=== PATIENT | male | born 1945 | race African-American/Black ===

== ENCOUNTER 2016-07-02 16:52 | Inpatient (IN) | payer MEDICARE ==
[~2016-07-02] VITALS: Ht 177.8 cm; Wt 58.5 kg
[2016-07-02] MEDS ORDERED: FLEET ENEMA133 ML RECTAL (17:03)
[2016-07-02] MEDS ORDERED: BISACODYL5 MG RC (17:03)
[2016-07-02 18:00] VITALS: BP 107/78
[2016-07-02 18:31] LABS: MEAN CORPUSCULAR HEMOGLOBIN 33.3 PG (27.0-31.0); MEAN CORPUSCULAR HGB CONC 34.5 G/DL (32.0-36.0); MEAN CORPUSCULAR VOLUME 97 FL (80-99); PLATELET COUNT 300 K/UL (150-450); RED BLOOD COUNT 2.79 M/UL (4.70-6.10); RED CELL DISTRIBUTION WIDTH 12.6 % (11.6-14.8); WHITE BLOOD COUNT 10.9 K/UL (4.8-10.8)
[2016-07-02 18:34] LABS: NEUTROPHILS % (AUTO) 85.7 % (45.0-75.0)
[2016-07-02 18:35] LABS: BASOPHILS % (AUTO) 0.8 % (0.0-2.0); EOSINOPHILS % (AUTO) 0.1 % (0.0-3.0); LYMPHOCYTES % (AUTO) 5.6 % (20.0-45.0); MONOCYTES % (AUTO) 7.9 % (1.0-10.0)
[2016-07-02 18:59] LABS: ALBUMIN/GLOBULIN RATIO 0.4 (1.0-2.7); CALCIUM 10.9 mg/dL (8.6-10.2); CREATININE 1.6 mg/dL (0.7-1.2); GLOMERULAR FILTRATION RATE 52.4 mL/min (>60); POTASSIUM 4.9 mEQ/L (3.4-4.9); TOTAL PROTEIN 8.3 g/dL (6.6-8.7)
[2016-07-02 19:10] LABS: CKMB 18.8 ng/mL (< 6.7)
[2016-07-02] MEDS ORDERED: Azithromycin 500 MG in D5W 275 ML IVPB ONE (19:15)
[2016-07-02] MEDS ORDERED: Cefepime HCl 2 GM in D5W 110 ML IVPB ONE (19:15)
[2016-07-02] MEDS ORDERED: Acetaminophen 650 MG SUPP RECTAL PRN (19:15)
--- NOTE | 2016-07-02 19:15 | Emergency Room Report ---
History of Present Illness General Chief Complaint: Dyspnea/Respdistress Source: EMS Present Illness HPI 70YOM sent from SNF for "elevated BUN". Patient has ?brain injury s/p cardiac arrest per EMS report. No other info available. Patient is "comfort care only." Allergies: Coded Allergies: No Known Allergies (Unverified , 07/02/16) Patient History Past Medical History: old chart reviewed, unable to obtain Past Surgical History: unable to obtain Pertinent Family History: unable to obtain Nursing Documentation-[facility] Past Medical History: No History, Except For Hx Asthma: No - ANEMIA Hx COPD: No - CONTRACTURE Hx Diabetes: Yes Hx Dialysis: No - CKD Hx Neurological Problems: No - PRESSURE ULCER Hx Seizures: No - BPH Review of Systems All Other Systems: limited - aphasic Physical Exam Vital Signs Date Time Temp Pulse Resp B/P Pulse Ox O2 Delivery O2 Flow Rate FiO2 07/02/16 16:49 117 48 116/77 97 Non-Rebreather 10.0 07/02/16 18:00 100.5 Sp02 EP Interpretation: reviewed, abnormal General Appearance: normal inspection, well appearing, non-toxic, mild distress , cachetic, Chronically Ill Head: normocephalic, atraumatic Eyes: bilateral eye EOMI, bilateral eye PERRL ENT: normal ENT inspection, hearing grossly normal, normal voice Medical Decision Making Medicare Attestation I Linus Mcqueen MD hereby attest that the medical record entry for date of service, 02/17/16 accurately reflects signatures/notations that I made in my capacity as MD when I treated/diagnosed the above listed Medicare beneficiary. I attest that this information is true, accurate and complete to the best of my knowledge. I understand that any falsification, omission, or concealment of material fact may subject me to administrative, civil, or criminal liability. This patient warrants hospital admission for extreme of age and has a condition that cannot be treated as outpatient. Diagnostic Impression: Primary Impression: Acute renal failure Qualified Codes: N17.9 - Acute kidney failure, unspecified Additional Impressions: Rhabdomyolysis Qualified Codes: M62.82 - Rhabdomyolysis Elevated liver enzymes Fever Qualified Codes: R50.9 - Fever, unspecified Pneumonia Qualified Codes: J18.1 - Lobar pneumonia, unspecified organism ER Course 70YOM sent from SNF for elevated BUN. VS notable for tachycardia, fever I confirmed with PMD Dr Bonner that patient is comfort care only/DNR/DNI, but still wants workup Labs: Leuks 11k. SCOOTER. Elevated LFTs. Rhabdomyolysis CXR with possible left sided PNA Empiric Abx given Blood, Urine Cx pending Gentle hydration for rhabdo/SCOOTER given patient is DNR/DNI Dr Bonner requesting JEFF admission at 715pm EKG Diagnostic Results Rate: tachycardiac Rhythm: NSR ST Segments: no acute changes ASA given to the pt in ED: No Rhythm Strip Diag. Results EP Interpretation: yes Rate: 120 Rhythm: NSR, no PVC's, no ectopy Chest X-Ray Diagnostic Results EP Interpretation: Yes Findings: no consolidation, no effusion, no pneumothorax, other - left sided infiltrate Number of Views: 1 Last Vital Signs Date Time Temp Pulse Resp B/P Pulse Ox O2 Delivery O2 Flow Rate FiO2 07/02/16 18:00 100.5 117 40 107/78 96 Simple Mask 6.0 Status: improved Disposition: ADMITTED INPATIENT Condition: Serious Referrals: ESHA BONNER (PCP) LINUS MCQUEEN M.D. Jul 02, 2016 19:15
[2016-07-02 19:21] LABS: BILIRUBIN,DIRECT 1.6 mg/dL (0.1-0.3)
[2016-07-02] MEDS ORDERED: Cefepime 2gm ONE (19:27)
[2016-07-02 19:45] VITALS: BP 108/53
[2016-07-02 19:45] LABS: APPEARANCE,URINE VERY CLOUDY; KETONES,URINE NEGATIVE (NEGATIVE); LEUKOCYTE ESTERASE ,URINE 2+ (NEGATIVE); NITRITE,URINE NEGATIVE (NEGATIVE); PH,URINE 5 (4.5-8.0); PROTEIN,URINE 3+ (NEGATIVE); UROBILINOGEN,URINE 4 MG/DL (0.0-1.0)
[2016-07-02] MEDS ORDERED: Azithromycin Inj IV ONE (20:17)
[2016-07-02 20:22] LABS: RBC,URINE TNTC /HPF (0 - 0); WBC,URINE TNTC /HPF (0 - 0)
[2016-07-02 20:23] LABS: BACTERIA,URINE MODERATE /HPF; SQUAMOUS EPITHELIAL CELL,UR FEW /LPF (NONE/OCC)
[2016-07-02 20:24] LABS: ICTOTEST POSITIVE
[2016-07-02 20:46] VITALS: BP 112/81
[2016-07-03 00:35] VITALS: BP 114/60
[2016-07-03] MEDS: D5NS 1,000 ML IV SCH ×3 (01:12→21:18)
[2016-07-03 04:31] VITALS: BP 120/74
[2016-07-03] MEDS: Albuterol ud Inhalation HHN PRN (05:16)
[2016-07-03] MEDS ORDERED: Vancomycin 1gm inj IVPB ONE (05:56)
[2016-07-03 06:14] LABS: MEAN CORPUSCULAR HEMOGLOBIN 30.3 PG (27.0-31.0); MEAN CORPUSCULAR HGB CONC 31.8 G/DL (32.0-36.0); MEAN CORPUSCULAR VOLUME 95 FL (80-99); MEAN PLATELET VOLUME 7.8 FL (6.5-10.1); PLATELET COUNT 308 K/UL (150-450); RED BLOOD COUNT 2.47 M/UL (4.70-6.10); WHITE BLOOD COUNT 11.3 K/UL (4.8-10.8)
[2016-07-03] MEDS: Vancomycin 1gm/D5W 275ml IVPB SCH ×2 (06:14)
[2016-07-03 06:28] LABS: CALCIUM 9.6 mg/dL (8.6-10.2); CREATININE 1.7 mg/dL (0.7-1.2); GLOMERULAR FILTRATION RATE 48.8 mL/min (>60); POTASSIUM 4.1 mEQ/L (3.4-4.9)
[2016-07-03 07:27] LABS: ANISOCYTOSIS 1+; BAND NEUTROPHILS % (MANUAL) 1 % (0-8); BASOPHILS % (MANUAL) 0 % (0-2); EOSINOPHILS % (MANUAL) 0 % (0-3); HYPOCHROMASIA 3+; LYMPHOCYTES % (MANUAL) 10 % (20-45); NEUTROPHILS % (MANUAL) 86 % (45-75); PLATELET ESTIMATE ADEQUATE; PLATELET MORPHOLOGY NORMAL; TOTAL CELLS COUNTED 100
[2016-07-03 08:00] VITALS: BP 108/63
[2016-07-03 08:36] LABS: MEAN CORPUSCULAR HEMOGLOBIN 30.6 PG (27.0-31.0); MEAN CORPUSCULAR VOLUME 96 FL (80-99); PLATELET COUNT 299 K/UL (150-450); RED BLOOD COUNT 2.48 M/UL (4.70-6.10); RED CELL DISTRIBUTION WIDTH 12.9 % (11.6-14.8); WHITE BLOOD COUNT 10.9 K/UL (4.8-10.8)
[2016-07-03 08:50] LABS: ANISOCYTOSIS 1+; BAND NEUTROPHILS % (MANUAL) 1 % (0-8); BASOPHILS % (MANUAL) 0 % (0-2); EOSINOPHILS % (MANUAL) 0 % (0-3); HYPOCHROMASIA 3+; LYMPHOCYTES % (MANUAL) 7 % (20-45); NEUTROPHILS % (MANUAL) 85 % (45-75); PLATELET ESTIMATE ADEQUATE; PLATELET MORPHOLOGY NORMAL; SPHEROCYTES 1+; TOTAL CELLS COUNTED 100
[2016-07-03 09:15] LABS: TROPONIN I < 0.30 ng/mL (<=0.30)
[2016-07-03] MEDS: Heparin 5000 units/ml inj SUBQ SCH ×2 (09:42→21:27)
--- NOTE | 2016-07-03 10:09 | Diagnostic Imaging Report ---
Indication: Status post nasogastric tube placement Technique: Supine view of the abdomen Comparison: None Findings: Nasogastric tube tip projects at the level of the distal esophagus. Prominent gas-filled large and small bowel loops are seen in the left upper quadrant. Infiltrates are seen in the left lung base Impression: High position of nasogastric tube, nasogastric. This critical value was previously phoned to patient's nurse Other findings as noted
[2016-07-03] MEDS ORDERED: D5W 275ml ONE (10:27)
[2016-07-03] MEDS ORDERED: NS Irrig 1000ml ONE (10:27)
[2016-07-03] MEDS ORDERED: Sterile Water Irrig 1000ml IRRIG ONE (10:27)
[2016-07-03] MEDS ORDERED: NS 275ml ONE (10:27)
[2016-07-03] MEDS ORDERED: D5NS 1000ml IV ONE (10:27)
[2016-07-03] MEDS ORDERED: Tubing IV Secondary IV ONE (10:27)
--- NOTE | 2016-07-03 11:02 | Diagnostic Imaging Report ---
Indication: Status post nasogastric tube insertion. Shortness of Technique: One view of the chest Comparison: 07/02/2016 Findings: Interim placement of a nasogastric tube, tip which projects at the level of the distal esophagus. Interim development of consolidation of the left mid and lower lung. Right lung and pleural space remain clear. Right arm PICC remains. Lungs remain hyperinflated Impression: High position of nasogastric tube, the distal esophagus. Further advancement recommended. This was discussed by phone with patient's nurse at the time of interpretation There are development of infiltrates in the left mid and lower lung, consistent with pneumonia.
--- NOTE | 2016-07-03 11:02 | Diagnostic Imaging Report ---
Indication: Shortness of breath Technique: One view of the chest Comparison: none Findings: The patient is rotated to the left. Lungs are hyperinflated. Some atelectasis and possibly consolidation is seen in the retrocardiac region. Lungs and pleural spaces otherwise clear. Dated The heart is upper limits normal in size. Aorta is elongated and tortuous. Right arm PICC has its tip at the level of the upper superior vena cava. Impression: Retrocardiac atelectasis and possibly some consolidation. Correlate with clinical findings Hyperinflation, likely COPD PICC
[2016-07-03 12:00] VITALS: BP 107/61
[2016-07-03] MEDS ORDERED: Amiodarone 200mg tab NG SCH (12:00)
[2016-07-03 16:00] VITALS: BP 118/74
--- NOTE | 2016-07-03 16:38 | Diagnostic Imaging Report ---
Indication: Abnormal renal function test Technique: Grayscale and duplex images of the kidneys, retroperitoneum, and bladder were obtained. Comparison:None Findings: Right kidney measures 10.4 cm in length. Left kidney measures 10.4 cm in length. Both kidneys demonstrate increased echogenicity. A 4 mm calcification is seen in the right kidney. It is uncertain whether this is parenchymal or calyceal. No hydronephrosis. No focal abnormality. Normal inferior vena cava. Bladder is normal. Impression: Negative for hydronephrosis Mildly increased bilateral renal echogenicity, may indicate early medical renal disease Calcification in the left kidney, may reflect either parenchymal calcification or nonobstructive calyceal calculus.
--- NOTE | 2016-07-03 16:43 | Diagnostic Imaging Report ---
Indication: Post nasogastric tube repositioning Technique: One view of the upper abdomen Comparison: One hour earlier Findings: Interim advancement of previously demonstrated malposition nasogastric tube, tip now projecting at level gastric fundus, proximal port of that expected region of the gastric esophageal junction. Other findings are unchanged. Impression: Improved position of nasogastric tube
[2016-07-03] MEDS: Cefepime HCl 1 GM in D5W 55 ML IVPB SCH (18:15)
--- NOTE | 2016-07-03 18:28 | Consultation ---
DATE OF CONSULTATION: NEPHROLOGY CONSULTATION ATTENDING PHYSICIAN: Washington Bonner M.D. REASON FOR CONSULTATION: Elevated BUN and creatinine. HISTORY OF PRESENT ILLNESS: This is a 70-year-old male from [facility] [place] was transferred to the hospital due to elevated BUN and creatinine. The patient is a DNR which was verified with the patient for the family. The patient is unable to give any further history. As stated above, the patient was transferred to the hospital due to elevation of BUN and creatinine. PAST MEDICAL HISTORY: 1. Chronic obstructive pulmonary disease. 2. Anoxic encephalopathy. 3. Decubitus ulcer. 4. Benign prostatic hypertrophy 5. Type 2 diabetes mellitus. 6. History of cocaine abuse and alcohol abuse. 7. Metabolic acidosis. MEDICATIONS: TPN, Colace, senna, milk of magnesia, albuterol inhalation ALLERGIES: No known drug allergies. FAMILY HISTORY: Unable to obtain. SOCIAL HISTORY: Unable to obtain. REVIEW OF SYSTEMS: Unable to obtain. PHYSICAL EXAMINATION: GENERAL: This is an elderly cachectic male, who is in no acute distress. VITAL SIGNS: Blood pressure 108/63, pulse 160 with sinus tachycardia, temperature 97.3 axillary. HEENT: The head is normocephalic and atraumatic. Pupils are equal, round, and reactive to light and accommodation. NECK: Supple. Trachea midline. There was no lymphadenopathy or thyromegaly. LUNGS: Few bilateral rhonchi. CHEST: Has pigeon chest. CARDIAC: Tachycardia. S1 and S2. No rubs, murmurs, or gallops. ABDOMEN: Soft and nontender. Bowel sounds were active. EXTREMITIES: He has multiple contractures. No clubbing, cyanosis, or edema. NEUROLOGICAL: He is obtunded. There were no gross focal findings. LABORATORY AND ANCILLARY DATA: CBC on admission, his white count was 10,900, which is unchanged. Since admission hematocrit 26.9, today 23.7. Admission BUN 84, today 86. Creatinine 1.6, today 1.7. Urinalysis, 5 + occult blood, sediment shows 2+ leukocyte esterase, too numerous to count RBCs, too numerous to count white blood cells. Abdominal x-ray, high position of nasogastric tube. ASSESSMENT: 1. Prerenal azotemia. 2. Urosepsis. 3. Chronic obstructive pulmonary disease. 4. Anoxic encephalopathy. 5. Decubitus ulcer. 6. Benign prostatic hypertrophy 7. Type 2 diabetes mellitus. 8. History of cocaine abuse and alcohol abuse. 9. Metabolic acidosis. PLAN: 1. IV fluids rehydration. 2. IV antibiotics. 3. I will follow together with Dr. Bonner. Thank you, Dr. Bonner, for letting me to participate in the care of this patient. Campbell Plascencia M.D. DR: Chencho JOB#: [id number] CC:
--- NOTE | 2016-07-03 19:47 | History and Physical Report ---
DATE OF ADMISSION: 07/02/2016 REASON FOR ADMISSION: Acute renal failure and hypotension. HISTORY OF PRESENT ILLNESS: The patient is a 70-year-old male, sent in for correction, noted to have worsening BUN and creatinine. The patient has altered mental status. I discussed with his sister who did not want any aggressive measures but did want him to be further evaluated by EEG and did consent to a GT. The patient was therefore transferred due to worsening renal function, the patient with acute on chronic renal failure with concern for mild rhabdomyolysis, fever, and also noted to have pneumonia on x-ray. The patient unable to give much in the way of history. The patient had been residing at [facility] on TPN and currently do not want tube placement. The patient has multiple medical problems and multiple medical issues. PAST MEDICAL HISTORY: Notable for pressure ulcers, chronic kidney disease, contractures, anemia, altered mental status, chronic encephalopathy, benign prostatic hyperplasia. MEDICATIONS: Reviewed. ALLERGIES: Reviewed REVIEW OF SYSTEMS: Difficult to obtain. PHYSICAL EXAMINATION: GENERAL: The patient is an ill appearing male, overall chronically ill and thin. VITAL SIGNS: O2 saturation 98% on two liters, pulse 106, respiratory rate 22, temperature 97.3, blood pressure 108/63. HEENT: Fairly negative. Oropharynx is dry NECK: Supple. No adenopathy. LUNGS: With moderate breath sounds. Scattered rhonchi. CARDIAC: S1 and S2, tachycardiac without murmurs, rubs, or gallops. ABDOMEN: Soft, thin, nontender, and nondistended. EXTREMITIES: No cyanosis, clubbing, or edema. NEUROLOGIC: Grossly nonfocal, withdrawn and nonverbal. LABORATORY DATA: Lab data reviewed. White cell count 10.9, hemoglobin 10.6, hematocrit 33.7, platelets normal. all other lab data reviewed BUN and creatinine 86 and 1.7. Sodium 139, potassium 4.1, bicarbonate 18. Troponin is negative. Liver enzymes are all elevated. IMPRESSION: 1. Possible rhabdomyolysis. 2. Acute on chronic renal failure. 3. Failure to thrive. 4. Evidence of transaminitis possibly due to TPN use. 5. Altered mental status. 6. Chronic encephalopathy. 7. Chronic debility. 8. Evidence of pneumonia. RECOMMENDATIONS: 1. Antibiotics as prescribed. 2. NG tube placement and thereafter G-tube placement as per GI. 3. ID called. 4. Renal called. 5. Empiric antibiotics for correction-acquired infection. 6. Followup renal parameters and monitor clinically for further changes. 7. Nebulized therapy and close inpatient evaluation. 8. The patient is Do Not Resuscitate as per wishes of his sister and we will followup clinically and update her as to status and plan of care Washington Bonner M.D. DR: Mehran JOB#: [id number] CC: JOSE E
[2016-07-03 20:00] VITALS: BP 131/72
--- NOTE | 2016-07-03 20:51 | Wound Care Consultation ---
Wound Assessment Wound Assessment #1: Wound Present on Admission: Yes New Wound: No Status Change of Wound: No Wound Location Body Site: sacral Wound Type: pressure ulcer Garry Test: Does not Garry Pressure Ulcer Stage: IV/unstageable Wound Thickness: Full Thickness Wound Length: 6.5 Wound Width: 13.0 Wound Depth: utd Percent of Wound Bed Yellow/Wh: 100 Wound Drainage Description: Serosanguineous Wound Drainage Amount: Moderate Wound Drainage Odor: Mild Odor Tissue Surrounding Wound: Macerated Wound General Appearance: Draining, Necrotic Wound Assessment #2: Wound Number: #2 Wound Present on Admission: Yes New Wound: No Status Change of Wound: No Wound Location Body Site Modif: left Wound Location Body Site: ischial tuberosity Wound Type: pressure ulcer Garry Test: Does not Garry Pressure Ulcer Stage: IV/unstageable Wound Thickness: Full Thickness Wound Length: 5.0 Wound Width: 4.0 Wound Depth: utd Percent of Wound Laird/Red: 30 Percent of Wound Bed Yellow/Wh: 70 Wound Drainage Description: Serosanguineous Wound Drainage Amount: Moderate Wound Drainage Odor: Mild Odor Tissue Surrounding Wound: Macerated Wound General Appearance: Draining Wound Assessment #3: Wound Number: #3 Wound Present on Admission: Yes New Wound: No Status Change of Wound: No Wound Location Body Site Modif: left Wound Location Body Site: buttocks Wound Type: pressure ulcer Garry Test: Does not Garry Pressure Ulcer Stage: III Wound Thickness: Full Thickness Wound Length: 2.0 Wound Width: 2.5 Wound Depth: 0.3 Percent of Wound Laird/Red: 100 Wound Drainage Description: Serosanguineous Wound Drainage Amount: Moderate Wound Drainage Odor: None/Absent Tissue Surrounding Wound: Macerated Wound General Appearance: Reddened, Well Approximated, Draining Wound Assessment #4: Wound Number: #4 Wound Present on Admission: Yes New Wound: No Status Change of Wound: No Wound Location Body Site Modif: left Wound Location Body Site: elbow Wound Type: pressure ulcer Garry Test: Does not Garry Pressure Ulcer Stage: III Wound Thickness: Full Thickness Wound Length: 2.0 Wound Width: 2.5 Wound Depth: 0.3 Percent of Wound Laird/Red: 100 Wound Drainage Description: Serosanguineous Wound Drainage Amount: Scant Wound Drainage Odor: None/Absent Tissue Surrounding Wound: Erythemic Wound General Appearance: Reddened Wound Assessment #5: Wound Number: #5 Wound Present on Admission: Yes New Wound: No Status Change of Wound: No Wound Location Body Site Modif: left Wound Location Body Site: heel Wound Type: pressure ulcer Garry Test: Does not Garry Pressure Ulcer Stage: deep tissue injury Wound Thickness: Full Thickness Wound Length: 3.5 Wound Width: 4.0 Wound Depth: utd Percent of Wound Purple/Maroon: 100 Wound Drainage Amount: None Wound Drainage Odor: None/Absent Tissue Surrounding Wound: Intact Wound General Appearance: Asymptomatic Wound Assessment #6: Wound Number: #6 Wound Present on Admission: Yes New Wound: No Status Change of Wound: No Wound Location Body Site Modif: left Wound Location Body Site: ear Wound Type: pressure ulcer Garry Test: Does not Garry Pressure Ulcer Stage: IV/unstageable Wound Thickness: Full Thickness Wound Length: 1.0 Wound Width: 0.8 Wound Depth: utd Percent of Wound Black/Brown: 100 Wound Drainage Amount: None Wound Drainage Odor: None/Absent Tissue Surrounding Wound: Indurated Wound Assessment #7: Wound Number: #7 Wound Present on Admission: Yes New Wound: No Status Change of Wound: No Wound Location Body Site Modif: right Wound Location Body Site: ear Wound Type: pressure ulcer Garry Test: Does not Garry Pressure Ulcer Stage: IV/unstageable Wound Thickness: Full Thickness Wound Length: 2.0 Wound Width: 1.0 Wound Depth: utd Percent of Wound Black/Brown: 100 Wound Drainage Description: Serosanguineous Wound Drainage Amount: Scant Wound Drainage Odor: None/Absent Tissue Surrounding Wound: Macerated Wound General Appearance: Blackened, Draining Wound Comment #1 Sacral stage IV/unstageable pressure ulcer #2 Left ischial tuberosity stage IV/unstageable pressure ulcer #3 Left buttock stage III pressure ulcer #4 Left elbow stage III pressure ulcer #5 Left heel DTI pressure ulcer #6 Left ear stage IV/unstageable pressure ulcer #7 Right ear stage IV/unstageable pressure ulcer Recommendation -Sacral area and Left ischial tuberosity Cleanse with saline, pat dry, apply Therahoney gel to wound bed, apply 4x4 gauze cover with Bordered gauze daily and PRN soiled/dislodged -Left buttock,Left elbow, left ear and right ear Cleanse with saline, pat dry, apply Triad cream, cover with Bordered gauze daily and PRN soiled/dislodged -Left heel DTI Cleanse with saline, pat dry, apply skin Barrier film, cover with bordered gauze Q3 day and PRN soiled/dislodged -Turn and reposition -Keep clean and dry -Optimize nutrition -Low air loss mattress -Offload both heels -Heel protector on both heels -Assess and f/u accordingly for any changes YOKASTA BLAIR RN Jul 03, 2016 20:51
[2016-07-03] MEDS: Amiodarone 200mg tab NG SCH (21:18)
[2016-07-03] MEDS: Vitamin A&D Oint 2oz Tube TOPIC SCH (23:29)
[2016-07-04 00:51] VITALS: BP 117/73
[2016-07-04] MEDS: Vancomycin 1gm/D5W 275ml IVPB SCH ×2 (03:00)
[2016-07-04 04:00] VITALS: BP 121/73
[2016-07-04 05:39] LABS: MEAN CORPUSCULAR HEMOGLOBIN 31.1 PG (27.0-31.0); MEAN CORPUSCULAR VOLUME 94 FL (80-99); PLATELET COUNT 280 K/UL (150-450); RED BLOOD COUNT 2.97 M/UL (4.70-6.10); RED CELL DISTRIBUTION WIDTH 14.2 % (11.6-14.8); WHITE BLOOD COUNT 11.4 K/UL (4.8-10.8)
[2016-07-04 06:24] LABS: ANION GAP 18 (5-15); CALCIUM 9.5 mg/dL (8.6-10.2); CARBON DIOXIDE 17 mEQ/L (20-30); CHLORIDE 111 mEQ/L (98-107); CREATININE 1.4 mg/dL (0.7-1.2); GLOMERULAR FILTRATION RATE > 60 mL/min (>60); HEMOLYSIS 1; MAGNESIUM 2.3 mg/dL (1.7-2.5); POTASSIUM 3.4 mEQ/L (3.4-4.9); SODIUM 146 mEQ/L (135-145)
[2016-07-04] MEDS: D5NS 1,000 ML IV SCH (07:06)
[2016-07-04 08:00] VITALS: BP 130/70
--- NOTE | 2016-07-04 08:10 | Pulmonology Progress Note ---
Assessment/Plan Assessment/Plan IMPRESSION: 1. Possible rhabdomyolysis. 2. Acute on chronic renal failure. 3. Failure to thrive. 4. Evidence of transaminitis possibly due to TPN use. 5. Altered mental status. 6. Chronic encephalopathy. 7. Chronic debility. 8. Evidence of pneumonia. 9. aspiration 10. protein calorie malnutrition PLAN IV antibiotic IV hydration meds NGT GI ID DNI await family response aspiration precautions impression, plan, and exam edited and reviewed in detail care discussed with RN Subjective ROS Limited/Unobtainable: Yes Allergies: Coded Allergies: No Known Allergies (Unverified , 07/02/16) Subjective message left for sister no response yet previously agreed to GT and wanted EEG Objective Last 24 Hour Vital Signs Date Time Temp Pulse Resp B/P Pulse Ox O2 Delivery O2 Flow Rate FiO2 07/04/16 04:00 98.6 79 24 121/73 99 Nasal Cannula 3.0 07/04/16 03:51 81 07/04/16 00:51 98.1 88 28 117/73 99 Nasal Cannula 3.0 07/03/16 23:42 93 07/03/16 20:16 95 07/03/16 20:00 98.1 96 32 131/72 97 Nasal Cannula 3.0 07/03/16 19:00 Nasal Cannula 2.0 07/03/16 19:00 105 32 Nasal Cannula 2.0 07/03/16 19:00 98 Nasal Cannula 2.0 07/03/16 16:04 104 07/03/16 16:00 98.2 105 30 118/74 99 Nasal Cannula 6.0 07/03/16 12:00 98.1 107 26 107/61 95 Nasal Cannula 3.0 07/03/16 11:21 103 07/03/16 09:24 Simple Mask 6.0 07/03/16 08:21 105 Intake and Output 07/03/16 07/04/16 18:59 06:59 Intake Total 1495.000 ml 1617.416 ml Output Total 1000 ml 1000 ml Balance 495.000 ml 617.416 ml IV Total 995.000 ml 1567.416 ml Blood Product 500 ml Other 50 ml Output Urine Total 1000 ml 1000 ml Objective GENERAL: The patient is an ill appearing male, overall chronically ill and thin. HEENT: Fairly negative. Oropharynx is dry NECK: Supple. No adenopathy. LUNGS: With moderate breath sounds. some rhonchi. CARDIAC: S1 and S2, RRR without murmurs, rubs, or gallops. ABDOMEN: Soft, thin, nontender, and nondistended. EXTREMITIES: No cyanosis, clubbing, or edema. NEUROLOGIC: Grossly nonfocal, withdrawn and nonverbal. Microbiology Date/Time Source Procedure Growth Status 07/02/16 18:00 Blood Blood Culture - Preliminary NO GROWTH AFTER 24 HOURS Resulted 07/02/16 17:45 Blood Blood Culture - Preliminary NO GROWTH AFTER 24 HOURS Resulted 07/02/16 18:00 Urine,Clean Catch Urine Culture - Preliminary NO GROWTH Resulted 07/02/16 18:20 Rectum VRE Culture - Final NO VANCOMYCIN RESISTANT ENTEROCOCCUS ... Complete Laboratory Tests 07/03/16 08:10: White Blood Count 10.9H, Red Blood Count 2.48L, Hemoglobin 7.6L, Hematocrit 23.7L, Mean Corpuscular Volume 96, Mean Corpuscular Hemoglobin 30.6, Mean Corpuscular Hemoglobin Concent 32.0, Red Cell Distribution Width 12.9, Platelet Count 299, Mean Platelet Volume 8.0, Neutrophils (%) (Auto) , Lymphocytes (%) ( Auto) , Monocytes (%) (Auto) , Eosinophils (%) (Auto) , Basophils (%) (Auto) , Differential Total Cells Counted 100, Neutrophils % (Manual) 85H, Lymphocytes % (Manual) 7L, Monocytes % (Manual) 7, Eosinophils % (Manual) 0, Basophils % ( Manual) 0, Band Neutrophils 1, Platelet Estimate Adequate, Platelet Morphology Normal, Hypochromasia 3+, Anisocytosis 1+, Spherocytes 1+, Troponin I < 0.30 07/04/16 04:00: White Blood Count 11.4H, Red Blood Count 2.97L, Hemoglobin 9.2L, Hematocrit 28.0L, Mean Corpuscular Volume 94, Mean Corpuscular Hemoglobin 31.1H, Mean Corpuscular Hemoglobin Concent 33.0, Red Cell Distribution Width 14.2, Platelet Count 280, Mean Platelet Volume 8.0, Neutrophils (%) (Auto) , Lymphocytes (%) ( Auto) , Monocytes (%) (Auto) , Eosinophils (%) (Auto) , Basophils (%) (Auto) , Neutrophils % (Manual) [Pending], Lymphocytes % (Manual) [Pending], Platelet Estimate [Pending], Platelet Morphology [Pending], Sodium Level 146H, Potassium Level 3.4, Chloride Level 111H, Carbon Dioxide Level 17L, Anion Gap 18H, Blood Urea Nitrogen 72H, Creatinine 1.4H, Estimat Glomerular Filtration Rate > 60, Glucose Level 128H, Calcium Level 9.5, Magnesium Level 2.3 Current Medications Medications (Trade) Dose Ordered Sig/Alex Route PRN Reason Start Time Stop Time Status Last Admin Dose Admin Albuterol Sulfate (Proventil) 2.5 mg Q4H PRN HHN while awake 07/03/16 00:30 07/08/16 00:29 07/03/16 05:16 Amiodarone HCl (Cordarone) 200 mg EVERY 12 HOURS NG 07/03/16 21:00 08/02/16 20:59 07/03/16 21:18 Cefepime HCl/ Dextrose (Maxipime/D5W) 55 ml @ 110 mls/hr Q24H IVPB 07/03/16 18:00 07/10/16 17:59 07/03/16 18:15 Dextrose/Sodium Chloride 1,000 ml @ 100 mls/hr Q10H IV 07/03/16 02:00 08/02/16 01:59 07/04/16 07:06 Heparin Sodium (Porcine) (Heparin 5000 units/ml) 5,000 units EVERY 12 HOURS SUBQ 07/03/16 09:00 08/02/16 08:59 07/03/16 21:27 Morphine Sulfate (Morphine Sulfate) 2 mg Q3H PRN IVP PAIN 4-10 07/03/16 11:45 07/10/16 11:44 Vancomycin HCl 1 ea 1 ea DAILY PRN MISC Per rx protocol 07/03/16 01:30 08/02/16 01:29 Vancomycin HCl/ Dextrose (Vancomycin/D5W) 275 ml @ 183.708 mls/hr Q24H IVPB 07/03/16 03:00 07/08/16 02:59 07/04/16 03:00 Vitamin A/Vitamin D (A & D Oint) 1 applic EVERY 12 HOURS TOPIC 07/03/16 23:00 08/02/16 22:59 07/03/16 23:29 ESHA BEY Jul 04, 2016 08:10
[2016-07-04] MEDS: Amiodarone 200mg tab NG SCH ×2 (08:56→21:10)
[2016-07-04] MEDS: Heparin 5000 units/ml inj SUBQ SCH ×2 (08:59→21:11)
[2016-07-04] MEDS: Vitamin A&D Oint 2oz Tube TOPIC SCH ×2 (09:00→21:23)
--- NOTE | 2016-07-04 09:23 | Nephrology Progress Note ---
Assessment/Plan Plan 1. 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 Urosepsis. 4. Chronic obstructive pulmonary disease. 4. Anoxic encephalopathy. 5. Decubitus ulcer. 6. Benign prostatic hypertrophy 7. Type 2 diabetes mellitus. 8. History of cocaine abuse and alcohol abuse. 9. Metabolic acidosis plan change IVF to D51/2NS @75 cc/h monitor I/O, eelctrolytes continue Abx Subjective Subjective No acute event Objective Objective Last 24 Hour Vital Signs Date Time Temp Pulse Resp B/P Pulse Ox O2 Delivery O2 Flow Rate FiO2 07/04/16 08:37 99 Nasal Cannula 2.0 07/04/16 08:37 Nasal Cannula 2.0 07/04/16 08:36 81 24 Nasal Cannula 2.0 07/04/16 08:00 97.2 87 20 130/70 97 Nasal Cannula 2.0 07/04/16 04:00 98.6 79 24 121/73 99 Nasal Cannula 3.0 07/04/16 03:51 81 07/04/16 00:51 98.1 88 28 117/73 99 Nasal Cannula 3.0 07/03/16 23:42 93 07/03/16 20:16 95 07/03/16 20:00 98.1 96 32 131/72 97 Nasal Cannula 3.0 07/03/16 19:00 Nasal Cannula 2.0 07/03/16 19:00 105 32 Nasal Cannula 2.0 07/03/16 19:00 98 Nasal Cannula 2.0 07/03/16 16:04 104 07/03/16 16:00 98.2 105 30 118/74 99 Nasal Cannula 6.0 07/03/16 12:00 98.1 107 26 107/61 95 Nasal Cannula 3.0 07/03/16 11:21 103 07/03/16 09:24 Simple Mask 6.0 Intake and Output 07/03/16 07/04/16 18:59 06:59 Intake Total 1495.000 ml 1617.416 ml Output Total 1000 ml 1000 ml Balance 495.000 ml 617.416 ml IV Total 995.000 ml 1567.416 ml Blood Product 500 ml Other 50 ml Output Urine Total 1000 ml 1000 ml Laboratory Tests 07/04/16 04:00: White Blood Count 11.4H, Red Blood Count 2.97L, Hemoglobin 9.2L, Hematocrit 28.0L, Mean Corpuscular Volume 94, Mean Corpuscular Hemoglobin 31.1H, Mean Corpuscular Hemoglobin Concent 33.0, Red Cell Distribution Width 14.2, Platelet Count 280, Mean Platelet Volume 8.0, Neutrophils (%) (Auto) , Lymphocytes (%) ( Auto) , Monocytes (%) (Auto) , Eosinophils (%) (Auto) , Basophils (%) (Auto) , Neutrophils % (Manual) [Pending], Lymphocytes % (Manual) [Pending], Platelet Estimate [Pending], Platelet Morphology [Pending], Sodium Level 146H, Potassium Level 3.4, Chloride Level 111H, Carbon Dioxide Level 17L, Anion Gap 18H, Blood Urea Nitrogen 72H, Creatinine 1.4H, Estimat Glomerular Filtration Rate > 60, Glucose Level 128H, Calcium Level 9.5, Magnesium Level 2.3 Height (Feet): 5 Height (Inches): 10.00 Weight (Pounds): 150 Objective NAD bilat basilar crackles+ S1,S2,RRR, no M/R/G soft, non tender, BS+ no edema CALHOUN,LUCRETIA Jul 04, 2016 09:23
[2016-07-04 09:27] LABS: BAND NEUTROPHILS % (MANUAL) 0 % (0-8); BASOPHILS % (MANUAL) 0 % (0-2); EOSINOPHILS % (MANUAL) 0 % (0-3); LYMPHOCYTES % (MANUAL) 7 % (20-45); NEUTROPHILS % (MANUAL) 91 % (45-75); PLATELET ESTIMATE ADEQUATE; PLATELET MORPHOLOGY NORMAL; TOTAL CELLS COUNTED 100
[2016-07-04 09:28] LABS: HYPOCHROMASIA 1+
[2016-07-04] MEDS: D5 1/2NS 1,000 ML IV SCH ×2 (11:40→23:41)
[2016-07-04 12:01] VITALS: BP 124/78
[2016-07-04] MEDS: Albuterol ud Inhalation HHN PRN (14:30)
[2016-07-04 16:12] VITALS: BP 122/77
[2016-07-04] MEDS: Cefepime HCl 1 GM in D5W 55 ML IVPB SCH (17:20)
--- NOTE | 2016-07-04 19:52 | General Progress Note ---
Assessment/Plan Problem List: (1) Fever ICD Codes: R50.9 - Fever, unspecified SNOMED: 038263182 Qualifiers: Qualified Codes: R50.9 - Fever, unspecified (2) Acute renal failure ICD Codes: N17.9 - Acute kidney failure, unspecified SNOMED: 37636179 Qualifiers: Qualified Codes: N17.9 - Acute kidney failure, unspecified (3) Pneumonia ICD Codes: J18.9 - Pneumonia, unspecified organism SNOMED: 621931217, 444527014 Qualifiers: Qualified Codes: J18.1 - Lobar pneumonia, unspecified organism (4) Elevated liver enzymes ICD Codes: R74.8 - Abnormal levels of other serum enzymes SNOMED: 644409960, 143238894 (5) Rhabdomyolysis ICD Codes: M62.82 - Rhabdomyolysis SNOMED: 095708293 Qualifiers: Qualified Codes: M62.82 - Rhabdomyolysis Status: stable, unchanged Assessment/Plan ivf ngt feeds iv abx follow up cultures monitor labs skin care Subjective ROS Limited/Unobtainable: Yes Constitutional: Reports: weakness HEENT: Reports: no symptoms Cardiovascular: Reports: no symptoms Respiratory: Reports: shortness of breath Gastrointestinal/Abdominal: Reports: difficulty swallowing, poor appetite, poor fluid intake Genitourinary: Reports: no symptoms Neurologic/Psychiatric: Reports: pre-existing deficit Endocrine: Reports: no symptoms Hematologic/Lymphatic: Reports: anemia Allergies: Coded Allergies: No Known Allergies (Unverified , 07/02/16) All Systems: reviewed and negative except above Subjective events noted. chart review. tolerating ngt feeds. awake but does not answer questions or follow commands. Objective Last 24 Hour Vital Signs Date Time Temp Pulse Resp B/P Pulse Ox O2 Delivery O2 Flow Rate FiO2 07/04/16 16:12 98.9 100 19 122/77 99 Nasal Cannula 3.0 07/04/16 16:00 102 07/04/16 14:40 110 25 99 Nasal Cannula 3.0 32 07/04/16 14:30 100 25 98 Nasal Cannula 3.0 32 07/04/16 12:01 97.4 87 19 124/78 98 Nasal Cannula 2.0 07/04/16 12:00 83 07/04/16 08:37 99 Nasal Cannula 2.0 07/04/16 08:37 Nasal Cannula 2.0 07/04/16 08:36 81 24 Nasal Cannula 2.0 07/04/16 08:00 83 07/04/16 08:00 97.2 87 20 130/70 97 Nasal Cannula 2.0 07/04/16 04:00 98.6 79 24 121/73 99 Nasal Cannula 3.0 07/04/16 03:51 81 07/04/16 00:51 98.1 88 28 117/73 99 Nasal Cannula 3.0 07/03/16 23:42 93 07/03/16 20:16 95 07/03/16 20:00 98.1 96 32 131/72 97 Nasal Cannula 3.0 Intake and Output 07/03/16 07/04/16 19:00 07:00 Intake Total 1495.000 ml 1517.416 ml Output Total 1000 ml 1000 ml Balance 495.000 ml 517.416 ml IV Total 995.000 ml 1467.416 ml Blood Product 500 ml Other 50 ml Output Urine Total 1000 ml 1000 ml Laboratory Tests 07/04/16 04:00: White Blood Count 11.4H, Red Blood Count 2.97L, Hemoglobin 9.2L, Hematocrit 28.0L, Mean Corpuscular Volume 94, Mean Corpuscular Hemoglobin 31.1H, Mean Corpuscular Hemoglobin Concent 33.0, Red Cell Distribution Width 14.2, Platelet Count 280, Mean Platelet Volume 8.0, Neutrophils (%) (Auto) , Lymphocytes (%) ( Auto) , Monocytes (%) (Auto) , Eosinophils (%) (Auto) , Basophils (%) (Auto) , Differential Total Cells Counted 100, Neutrophils % (Manual) 91H, Lymphocytes % (Manual) 7L, Monocytes % (Manual) 2, Eosinophils % (Manual) 0, Basophils % ( Manual) 0, Band Neutrophils 0, Platelet Estimate Adequate, Platelet Morphology Normal, Hypochromasia 1+, Sodium Level 146H, Potassium Level 3.4, Chloride Level 111H, Carbon Dioxide Level 17L, Anion Gap 18H, Blood Urea Nitrogen 72H, Creatinine 1.4H, Estimat Glomerular Filtration Rate > 60, Glucose Level 128H, Calcium Level 9.5, Magnesium Level 2.3 Height (Feet): 5 Height (Inches): 10.00 Weight (Pounds): 150 General Appearance: WD/WN, confused, cachetic, thin Neck: supple Cardiovascular: normal rate, regular rhythm Respiratory/Chest: lungs clear, normal breath sounds Abdomen: normal bowel sounds, non tender, soft, no organomegaly, no mass Edema: no edema noted Arm (L), no edema noted Arm (R), no edema noted Leg (L), no edema noted Leg (R), no edema noted Pedal (L), no edema noted Pedal (R), no edema noted Generalized Neurologic: alert, aphasia FAWN PORTER Jul 04, 2016 19:52
[2016-07-04 20:00] VITALS: BP 117/81
--- NOTE | 2016-07-04 20:48 | Consultation ---
DATE OF CONSULTATION: 07/04/2016 CHIEF COMPLAINT: Anemia and dysphagia. HISTORY OF PRESENT ILLNESS: Most of history per chart. This is a 70-year-old patient, was brought to the emergency room at [facility] because of elevated BUN and creatinine. The patient apparently had a status post cardiac arrest per EMS and the patient was brought here. PAST MEDICAL HISTORY: 1. History of seizure disorder. 2. Dysphagia, currently on TPN prior to admission. 3. Chronic obstructive pulmonary disease/asthma. 4. Renal disease. 5. Diabetes. 6. Anemia. PAST SURGICAL HISTORY: Unknown. ALLERGIES: No known drug allergies. MEDICATIONS: Please see medication reconciliation list. REVIEW OF SYSTEMS: Unable to obtain. PHYSICAL EXAMINATION: VITAL SIGNS: Temperature 97.4, pulse 87, blood pressure 124/78, and pulse 87. HEENT: Normocephalic and atraumatic. Mild pale conjunctivae. NECK: Supple. No lymphadenopathy. CARDIOVASCULAR: Regular rate and rhythm. Plus S1 and S2. LUNGS: Decreased breath sounds bilaterally diffusely. ABDOMEN: Soft and nontender. No rebound. No guarding. No peritoneal sign. EXTREMITIES: No cyanosis, no clubbing, and no edema. NEUROLOGICAL: Unable to obtain. LABORATORY DATA: Sodium 146, potassium 3.4, BUN is 72, and creatinine is 1.4. Glucose is 128. Bilirubin is 2.4 and direct is 1.6. AST of 218, ALT of 219, and alkaline phosphatase of 361. ASSESSMENT AND PLAN: This is a 62-year-old male with dysphagia, anemia, renal insufficiency correction, diabetes, and abnormal liver function test. PLAN: The patient currently has an NG tube in place. We will start feeding through the NG tube. Repeat labs tomorrow, especially liver function test. Abdominal ultrasound for evaluation of positive abnormal liver function test. Anemia workup. Follow up with nephrology. The patient at one point might need . I want to thank Dr. Washington Bonner for this kind referral. Griffin Albert M.D. DR: HILLARY JOB#: [id number] CC: Washington Bonner M.D.; Fax#: [phone]
[2016-07-05 00:42] VITALS: BP 129/77
[2016-07-05] MEDS: Vancomycin 1gm/D5W 275ml IVPB SCH ×2 (03:07)
[2016-07-05 04:00] VITALS: BP 139/86
[2016-07-05 05:29] LABS: MEAN CORPUSCULAR HEMOGLOBIN 30.2 PG (27.0-31.0); MEAN CORPUSCULAR HGB CONC 31.8 G/DL (32.0-36.0); MEAN CORPUSCULAR VOLUME 95 FL (80-99); MEAN PLATELET VOLUME 8.4 FL (6.5-10.1); PLATELET COUNT 288 K/UL (150-450); RED BLOOD COUNT 3.13 M/UL (4.70-6.10); WHITE BLOOD COUNT 12.1 K/UL (4.8-10.8)
[2016-07-05 05:30] LABS: INR 1.2 (0.9-1.1)
[2016-07-05 05:43] LABS: ALANINE AMINOTRANSFERASE 195 U/L (3-41); ALBUMIN/GLOBULIN RATIO 0.4 (1.0-2.7); ANION GAP 16 (5-15); ASPARTATE AMINO TRANSFERASE 150 U/L (5-40); CALCIUM 9.6 mg/dL (8.6-10.2); CARBON DIOXIDE 19 mEQ/L (20-30); CHLORIDE 113 mEQ/L (98-107); CREATININE 1.4 mg/dL (0.7-1.2); GLOMERULAR FILTRATION RATE > 60 mL/min (>60); HEMOLYSIS 0; POTASSIUM 3.4 mEQ/L (3.4-4.9); SODIUM 148 mEQ/L (135-145); TOTAL PROTEIN 6.8 g/dL (6.6-8.7)
[2016-07-05 05:44] LABS: HEMOLYSIS 0; IRON 19 ug/dL (59-158); TOTAL IRON BINDING CAPACITY 116 ug/dL (250-400)
[2016-07-05 05:45] LABS: AMMONIA 17 umol/L (16-60)
[2016-07-05 07:59] VITALS: BP 125/80
--- NOTE | 2016-07-05 07:59 | Diagnostic Imaging Report ---
Indications: Nasogastric tube placement Technique: Portable supine AP abdomen at 1701 Findings: Comparison: 1043 Nasogastric tube remains in place within the proximal aspect of the stomach. Lower abdomen, pelvis excluded from image. Visualized bowel gas pattern remains unremarkable. Bilateral pulmonary interstitial infiltrates, left greater than right, unchanged. IMPRESSION: Nasogastric tube in stomach No other change from 6 hours prior
--- NOTE | 2016-07-05 08:28 | General Progress Note ---
Assessment/Plan Problem List: (1) Fever ICD Codes: R50.9 - Fever, unspecified SNOMED: 837804875 Qualifiers: Qualified Codes: R50.9 - Fever, unspecified (2) Acute renal failure ICD Codes: N17.9 - Acute kidney failure, unspecified SNOMED: 52556548 Qualifiers: Qualified Codes: N17.9 - Acute kidney failure, unspecified (3) Pneumonia ICD Codes: J18.9 - Pneumonia, unspecified organism SNOMED: 922651792, 365578639 Qualifiers: Qualified Codes: J18.1 - Lobar pneumonia, unspecified organism (4) Elevated liver enzymes ICD Codes: R74.8 - Abnormal levels of other serum enzymes SNOMED: 119509672, 828933137 (5) Rhabdomyolysis ICD Codes: M62.82 - Rhabdomyolysis SNOMED: 919678193 Qualifiers: Qualified Codes: M62.82 - Rhabdomyolysis Status: stable, progressing Assessment/Plan ivf ngt feeds iv abx follow up cultures monitor labs skin care Subjective ROS Limited/Unobtainable: Yes Constitutional: Reports: malaise, weakness HEENT: Reports: no symptoms Cardiovascular: Reports: no symptoms Respiratory: Reports: cough Gastrointestinal/Abdominal: Reports: difficulty swallowing Genitourinary: Reports: no symptoms Neurologic/Psychiatric: Reports: pre-existing deficit Endocrine: Reports: no symptoms Hematologic/Lymphatic: Reports: anemia Allergies: Coded Allergies: No Known Allergies (Unverified , 07/02/16) All Systems: reviewed and negative except above Subjective events noted. chart review. tolerating ngt feeds- currently on hold for abd niesha. awake but does not answer questions or follow commands. Objective Last 24 Hour Vital Signs Date Time Temp Pulse Resp B/P Pulse Ox O2 Delivery O2 Flow Rate FiO2 07/05/16 08:02 84 07/05/16 07:59 98.1 84 18 125/80 99 Nasal Cannula 3.0 07/05/16 04:00 98.2 83 24 139/86 100 Nasal Cannula 4.0 07/05/16 03:47 88 07/05/16 00:42 98.0 89 24 129/77 100 Nasal Cannula 3.0 07/04/16 23:46 91 07/04/16 20:20 103 22 Nasal Cannula 3.0 32 07/04/16 20:20 99 Nasal Cannula 3.0 32 07/04/16 20:20 Nasal Cannula 3.0 32 07/04/16 20:00 98.4 95 24 117/81 99 Nasal Cannula 3.0 07/04/16 20:00 90 07/04/16 16:12 98.9 100 19 122/77 99 Nasal Cannula 3.0 07/04/16 16:00 102 07/04/16 14:40 110 25 99 Nasal Cannula 3.0 32 07/04/16 14:30 100 25 98 Nasal Cannula 3.0 32 07/04/16 12:01 97.4 87 19 124/78 98 Nasal Cannula 2.0 07/04/16 12:00 83 07/04/16 08:37 99 Nasal Cannula 2.0 07/04/16 08:37 Nasal Cannula 2.0 07/04/16 08:36 81 24 Nasal Cannula 2.0 Intake and Output 07/04/16 07/05/16 19:00 07:00 Intake Total 1015 ml 1410 ml Output Total 1000 ml 1400 ml Balance 15 ml 10 ml Free Water 300 ml 100 ml IV Total 375 ml 1100 ml Tube Feeding 140 ml 180 ml Blood Product 200 ml Other 30 ml Output Urine Total 1000 ml 1400 ml Laboratory Tests 07/05/16 04:30: White Blood Count 12.1H, Red Blood Count 3.13L, Hemoglobin 9.4L, Hematocrit 29.7L, Mean Corpuscular Volume 95, Mean Corpuscular Hemoglobin 30.2, Mean Corpuscular Hemoglobin Concent 31.8L, Red Cell Distribution Width 14.0, Platelet Count 288, Mean Platelet Volume 8.4, Neutrophils (%) (Auto) , Lymphocytes (%) (Auto) , Monocytes (%) (Auto) , Eosinophils (%) (Auto) , Basophils (%) (Auto) , Neutrophils % (Manual) [Pending], Lymphocytes % (Manual) [Pending], Platelet Estimate [Pending], Platelet Morphology [Pending], Prothrombin Time 12.0H, Prothromb Time International Ratio 1.2H, Activated Partial Thromboplast Time 27, Sodium Level 148H, Potassium Level 3.4, Chloride Level 113H, Carbon Dioxide Level 19L, Anion Gap 16H, Blood Urea Nitrogen 56H, Creatinine 1.4H, Estimat Glomerular Filtration Rate > 60, Glucose Level 123H, Calcium Level 9.6, Iron Level 19L, Total Iron Binding Capacity 116L, Percent Iron Saturation 16, Unsaturated Iron Binding 97L, Total Bilirubin 0.8, Aspartate Amino Transf (AST/SGOT) 150H, Alanine Aminotransferase (ALT/SGPT) 195H , Alkaline Phosphatase 272H, Ammonia 17, Total Protein 6.8, Albumin 2.1L, Globulin 4.7, Albumin/Globulin Ratio 0.4L, Carcinoembryonic Antigen 4.9H, Vitamin B12 Level 1144H, Folate [Pending], Hepatitis A IgM Antibody [Pending], Hepatitis B Surface Antigen [Pending], Hepatitis B Core IgM Antibody [Pending], Hepatitis C Antibody [Pending] Height (Feet): 5 Height (Inches): 10.00 Weight (Pounds): 150 General Appearance: WD/WN, lethargic Neck: supple Cardiovascular: regular rhythm Respiratory/Chest: rhonchi - bilaterally Abdomen: normal bowel sounds, non tender, soft, no organomegaly Edema: no edema noted Arm (L), no edema noted Arm (R), no edema noted Leg (L), no edema noted Leg (R), no edema noted Pedal (L), no edema noted Pedal (R), no edema noted Generalized Neurologic: change control analyst II-XII grossly normal, alert FAWN PORTER Jul 05, 2016 08:28
[2016-07-05] MEDS: Vitamin A&D Oint 2oz Tube TOPIC SCH ×2 (09:00→21:10)
[2016-07-05] MEDS: Amiodarone 200mg tab NG SCH ×2 (09:30→21:09)
[2016-07-05] MEDS: Morphine Sulfate 2mg/ml Inj IVP PRN ×2 (09:30→17:00)
[2016-07-05] MEDS: D5W w/KCl 20mEq 1,000 ML IV SCH ×2 (09:30→19:04)
[2016-07-05] MEDS: Heparin 5000 units/ml inj SUBQ SCH ×2 (09:32→21:10)
[2016-07-05 09:40] LABS: BAND NEUTROPHILS % (MANUAL) 0 % (0-8); BASOPHILS % (MANUAL) 0 % (0-2); EOSINOPHILS % (MANUAL) 1 % (0-3); HYPOCHROMASIA 1+; LYMPHOCYTES % (MANUAL) 10 % (20-45); NEUTROPHILS % (MANUAL) 84 % (45-75); PLATELET ESTIMATE ADEQUATE; PLATELET MORPHOLOGY NORMAL; TOTAL CELLS COUNTED 100
--- NOTE | 2016-07-05 10:50 | General Progress Note ---
Assessment/Plan Problem List: (1) Dysphagia ICD Codes: R13.10 - Dysphagia, unspecified SNOMED: 39588940, 791552593 (2) Pneumonia ICD Codes: J18.9 - Pneumonia, unspecified organism SNOMED: 358217637, 061546585 Qualifiers: Qualified Codes: J18.1 - Lobar pneumonia, unspecified organism (3) Elevated liver enzymes ICD Codes: R74.8 - Abnormal levels of other serum enzymes SNOMED: 885161107, 873375147 (4) Rhabdomyolysis ICD Codes: M62.82 - Rhabdomyolysis SNOMED: 166653327 Qualifiers: Qualified Codes: M62.82 - Rhabdomyolysis Assessment/Plan ngtf fu abd us fu lfts PEG when stable Subjective ROS Limited/Unobtainable: No Allergies: Coded Allergies: No Known Allergies (Unverified , 07/02/16) Objective Last 24 Hour Vital Signs Date Time Temp Pulse Resp B/P Pulse Ox O2 Delivery O2 Flow Rate FiO2 07/05/16 08:02 84 07/05/16 07:59 98.1 84 18 125/80 99 Nasal Cannula 3.0 07/05/16 04:00 98.2 83 24 139/86 100 Nasal Cannula 4.0 07/05/16 03:47 88 07/05/16 00:42 98.0 89 24 129/77 100 Nasal Cannula 3.0 07/04/16 23:46 91 07/04/16 20:20 103 22 Nasal Cannula 3.0 32 07/04/16 20:20 99 Nasal Cannula 3.0 32 07/04/16 20:20 Nasal Cannula 3.0 32 07/04/16 20:00 98.4 95 24 117/81 99 Nasal Cannula 3.0 07/04/16 20:00 90 07/04/16 16:12 98.9 100 19 122/77 99 Nasal Cannula 3.0 07/04/16 16:00 102 07/04/16 14:40 110 25 99 Nasal Cannula 3.0 32 07/04/16 14:30 100 25 98 Nasal Cannula 3.0 32 07/04/16 12:01 97.4 87 19 124/78 98 Nasal Cannula 2.0 07/04/16 12:00 83 Intake and Output 07/04/16 07/05/16 19:00 07:00 Intake Total 1015 ml 1410 ml Output Total 1000 ml 1400 ml Balance 15 ml 10 ml Free Water 300 ml 100 ml IV Total 375 ml 1100 ml Tube Feeding 140 ml 180 ml Blood Product 200 ml Other 30 ml Output Urine Total 1000 ml 1400 ml Laboratory Tests 07/05/16 04:30: White Blood Count 12.1H, Red Blood Count 3.13L, Hemoglobin 9.4L, Hematocrit 29.7L, Mean Corpuscular Volume 95, Mean Corpuscular Hemoglobin 30.2, Mean Corpuscular Hemoglobin Concent 31.8L, Red Cell Distribution Width 14.0, Platelet Count 288, Mean Platelet Volume 8.4, Neutrophils (%) (Auto) , Lymphocytes (%) (Auto) , Monocytes (%) (Auto) , Eosinophils (%) (Auto) , Basophils (%) (Auto) , Differential Total Cells Counted 100, Neutrophils % ( Manual) 84H, Lymphocytes % (Manual) 10L, Monocytes % (Manual) 5, Eosinophils % ( Manual) 1, Basophils % (Manual) 0, Band Neutrophils 0, Platelet Estimate Adequate, Platelet Morphology Normal, Hypochromasia 1+, Prothrombin Time 12.0H, Prothromb Time International Ratio 1.2H, Activated Partial Thromboplast Time 27 , Sodium Level 148H, Potassium Level 3.4, Chloride Level 113H, Carbon Dioxide Level 19L, Anion Gap 16H, Blood Urea Nitrogen 56H, Creatinine 1.4H, Estimat Glomerular Filtration Rate > 60, Glucose Level 123H, Calcium Level 9.6, Iron Level 19L, Total Iron Binding Capacity 116L, Percent Iron Saturation 16, Unsaturated Iron Binding 97L, Total Bilirubin 0.8, Aspartate Amino Transf (AST/ SGOT) 150H, Alanine Aminotransferase (ALT/SGPT) 195H, Alkaline Phosphatase 272H , Ammonia 17, Total Protein 6.8, Albumin 2.1L, Globulin 4.7, Albumin/Globulin Ratio 0.4L, Carcinoembryonic Antigen 4.9H, Vitamin B12 Level 1144H, Folate [ Pending], Hepatitis A IgM Antibody [Pending], Hepatitis B Surface Antigen [ Pending], Hepatitis B Core IgM Antibody [Pending], Hepatitis C Antibody [Pending ] Height (Feet): 5 Height (Inches): 10.00 Weight (Pounds): 150 General Appearance: lethargic EENT: normal ENT inspection Neck: supple Cardiovascular: normal rate Respiratory/Chest: decreased breath sounds Abdomen: normal bowel sounds, non tender, soft Extremities: non-tender MINESH BILL Jul 05, 2016 10:50
[2016-07-05 12:06] VITALS: BP 131/85
--- NOTE | 2016-07-05 12:12 | Nephrology Progress Note ---
Assessment/Plan Plan 1. Hypernatremia 2.SCOOTER--stable kidney function 3. Urosepsis. 4. Rhabdomyolysis 5. Pneumonia 6. Chronic obstructive pulmonary disease. 7. Anoxic encephalopathy. 8. Decubitus ulcer. 9. Benign prostatic hypertrophy 10. Type 2 diabetes mellitus. 11.. History of cocaine abuse and alcohol abuse. 12. Metabolic acidosis 13. Anemia plan change IVF to D5+20meq Kcl monitor I/O, eelctrolytes continue Abx continue NG tube feeding lab AM Subjective Subjective No acute event Objective Objective Last 24 Hour Vital Signs Date Time Temp Pulse Resp B/P Pulse Ox O2 Delivery O2 Flow Rate FiO2 07/05/16 12:06 98.2 75 18 131/85 97 Nasal Cannula 2.0 07/05/16 12:05 85 07/05/16 08:02 84 07/05/16 07:59 98.1 84 18 125/80 99 Nasal Cannula 3.0 07/05/16 04:00 98.2 83 24 139/86 100 Nasal Cannula 4.0 07/05/16 03:47 88 07/05/16 00:42 98.0 89 24 129/77 100 Nasal Cannula 3.0 07/04/16 23:46 91 07/04/16 20:20 103 22 Nasal Cannula 3.0 32 07/04/16 20:20 99 Nasal Cannula 3.0 32 07/04/16 20:20 Nasal Cannula 3.0 32 07/04/16 20:00 98.4 95 24 117/81 99 Nasal Cannula 3.0 07/04/16 20:00 90 07/04/16 16:12 98.9 100 19 122/77 99 Nasal Cannula 3.0 07/04/16 16:00 102 07/04/16 14:40 110 25 99 Nasal Cannula 3.0 32 07/04/16 14:30 100 25 98 Nasal Cannula 3.0 32 Intake and Output 07/04/16 07/05/16 19:00 07:00 Intake Total 1015 ml 1410 ml Output Total 1000 ml 1400 ml Balance 15 ml 10 ml Free Water 300 ml 100 ml IV Total 375 ml 1100 ml Tube Feeding 140 ml 180 ml Blood Product 200 ml Other 30 ml Output Urine Total 1000 ml 1400 ml Laboratory Tests 07/05/16 04:30: White Blood Count 12.1H, Red Blood Count 3.13L, Hemoglobin 9.4L, Hematocrit 29.7L, Mean Corpuscular Volume 95, Mean Corpuscular Hemoglobin 30.2, Mean Corpuscular Hemoglobin Concent 31.8L, Red Cell Distribution Width 14.0, Platelet Count 288, Mean Platelet Volume 8.4, Neutrophils (%) (Auto) , Lymphocytes (%) (Auto) , Monocytes (%) (Auto) , Eosinophils (%) (Auto) , Basophils (%) (Auto) , Differential Total Cells Counted 100, Neutrophils % ( Manual) 84H, Lymphocytes % (Manual) 10L, Monocytes % (Manual) 5, Eosinophils % ( Manual) 1, Basophils % (Manual) 0, Band Neutrophils 0, Platelet Estimate Adequate, Platelet Morphology Normal, Hypochromasia 1+, Prothrombin Time 12.0H, Prothromb Time International Ratio 1.2H, Activated Partial Thromboplast Time 27 , Sodium Level 148H, Potassium Level 3.4, Chloride Level 113H, Carbon Dioxide Level 19L, Anion Gap 16H, Blood Urea Nitrogen 56H, Creatinine 1.4H, Estimat Glomerular Filtration Rate > 60, Glucose Level 123H, Calcium Level 9.6, Iron Level 19L, Total Iron Binding Capacity 116L, Percent Iron Saturation 16, Unsaturated Iron Binding 97L, Total Bilirubin 0.8, Aspartate Amino Transf (AST/ SGOT) 150H, Alanine Aminotransferase (ALT/SGPT) 195H, Alkaline Phosphatase 272H , Ammonia 17, Total Protein 6.8, Albumin 2.1L, Globulin 4.7, Albumin/Globulin Ratio 0.4L, Carcinoembryonic Antigen 4.9H, Vitamin B12 Level 1144H, Folate [ Pending], Hepatitis A IgM Antibody [Pending], Hepatitis B Surface Antigen [ Pending], Hepatitis B Core IgM Antibody [Pending], Hepatitis C Antibody [Pending ] Height (Feet): 5 Height (Inches): 10.00 Weight (Pounds): 150 Objective NAD bilat basilar crackles+ S1,S2,RRR, no M/R/G soft, non tender, BS+ no edema CALHOUN,LUCRETIA Jul 05, 2016 12:12
[2016-07-05] MEDS ORDERED: NS 275ml ONE ×2 (13:50→14:00)
[2016-07-05] MEDS ORDERED: D5NS 1000ml IV ONE (13:50)
[2016-07-05] MEDS ORDERED: Tubing IV Secondary IV ONE (13:50)
[2016-07-05] MEDS ORDERED: Tubing Blood Filter IV ONE (13:50)
[2016-07-05] MEDS ORDERED: D5 1/2NS 1000ml IV ONE (14:00)
[2016-07-05 16:00] VITALS: BP 131/88
[2016-07-05] MEDS: Cefepime HCl 1 GM in D5W 55 ML IVPB SCH (17:05)
[2016-07-05 20:29] VITALS: BP 108/73
--- NOTE | 2016-07-05 20:33 | Pulmonology Progress Note ---
Assessment/Plan Assessment/Plan IMPRESSION: 1. Possible rhabdomyolysis. 2. Acute on chronic renal failure. 3. Failure to thrive. 4. Evidence of transaminitis 5. Altered mental status. 6. Chronic encephalopathy. 7. Chronic debility. 8. Evidence of pneumonia.by cxr 9. aspiration 10. protein calorie malnutrition PLAN IV antibiotics and taper IV hydration and taper meds NGT GI ID follow up DNI await family response to consent for PEG aspiration precautions as is impression, plan, and exam edited and reviewed in detail care discussed with RN Subjective ROS Limited/Unobtainable: Yes Allergies: Coded Allergies: No Known Allergies (Unverified , 07/02/16) Subjective nontoxic somewhat improved Objective Last 24 Hour Vital Signs Date Time Temp Pulse Resp B/P Pulse Ox O2 Delivery O2 Flow Rate FiO2 07/05/16 20:29 97.8 85 19 108/73 100 Mechanical Ventilator 07/05/16 19:14 100 Nasal Cannula 3.0 32 07/05/16 19:14 Nasal Cannula 3.0 32 07/05/16 19:14 84 20 Nasal Cannula 3.0 32 07/05/16 16:00 97.8 98 18 131/88 97 Nasal Cannula 2.0 07/05/16 15:51 87 07/05/16 14:58 97 Nasal Cannula 2.0 32 07/05/16 14:58 Nasal Cannula 2.0 32 07/05/16 14:56 82 20 Nasal Cannula 3.0 32 07/05/16 12:06 98.2 75 18 131/85 97 Nasal Cannula 2.0 07/05/16 12:05 85 07/05/16 08:02 84 07/05/16 07:59 98.1 84 18 125/80 99 Nasal Cannula 3.0 07/05/16 04:00 98.2 83 24 139/86 100 Nasal Cannula 4.0 07/05/16 03:47 88 07/05/16 00:42 98.0 89 24 129/77 100 Nasal Cannula 3.0 07/04/16 23:46 91 Intake and Output 07/04/16 07/05/16 19:00 07:00 Intake Total 1015 ml 1440 ml Output Total 1000 ml 1400 ml Balance 15 ml 40 ml Free Water 300 ml 100 ml IV Total 375 ml 1100 ml Tube Feeding 140 ml 210 ml Blood Product 200 ml Other 30 ml Output Urine Total 1000 ml 1400 ml Objective GENERAL: The patient is an ill appearing male, overall chronically ill and thin. NAD HEENT: Fairly negative. Oropharynx is dry NECK: Supple. No adenopathy. LUNGS: With moderate breath sounds. reduced rhonchi. CARDIAC: S1 and S2, RRR without murmurs, rubs, or gallops. ABDOMEN: Soft, thin, nontender, and nondistended. feeding tube in place EXTREMITIES: No cyanosis, clubbing, or edema. NEUROLOGIC: Grossly nonfocal, withdrawn and nonverbal. Laboratory Tests 07/05/16 04:30: White Blood Count 12.1H, Red Blood Count 3.13L, Hemoglobin 9.4L, Hematocrit 29.7L, Mean Corpuscular Volume 95, Mean Corpuscular Hemoglobin 30.2, Mean Corpuscular Hemoglobin Concent 31.8L, Red Cell Distribution Width 14.0, Platelet Count 288, Mean Platelet Volume 8.4, Neutrophils (%) (Auto) , Lymphocytes (%) (Auto) , Monocytes (%) (Auto) , Eosinophils (%) (Auto) , Basophils (%) (Auto) , Differential Total Cells Counted 100, Neutrophils % ( Manual) 84H, Lymphocytes % (Manual) 10L, Monocytes % (Manual) 5, Eosinophils % ( Manual) 1, Basophils % (Manual) 0, Band Neutrophils 0, Platelet Estimate Adequate, Platelet Morphology Normal, Hypochromasia 1+, Prothrombin Time 12.0H, Prothromb Time International Ratio 1.2H, Activated Partial Thromboplast Time 27 , Sodium Level 148H, Potassium Level 3.4, Chloride Level 113H, Carbon Dioxide Level 19L, Anion Gap 16H, Blood Urea Nitrogen 56H, Creatinine 1.4H, Estimat Glomerular Filtration Rate > 60, Glucose Level 123H, Calcium Level 9.6, Iron Level 19L, Total Iron Binding Capacity 116L, Percent Iron Saturation 16, Unsaturated Iron Binding 97L, Ferritin 1627H, Total Bilirubin 0.8, Aspartate Amino Transf (AST/SGOT) 150H, Alanine Aminotransferase (ALT/SGPT) 195H, Alkaline Phosphatase 272H, Ammonia 17, Total Protein 6.8, Albumin 2.1L, Globulin 4.7, Albumin/Globulin Ratio 0.4L, Carcinoembryonic Antigen 4.9H, Vitamin B12 Level 1144H, Folate [Pending], Hepatitis A IgM Antibody [Pending], Hepatitis B Surface Antigen [Pending], Hepatitis B Core IgM Antibody [Pending], Hepatitis C Antibody [Pending] Current Medications Medications (Trade) Dose Ordered Sig/Alex Route PRN Reason Start Time Stop Time Status Last Admin Dose Admin Albuterol Sulfate (Proventil) 2.5 mg Q4H PRN HHN while awake 07/03/16 00:30 07/08/16 00:29 07/04/16 14:30 Amiodarone HCl (Cordarone) 200 mg EVERY 12 HOURS NG 07/03/16 21:00 08/02/16 20:59 07/05/16 09:30 Cefepime HCl/ Dextrose (Maxipime/D5W) 55 ml @ 110 mls/hr Q24H IVPB 07/03/16 18:00 07/10/16 17:59 07/05/16 17:05 Dextrose/ Electrolytes (D5W w/KCl 20mEq) 1,000 ml @ 100 mls/hr Q10H IV 07/05/16 09:00 08/04/16 08:59 07/05/16 19:04 Heparin Sodium (Porcine) (Heparin 5000 units/ml) 5,000 units EVERY 12 HOURS SUBQ 07/03/16 09:00 08/02/16 08:59 07/05/16 09:32 Morphine Sulfate (Morphine Sulfate) 2 mg Q3H PRN IVP PAIN 4-10 07/03/16 11:45 07/10/16 11:44 07/05/16 17:00 Vancomycin HCl 1 ea 1 ea DAILY PRN MISC Per rx protocol 07/03/16 01:30 08/02/16 01:29 Vancomycin HCl/ Dextrose (Vancomycin/D5W) 275 ml @ 183.708 mls/hr Q24H IVPB 07/03/16 03:00 07/08/16 02:59 07/05/16 03:07 Vitamin A/Vitamin D 1 applic 1 applic EVERY 12 HOURS TOPIC 07/03/16 23:00 08/02/16 22:59 07/05/16 09:00 ESHA BEY Jul 05, 2016 20:33
[2016-07-06] VITALS: BP 117/77
[2016-07-06 03:12] LABS: ALANINE AMINOTRANSFERASE 184 U/L (3-41); ALBUMIN/GLOBULIN RATIO 0.4 (1.0-2.7); ANION GAP 14 (5-15); ASPARTATE AMINO TRANSFERASE 122 U/L (5-40); CALCIUM 9.5 mg/dL (8.6-10.2); CARBON DIOXIDE 21 mEQ/L (20-30); CHLORIDE 105 mEQ/L (98-107); CREATININE 1.2 mg/dL (0.7-1.2); GLOMERULAR FILTRATION RATE > 60 mL/min (>60); HEMOLYSIS 0; POTASSIUM 3.9 mEQ/L (3.4-4.9); SODIUM 140 mEQ/L (135-145); TOTAL PROTEIN 6.5 g/dL (6.6-8.7)
[2016-07-06] MEDS ORDERED: Vancomycin 750mg Inj IVPB ONE (03:51)
[2016-07-06 04:00] VITALS: BP 120/70
[2016-07-06] MEDS ORDERED: Vancomycin 1gm/D5W 275ml IVPB SCH ×2 (04:00)
[2016-07-06] MEDS: Vancomycin 750mg/D5W 275ml IVPB SCH ×4 (04:01→15:39)
[2016-07-06] MEDS: D5W w/KCl 20mEq 1,000 ML IV SCH ×2 (04:01→15:34)
--- NOTE | 2016-07-06 07:47 | Pulmonology Progress Note ---
Assessment/Plan Assessment/Plan IMPRESSION: 1. Possible rhabdomyolysis. 2. Acute on chronic renal failure. 3. Failure to thrive. 4. Evidence of transaminitis possibly due to TPN use. 5. Altered mental status. 6. Chronic encephalopathy. 7. Chronic debility. 8. Evidence of pneumonia. 9. aspiration 10. protein calorie malnutrition PLAN IV antibiotics as per ID IV hydration- likely with chronic renal impairment meds NGT GI follow up for GT DNI await family response for plan aspiration precautions EEG when able impression, plan, and exam edited and reviewed in detail care discussed with RN Subjective ROS Limited/Unobtainable: Yes Allergies: Coded Allergies: No Known Allergies (Unverified , 07/02/16) Subjective no return call from sister previously agreed to GT and EEG Objective Last 24 Hour Vital Signs Date Time Temp Pulse Resp B/P Pulse Ox O2 Delivery O2 Flow Rate FiO2 07/06/16 04:00 98.2 89 21 120/70 99 07/06/16 04:00 81 07/06/16 00:00 98.1 90 20 117/77 100 07/06/16 00:00 86 07/05/16 20:29 97.8 85 19 108/73 100 Mechanical Ventilator 07/05/16 19:51 84 07/05/16 19:14 100 Nasal Cannula 3.0 32 07/05/16 19:14 Nasal Cannula 3.0 32 07/05/16 19:14 84 20 Nasal Cannula 3.0 32 07/05/16 16:00 97.8 98 18 131/88 97 Nasal Cannula 2.0 07/05/16 15:51 87 07/05/16 14:58 97 Nasal Cannula 2.0 32 07/05/16 14:58 Nasal Cannula 2.0 32 07/05/16 14:56 82 20 Nasal Cannula 3.0 32 07/05/16 12:06 98.2 75 18 131/85 97 Nasal Cannula 2.0 07/05/16 12:05 85 07/05/16 08:02 84 07/05/16 07:59 98.1 84 18 125/80 99 Nasal Cannula 3.0 Intake and Output 07/05/16 07/06/16 18:59 06:59 Intake Total 610 ml 1625 ml Output Total 1000 ml 2300 ml Balance -390 ml -675 ml Free Water 250 ml 100 ml IV Total 1375 ml Tube Feeding 360 ml 150 ml Output Urine Total 1000 ml 2300 ml # Voids 2 Objective GENERAL: The patient is an ill appearing male, overall chronically ill and thin. HEENT: Fairly negative. Oropharynx is dry NECK: Supple. No adenopathy. LUNGS: With moderate breath sounds. minimal rhonchi. CARDIAC: S1 and S2, RRR without murmurs, rubs, or gallops. ABDOMEN: Soft, thin, nontender, and nondistended. feeding tube in place EXTREMITIES: No cyanosis, clubbing, or edema. NEUROLOGIC: Grossly nonfocal, withdrawn and nonverbal. Laboratory Tests 07/06/16 02:30: Sodium Level 140, Potassium Level 3.9, Chloride Level 105, Carbon Dioxide Level 21, Anion Gap 14, Blood Urea Nitrogen 48H, Creatinine 1.2, Estimat Glomerular Filtration Rate > 60, Glucose Level 113H, Calcium Level 9.5, Total Bilirubin 0.7 , Aspartate Amino Transf (AST/SGOT) 122H, Alanine Aminotransferase (ALT/SGPT) 184H, Alkaline Phosphatase 240H, Total Protein 6.5L, Albumin 1.9L, Globulin 4.6 , Albumin/Globulin Ratio 0.4L, Vancomycin Level Trough 11.9 Current Medications Medications (Trade) Dose Ordered Sig/Alex Route PRN Reason Start Time Stop Time Status Last Admin Dose Admin Albuterol Sulfate (Proventil) 2.5 mg Q4H PRN HHN while awake 07/03/16 00:30 07/08/16 00:29 07/04/16 14:30 Amiodarone HCl (Cordarone) 200 mg EVERY 12 HOURS NG 07/03/16 21:00 08/02/16 20:59 07/05/16 21:09 Cefepime HCl/ Dextrose (Maxipime/D5W) 55 ml @ 110 mls/hr Q24H IVPB 07/03/16 18:00 07/10/16 17:59 07/05/16 17:05 Dextrose/ Electrolytes 1,000 ml @ 100 mls/hr Q10H IV 07/05/16 09:00 08/04/16 08:59 07/06/16 04:01 Heparin Sodium (Porcine) (Heparin 5000 units/ml) 5,000 units EVERY 12 HOURS SUBQ 07/03/16 09:00 08/02/16 08:59 07/05/16 21:10 Morphine Sulfate (Morphine Sulfate) 2 mg Q3H PRN IVP PAIN 4-10 07/03/16 11:45 07/10/16 11:44 07/05/16 17:00 Vancomycin HCl (Vanco rx to dose) 1 ea DAILY PRN MISC Per rx protocol 07/03/16 01:30 08/02/16 01:29 Vancomycin HCl/ Dextrose (Vancomycin/D5W) 275 ml @ 183.708 mls/hr Q12H IVPB 07/06/16 04:00 07/11/16 03:59 07/06/16 04:01 Vitamin A/Vitamin D 1 applic 1 applic EVERY 12 HOURS TOPIC 07/03/16 23:00 08/02/16 22:59 07/05/16 21:10 ESHA BEY Jul 06, 2016 07:47
[2016-07-06 08:00] VITALS: BP 118/77
[2016-07-06] MEDS: Amiodarone 200mg tab NG SCH ×2 (08:44→21:21)
[2016-07-06] MEDS: Heparin 5000 units/ml inj SUBQ SCH ×2 (08:45→21:22)
[2016-07-06] MEDS: Vitamin A&D Oint 2oz Tube TOPIC SCH ×2 (08:45→21:21)
--- NOTE | 2016-07-06 08:51 | General Progress Note ---
Assessment/Plan Problem List: (1) Fever ICD Codes: R50.9 - Fever, unspecified SNOMED: 018325557 Qualifiers: Qualified Codes: R50.9 - Fever, unspecified (2) Acute renal failure ICD Codes: N17.9 - Acute kidney failure, unspecified SNOMED: 80634815 Qualifiers: Qualified Codes: N17.9 - Acute kidney failure, unspecified (3) Pneumonia ICD Codes: J18.9 - Pneumonia, unspecified organism SNOMED: 929799697, 458372840 Qualifiers: Qualified Codes: J18.1 - Lobar pneumonia, unspecified organism (4) Elevated liver enzymes ICD Codes: R74.8 - Abnormal levels of other serum enzymes SNOMED: 391091124, 979528745 (5) Rhabdomyolysis ICD Codes: M62.82 - Rhabdomyolysis SNOMED: 743249030 Qualifiers: Qualified Codes: M62.82 - Rhabdomyolysis Status: stable, progressing Assessment/Plan ivf ngt feeds iv abx abd niesha- r/o stones eeg follow up cultures monitor labs skin care Subjective ROS Limited/Unobtainable: No Constitutional: Reports: malaise, weakness HEENT: Reports: no symptoms Cardiovascular: Reports: no symptoms Respiratory: Reports: cough, shortness of breath Gastrointestinal/Abdominal: Reports: no symptoms Genitourinary: Reports: no symptoms Neurologic/Psychiatric: Reports: pre-existing deficit Endocrine: Reports: no symptoms Hematologic/Lymphatic: Reports: anemia Allergies: Coded Allergies: No Known Allergies (Unverified , 07/02/16) All Systems: reviewed and negative except above Subjective events noted. chart review. tolerating ngt feeds. withdrawn and confused. Objective Last 24 Hour Vital Signs Date Time Temp Pulse Resp B/P Pulse Ox O2 Delivery O2 Flow Rate FiO2 07/06/16 08:09 78 07/06/16 07:59 Nasal Cannula 3.0 32 07/06/16 07:59 98 Nasal Cannula 3.0 32 07/06/16 07:58 88 20 Nasal Cannula 3.0 32 07/06/16 04:00 98.2 89 21 120/70 99 07/06/16 04:00 81 07/06/16 00:00 98.1 90 20 117/77 100 07/06/16 00:00 86 07/05/16 20:29 97.8 85 19 108/73 100 Mechanical Ventilator 07/05/16 19:51 84 07/05/16 19:14 100 Nasal Cannula 3.0 32 07/05/16 19:14 Nasal Cannula 3.0 32 07/05/16 19:14 84 20 Nasal Cannula 3.0 32 07/05/16 16:00 97.8 98 18 131/88 97 Nasal Cannula 2.0 07/05/16 15:51 87 07/05/16 14:58 97 Nasal Cannula 2.0 32 07/05/16 14:58 Nasal Cannula 2.0 32 07/05/16 14:56 82 20 Nasal Cannula 3.0 32 07/05/16 12:06 98.2 75 18 131/85 97 Nasal Cannula 2.0 07/05/16 12:05 85 Intake and Output 07/05/16 07/06/16 19:00 07:00 Intake Total 610 ml 1595 ml Output Total 1000 ml 2300 ml Balance -390 ml -705 ml Free Water 250 ml 100 ml IV Total 1375 ml Tube Feeding 360 ml 120 ml Output Urine Total 1000 ml 2300 ml # Voids 2 Laboratory Tests 07/06/16 02:30: Sodium Level 140, Potassium Level 3.9, Chloride Level 105, Carbon Dioxide Level 21, Anion Gap 14, Blood Urea Nitrogen 48H, Creatinine 1.2, Estimat Glomerular Filtration Rate > 60, Glucose Level 113H, Calcium Level 9.5, Total Bilirubin 0.7 , Aspartate Amino Transf (AST/SGOT) 122H, Alanine Aminotransferase (ALT/SGPT) 184H, Alkaline Phosphatase 240H, Total Protein 6.5L, Albumin 1.9L, Globulin 4.6 , Albumin/Globulin Ratio 0.4L, Vancomycin Level Trough 11.9 Height (Feet): 5 Height (Inches): 10.00 Weight (Pounds): 150 Objective General Appearance: WD/WN, lethargic Neck: supple Cardiovascular: regular rhythm Respiratory/Chest: rhonchi - bilaterally Abdomen: normal bowel sounds, non tender, soft, no organomegaly Edema: no edema noted Arm (L), no edema noted Arm (R), no edema noted Leg (L), no edema noted Leg (R), no edema noted Pedal (L), no edema noted Pedal (R), no edema noted 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
[2016-07-06] MEDS ORDERED: D5W 275ml ONE (09:55)
--- NOTE | 2016-07-06 11:12 | Diagnostic Imaging Report ---
Indication: SOB Technique: One view of the chest Comparison: 07/03/2016 Findings: Interim advancement of previously malpositioned nasogastric tube, tip now projecting at the level gastric body. There is improved but persistent consolidation at the left lung base and in the left perihilar region. Right lung, bilateral pleural spaces are clear. The heart size is upper limits normal. Aorta is tortuous. Right arm PICC remains Impression: Improved but persistent left mid and lower lung infiltrates, since 3 days earlier. Improved and now satisfactory position of nasogastric tube
[2016-07-06 12:00] VITALS: BP 118/77
[2016-07-06 16:00] VITALS: BP 110/74
--- NOTE | 2016-07-06 17:31 | Nephrology Progress Note ---
Assessment/Plan Plan SCOOTER improving. Subjective Subjective No new c/o Objective Objective Last 24 Hour Vital Signs Date Time Temp Pulse Resp B/P Pulse Ox O2 Delivery O2 Flow Rate FiO2 07/06/16 12:00 97.7 87 28 118/77 97 Nasal Cannula 3.0 07/06/16 12:00 75 07/06/16 08:09 78 07/06/16 08:00 98.1 83 24 118/77 97 Nasal Cannula 3.0 07/06/16 07:59 Nasal Cannula 3.0 32 07/06/16 07:59 98 Nasal Cannula 3.0 32 07/06/16 07:58 88 20 Nasal Cannula 3.0 32 07/06/16 04:00 98.2 89 21 120/70 99 07/06/16 04:00 81 07/06/16 00:00 98.1 90 20 117/77 100 07/06/16 00:00 86 07/05/16 20:29 97.8 85 19 108/73 100 Mechanical Ventilator 07/05/16 19:51 84 07/05/16 19:14 100 Nasal Cannula 3.0 32 07/05/16 19:14 Nasal Cannula 3.0 32 07/05/16 19:14 84 20 Nasal Cannula 3.0 32 Intake and Output 07/05/16 07/06/16 19:00 07:00 Intake Total 610 ml 1695 ml Output Total 1000 ml 2300 ml Balance -390 ml -605 ml Free Water 250 ml 100 ml IV Total 1475 ml Tube Feeding 360 ml 120 ml Output Urine Total 1000 ml 2300 ml # Voids 2 Laboratory Tests 07/06/16 02:30: Sodium Level 140, Potassium Level 3.9, Chloride Level 105, Carbon Dioxide Level 21, Anion Gap 14, Blood Urea Nitrogen 48H, Creatinine 1.2, Estimat Glomerular Filtration Rate > 60, Glucose Level 113H, Calcium Level 9.5, Total Bilirubin 0.7 , Aspartate Amino Transf (AST/SGOT) 122H, Alanine Aminotransferase (ALT/SGPT) 184H, Alkaline Phosphatase 240H, Total Protein 6.5L, Albumin 1.9L, Globulin 4.6 , Albumin/Globulin Ratio 0.4L, Vancomycin Level Trough 11.9 Height (Feet): 5 Height (Inches): 10.00 Weight (Pounds): 150 Objective Cv RR Lungs CTA Abd SNT. BS + E No CCE SHECHTER,PAGIEL Jul 06, 2016 17:31
[2016-07-06] MEDS: Cefepime HCl 1 GM in D5W 55 ML IVPB SCH (18:21)
[2016-07-06 21:18] VITALS: BP 112/71
--- NOTE | 2016-07-06 22:13 | General Progress Note ---
Assessment/Plan Assessment/Plan Assessment - malnutrition / NPO - NGT dependent - abnormal, but declining LFT - elevated CEA - UTI, PNA, Sepsis - resolving renal failure Recommendations - f/u ultrasound results - consider PEG - consider CT abd/pelvis - elevate HOB - Abx - Supportive care Subjective Allergies: Coded Allergies: No Known Allergies (Unverified , 07/02/16) Subjective arousable non interactive no family at bedside tolerating TF Objective Last 24 Hour Vital Signs Date Time Temp Pulse Resp B/P Pulse Ox O2 Delivery O2 Flow Rate FiO2 07/06/16 21:18 98.2 84 24 112/71 98 Nasal Cannula 3.0 07/06/16 20:00 87 07/06/16 19:30 Nasal Cannula 3.0 32 07/06/16 19:30 125 20 Nasal Cannula 3.0 32 07/06/16 19:30 98 Nasal Cannula 3.0 32 07/06/16 16:00 83 07/06/16 16:00 97.9 83 26 110/74 99 Nasal Cannula 3.0 07/06/16 12:00 97.7 87 28 118/77 97 Nasal Cannula 3.0 07/06/16 12:00 75 07/06/16 08:09 78 07/06/16 08:00 98.1 83 24 118/77 97 Nasal Cannula 3.0 07/06/16 07:59 Nasal Cannula 3.0 32 07/06/16 07:59 98 Nasal Cannula 3.0 32 07/06/16 07:58 88 20 Nasal Cannula 3.0 32 07/06/16 04:00 98.2 89 21 120/70 99 07/06/16 04:00 81 07/06/16 00:00 98.1 90 20 117/77 100 07/06/16 00:00 86 Intake and Output 07/05/16 07/06/16 19:00 07:00 Intake Total 610 ml 1695 ml Output Total 1000 ml 2300 ml Balance -390 ml -605 ml Free Water 250 ml 100 ml IV Total 1475 ml Tube Feeding 360 ml 120 ml Output Urine Total 1000 ml 2300 ml # Voids 2 Laboratory Tests 07/06/16 02:30: Sodium Level 140, Potassium Level 3.9, Chloride Level 105, Carbon Dioxide Level 21, Anion Gap 14, Blood Urea Nitrogen 48H, Creatinine 1.2, Estimat Glomerular Filtration Rate > 60, Glucose Level 113H, Calcium Level 9.5, Total Bilirubin 0.7 , Aspartate Amino Transf (AST/SGOT) 122H, Alanine Aminotransferase (ALT/SGPT) 184H, Alkaline Phosphatase 240H, Total Protein 6.5L, Albumin 1.9L, Globulin 4.6 , Albumin/Globulin Ratio 0.4L, Vancomycin Level Trough 11.9 Height (Feet): 5 Height (Inches): 10.00 Weight (Pounds): 150 Objective Debilitated AA man NCAT (+) NGT supple CTA RRR Soft NT ND no edema OBS CLIFTON SAMUEL Jul 06, 2016 22:13
[2016-07-07] VITALS: BP 136/88
[2016-07-07] MEDS: D5W w/KCl 20mEq 1,000 ML IV SCH ×3 (01:01→22:09)
[2016-07-07] MEDS: Vancomycin 750mg/D5W 275ml IVPB SCH ×4 (03:47→16:01)
[2016-07-07 04:00] VITALS: BP 113/73
[2016-07-07 08:00] VITALS: BP 120/87
[2016-07-07] MEDS: Docusate 100mg tablet ORAL SCH ×2 (08:33→18:16)
[2016-07-07] MEDS: Amiodarone 200mg tab NG SCH ×2 (08:33→22:08)
[2016-07-07] MEDS: Heparin 5000 units/ml inj SUBQ SCH ×2 (08:35→22:09)
[2016-07-07] MEDS: Vitamin A&D Oint 2oz Tube TOPIC SCH ×2 (08:36→22:10)
--- NOTE | 2016-07-07 08:36 | General Progress Note ---
Assessment/Plan Problem List: (1) Fever ICD Codes: R50.9 - Fever, unspecified SNOMED: 356221517 Qualifiers: Qualified Codes: R50.9 - Fever, unspecified (2) Acute renal failure ICD Codes: N17.9 - Acute kidney failure, unspecified SNOMED: 45985180 Qualifiers: Qualified Codes: N17.9 - Acute kidney failure, unspecified (3) Pneumonia ICD Codes: J18.9 - Pneumonia, unspecified organism SNOMED: 831445273, 660748012 Qualifiers: Qualified Codes: J18.1 - Lobar pneumonia, unspecified organism (4) Elevated liver enzymes ICD Codes: R74.8 - Abnormal levels of other serum enzymes SNOMED: 170130790, 746001591 (5) Rhabdomyolysis ICD Codes: M62.82 - Rhabdomyolysis SNOMED: 882164416 Qualifiers: Qualified Codes: M62.82 - Rhabdomyolysis Status: stable Assessment/Plan ivf ngt feeds iv abx abd niesha- r/o stones eeg follow up cultures monitor labs skin care possible gt Subjective Allergies: Coded Allergies: No Known Allergies (Unverified , 07/02/16) Subjective events noted. chart review. tolerating ngt feeds. currently on hold for abd niesha. withdrawn and confused. Objective Last 24 Hour Vital Signs Date Time Temp Pulse Resp B/P Pulse Ox O2 Delivery O2 Flow Rate FiO2 07/07/16 07:40 79 07/07/16 07:32 Nasal Cannula 3.0 32 07/07/16 07:31 98 Nasal Cannula 3.0 32 07/07/16 07:30 80 20 Nasal Cannula 3.0 32 07/07/16 04:00 98.2 77 22 113/73 98 Nasal Cannula 3.0 07/07/16 04:00 74 07/07/16 00:00 97.7 78 26 136/88 98 Nasal Cannula 3.0 07/07/16 00:00 88 07/06/16 21:18 98.2 84 24 112/71 98 Nasal Cannula 3.0 07/06/16 20:00 87 07/06/16 19:30 Nasal Cannula 3.0 32 07/06/16 19:30 125 20 Nasal Cannula 3.0 32 07/06/16 19:30 98 Nasal Cannula 3.0 32 07/06/16 16:00 83 07/06/16 16:00 97.9 83 26 110/74 99 Nasal Cannula 3.0 07/06/16 12:00 97.7 87 28 118/77 97 Nasal Cannula 3.0 07/06/16 12:00 75 Intake and Output 07/06/16 07/07/16 19:00 07:00 Intake Total 1545 ml 1645.000 ml Output Total 1000 ml 800 ml Balance 545 ml 845.000 ml Free Water 150 ml 50 ml IV Total 1155 ml 1475.000 ml Tube Feeding 240 ml 120 ml Output Urine Total 1000 ml 800 ml Height (Feet): 5 Height (Inches): 10.00 Weight (Pounds): 150 Objective General Appearance: WD/WN, lethargic Neck: supple Cardiovascular: regular rhythm Respiratory/Chest: rhonchi - bilaterally Abdomen: normal bowel sounds, non tender, soft, no organomegaly Edema: no edema noted Arm (L), no edema noted Arm (R), no edema noted Leg (L), no edema noted Leg (R), no edema noted Pedal (L), no edema noted Pedal (R), no edema noted 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
--- NOTE | 2016-07-07 08:39 | Pulmonology Progress Note ---
Assessment/Plan Assessment/Plan IMPRESSION: 1. Possible rhabdomyolysis. 2. Acute on chronic renal failure. 3. Failure to thrive. 4. Evidence of transaminitis 5. Altered mental status. 6. Chronic encephalopathy. 7. Chronic debility. 8. Evidence of pneumonia.by cxr 9. aspiration 10. protein calorie malnutrition PLAN IV antibiotics and taper IV hydration as needed meds NGT GI for GT ID follow up and recommendations DNI await family response to consent for PEG aspiration precautions as is dc to snf when stable impression, plan, and exam edited and reviewed in detail care discussed with RN Subjective ROS Limited/Unobtainable: Yes Allergies: Coded Allergies: No Known Allergies (Unverified , 07/02/16) Subjective nontoxic stabilizing needs GT Objective Last 24 Hour Vital Signs Date Time Temp Pulse Resp B/P Pulse Ox O2 Delivery O2 Flow Rate FiO2 07/07/16 07:40 79 07/07/16 07:32 Nasal Cannula 3.0 32 07/07/16 07:31 98 Nasal Cannula 3.0 32 07/07/16 07:30 80 20 Nasal Cannula 3.0 32 07/07/16 04:00 98.2 77 22 113/73 98 Nasal Cannula 3.0 07/07/16 04:00 74 07/07/16 00:00 97.7 78 26 136/88 98 Nasal Cannula 3.0 07/07/16 00:00 88 07/06/16 21:18 98.2 84 24 112/71 98 Nasal Cannula 3.0 07/06/16 20:00 87 07/06/16 19:30 Nasal Cannula 3.0 32 07/06/16 19:30 125 20 Nasal Cannula 3.0 32 07/06/16 19:30 98 Nasal Cannula 3.0 32 07/06/16 16:00 83 07/06/16 16:00 97.9 83 26 110/74 99 Nasal Cannula 3.0 07/06/16 12:00 97.7 87 28 118/77 97 Nasal Cannula 3.0 07/06/16 12:00 75 Intake and Output 07/06/16 07/07/16 19:00 07:00 Intake Total 1545 ml 1645.000 ml Output Total 1000 ml 800 ml Balance 545 ml 845.000 ml Free Water 150 ml 50 ml IV Total 1155 ml 1475.000 ml Tube Feeding 240 ml 120 ml Output Urine Total 1000 ml 800 ml Objective GENERAL: The patient is an ill appearing male, overall chronically ill and thin. NAD HEENT: Fairly negative. Oropharynx is moist NECK: Supple. No adenopathy. LUNGS: With moderate breath sounds. no wheeze or rhonchi. CARDIAC: S1 and S2, RRR without murmurs, rubs, or gallops. ABDOMEN: Soft, thin, nontender, and nondistended. feeding tube in place EXTREMITIES: No cyanosis, clubbing, or edema. NEUROLOGIC: Grossly nonfocal, withdrawn and nonverbal. Current Medications Medications (Trade) Dose Ordered Sig/Alex Route PRN Reason Start Time Stop Time Status Last Admin Dose Admin Albuterol Sulfate (Proventil) 2.5 mg Q4H PRN HHN while awake 07/03/16 00:30 07/08/16 00:29 07/04/16 14:30 Amiodarone HCl (Cordarone) 200 mg EVERY 12 HOURS NG 07/03/16 21:00 08/02/16 20:59 07/07/16 08:33 Cefepime HCl/ Dextrose (Maxipime/D5W) 55 ml @ 110 mls/hr Q24H IVPB 07/03/16 18:00 07/10/16 17:59 07/06/16 18:21 Dextrose/ Electrolytes 1,000 ml @ 100 mls/hr Q10H IV 07/05/16 09:00 08/04/16 08:59 07/07/16 01:01 Docusate Sodium (Colace) 100 mg BID ORAL 07/07/16 09:00 08/06/16 08:59 07/07/16 08:33 Heparin Sodium (Porcine) (Heparin 5000 units/ml) 5,000 units EVERY 12 HOURS SUBQ 07/03/16 09:00 08/02/16 08:59 07/07/16 08:35 Morphine Sulfate (Morphine Sulfate) 2 mg Q3H PRN IVP PAIN 4-10 07/03/16 11:45 07/10/16 11:44 07/05/16 17:00 Vancomycin HCl (Vanco rx to dose) 1 ea DAILY PRN MISC Per rx protocol 07/03/16 01:30 08/02/16 01:29 Vancomycin HCl/ Dextrose (Vancomycin/D5W) 275 ml @ 183.708 mls/hr Q12H IVPB 07/06/16 04:00 07/11/16 03:59 07/07/16 03:47 Vitamin A/Vitamin D 1 applic 1 applic EVERY 12 HOURS TOPIC 07/03/16 23:00 08/02/16 22:59 07/07/16 08:36 ESHA BEY Jul 07, 2016 08:39
[2016-07-07] MEDS ORDERED: NS 275ml ONE (10:38)
[2016-07-07] MEDS ORDERED: Tubing IV Secondary IV ONE (10:38)
[2016-07-07 12:00] VITALS: BP 111/79
[2016-07-07 16:00] VITALS: BP 121/78
--- NOTE | 2016-07-07 16:06 | Diagnostic Imaging Report ---
Indications: Abdominal pain, elevated hepatic and renal function tests Technique: Transabdominal real-time grayscale and duplex Doppler imaging of the upper abdomen and retroperitoneum was performed. Findings: Comparison: Renal ultrasound 07/03/16. Liver normal size and surface contour, parenchymal echogenicity. No focal lesions. Gallbladder contains multiple lobulated hypoechoic material, business intern containing one or more small echogenic, possibly shadowing foci. No mural thickening or adjacent fluid collections. Sonographic Madison sign negative.. Bile ducts normal caliber. Common bile duct 7 mm. Pancreas visualized portions unremarkable. Spleen unremarkable. Right kidney demonstrates diffusely increased parenchymal echogenicity. Previous echogenic shadowing focus not currently identified. Left kidney demonstrates diffusely increased parenchymal echogenicity. Abdominal aorta, intrahepatic portion of inferior vena cava patent, normal caliber. Duplex Doppler imaging demonstrates antegrade flow in splenic, portal, hepatic veins. No ascites. IMPRESSION: Gallbladder sludge with or without small stones. No evidence of acute cholecystitis. Sonographically unremarkable liver, bile ducts Bilateral echogenic kidneys compatible with medical renal disease, also previously demonstrated.
[2016-07-07] MEDS: Cefepime HCl 1 GM in D5W 55 ML IVPB SCH (18:13)
--- NOTE | 2016-07-07 19:20 | General Progress Note ---
Assessment/Plan Assessment/Plan Assessment - malnutrition / NPO - NGT dependent - abnormal, but declining LFT - elevated CEA - UTI, PNA, Sepsis - resolving renal failure Recommendations - decrease Amio given LFT changes (? d/c) - check viral serologies - PEG scheduled for am - CT abd/pelvis - elevate HOB - Abx - Supportive care Subjective Allergies: Coded Allergies: No Known Allergies (Unverified , 07/02/16) Subjective arousable non interactive discusssed with family re PEG scheduled for Th Objective Last 24 Hour Vital Signs Date Time Temp Pulse Resp B/P Pulse Ox O2 Delivery O2 Flow Rate FiO2 07/07/16 16:00 97.9 80 26 121/78 97 Nasal Cannula 3.0 07/07/16 15:50 77 07/07/16 12:00 97.9 80 26 111/79 100 Nasal Cannula 3.0 07/07/16 11:24 82 07/07/16 08:00 97.3 80 24 120/87 97 3.0 07/07/16 07:40 79 07/07/16 07:32 Nasal Cannula 3.0 32 07/07/16 07:31 98 Nasal Cannula 3.0 32 07/07/16 07:30 80 20 Nasal Cannula 3.0 32 07/07/16 04:00 98.2 77 22 113/73 98 Nasal Cannula 3.0 07/07/16 04:00 74 07/07/16 00:00 97.7 78 26 136/88 98 Nasal Cannula 3.0 07/07/16 00:00 88 07/06/16 21:18 98.2 84 24 112/71 98 Nasal Cannula 3.0 07/06/16 20:00 87 07/06/16 19:30 Nasal Cannula 3.0 32 07/06/16 19:30 125 20 Nasal Cannula 3.0 32 07/06/16 19:30 98 Nasal Cannula 3.0 32 Intake and Output 07/06/16 07/07/16 19:00 07:00 Intake Total 1545 ml 1645.000 ml Output Total 1000 ml 800 ml Balance 545 ml 845.000 ml Free Water 150 ml 50 ml IV Total 1155 ml 1475.000 ml Tube Feeding 240 ml 120 ml Output Urine Total 1000 ml 800 ml Height (Feet): 5 Height (Inches): 10.00 Weight (Pounds): 150 Objective Debilitated AA man NCAT (+) NGT supple CTA RRR Soft NT ND no edema OBS CLIFTON SAMUEL Jul 07, 2016 19:20
[2016-07-07 20:44] VITALS: BP 119/63
[2016-07-08 00:49] VITALS: BP 121/68
[2016-07-08] MEDS: Vancomycin 750mg/D5W 275ml IVPB SCH ×4 (03:42→18:27)
[2016-07-08 04:00] VITALS: BP 119/63
[2016-07-08 07:00] LABS: BASOPHILS % (AUTO) 0.7 % (0.0-2.0); EOSINOPHILS % (AUTO) 3.3 % (0.0-3.0); LYMPHOCYTES % (AUTO) 6.9 % (20.0-45.0); MEAN CORPUSCULAR HEMOGLOBIN 32.7 PG (27.0-31.0); MEAN CORPUSCULAR HGB CONC 35.2 G/DL (32.0-36.0); MEAN CORPUSCULAR VOLUME 93 FL (80-99); MEAN PLATELET VOLUME 8.5 FL (6.5-10.1); MONOCYTES % (AUTO) 5.1 % (1.0-10.0); PLATELET COUNT 206 K/UL (150-450); RED BLOOD COUNT 2.45 M/UL (4.70-6.10); RED CELL DISTRIBUTION WIDTH 13.2 % (11.6-14.8); WHITE BLOOD COUNT 8.1 K/UL (4.8-10.8)
[2016-07-08 07:14] LABS: ALANINE AMINOTRANSFERASE 129 U/L (3-41); ALBUMIN/GLOBULIN RATIO 0.3 (1.0-2.7); ANION GAP 16 (5-15); ASPARTATE AMINO TRANSFERASE 71 U/L (5-40); CALCIUM 8.9 mg/dL (8.6-10.2); CARBON DIOXIDE 21 mEQ/L (20-30); CHLORIDE 90 mEQ/L (98-107); CREATININE 1.1 mg/dL (0.7-1.2); GLOMERULAR FILTRATION RATE > 60 mL/min (>60); HEMOLYSIS 2; POTASSIUM 4.1 mEQ/L (3.4-4.9); SODIUM 127 mEQ/L (135-145); TOTAL PROTEIN 6.7 g/dL (6.6-8.7)
[2016-07-08] MEDS: D5W w/KCl 20mEq 1,000 ML IV SCH (07:24)
[2016-07-08 08:00] VITALS: BP 137/84
[2016-07-08] MEDS: Amiodarone 200mg tab NG SCH ×2 (08:21→21:30)
[2016-07-08] MEDS: Docusate 100mg tablet ORAL SCH ×2 (08:21→18:27)
[2016-07-08] MEDS: Heparin 5000 units/ml inj SUBQ SCH ×2 (08:21→21:00)
[2016-07-08] MEDS: Vitamin A&D Oint 2oz Tube TOPIC SCH ×2 (08:22→21:30)
[2016-07-08 10:29] LABS: INR 1.1 (0.9-1.1); PROTHROMBIN TIME 11.5 SEC (9.30-11.50)
--- NOTE | 2016-07-08 11:19 | Pulmonology Progress Note ---
Assessment/Plan Assessment/Plan IMPRESSION: 1. Possible rhabdomyolysis. 2. Acute on chronic renal failure. 3. Failure to thrive. 4. Evidence of transaminitis 5. Altered mental status. 6. Chronic encephalopathy. 7. Chronic debility. 8. Evidence of pneumonia.by cxr 9. aspiration 10. protein calorie malnutrition PLAN IV antibiotics and taper per ID IV hydration as needed; change to NS meds NGT GI for GT today ID follow up and recommendations DNI dc to snf in am if stable impression, plan, and exam edited and reviewed in detail care discussed with RN Subjective ROS Limited/Unobtainable: Yes Allergies: Coded Allergies: No Known Allergies (Unverified , 07/02/16) Subjective nontoxic stabilizing and liver enzymes better for GT Objective Last 24 Hour Vital Signs Date Time Temp Pulse Resp B/P Pulse Ox O2 Delivery O2 Flow Rate FiO2 07/08/16 08:00 86 07/08/16 08:00 97.0 88 21 137/84 99 Nasal Cannula 3.0 07/08/16 06:31 98 Nasal Cannula 3.0 32 07/08/16 06:31 84 18 Nasal Cannula 3.0 32 07/08/16 06:31 Nasal Cannula 3.0 32 07/08/16 04:00 80 07/08/16 04:00 98.2 88 24 119/63 98 Nasal Cannula 3.0 07/08/16 00:49 97.9 91 24 121/68 97 Nasal Cannula 3.0 07/07/16 23:02 81 07/07/16 20:44 98.2 88 24 119/63 98 Nasal Cannula 3.0 07/07/16 20:00 88 07/07/16 19:49 98 Nasal Cannula 3.0 32 07/07/16 19:49 Nasal Cannula 3.0 32 07/07/16 19:48 86 20 Nasal Cannula 3.0 32 07/07/16 16:00 97.9 80 26 121/78 97 Nasal Cannula 3.0 07/07/16 15:50 77 07/07/16 12:00 97.9 80 26 111/79 100 Nasal Cannula 3.0 07/07/16 11:24 82 Intake and Output 07/07/16 07/08/16 19:00 07:00 Intake Total 1253 ml 1255.000 ml Output Total 1600 ml Balance -347 ml 1255.000 ml Free Water 150 ml 100 ml IV Total 983 ml 975.000 ml Tube Feeding 120 ml 180 ml Output Urine Total 1600 ml Objective GENERAL: The patient is an ill appearing male, overall chronically ill and thin. NAD HEENT: Fairly negative. Oropharynx is moist NECK: Supple. No adenopathy. LUNGS: With moderate breath sounds. no wheeze or rhonchi. CARDIAC: S1 and S2, RRR without murmurs, rubs, or gallops. ABDOMEN: Soft, thin, nontender, and nondistended. feeding tube in place EXTREMITIES: No cyanosis, clubbing, or edema. NEUROLOGIC: Grossly nonfocal, withdrawn and nonverbal. reviewed and edited Laboratory Tests 07/08/16 06:20: White Blood Count 8.1, Red Blood Count 2.45L, Hemoglobin 8.0L, Hematocrit 22.7L , Mean Corpuscular Volume 93, Mean Corpuscular Hemoglobin 32.7H, Mean Corpuscular Hemoglobin Concent 35.2, Red Cell Distribution Width 13.2, Platelet Count 206, Mean Platelet Volume 8.5, Neutrophils (%) (Auto) 84.0H, Lymphocytes ( %) (Auto) 6.9L, Monocytes (%) (Auto) 5.1, Eosinophils (%) (Auto) 3.3H, Basophils (%) (Auto) 0.7, Sodium Level 127L, Potassium Level 4.1, Chloride Level 90L, Carbon Dioxide Level 21, Anion Gap 16H, Blood Urea Nitrogen 31H, Creatinine 1.1, Estimat Glomerular Filtration Rate > 60, Glucose Level 115H, Calcium Level 8.9, Total Bilirubin 0.6, Aspartate Amino Transf (AST/SGOT) 71H, Alanine Aminotransferase (ALT/SGPT) 129H, Alkaline Phosphatase 210H, Total Protein 6.7, Albumin 1.8L, Globulin 4.9, Albumin/Globulin Ratio 0.3L, Cytomegalovirus DNA Qual (PCR) [Pending], Herpes Simplex Virus I IgM Ab (IFA) [ Pending], Herpes Simplex Virus II IgM Ab (IFA [Pending], Monoscreen [Pending] 07/08/16 09:45: Prothrombin Time 11.5, Prothromb Time International Ratio 1.1, Activated Partial Thromboplast Time 23 Current Medications Medications (Trade) Dose Ordered Sig/Alex Route PRN Reason Start Time Stop Time Status Last Admin Dose Admin Amiodarone HCl 50 mg 50 mg EVERY 12 HOURS NG 07/08/16 09:00 08/07/16 08:59 Cefepime HCl/ Dextrose (Maxipime/D5W) 55 ml @ 110 mls/hr Q24H IVPB 07/03/16 18:00 07/10/16 17:59 07/07/16 18:13 Docusate Sodium (Colace) 100 mg BID ORAL 07/07/16 09:00 08/06/16 08:59 07/07/16 18:16 Heparin Sodium (Porcine) (Heparin 5000 units/ml) 5,000 units EVERY 12 HOURS SUBQ 07/03/16 09:00 08/02/16 08:59 07/07/16 22:09 Morphine Sulfate (Morphine Sulfate) 2 mg Q3H PRN IVP PAIN 4-10 07/03/16 11:45 07/10/16 11:44 07/05/16 17:00 Sodium Chloride (Sodium Chloride 1000ml bag) 1,000 ml @ 100 mls/hr Q10H IV 07/08/16 09:00 08/07/16 08:59 07/08/16 08:20 Vancomycin HCl (Vanco rx to dose) 1 ea DAILY PRN MISC Per rx protocol 07/03/16 01:30 08/02/16 01:29 Vancomycin HCl/ Dextrose (Vancomycin/D5W) 275 ml @ 183.708 mls/hr Q12H IVPB 07/06/16 04:00 07/11/16 03:59 07/08/16 03:42 Vitamin A/Vitamin D 1 applic 1 applic EVERY 12 HOURS TOPIC 07/03/16 23:00 08/02/16 22:59 07/08/16 08:22 ESHA BEY Jul 08, 2016 11:19
[2016-07-08 12:00] VITALS: BP 114/82
--- NOTE | 2016-07-08 13:42 | General Progress Note ---
Assessment/Plan Problem List: (1) Fever ICD Codes: R50.9 - Fever, unspecified SNOMED: 065666460 Qualifiers: Qualified Codes: R50.9 - Fever, unspecified (2) Acute renal failure ICD Codes: N17.9 - Acute kidney failure, unspecified SNOMED: 15386140 Qualifiers: Qualified Codes: N17.9 - Acute kidney failure, unspecified (3) Pneumonia ICD Codes: J18.9 - Pneumonia, unspecified organism SNOMED: 819964106, 374481191 Qualifiers: Qualified Codes: J18.1 - Lobar pneumonia, unspecified organism (4) Elevated liver enzymes ICD Codes: R74.8 - Abnormal levels of other serum enzymes SNOMED: 836845631, 035612697 (5) Rhabdomyolysis ICD Codes: M62.82 - Rhabdomyolysis SNOMED: 103792629 Qualifiers: Qualified Codes: M62.82 - Rhabdomyolysis Status: stable Assessment/Plan ivf ngt feeds gt today iv abx follow up cultures monitor labs skin care possible gt Subjective ROS Limited/Unobtainable: Yes Constitutional: Reports: malaise, weakness HEENT: Reports: no symptoms Cardiovascular: Reports: no symptoms Respiratory: Reports: cough, shortness of breath, sputum Gastrointestinal/Abdominal: Reports: difficulty swallowing Genitourinary: Reports: no symptoms Neurologic/Psychiatric: Reports: pre-existing deficit Endocrine: Reports: no symptoms Hematologic/Lymphatic: Reports: no symptoms Allergies: Coded Allergies: No Known Allergies (Unverified , 07/02/16) All Systems: reviewed and negative except above Subjective events noted. chart review. tolerating ngt feeds. abd niesha negative for cholecystitis Objective Last 24 Hour Vital Signs Date Time Temp Pulse Resp B/P Pulse Ox O2 Delivery O2 Flow Rate FiO2 07/08/16 12:00 100 07/08/16 12:00 97.8 90 20 114/82 99 Room Air 07/08/16 08:00 86 07/08/16 08:00 97.0 88 21 137/84 99 Nasal Cannula 3.0 07/08/16 06:31 98 Nasal Cannula 3.0 32 07/08/16 06:31 84 18 Nasal Cannula 3.0 32 07/08/16 06:31 Nasal Cannula 3.0 32 07/08/16 04:00 80 07/08/16 04:00 98.2 88 24 119/63 98 Nasal Cannula 3.0 07/08/16 00:49 97.9 91 24 121/68 97 Nasal Cannula 3.0 07/07/16 23:02 81 07/07/16 20:44 98.2 88 24 119/63 98 Nasal Cannula 3.0 07/07/16 20:00 88 07/07/16 19:49 98 Nasal Cannula 3.0 32 07/07/16 19:49 Nasal Cannula 3.0 32 07/07/16 19:48 86 20 Nasal Cannula 3.0 32 07/07/16 16:00 97.9 80 26 121/78 97 Nasal Cannula 3.0 07/07/16 15:50 77 Intake and Output 07/07/16 07/08/16 18:59 06:59 Intake Total 1323 ml 1285.000 ml Output Total 1600 ml Balance -277 ml 1285.000 ml Free Water 150 ml 100 ml IV Total 1083 ml 975.000 ml Tube Feeding 90 ml 210 ml Output Urine Total 1600 ml Laboratory Tests 07/08/16 06:20: White Blood Count 8.1, Red Blood Count 2.45L, Hemoglobin 8.0L, Hematocrit 22.7L , Mean Corpuscular Volume 93, Mean Corpuscular Hemoglobin 32.7H, Mean Corpuscular Hemoglobin Concent 35.2, Red Cell Distribution Width 13.2, Platelet Count 206, Mean Platelet Volume 8.5, Neutrophils (%) (Auto) 84.0H, Lymphocytes ( %) (Auto) 6.9L, Monocytes (%) (Auto) 5.1, Eosinophils (%) (Auto) 3.3H, Basophils (%) (Auto) 0.7, Sodium Level 127L, Potassium Level 4.1, Chloride Level 90L, Carbon Dioxide Level 21, Anion Gap 16H, Blood Urea Nitrogen 31H, Creatinine 1.1, Estimat Glomerular Filtration Rate > 60, Glucose Level 115H, Calcium Level 8.9, Total Bilirubin 0.6, Aspartate Amino Transf (AST/SGOT) 71H, Alanine Aminotransferase (ALT/SGPT) 129H, Alkaline Phosphatase 210H, Total Protein 6.7, Albumin 1.8L, Globulin 4.9, Albumin/Globulin Ratio 0.3L, Cytomegalovirus DNA Qual (PCR) [Pending], Herpes Simplex Virus I IgM Ab (IFA) [ Pending], Herpes Simplex Virus II IgM Ab (IFA [Pending], Monoscreen [Pending] 07/08/16 09:45: Prothrombin Time 11.5, Prothromb Time International Ratio 1.1, Activated Partial Thromboplast Time 23 Height (Feet): 5 Height (Inches): 10.00 Weight (Pounds): 150 Objective General Appearance: WD/WN, lethargic Neck: supple Cardiovascular: regular rhythm Respiratory/Chest: rhonchi - bilaterally Abdomen: normal bowel sounds, non tender, soft, no organomegaly Edema: no edema noted Arm (L), no edema noted Arm (R), no edema noted Leg (L), no edema noted Leg (R), no edema noted Pedal (L), no edema noted Pedal (R), no edema noted 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
--- NOTE | 2016-07-08 15:01 | Diagnostic Imaging Report ---
Clinical Indication: Abdominal pain. Acute on chronic renal failure, abnormal liver function tests Technique: Patient given enteric contrast IV administration nonionic contrast. Venous phase spiral acquisition obtained through the abdomen and pelvis. Multiplanar reconstructions were generated. Total dose length product 646 mGycm. CTDIvol(s) 12 mGy. Dose reduction achieved using automated exposure control Comparison: Reference made to abdomen ultrasound 07/07/2016 Findings: Inherent soft tissue contrast is limited by asthenic body habitus and generalized soft tissue edema. There is considerable dense consolidation in the left lower lobe. There is suggestion of some bronchiectasis, indicating there may be a chronic fibrotic component to this. Is also small left-sided pleural effusion. The right lung demonstrates hyperinflation as well as some posterior basilar scarring. The rectum is distended by stool. No evidence of diverticulosis or diverticulitis. The appendix is normal. Small bowel loops are nondilated and there is no small bowel wall thickening. Contrast is seen throughout the entirety of the small bowel and well into the colon. No free or loculated intraperitoneal air or fluid is evident. There is a nasogastric tube in place. The tip is at the level of the gastric fundus/body junction. The liver is unremarkable. The gallbladder demonstrates equivocal wall thickening. Sludge and possible stones described on recent ultrasound are not definitely evident. The liver, bile ducts are unremarkable. The pancreas is somewhat atrophic, otherwise unremarkable. The spleen, adrenals, kidneys are unremarkable. No pelvic mass or adenopathy. There is a Aranda catheter in good position in the bladder. The bladder is nonetheless distended despite this. As mentioned above, there is diffuse edema of the body wall and to lesser extent the abdominal fat. There is some asymmetry of the abdominal wall musculature, that on the left being asymmetrically hypertrophied relative to the right. Impression: Evidence of mild anasarca, with diffuse body wall edema and edema of the abdominal fat, as well as small left-sided pleural effusion Considerable dense consolidation involving much of the visualized left lower lobe. This may in part indicate chronic change, as there does appear to be a component of bronchiectasis, but associated acute component also likely. There is also a small left pleural effusion, as mentioned above Distended rectum, may indicate rectal fecal impaction Equivocal gallbladder wall thickening. This could be a manifestation of anasarca, but acute cholecystitis is not excludable. Consider nuclear medicine biliary scan for further evaluation if there is high clinical suspicion. Note that the sludge and stones described on recent ultrasound are not clearly evident on CT Aranda catheter. Persistent mild distention of the bladder despite this The CT scanner at [facility] is accredited by the [employer] and the scans are performed using protocols designed to limit radiation exposure to as low as reasonably achievable to attain images of sufficient resolution adequate for diagnostic evaluation.
[2016-07-08 16:00] VITALS: BP_SYST 123; BP_SYST 97; BP_DIAS 75; BP_DIAS 81
[2016-07-08] MEDS ORDERED: NS 275ml ONE ×2 (16:29→17:00)
[2016-07-08] MEDS ORDERED: Tubing Blood Filter IV ONE (17:00)
[2016-07-08] MEDS: Cefepime HCl 1 GM in D5W 55 ML IVPB SCH (18:27)
--- NOTE | 2016-07-08 18:58 | Electroencephalogram ---
DATE OF PROCEDURE: 07/03/2016 REQUESTING PHYSICIAN: Washington Bonner M.D. EEG was done using 18 electrodes placed scalp to scalp, scalp to ear montages according to 10/20 International System. The patient has a history of paroxysmal loss of consciousness and seizure disorder was suspected. During the recording, the patient described as being awake, but confused, and poorly cooperative. Throughout the recording, background consists of well regulated 5 to 6 hertz medium voltage theta activities occasionally accompanied by EMG artifacts. There was no significant asymmetry. No spike or wave activities noted. Photic stimulation results in a photic drive, which was symmetric. IMPRESSION: Abnormal EEG with presence of [id number] diffuse slowing. COMMENT: Above abnormality indicates the presence of encephalopathy of toxic metabolic or postictal. Absence of paroxysmal event does not rule out seizure disorder. Vince Hays M.D. DR: CYNTHIA JOB#: [id number] CC:
--- NOTE | 2016-07-08 19:21 | General Progress Note ---
Assessment/Plan Assessment/Plan Assessment - malnutrition / NPO - NGT dependent - abnormal, but declining LFT - elevated CEA - UTI, PNA, Sepsis - resolving renal failure Recommendations - decrease Amio given LFT changes (? d/c) - check viral serologies - PEG scheduled for am - elevate HOB - Abx - Supportive care Subjective Allergies: Coded Allergies: No Known Allergies (Unverified , 07/02/16) Subjective had CT todaay non interactive discusssed with family re PEG scheduled for am LFT lower Objective Last 24 Hour Vital Signs Date Time Temp Pulse Resp B/P Pulse Ox O2 Delivery O2 Flow Rate FiO2 07/08/16 19:12 91 18 Nasal Cannula 3.0 32 07/08/16 19:12 Nasal Cannula 3.0 32 07/08/16 19:12 100 Nasal Cannula 3.0 32 07/08/16 16:00 91 07/08/16 16:00 97.7 97 20 123/81 99 Nasal Cannula 3.0 07/08/16 12:00 100 07/08/16 12:00 97.8 90 20 114/82 99 Room Air 07/08/16 08:00 86 07/08/16 08:00 97.0 88 21 137/84 99 Nasal Cannula 3.0 07/08/16 06:31 98 Nasal Cannula 3.0 32 07/08/16 06:31 84 18 Nasal Cannula 3.0 32 07/08/16 06:31 Nasal Cannula 3.0 32 07/08/16 04:00 80 07/08/16 04:00 98.2 88 24 119/63 98 Nasal Cannula 3.0 07/08/16 00:49 97.9 91 24 121/68 97 Nasal Cannula 3.0 07/07/16 23:02 81 07/07/16 20:44 98.2 88 24 119/63 98 Nasal Cannula 3.0 07/07/16 20:00 88 07/07/16 19:49 98 Nasal Cannula 3.0 32 07/07/16 19:49 Nasal Cannula 3.0 32 07/07/16 19:48 86 20 Nasal Cannula 3.0 32 Intake and Output 07/07/16 07/08/16 19:00 07:00 Intake Total 1253 ml 1255.000 ml Output Total 1600 ml Balance -347 ml 1255.000 ml Free Water 150 ml 100 ml IV Total 983 ml 975.000 ml Tube Feeding 120 ml 180 ml Output Urine Total 1600 ml Laboratory Tests 07/08/16 06:20: White Blood Count 8.1, Red Blood Count 2.45L, Hemoglobin 8.0L, Hematocrit 22.7L , Mean Corpuscular Volume 93, Mean Corpuscular Hemoglobin 32.7H, Mean Corpuscular Hemoglobin Concent 35.2, Red Cell Distribution Width 13.2, Platelet Count 206, Mean Platelet Volume 8.5, Neutrophils (%) (Auto) 84.0H, Lymphocytes ( %) (Auto) 6.9L, Monocytes (%) (Auto) 5.1, Eosinophils (%) (Auto) 3.3H, Basophils (%) (Auto) 0.7, Sodium Level 127L, Potassium Level 4.1, Chloride Level 90L, Carbon Dioxide Level 21, Anion Gap 16H, Blood Urea Nitrogen 31H, Creatinine 1.1, Estimat Glomerular Filtration Rate > 60, Glucose Level 115H, Calcium Level 8.9, Total Bilirubin 0.6, Aspartate Amino Transf (AST/SGOT) 71H, Alanine Aminotransferase (ALT/SGPT) 129H, Alkaline Phosphatase 210H, Total Protein 6.7, Albumin 1.8L, Globulin 4.9, Albumin/Globulin Ratio 0.3L, Cytomegalovirus DNA Qual (PCR) [Pending], Herpes Simplex Virus I IgM Ab (IFA) [ Pending], Herpes Simplex Virus II IgM Ab (IFA [Pending], Monoscreen [Pending] 07/08/16 09:45: Prothrombin Time 11.5, Prothromb Time International Ratio 1.1, Activated Partial Thromboplast Time 23 Height (Feet): 5 Height (Inches): 10.00 Weight (Pounds): 150 Objective Debilitated AA man NCAT (+) NGT supple CTA RRR Soft NT ND no edema OBS CLIFTON SAMUEL Jul 08, 2016 19:21
[2016-07-08 20:00] VITALS: BP 127/78
[2016-07-09] VITALS (10 sets, daily range): BP systolic 120–153; BP diastolic 85–106
[2016-07-09] MEDS: Vancomycin 750mg/D5W 275ml IVPB SCH ×4 (03:08→16:55)
--- NOTE | 2016-07-09 03:38 | Progress Note ---
DATE: 07/08/2016 CARDIOLOGY PROGRESS NOTE: SUBJECTIVE: The patient continues to have elevated liver function tests. He remains on NG-tube feedings with consideration for PEG placement. OBJECTIVE: VITAL SIGNS: Blood pressure 123/81, pulse 97, respiratory rate 20, and the patient is afebrile. NECK: Supple. LUNGS: With coarse breath sounds. CARDIAC: Regular rhythm and rate. Normal S1, S2. No rub. ABDOMEN: Distended, ascitic, and there is dependent edema. LABORATORY DATA: CAT scan has reviewed. IMPRESSION: 1. Transaminitis. 2. Cardiac arrhythmias. 3. History of cardiac arrest. 4. Anasarca. 5. Left pleural effusion. 6. Possible fecal impaction. 7. Gallbladder thickening. PLAN: Decrease dose of amiodarone for note to 200 daily. Monitor renal parameters. Consider diuresis. We will check natriuretic peptide assay and echocardiogram. Natalio Wisdom M.D. DR: Balta JOB#: [id number] CC:
[2016-07-09 05:40] LABS: MEAN CORPUSCULAR HEMOGLOBIN 30.3 PG (27.0-31.0); MEAN CORPUSCULAR HGB CONC 32.7 G/DL (32.0-36.0); MEAN CORPUSCULAR VOLUME 93 FL (80-99); MEAN PLATELET VOLUME 8.3 FL (6.5-10.1); PLATELET COUNT 143 K/UL (150-450); RED BLOOD COUNT 4.21 M/UL (4.70-6.10); RED CELL DISTRIBUTION WIDTH 13.6 % (11.6-14.8); WHITE BLOOD COUNT 10.4 K/UL (4.8-10.8)
[2016-07-09 06:11] LABS: ALANINE AMINOTRANSFERASE 120 U/L (3-41); ALBUMIN/GLOBULIN RATIO 0.4 (1.0-2.7); ANION GAP 15 (5-15); ASPARTATE AMINO TRANSFERASE 74 U/L (5-40); CALCIUM 8.7 mg/dL (8.6-10.2); CARBON DIOXIDE 22 mEQ/L (20-30); CHLORIDE 94 mEQ/L (98-107); GLOMERULAR FILTRATION RATE > 60 mL/min (>60); HEMOLYSIS 2; POTASSIUM 3.7 mEQ/L (3.4-4.9); SODIUM 131 mEQ/L (135-145); TOTAL PROTEIN 6.8 g/dL (6.6-8.7)
[2016-07-09] MEDS: Docusate 100mg tablet ORAL SCH ×2 (09:00→18:12)
[2016-07-09] MEDS: Heparin 5000 units/ml inj SUBQ SCH ×2 (09:00→20:42)
[2016-07-09] MEDS: Amiodarone 200mg tab NG SCH (09:00)
[2016-07-09] MEDS: Vitamin A&D Oint 2oz Tube TOPIC SCH ×2 (09:01→20:43)
--- NOTE | 2016-07-09 09:01 | Pulmonology Progress Note ---
Assessment/Plan Assessment/Plan IMPRESSION: 1. Possible rhabdomyolysis. 2. Acute on chronic renal failure. 3. Failure to thrive. 4. Evidence of transaminitis 5. Altered mental status. 6. Chronic encephalopathy. 7. Chronic debility. 8. Evidence of pneumonia.by cxr 9. aspiration 10. protein calorie malnutrition PLAN IV antibioticsper ID IV hydration with NS meds NGT GI for GT today ID follow up and recommendations DNI dc to snf in am if stable once GT in follow up liver enzymes EEG ordered but not done; repeat order placed impression, plan, and exam edited and reviewed in detail care discussed with RN Subjective ROS Limited/Unobtainable: Yes Allergies: Coded Allergies: No Known Allergies (Unverified , 07/02/16) Subjective nontoxic stabilizing and liver enzymes better d/w GI d/w sister Objective Last 24 Hour Vital Signs Date Time Temp Pulse Resp B/P Pulse Ox O2 Delivery O2 Flow Rate FiO2 07/09/16 08:27 Nasal Cannula 4.0 32 07/09/16 08:27 100 Nasal Cannula 4.0 36 07/09/16 08:27 84 20 Nasal Cannula 4.0 36 07/09/16 08:00 97.7 98 17 141/92 97 Nasal Cannula 07/09/16 04:00 84 07/09/16 04:00 97.9 84 20 134/87 100 Nasal Cannula 4.0 07/09/16 00:00 97.9 83 24 127/88 92 Nasal Cannula 3.0 07/08/16 23:41 91 07/08/16 20:00 98.0 90 24 127/78 100 Nasal Cannula 2.0 07/08/16 19:27 92 07/08/16 19:12 91 18 Nasal Cannula 3.0 32 07/08/16 19:12 Nasal Cannula 3.0 32 07/08/16 19:12 100 Nasal Cannula 3.0 32 07/08/16 16:00 91 07/08/16 16:00 97.7 97 20 123/81 99 Nasal Cannula 3.0 07/08/16 12:00 100 07/08/16 12:00 97.8 90 20 114/82 99 Room Air Intake and Output 07/08/16 07/09/16 19:00 07:00 Intake Total 1225 ml 1770.000 ml Output Total 3000 ml Balance -1775 ml 1770.000 ml Free Water 100 ml IV Total 545 ml 1550.000 ml Tube Feeding 180 ml 120 ml Blood Product 500 ml Output Urine Total 3000 ml # Bowel Movements 1 1 Objective GENERAL: The patient is an ill appearing male, overall chronically ill and thin. NAD HEENT: Fairly negative. Oropharynx is moist NECK: Supple. No adenopathy. LUNGS: With moderate breath sounds. no wheeze or rhonchi. CARDIAC: S1 and S2, RRR without murmurs, rubs, or gallops. ABDOMEN: Soft, thin, nontender, and nondistended. feeding tube in place EXTREMITIES: No cyanosis, clubbing, or edema. NEUROLOGIC: Grossly nonfocal, withdrawn and nonverbal. reviewed and edited Laboratory Tests 07/08/16 09:45: Prothrombin Time 11.5, Prothromb Time International Ratio 1.1, Activated Partial Thromboplast Time 23 07/09/16 00:00: Stool Occult Blood [Pending] 07/09/16 04:00: White Blood Count 10.4, Red Blood Count 4.21L, Hemoglobin 12.7#L, Hematocrit 39.0#L, Mean Corpuscular Volume 93, Mean Corpuscular Hemoglobin 30.3, Mean Corpuscular Hemoglobin Concent 32.7, Red Cell Distribution Width 13.6, Platelet Count 143L, Mean Platelet Volume 8.3, Neutrophils (%) (Auto) , Lymphocytes (%) ( Auto) , Monocytes (%) (Auto) , Eosinophils (%) (Auto) , Basophils (%) (Auto) , Sodium Level 131L, Potassium Level 3.7, Chloride Level 94L, Carbon Dioxide Level 22, Anion Gap 15, Blood Urea Nitrogen 28H, Creatinine 1.0, Estimat Glomerular Filtration Rate > 60, Glucose Level 89, Calcium Level 8.7, Total Bilirubin 0.9, Aspartate Amino Transf (AST/SGOT) 74H, Alanine Aminotransferase ( ALT/SGPT) 120H, Alkaline Phosphatase 199H, Pro-B-Type Natriuretic Peptide 244H, Total Protein 6.8, Albumin 2.0L, Globulin 4.8, Albumin/Globulin Ratio 0.4L Current Medications Medications (Trade) Dose Ordered Sig/Alex Route PRN Reason Start Time Stop Time Status Last Admin Dose Admin Amiodarone HCl (Cordarone) 200 mg DAILY NG 07/09/16 09:00 08/08/16 08:59 Cefepime HCl/ Dextrose (Maxipime/D5W) 55 ml @ 110 mls/hr Q24H IVPB 07/03/16 18:00 07/10/16 17:59 07/08/16 18:27 Docusate Sodium 100 mg 100 mg BID ORAL 07/07/16 09:00 08/06/16 08:59 07/08/16 18:27 Heparin Sodium (Porcine) (Heparin 5000 units/ml) 5,000 units EVERY 12 HOURS SUBQ 07/03/16 09:00 08/02/16 08:59 07/07/16 22:09 Morphine Sulfate (Morphine Sulfate) 2 mg Q3H PRN IVP PAIN 4-10 07/03/16 11:45 07/10/16 11:44 07/05/16 17:00 Sodium Chloride (Sodium Chloride 1000ml bag) 1,000 ml @ 100 mls/hr Q10H IV 07/08/16 09:00 08/07/16 08:59 07/09/16 02:25 Vancomycin HCl (Vanco rx to dose) 1 ea DAILY PRN MISC Per rx protocol 07/03/16 01:30 08/02/16 01:29 Vancomycin HCl/ Dextrose (Vancomycin/D5W) 275 ml @ 183.708 mls/hr Q12H IVPB 07/06/16 04:00 07/11/16 03:59 07/09/16 03:08 Vitamin A/Vitamin D 1 applic 1 applic EVERY 12 HOURS TOPIC 07/03/16 23:00 08/02/16 22:59 07/08/16 21:30 ESHA BEY Jul 09, 2016 09:01
[2016-07-09] MEDS ORDERED: Lidocaine 1% MPF 10mg/ml 5ml ONE (11:15)
[2016-07-09] MEDS ORDERED: LR 1000ml ONE (11:15)
[2016-07-09] MEDS ORDERED: Propofol 10mg/ml 20ml IV ONE (11:15)
--- NOTE | 2016-07-09 11:26 | General Progress Note ---
Assessment/Plan Assessment/Plan Assessment - malnutrition / NPO - NGT dependent - abnormal, but declining LFT - US and CT negative - elevated CEA - UTI, PNA, Sepsis - resolving renal failure Recommendations - decreased Amio given LFT changes (? d/c) - check viral serologies - PEG scheduled for today - elevate HOB - Abx - Supportive care - follow LFT Subjective Allergies: Coded Allergies: No Known Allergies (Unverified , 07/02/16) Subjective CT scan without liver mass lesion or blanquita il seen in GI lab non verbal Objective Last 24 Hour Vital Signs Date Time Temp Pulse Resp B/P Pulse Ox O2 Delivery O2 Flow Rate FiO2 07/09/16 08:27 Nasal Cannula 4.0 32 07/09/16 08:27 100 Nasal Cannula 4.0 36 07/09/16 08:27 84 20 Nasal Cannula 4.0 36 07/09/16 08:00 97.7 98 17 141/92 97 Nasal Cannula 07/09/16 04:00 84 07/09/16 04:00 97.9 84 20 134/87 100 Nasal Cannula 4.0 07/09/16 00:00 97.9 83 24 127/88 92 Nasal Cannula 3.0 07/08/16 23:41 91 07/08/16 20:00 98.0 90 24 127/78 100 Nasal Cannula 2.0 07/08/16 19:27 92 07/08/16 19:12 91 18 Nasal Cannula 3.0 32 07/08/16 19:12 Nasal Cannula 3.0 32 07/08/16 19:12 100 Nasal Cannula 3.0 32 07/08/16 16:00 91 07/08/16 16:00 97.7 97 20 123/81 99 Nasal Cannula 3.0 07/08/16 12:00 100 07/08/16 12:00 97.8 90 20 114/82 99 Room Air Intake and Output 07/08/16 07/09/16 19:00 07:00 Intake Total 1225 ml 1870.000 ml Output Total 3000 ml Balance -1775 ml 1870.000 ml Free Water 100 ml IV Total 545 ml 1650.000 ml Tube Feeding 180 ml 120 ml Blood Product 500 ml Output Urine Total 3000 ml # Bowel Movements 1 1 Laboratory Tests 07/09/16 00:00: Stool Occult Blood [Pending] 07/09/16 04:00: White Blood Count 10.4, Red Blood Count 4.21L, Hemoglobin 12.7#L, Hematocrit 39.0#L, Mean Corpuscular Volume 93, Mean Corpuscular Hemoglobin 30.3, Mean Corpuscular Hemoglobin Concent 32.7, Red Cell Distribution Width 13.6, Platelet Count 143L, Mean Platelet Volume 8.3, Neutrophils (%) (Auto) , Lymphocytes (%) ( Auto) , Monocytes (%) (Auto) , Eosinophils (%) (Auto) , Basophils (%) (Auto) , Sodium Level 131L, Potassium Level 3.7, Chloride Level 94L, Carbon Dioxide Level 22, Anion Gap 15, Blood Urea Nitrogen 28H, Creatinine 1.0, Estimat Glomerular Filtration Rate > 60, Glucose Level 89, Calcium Level 8.7, Total Bilirubin 0.9, Aspartate Amino Transf (AST/SGOT) 74H, Alanine Aminotransferase ( ALT/SGPT) 120H, Alkaline Phosphatase 199H, Pro-B-Type Natriuretic Peptide 244H, Total Protein 6.8, Albumin 2.0L, Globulin 4.8, Albumin/Globulin Ratio 0.4L Height (Feet): 5 Height (Inches): 10.00 Weight (Pounds): 150 Objective Debilitated AA man NCAT (+) NGT supple CTA RRR Soft NT ND no edema OBS CLIFTON SAMUEL Jul 09, 2016 11:26
--- NOTE | 2016-07-09 11:27 | Pre-Procedure Note/Attestation ---
Pre-Procedure Note/Attestation Complete Prior to Procedure Planned Procedure: not applicable Procedure Narrative: PEG Indications for Procedure Pre-Operative Diagnosis: dysphagia Attestation I attest that I discussed the nature of the procedure; its benefits; risks and complications; and alternatives (and the risks and benefits of such alternatives ), prior to the procedure, with the patient (or the patient's legal correspondence representative). I attest that, if there was a reasonable possibility of needing a blood transfusion, the patient (or the patient's legal correspondence representative) was given the [facility] standardized written summary, pursuant to the [place] Blood Safety Act ([place] Health and Safety Code # 1645, as amended). I attest that I re-evaluated the patient just prior to the surgery and that there has been no change in the patient's H&P, except as documented below: CLIFTON SAMUEL Jul 09, 2016 11:27
[2016-07-09] MEDS ORDERED: NS 550ML IV ONE (11:28)
--- NOTE | 2016-07-09 11:53 | Endoscopy Procedure Note ---
Endoscopy Procedure Note Indication for Procedure: dysphagia Procedures Performed: PEG Operative Findings/Diagnosis: dysphagia Specimen: none Pt Tolerated Procedure Well: Yes Estimated Blood Loss: none Anesthesiologist: see report Anesthesia: MAC Medication Given: see anesthesia record Implant(s) used?: No 50 yrs or older w/o bx or poly: Not Applicable 10yrs. F/U not recommended: Not Applicable If not recommended, why?: CLIFTON SAMUEL Jul 09, 2016 11:53
--- NOTE | 2016-07-09 11:54 | Brief Operative Note ---
Immediate Post Operative Note Operative Note Chief Complaint: dysphagia Pre-op Diagnosis: dysphagia Procedure: PEG Post-op Diagnosis: PEG Surgeon: сергей Anesthesiologist: see report Anesthesia: moderate sedation Specimen: none Complications: none Condition: stable Estimated Blood Loss: none Drains: none Implant(s) used?: No CLIFTON SAMUEL Jul 09, 2016 11:54
--- NOTE | 2016-07-09 12:02 | Immediate Post-Op Evaluation ---
Immediate Post-Op Evalulation Immediate Post-Op Evalulation Procedure: EGD Peg placement Date of Evaluation: Jul 09, 2016 Time of Evaluation: 12:01 IV Fluids: 200 Blood Pressure Diastolic: 151 Pulse Rate: 100 Respiratory Rate: 14 O2 Sat by Pulse Oximetry: 100 Temperature (Fahrenheit): 97.6 Nausea: No Vomiting: No Complications none Patient Status: awake, no response, patent Hydration Status: adequate Drug: cefepime MAHOGANY LERMA CRNA Jul 09, 2016 12:01
--- NOTE | 2016-07-09 12:45 | 48 Hour Post Anesthesia Eval ---
Post Anesthesia Evaluation Procedure: EGD Peg placement Date of Evaluation: Jul 09, 2016 Time of Evaluation: 12:45 Blood Pressure Systolic: 135 0: 99 Pulse Rate: 75 O2 Sat by Pulse Oximetry: 99 Airway: patent Nausea: No Vomiting: No Hydration Status: adequate Mental Status/LOC: patient returned to baseline Post-Anesthesia Complications: none Follow-up care needed: N/A MAHOGANY LERMA CRNA Jul 09, 2016 12:45
--- NOTE | 2016-07-09 12:51 | Anethesia Preoperative Eval ---
Anesthesia Pre-op PMH/ROS General Date of Evaluation: Jul 09, 2016 Time of Evaluation: 12:48 Anesthesiologist: terrence ASA Score: ASA 3 Mallampati Score Class I : Soft palate, uvula, fauces, pillars visible Class II: Soft palate, uvula, fauces visible Class III: Soft palate, base of uvula visible Class IV: Only hard plate visible Mallampati Classification: Class III Surgeon: padmini Diagnosis: failure to thrive Surgical Procedure: peg Family History: no anesthesia problems Allergies: Coded Allergies: No Known Allergies (Unverified , 07/02/16) Medications: see eMAR Past Medical History Cardiovascular: Reports: HTN Pulmonary: Reports: other - pneumonia Gastrointestinal/Genitourinary: Reports: CRI Neurologic/Psychiatric: Reports: other - alterd mental status HEENT: Denies: MI'KMAQ (L), MI'KMAQ (R), cataract (L), cataract (R), glaucoma, other Hematology/Immune: Reports: anemia Musculoskeletal/Integumentary: Denies: DDD, DJD, OA, RA, edema, other PMH Narrative: 1. Possible rhabdomyolysis. 2. Acute on chronic renal failure. 3. Failure to thrive. 4. Evidence of transaminitis possibly due to TPN use. 5. Altered mental status. 6. Chronic encephalopathy. 7. Chronic debility. 8. Evidence of pneumonia. Anesthesia Pre-op Phys. Exam Physician Exam Last Vital Signs Date Time Temp Pulse Resp B/P Pulse Ox O2 Delivery O2 Flow Rate FiO2 07/09/16 12:23 98.6 96 14 135/99 96 Nasal Cannula 3.0 07/09/16 08:27 32 Constitutional: NAD Neurologic: other - altered mental statu Cardiovascular: RRR Respiratory: CTA Gastrointestinal: S/NT/ND Airway Exam Mallampati Classification 3 Mallampati Score: Class III MO: limited ROM: limited Teeth: missing Dentures: no lower, no upper Anesthesia Pre-op A/P Labs Hematology Test 07/09/16 04:00 White Blood Count 10.4 K/UL (4.8-10.8) Red Blood Count 4.21 M/UL (4.70-6.10) L Hemoglobin 12.7 G/DL (14.2-18.0) #L Hematocrit 39.0 % (42.0-52.0) #L Mean Corpuscular Volume 93 FL (80-99) Mean Corpuscular Hemoglobin 30.3 PG (27.0-31.0) Mean Corpuscular Hemoglobin Concent 32.7 G/DL (32.0-36.0) Red Cell Distribution Width 13.6 % (11.6-14.8) Platelet Count 143 K/UL (150-450) L Mean Platelet Volume 8.3 FL (6.5-10.1) Neutrophils (%) (Auto) % (45.0-75.0) Lymphocytes (%) (Auto) % (20.0-45.0) Monocytes (%) (Auto) % (1.0-10.0) Eosinophils (%) (Auto) % (0.0-3.0) Basophils (%) (Auto) % (0.0-2.0) Chemistry Test 07/09/16 04:00 Sodium Level 131 mEQ/L (135-145) L Potassium Level 3.7 mEQ/L (3.4-4.9) Chloride Level 94 mEQ/L (98-107) L Carbon Dioxide Level 22 mEQ/L (20-30) Anion Gap 15 (5-15) Blood Urea Nitrogen 28 mg/dL (7-23) H Creatinine 1.0 mg/dL (0.7-1.2) Estimat Glomerular Filtration Rate > 60 mL/min (>60) Glucose Level 89 mg/dL (74-106) Calcium Level 8.7 mg/dL (8.6-10.2) Total Bilirubin 0.9 mg/dL (0.0-1.2) Aspartate Amino Transf (AST/SGOT) 74 U/L (5-40) H Alanine Aminotransferase (ALT/SGPT) 120 U/L (3-41) H Alkaline Phosphatase 199 U/L (40-129) H Pro-B-Type Natriuretic Peptide 244 pg/mL (0-125) H Total Protein 6.8 g/dL (6.6-8.7) Albumin 2.0 g/dL (3.5-5.2) L Globulin 4.8 g/dL Albumin/Globulin Ratio 0.4 (1.0-2.7) L Studies Pre-op Studies: EKG - sr Risk Assessment & Plan Plan: mac Status Change Before Surgery: No Pre-Antibiotics Drug: vanc Given Within 1 Hr of Incision: Yes Time Given: 09:00 MAHOGANY LERMA CRNA Jul 09, 2016 12:51
[2016-07-09] MEDS ORDERED: Potassium Chloride 10 MEQ in D5 1/2NS 1,000 ML IV SCH (14:00)
[2016-07-09] MEDS ORDERED: NS 275ml ONE (14:19)
[2016-07-09 14:20] LABS: MONOTEST Negative (Negative)
--- NOTE | 2016-07-09 14:44 | General Progress Note ---
Assessment/Plan Problem List: (1) Fever ICD Codes: R50.9 - Fever, unspecified SNOMED: 860290316 Qualifiers: Qualified Codes: R50.9 - Fever, unspecified (2) Acute renal failure ICD Codes: N17.9 - Acute kidney failure, unspecified SNOMED: 38901289 Qualifiers: Qualified Codes: N17.9 - Acute kidney failure, unspecified (3) Pneumonia ICD Codes: J18.9 - Pneumonia, unspecified organism SNOMED: 372158263, 040268123 Qualifiers: Qualified Codes: J18.1 - Lobar pneumonia, unspecified organism (4) Elevated liver enzymes ICD Codes: R74.8 - Abnormal levels of other serum enzymes SNOMED: 252140316, 098635025 (5) Rhabdomyolysis ICD Codes: M62.82 - Rhabdomyolysis SNOMED: 471892902 Qualifiers: Qualified Codes: M62.82 - Rhabdomyolysis Status: stable, progressing Assessment/Plan ivf gt feeds when cleared by gi iv abx follow up cultures monitor labs skin care Subjective ROS Limited/Unobtainable: No Constitutional: Reports: malaise, weakness HEENT: Reports: no symptoms Cardiovascular: Reports: no symptoms Respiratory: Reports: no symptoms Gastrointestinal/Abdominal: Reports: difficulty swallowing, poor appetite Genitourinary: Reports: no symptoms Neurologic/Psychiatric: Reports: pre-existing deficit Endocrine: Reports: no symptoms Hematologic/Lymphatic: Reports: anemia Allergies: Coded Allergies: No Known Allergies (Unverified , 07/02/16) All Systems: reviewed and negative except above Subjective s/p uncomplicated gt. feeds not started yet. on resp rx. remains withdrawn, minimally verbal. Objective Last 24 Hour Vital Signs Date Time Temp Pulse Resp B/P Pulse Ox O2 Delivery O2 Flow Rate FiO2 07/09/16 12:45 75 99 07/09/16 12:23 98.6 96 14 135/99 96 Nasal Cannula 3.0 07/09/16 12:10 95 19 136/99 99 Simple Mask 6.0 07/09/16 12:05 94 15 138/98 100 Simple Mask 6.0 07/09/16 12:01 100 14 100 07/09/16 12:00 96 16 153/100 100 Simple Mask 6.0 07/09/16 11:50 97.6 93 14 151/106 99 Simple Mask 6.0 07/09/16 08:27 Nasal Cannula 4.0 32 07/09/16 08:27 100 Nasal Cannula 4.0 36 07/09/16 08:27 84 20 Nasal Cannula 4.0 36 07/09/16 08:00 97.7 98 17 141/92 97 Nasal Cannula 07/09/16 04:00 84 07/09/16 04:00 97.9 84 20 134/87 100 Nasal Cannula 4.0 07/09/16 00:00 97.9 83 24 127/88 92 Nasal Cannula 3.0 07/08/16 23:41 91 07/08/16 20:00 98.0 90 24 127/78 100 Nasal Cannula 2.0 07/08/16 19:27 92 07/08/16 19:12 91 18 Nasal Cannula 3.0 32 07/08/16 19:12 Nasal Cannula 3.0 32 07/08/16 19:12 100 Nasal Cannula 3.0 32 07/08/16 16:00 91 07/08/16 16:00 97.7 97 20 123/81 99 Nasal Cannula 3.0 Intake and Output 07/08/16 07/09/16 19:00 07:00 Intake Total 1225 ml 1870.000 ml Output Total 3000 ml Balance -1775 ml 1870.000 ml Free Water 100 ml IV Total 545 ml 1650.000 ml Tube Feeding 180 ml 120 ml Blood Product 500 ml Output Urine Total 3000 ml # Bowel Movements 1 1 Laboratory Tests 07/09/16 00:00: Stool Occult Blood Negative 07/09/16 04:00: White Blood Count 10.4, Red Blood Count 4.21L, Hemoglobin 12.7#L, Hematocrit 39.0#L, Mean Corpuscular Volume 93, Mean Corpuscular Hemoglobin 30.3, Mean Corpuscular Hemoglobin Concent 32.7, Red Cell Distribution Width 13.6, Platelet Count 143L, Mean Platelet Volume 8.3, Neutrophils (%) (Auto) , Lymphocytes (%) ( Auto) , Monocytes (%) (Auto) , Eosinophils (%) (Auto) , Basophils (%) (Auto) , Sodium Level 131L, Potassium Level 3.7, Chloride Level 94L, Carbon Dioxide Level 22, Anion Gap 15, Blood Urea Nitrogen 28H, Creatinine 1.0, Estimat Glomerular Filtration Rate > 60, Glucose Level 89, Calcium Level 8.7, Total Bilirubin 0.9, Aspartate Amino Transf (AST/SGOT) 74H, Alanine Aminotransferase ( ALT/SGPT) 120H, Alkaline Phosphatase 199H, Pro-B-Type Natriuretic Peptide 244H, Total Protein 6.8, Albumin 2.0L, Globulin 4.8, Albumin/Globulin Ratio 0.4L Height (Feet): 5 Height (Inches): 10.00 Weight (Pounds): 150 Objective General Appearance: WD/WN, lethargic Neck: supple Cardiovascular: regular rhythm Respiratory/Chest: rhonchi - bilaterally Abdomen: normal bowel sounds, non tender, soft, no organomegaly Edema: no edema noted Arm (L), no edema noted Arm (R), no edema noted Leg (L), no edema noted Leg (R), no edema noted Pedal (L), no edema noted Pedal (R), no edema noted Generalized 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
[2016-07-09] MEDS ORDERED: D5 1/2NS 1,000 ML IV SCH (16:30)
[2016-07-09] MEDS: Cefepime HCl 1 GM in D5W 55 ML IVPB SCH (18:12)
[2016-07-10] VITALS (7 sets, daily range): BP systolic 124–159; BP diastolic 61–99
--- NOTE | 2016-07-10 00:28 | Progress Note ---
DATE: 07/09/2016 CARDIOLOGY PROGRESS NOTE SUBJECTIVE: The patient is status post PEG today without complications. He remains on IV hydration and antimicrobials. Monitored rhythm sinus. PHYSICAL EXAMINATION: VITAL SIGNS: Blood pressure 141/92 to 127/88, heart rate 80s, respiratory 20, and afebrile. LUNGS: Moderate breath sounds. No wheezing. CARDIAC: Regular rhythm rate. Normal S1 and S2 with a fourth heart sound. ABDOMEN: Soft. G-tube intact. EXTREMITIES: No edema. LABORATORY DATA: White count 10. Hemoglobin 12.7. Sodium 131, potassium 3.7, bicarbonate 22, BUN 28, creatinine 1. Pro-natriuretic peptide 244. Albumin 2.0. IMPRESSION: 1. Status post percutaneous endoscopic gastrostomy. 2. Cerebrovascular disease with dementia. 3. Paroxysmal atrial fibrillation. 4. Acute on chronic renal failure. 5. Rhabdomyolysis, improved. 6. Transaminitis, improved. 7. Severe protein calorie malnutrition. 8. . 9. Dilutional hyponatremia. PLAN: 1. Maintenance dose amiodarone. 2. Feedings by G-tube. 3. Change to isotonic intravenous fluids. 4. Followup liver function studies. 5. Thyroid function as an outpatient. Keaton Maxwell JOB#: [id number] CC:
[2016-07-10] MEDS: Vancomycin 750mg/D5W 275ml IVPB SCH ×4 (04:00→16:54)
[2016-07-10] MEDS: Docusate 100mg tablet ORAL SCH ×2 (08:38→17:30)
[2016-07-10] MEDS: Amiodarone 200mg tab NG SCH (08:38)
[2016-07-10] MEDS: Vitamin A&D Oint 2oz Tube TOPIC SCH ×2 (08:40→21:00)
[2016-07-10] MEDS: Heparin 5000 units/ml inj SUBQ SCH ×2 (08:41→22:49)
--- NOTE | 2016-07-10 08:45 | General Progress Note ---
Assessment/Plan Problem List: (1) Fever ICD Codes: R50.9 - Fever, unspecified SNOMED: 301374119 Qualifiers: Qualified Codes: R50.9 - Fever, unspecified (2) Acute renal failure ICD Codes: N17.9 - Acute kidney failure, unspecified SNOMED: 91200968 Qualifiers: Qualified Codes: N17.9 - Acute kidney failure, unspecified (3) Pneumonia ICD Codes: J18.9 - Pneumonia, unspecified organism SNOMED: 569961421, 218605394 Qualifiers: Qualified Codes: J18.1 - Lobar pneumonia, unspecified organism (4) Elevated liver enzymes ICD Codes: R74.8 - Abnormal levels of other serum enzymes SNOMED: 398959983, 006314784 (5) Rhabdomyolysis ICD Codes: M62.82 - Rhabdomyolysis SNOMED: 809669017 Qualifiers: Qualified Codes: M62.82 - Rhabdomyolysis Status: stable Assessment/Plan ivf gt feeds when cleared by gi iv abx follow up cultures monitor labs resp care skin care Subjective ROS Limited/Unobtainable: Yes Constitutional: Reports: malaise, weakness HEENT: Reports: no symptoms Cardiovascular: Reports: no symptoms Respiratory: Reports: cough, shortness of breath, sputum Gastrointestinal/Abdominal: Reports: difficulty swallowing Genitourinary: Reports: no symptoms Neurologic/Psychiatric: Reports: pre-existing deficit Endocrine: Reports: no symptoms Hematologic/Lymphatic: Reports: anemia Allergies: Coded Allergies: No Known Allergies (Unverified , 07/02/16) Subjective s/p uncomplicated gt. feeds not started yet. on resp rx. remains withdrawn, minimally verbal. withdrawn. Objective Last 24 Hour Vital Signs Date Time Temp Pulse Resp B/P Pulse Ox O2 Delivery O2 Flow Rate FiO2 07/10/16 08:00 97.9 97 18 143/99 100 Nasal Cannula 07/10/16 04:00 96 07/10/16 04:00 97.7 61 16 159/61 94 Nasal Cannula 4.0 32 61 07/10/16 01:58 97.2 99 17 125/82 100 07/10/16 00:00 98 07/10/16 00:00 97.2 99 17 125/82 100 07/10/16 00:00 97.2 83 20 125/85 99 Nasal Cannula 4.0 32 100 07/09/16 20:47 98.1 95 20 120/85 99 07/09/16 20:24 100 Nasal Cannula 4.0 36 07/09/16 20:24 98 20 Nasal Cannula 4.0 36 07/09/16 20:24 Nasal Cannula 4.0 32 07/09/16 20:00 97 07/09/16 16:00 86 07/09/16 16:00 97.3 104 19 133/92 99 Nasal Cannula 5.0 07/09/16 12:45 75 99 07/09/16 12:23 98.6 96 14 135/99 96 Nasal Cannula 3.0 07/09/16 12:10 95 19 136/99 99 Simple Mask 6.0 07/09/16 12:05 94 15 138/98 100 Simple Mask 6.0 07/09/16 12:01 100 14 100 07/09/16 12:00 96 16 153/100 100 Simple Mask 6.0 07/09/16 12:00 84 07/09/16 11:50 97.6 93 14 151/106 99 Simple Mask 6.0 Intake and Output 07/09/16 07/10/16 19:00 07:00 Intake Total 300 ml 0 ml Output Total 2850 ml 1900 ml Balance -2550 ml -1900 ml Intake Oral 0 ml IV Total 300 ml Output Urine Total 2850 ml 1900 ml # Bowel Movements 1 Height (Feet): 5 Height (Inches): 10.00 Weight (Pounds): 150 Objective General Appearance: WD/WN, lethargic Neck: supple Cardiovascular: regular rhythm Respiratory/Chest: rhonchi - bilaterally Abdomen: normal bowel sounds, non tender, soft, no organomegaly Edema: no edema noted Arm (L), no edema noted Arm (R), no edema noted Leg (L), no edema noted Leg (R), no edema noted Pedal (L), no edema noted Pedal (R), no edema noted Generalized 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
--- NOTE | 2016-07-10 13:20 | Cardiology Report ---
APPROVED REPORT EKG Measurement Heart [id number] Normal sinus rhythm Inferior infarct, age undetermined Abnormal ECG
--- NOTE | 2016-07-10 16:36 | Cardiology Report ---
APPROVED REPORT EXAM: Two-dimensional and M-mode echocardiogram with Doppler and color Doppler. INDICATION Arrhythmia M-Mode DIMENSIONS IVSd0.8 (0.7-1.1cm)Left Atrium (MM)2.8 (1.6-4.0cm) LVDd4.7 (3.5-5.6cm)Aortic Root2.8 (2.0-3.7cm) PWd1.1 (0.7-1.1cm)Aortic Cusp Exc.2.4 (1.5-2.0cm) LVDs2.7 (2.5-4.0cm) PWs1.3 cm Technically difficult study due to poor acoustic windows. Study quality precludes accurate assessment of regional wall motion. Normal left ventricular chamber size, systolic function and wall motion to extent visualized. Left ventricular ejection fraction estimated to be 60 %. No evidence of ventricular hypertrophy. No evidence of pericardial fat or effusion. All other cardiac chamber sizes are within normal limits. Mild focal aortic valve sclerosis with adequate cusp excursion. Mildly thickened mitral valve leaflets with normal excursion. Mild mitral annulus and aortic root calcification. Pulmonic valve not well visualized. Normal tricuspid valve structure. IVC at normal size with physiologic collapse. A color flow and spectral Doppler study was performed and revealed: Mild to moderate aortic regurgitation. Trace mitral regurgitation. Mitral diastolic velocities suggest reduced left ventricular relaxation (Grade 1). Mild tricuspid regurgitation. Tricuspid systolic velocities suggests peak right ventricular systolic pressure of 42 mmHg, consistent with mild pulmonary hypertension. No pulmonic regurgitation present.
--- NOTE | 2016-07-10 17:36 | Pulmonology Progress Note ---
Assessment/Plan Assessment/Plan IMPRESSION: 1. Possible rhabdomyolysis. 2. Acute on chronic renal failure. 3. Failure to thrive. 4. Evidence of transaminitis 5. Altered mental status. 6. Chronic encephalopathy. 7. Chronic debility. 8. Evidence of pneumonia.by cxr 9. aspiration 10. protein calorie malnutrition PLAN IV antibiotics per ID dc IV hydration meds NGT feeds ID follow up and recommendations DNI dc to snf in am if stable and liver enzymes normal EEG noted impression, plan, and exam edited and reviewed in detail care discussed with RN Subjective ROS Limited/Unobtainable: Yes Allergies: Coded Allergies: No Known Allergies (Unverified , 07/02/16) Subjective underwent a gt EEG noted d/w sister Objective Last 24 Hour Vital Signs Date Time Temp Pulse Resp B/P Pulse Ox O2 Delivery O2 Flow Rate FiO2 07/10/16 16:03 100 07/10/16 16:00 98.1 105 19 139/84 97 Nasal Cannula 6.0 07/10/16 12:00 97.8 101 18 124/80 99 Nasal Cannula 07/10/16 11:54 95 07/10/16 08:00 91 07/10/16 08:00 97.9 97 18 143/99 100 Nasal Cannula 07/10/16 06:36 Nasal Cannula 4.0 07/10/16 06:36 100 Nasal Cannula 4.0 07/10/16 06:36 97 20 Nasal Cannula 4.0 07/10/16 04:00 96 07/10/16 04:00 97.7 61 16 159/61 94 Nasal Cannula 4.0 32 61 07/10/16 01:58 97.2 99 17 125/82 100 07/10/16 00:00 98 07/10/16 00:00 97.2 99 17 125/82 100 07/10/16 00:00 97.2 83 20 125/85 99 Nasal Cannula 4.0 32 100 07/09/16 20:47 98.1 95 20 120/85 99 07/09/16 20:24 100 Nasal Cannula 4.0 36 07/09/16 20:24 98 20 Nasal Cannula 4.0 36 07/09/16 20:24 Nasal Cannula 4.0 32 07/09/16 20:00 97 Intake and Output 07/09/16 07/10/16 19:00 07:00 Intake Total 300 ml 75 ml Output Total 2850 ml 1900 ml Balance -2550 ml -1825 ml Intake Oral 0 ml IV Total 300 ml 75 ml Output Urine Total 2850 ml 1900 ml # Bowel Movements 1 Objective GENERAL: The patient is an ill appearing male, overall chronically ill and thin. NAD HEENT: Fairly negative. Oropharynx is moist NECK: Supple. No adenopathy. LUNGS: With moderate breath sounds. no wheeze or rhonchi. CARDIAC: S1 and S2, RRR without murmurs, rubs, or gallops. ABDOMEN: Soft, thin, nontender, and nondistended. gastric feeding tube in place EXTREMITIES: No cyanosis, clubbing, or edema. NEUROLOGIC: Grossly nonfocal, withdrawn and nonverbal. reviewed and edited Current Medications Medications (Trade) Dose Ordered Sig/Aelx Route PRN Reason Start Time Stop Time Status Last Admin Dose Admin Amiodarone HCl 200 mg 200 mg DAILY NG 07/09/16 09:00 08/08/16 08:59 07/10/16 08:38 Cefepime HCl/ Dextrose (Maxipime/D5W) 55 ml @ 110 mls/hr Q24H IVPB 07/03/16 18:00 07/10/16 17:59 07/09/16 18:12 Docusate Sodium (Colace) 100 mg BID ORAL 07/07/16 09:00 08/06/16 08:59 07/10/16 17:30 Heparin Sodium (Porcine) (Heparin 5000 units/ml) 5,000 units EVERY 12 HOURS SUBQ 07/03/16 09:00 08/02/16 08:59 07/10/16 08:41 Sodium Chloride (Sodium Chloride 1000ml bag) 1,000 ml @ 75 mls/hr [id number] IV 07/09/16 23:30 08/08/16 23:29 07/10/16 12:51 Vancomycin HCl (Vanco rx to dose) 1 ea DAILY PRN MISC Per rx protocol 07/03/16 01:30 08/02/16 01:29 Vancomycin HCl/ Dextrose (Vancomycin/D5W) 275 ml @ 183.708 mls/hr Q12H IVPB 07/06/16 04:00 07/11/16 03:59 07/10/16 16:54 Vitamin A/Vitamin D 1 applic 1 applic EVERY 12 HOURS TOPIC 07/03/16 23:00 08/02/16 22:59 07/10/16 08:40 ESHA BEY Jul 10, 2016 17:36
--- NOTE | 2016-07-10 19:08 | Operative Note - Dictated ---
DATE OF OPERATION: 07/09/2016 PROCEDURE: Upper gastroendoscopy with gastrostomy tube placement. SURGEON: Hernan Camara M.D. ANESTHESIA: Please see the separate anesthesiologist notes for details. PRE-ENDOSCOPIC DIAGNOSIS: Dysphagia. POSTOPERATIVE DIAGNOSIS: Status post gastrostomy tube placement. PROCEDURE: The procedure, its risks, indications, alternatives, and possible complications were explained to the patient and family and informed consent was obtained. The patient was then sedated in the supine position. A diagnostic upper endoscope was introduced through the oropharynx and advanced to the duodenum. The location for placement of the gastrostomy tube was identified by palpation and transillumination techniques. The outside skin was sterilely prepared, anesthetized in size and a trocar needle was used to place the gastrostomy tube using the standard pull technique. The patient tolerated the procedure well and was left to recovery in good condition. COMPLICATIONS: None. RECOMMENDATIONS: 1. Observe overnight. 2. Begin tube feedings tomorrow. Hernan Camara M.D. DR: TELLO JOB#: [id number] CC:
--- NOTE | 2016-07-10 19:44 | General Progress Note ---
Assessment/Plan Assessment/Plan Assessment - malnutrition / NPO - NGT dependent - abnormal, but declining LFT - US and CT negative - elevated CEA - UTI, PNA, Sepsis - resolving renal failure Recommendations - check viral serologies - Begin TF - elevate HOB - Abx - Supportive care - follow LFT Subjective Allergies: Coded Allergies: No Known Allergies (Unverified , 07/02/16) Subjective POD # 1 after PEG awake Objective Last 24 Hour Vital Signs Date Time Temp Pulse Resp B/P Pulse Ox O2 Delivery O2 Flow Rate FiO2 07/10/16 19:21 Nasal Cannula 4.0 36 07/10/16 19:20 99 Nasal Cannula 4.0 36 07/10/16 19:19 90 20 Nasal Cannula 4.0 07/10/16 16:03 100 07/10/16 16:00 98.1 105 19 139/84 97 Nasal Cannula 6.0 07/10/16 12:00 97.8 101 18 124/80 99 Nasal Cannula 07/10/16 11:54 95 07/10/16 08:00 91 07/10/16 08:00 97.9 97 18 143/99 100 Nasal Cannula 07/10/16 06:36 Nasal Cannula 4.0 07/10/16 06:36 100 Nasal Cannula 4.0 07/10/16 06:36 97 20 Nasal Cannula 4.0 07/10/16 04:00 96 07/10/16 04:00 97.7 61 16 159/61 94 Nasal Cannula 4.0 32 61 07/10/16 01:58 97.2 99 17 125/82 100 07/10/16 00:00 98 07/10/16 00:00 97.2 99 17 125/82 100 07/10/16 00:00 97.2 83 20 125/85 99 Nasal Cannula 4.0 32 100 07/09/16 20:47 98.1 95 20 120/85 99 07/09/16 20:24 100 Nasal Cannula 4.0 36 07/09/16 20:24 98 20 Nasal Cannula 4.0 36 07/09/16 20:24 Nasal Cannula 4.0 32 07/09/16 20:00 97 Intake and Output 07/09/16 07/10/16 19:00 07:00 Intake Total 300 ml 75 ml Output Total 2850 ml 1900 ml Balance -2550 ml -1825 ml Intake Oral 0 ml IV Total 300 ml 75 ml Output Urine Total 2850 ml 1900 ml # Bowel Movements 1 Height (Feet): 5 Height (Inches): 10.00 Weight (Pounds): 129 Objective Debilitated AA man NCAT (+) NGT supple CTA RRR Soft NT ND (+) PEG no edema OBS CLIFTON SAMUEL Jul 10, 2016 19:44
--- NOTE | 2016-07-10 22:07 | Progress Note ---
DATE: 07/10/2016 CARDIOLOGY PROGRESS NOTE: SUBJECTIVE: G-tube was placed yesterday. Feedings have not yet been resumed. The patient remains with sinus rhythm. OBJECTIVE: VITAL SIGNS: Blood pressure 142/99, pulse 97, respirations 18, and blood pressure in general has been controlled in the range of 125 to 159 systolic. LUNGS: Bilateral breath sounds. Scattered rhonchi. HEART: Regular rhythm and rate. Normal S1, S2. ABDOMEN: Soft. G-tube intact. Trace edema. IMPRESSION: 1. Status post G-tube. 2. Cerebrovascular disease with dementia. 3. Paroxysmal atrial fibrillation. 4. Acute on chronic renal failure, recovering. 5. Rhabdomyolysis, resolving. 6. Transaminitis, slightly improved. 7. Severe protein-calorie malnutrition, to be corrected with G-tube nutrition. 8. Dilutional hyponatremia, now with adjusted IV fluids. PLAN: 1. Maintenance-dose amiodarone. 2. Follow up laboratory studies including liver function tests, TSH, antimicrobials, and respiratory hygiene. Natalio Wisdom M.D. DR: SNOW JOB#: [id number] CC:
[2016-07-10] MEDS ORDERED: NS 275ml ONE (22:32)
--- NOTE | 2016-07-10 23:35 | Wound Nurse Progress Note ---
Wound RN Progress Note Wound Consult #1 Sacral stage IV/unstageable pressure ulcer. Good progress noted. Wound bed 80 % yellow and 20% pink noted. no deterioration noted. #2 Left ischial tuberosity stage IV/unstageable pressure ulcer. Wound bed noted with light brown slough. #3 Left buttock stage III pressure ulcer. Good progress noted. #4 Left elbow stage III pressure ulcer. Resolving #5 Left heel DTI pressure ulcer. still intact. #6 Left ear stage IV/unstageable pressure ulcer. Same in size. No deterioration noted #7 Right ear stage IV/unstageable pressure ulcer. Same in size. No deterioration noted Reassessment done. Noted good progress. Will cont to monitor. YOKASTA BLAIR RN Jul 10, 2016 23:35
[2016-07-11] VITALS: BP 154/70
[2016-07-11 04:00] VITALS: BP 142/93
[2016-07-11 08:00] VITALS: BP 126/79
--- NOTE | 2016-07-11 08:10 | General Progress Note ---
Assessment/Plan Assessment/Plan Assessment - malnutrition / NPO - s/p PEG - abnormal, but declining LFT - US and CT negative - elevated CEA - UTI, PNA, Sepsis - resolving renal failure Recommendations - check viral serologies - continue TF - elevate HOB - Abx - Supportive care - follow LFT Subjective Allergies: Coded Allergies: No Known Allergies (Unverified , 07/02/16) Subjective POD # 2 after PEG awake some TF residuals per RN Objective Last 24 Hour Vital Signs Date Time Temp Pulse Resp B/P Pulse Ox O2 Delivery O2 Flow Rate FiO2 07/11/16 04:00 98.8 96 24 142/93 100 07/11/16 04:00 97 07/11/16 00:00 99 07/11/16 00:00 99.6 98 24 154/70 100 Nasal Cannula 4.0 36 61 07/10/16 20:00 97 07/10/16 20:00 98.0 98 24 141/77 100 Nasal Cannula 4.0 07/10/16 19:21 Nasal Cannula 4.0 36 07/10/16 19:20 99 Nasal Cannula 4.0 36 07/10/16 19:19 90 20 Nasal Cannula 4.0 07/10/16 16:03 100 07/10/16 16:00 98.1 105 19 139/84 97 Nasal Cannula 6.0 07/10/16 12:00 97.8 101 18 124/80 99 Nasal Cannula 07/10/16 11:54 95 Intake and Output 07/10/16 07/11/16 19:00 07:00 Intake Total 801.250 ml 300 ml Output Total 650 ml 900 ml Balance 151.250 ml -600 ml Free Water 250 ml IV Total 801.250 ml Tube Feeding 50 ml Output Urine Total 650 ml 900 ml Height (Feet): 5 Height (Inches): 10.00 Weight (Pounds): 129 Objective Debilitated AA man NCAT supple CTA RRR Soft NT ND (+) PEG no edema OBS CLIFTON SAMUEL Jul 11, 2016 08:10
--- NOTE | 2016-07-11 08:44 | General Progress Note ---
Assessment/Plan Problem List: (1) Fever ICD Codes: R50.9 - Fever, unspecified SNOMED: 065455076 Qualifiers: Qualified Codes: R50.9 - Fever, unspecified (2) Acute renal failure ICD Codes: N17.9 - Acute kidney failure, unspecified SNOMED: 09485189 Qualifiers: Qualified Codes: N17.9 - Acute kidney failure, unspecified (3) Pneumonia ICD Codes: J18.9 - Pneumonia, unspecified organism SNOMED: 601469664, 233585759 Qualifiers: Qualified Codes: J18.1 - Lobar pneumonia, unspecified organism (4) Elevated liver enzymes ICD Codes: R74.8 - Abnormal levels of other serum enzymes SNOMED: 113334759, 240619504 (5) Rhabdomyolysis ICD Codes: M62.82 - Rhabdomyolysis SNOMED: 063573083 Qualifiers: Qualified Codes: M62.82 - Rhabdomyolysis Assessment/Plan ivf gt feeds. monitor residuals iv abx follow up cultures monitor labs resp care skin care Subjective ROS Limited/Unobtainable: Yes Constitutional: Reports: malaise, weakness HEENT: Reports: no symptoms Cardiovascular: Reports: no symptoms Respiratory: Reports: shortness of breath, sputum Gastrointestinal/Abdominal: Reports: difficulty swallowing Genitourinary: Reports: no symptoms Neurologic/Psychiatric: Reports: pre-existing deficit Endocrine: Reports: no symptoms Hematologic/Lymphatic: Reports: no symptoms Allergies: Coded Allergies: No Known Allergies (Unverified , 07/02/16) All Systems: reviewed and negative except above Subjective s/p uncomplicated gt. high residuals last night.now back on TF. on resp rx. remains withdrawn, minimally verbal. withdrawn. Objective Last 24 Hour Vital Signs Date Time Temp Pulse Resp B/P Pulse Ox O2 Delivery O2 Flow Rate FiO2 07/11/16 07:57 99 Nasal Cannula 3.0 32 07/11/16 07:57 Nasal Cannula 3.0 32 07/11/16 07:57 96 20 Nasal Cannula 3.0 32 07/11/16 04:00 98.8 96 24 142/93 100 07/11/16 04:00 97 07/11/16 00:00 99 07/11/16 00:00 99.6 98 24 154/70 100 Nasal Cannula 4.0 36 61 07/10/16 20:00 97 07/10/16 20:00 98.0 98 24 141/77 100 Nasal Cannula 4.0 07/10/16 19:21 Nasal Cannula 4.0 36 07/10/16 19:20 99 Nasal Cannula 4.0 36 07/10/16 19:19 90 20 Nasal Cannula 4.0 07/10/16 16:03 100 07/10/16 16:00 98.1 105 19 139/84 97 Nasal Cannula 6.0 07/10/16 12:00 97.8 101 18 124/80 99 Nasal Cannula 07/10/16 11:54 95 Intake and Output 07/10/16 07/11/16 19:00 07:00 Intake Total 801.250 ml 300 ml Output Total 650 ml 900 ml Balance 151.250 ml -600 ml Free Water 250 ml IV Total 801.250 ml Tube Feeding 50 ml Output Urine Total 650 ml 900 ml Height (Feet): 5 Height (Inches): 10.00 Weight (Pounds): 129 Objective General Appearance: WD/WN, lethargic Neck: supple Cardiovascular: regular rhythm Respiratory/Chest: rhonchi - bilaterally Abdomen: normal bowel sounds, non tender, soft, no organomegaly Edema: no edema noted Arm (L), no edema noted Arm (R), no edema noted Leg (L), no edema noted Leg (R), no edema noted Pedal (L), no edema noted Pedal (R), no edema noted 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
[2016-07-11 09:25] LABS: MEAN CORPUSCULAR HGB CONC 32.3 G/DL (32.0-36.0); MEAN CORPUSCULAR VOLUME 93 FL (80-99); MEAN PLATELET VOLUME 7.2 FL (6.5-10.1); PLATELET COUNT 302 K/UL (150-450); RED BLOOD COUNT 4.21 M/UL (4.70-6.10); RED CELL DISTRIBUTION WIDTH 13.2 % (11.6-14.8); WHITE BLOOD COUNT 10.5 K/UL (4.8-10.8)
[2016-07-11] MEDS: Amiodarone 200mg tab NG SCH (09:28)
[2016-07-11] MEDS: Vitamin A&D Oint 2oz Tube TOPIC SCH ×2 (09:28→21:25)
[2016-07-11] MEDS: Docusate 100mg tablet ORAL SCH ×2 (09:28→17:36)
[2016-07-11 09:50] LABS: ALANINE AMINOTRANSFERASE 86 U/L (3-41); ALBUMIN/GLOBULIN RATIO 0.4 (1.0-2.7); ANION GAP 16 (5-15); ASPARTATE AMINO TRANSFERASE 60 U/L (5-40); CALCIUM 8.9 mg/dL (8.6-10.2); CARBON DIOXIDE 24 mEQ/L (20-30); CHLORIDE 97 mEQ/L (98-107); CREATININE 1.1 mg/dL (0.7-1.2); GLOMERULAR FILTRATION RATE > 60 mL/min (>60); HEMOLYSIS 2; POTASSIUM 3.5 mEQ/L (3.4-4.9); SODIUM 137 mEQ/L (135-145); TOTAL PROTEIN 6.9 g/dL (6.6-8.7)
[2016-07-11] MEDS: Heparin 5000 units/ml inj SUBQ SCH ×2 (09:53→21:26)
[2016-07-11 11:09] LABS: TOTAL CELLS COUNTED 100
[2016-07-11 11:10] LABS: BAND NEUTROPHILS % (MANUAL) 0 % (0-8); BASOPHILS % (MANUAL) 0 % (0-2); EOSINOPHILS % (MANUAL) 0 % (0-3); LYMPHOCYTES % (MANUAL) 6 % (20-45); NEUTROPHILS % (MANUAL) 90 % (45-75); PLATELET ESTIMATE ADEQUATE; PLATELET MORPHOLOGY NORMAL
[2016-07-11 12:00] VITALS: BP 131/89
[2016-07-11 16:00] VITALS: BP 117/78
--- NOTE | 2016-07-11 16:42 | Pulmonology Progress Note ---
Assessment/Plan Assessment/Plan IMPRESSION: 1. Possible rhabdomyolysis. 2. Acute on chronic renal failure. 3. Failure to thrive. 4. Evidence of transaminitis 5. Altered mental status. 6. Chronic encephalopathy. 7. Chronic debility. 8. Evidence of pneumonia.by cxr 9. aspiration 10. protein calorie malnutrition PLAN IV antibiotics per ID no acute change meds NGT feeds ID follow up discussed DNI dc to snf today impression, plan, and exam edited and reviewed in detail care discussed with RN Subjective ROS Limited/Unobtainable: Yes Allergies: Coded Allergies: No Known Allergies (Unverified , 07/02/16) Subjective stable at present no acute changes Objective Last 24 Hour Vital Signs Date Time Temp Pulse Resp B/P Pulse Ox O2 Delivery O2 Flow Rate FiO2 07/11/16 12:00 97.3 97 28 131/89 100 Nasal Cannula 3.0 07/11/16 11:55 98 07/11/16 08:00 97.5 96 24 126/79 97 Nasal Cannula 3.0 07/11/16 07:57 99 Nasal Cannula 3.0 32 07/11/16 07:57 Nasal Cannula 3.0 32 07/11/16 07:57 96 20 Nasal Cannula 3.0 32 07/11/16 07:54 93 07/11/16 04:00 98.8 96 24 142/93 100 07/11/16 04:00 97 07/11/16 00:00 99 07/11/16 00:00 99.6 98 24 154/70 100 Nasal Cannula 4.0 36 61 07/10/16 20:00 97 07/10/16 20:00 98.0 98 24 141/77 100 Nasal Cannula 4.0 07/10/16 19:21 Nasal Cannula 4.0 36 07/10/16 19:20 99 Nasal Cannula 4.0 36 07/10/16 19:19 90 20 Nasal Cannula 4.0 Intake and Output 07/10/16 07/11/16 19:00 07:00 Intake Total 801.250 ml 300 ml Output Total 650 ml 900 ml Balance 151.250 ml -600 ml Free Water 250 ml IV Total 801.250 ml Tube Feeding 50 ml Output Urine Total 650 ml 900 ml Objective GENERAL: The patient is an ill appearing male, overall chronically ill and thin. NAD HEENT: Fairly negative. Oropharynx is moist NECK: Supple. No adenopathy. LUNGS: With moderate breath sounds. no wheeze or rhonchi. CARDIAC: S1 and S2, RRR without murmurs, rubs, or gallops. ABDOMEN: Soft, thin, nontender, and nondistended. gastric feeding tube in place EXTREMITIES: No cyanosis, clubbing, or edema. NEUROLOGIC: Grossly nonfocal, withdrawn and nonverbal. reviewed and edited Laboratory Tests 07/11/16 08:20: White Blood Count 10.5, Red Blood Count 4.21L, Hemoglobin 12.7L, Hematocrit 39.1L, Mean Corpuscular Volume 93, Mean Corpuscular Hemoglobin 30.0, Mean Corpuscular Hemoglobin Concent 32.3, Red Cell Distribution Width 13.2, Platelet Count 302, Mean Platelet Volume 7.2, Neutrophils (%) (Auto) , Lymphocytes (%) ( Auto) , Monocytes (%) (Auto) , Eosinophils (%) (Auto) , Basophils (%) (Auto) , Differential Total Cells Counted 100, Neutrophils % (Manual) 90H, Lymphocytes % (Manual) 6L, Monocytes % (Manual) 4, Eosinophils % (Manual) 0, Basophils % ( Manual) 0, Band Neutrophils 0, Platelet Estimate Adequate, Platelet Morphology Normal, Red Blood Cell Morphology Normal, Sodium Level 137, Potassium Level 3.5 , Chloride Level 97L, Carbon Dioxide Level 24, Anion Gap 16H, Blood Urea Nitrogen 29H, Creatinine 1.1, Estimat Glomerular Filtration Rate > 60, Glucose Level 105, Calcium Level 8.9, Magnesium Level 1.7, Total Bilirubin 0.7, Aspartate Amino Transf (AST/SGOT) 60H, Alanine Aminotransferase (ALT/SGPT) 86H, Alkaline Phosphatase 197H, Total Protein 6.9, Albumin 2.1L, Globulin 4.8, Albumin/Globulin Ratio 0.4L, Thyroid Stimulating Hormone (TSH) 3.090 Current Medications Medications (Trade) Dose Ordered Sig/Alex Route PRN Reason Start Time Stop Time Status Last Admin Dose Admin Amiodarone HCl (Cordarone) 200 mg DAILY NG 07/09/16 09:00 08/08/16 08:59 07/11/16 09:28 Docusate Sodium (Colace) 100 mg BID ORAL 07/07/16 09:00 08/06/16 08:59 07/11/16 09:28 Heparin Sodium (Porcine) (Heparin 5000 units/ml) 5,000 units EVERY 12 HOURS SUBQ 07/03/16 09:00 08/02/16 08:59 07/11/16 09:53 Vancomycin HCl (Vanco rx to dose) 1 ea DAILY PRN MISC Per rx protocol 07/03/16 01:30 08/02/16 01:29 Vitamin A/Vitamin D (A & D Oint) 1 applic EVERY 12 HOURS TOPIC 07/03/16 23:00 08/02/16 22:59 07/11/16 09:28 ESHA BEY Jul 11, 2016 16:42
[2016-07-11 20:00] VITALS: BP 117/77
--- NOTE | 2016-07-11 21:57 | Electroencephalogram ---
ELECTROENCEPHALOGRAM REPORT REQUESTING PHYSICIAN: Washington Bonner M.D. DATE OF TRACIN07/10/2016 HISTORY: This EEG was performed on a 70-year-old gentleman with a history of a chronic encephalopathy associated with pneumonia and renal failure. The purpose of this EEG was to evaluate the patient for the degree and type of cerebral dysfunction. TECHNICAL NOTE: This EEG was performed on a [employer]. Digital Acquisition Unit with electrodes placed on the scalp according to the International 10-20 system. Xtdge-[id number]-svheh and rtiye-zg-whz montages were used. The EEG was technically satisfactory and was performed in the awake and drowsy states. OBSERVATIONS: In the best awake state, the background activity consisted of 6-7 Hz rhythmic theta activity. Drowsiness was characterized by slowing of the background in the 4-5 Hz theta range with intermixed delta frequencies. No definite focal abnormalities or epileptiform discharges were seen. IMPRESSION: This is an abnormal EEG characterized by slowing of the background in the 6-7 Hz theta range in the best awake state. COMMENT: This study is consistent with an encephalopathy of a aqrh-[id number]-wktejpam degree. Clinical Correlation is recommended. Xander Harris M.D., M.S.P.H. DR: Jacob JOB#: [id number] MTDD
[2016-07-11] MEDS ORDERED: Vancomycin 750mg/D5W 275ml IVPB SCH ×2 (23:00)
[2016-07-12] VITALS: BP 117/78
[2016-07-12 04:00] VITALS: BP 125/80
[2016-07-12 08:01] VITALS: BP 125/85
--- NOTE | 2016-07-12 08:25 | General Progress Note ---
Assessment/Plan Problem List: (1) Fever ICD Codes: R50.9 - Fever, unspecified SNOMED: 746872187 Qualifiers: Qualified Codes: R50.9 - Fever, unspecified (2) Acute renal failure ICD Codes: N17.9 - Acute kidney failure, unspecified SNOMED: 38372243 Qualifiers: Qualified Codes: N17.9 - Acute kidney failure, unspecified (3) Pneumonia ICD Codes: J18.9 - Pneumonia, unspecified organism SNOMED: 856909885, 143157667 Qualifiers: Qualified Codes: J18.1 - Lobar pneumonia, unspecified organism (4) Elevated liver enzymes ICD Codes: R74.8 - Abnormal levels of other serum enzymes SNOMED: 944522013, 897877750 (5) Rhabdomyolysis ICD Codes: M62.82 - Rhabdomyolysis SNOMED: 935365764 Qualifiers: Qualified Codes: M62.82 - Rhabdomyolysis Status: stable, progressing Assessment/Plan gt feeds. monitor residuals iv abx follow up cultures monitor labs resp care skin care Subjective ROS Limited/Unobtainable: No Constitutional: Reports: malaise, weakness HEENT: Reports: no symptoms Cardiovascular: Reports: no symptoms Respiratory: Reports: cough, shortness of breath, sputum Gastrointestinal/Abdominal: Reports: no symptoms Genitourinary: Reports: no symptoms Neurologic/Psychiatric: Reports: pre-existing deficit Endocrine: Reports: no symptoms Hematologic/Lymphatic: Reports: anemia Allergies: Coded Allergies: No Known Allergies (Unverified , 07/02/16) All Systems: reviewed and negative except above Subjective no events. tolerating feeds. on o2. withdrawn. confused. Objective Last 24 Hour Vital Signs Date Time Temp Pulse Resp B/P Pulse Ox O2 Delivery O2 Flow Rate FiO2 07/12/16 08:01 98.1 101 21 125/85 99 Room Air 07/12/16 04:00 97.9 95 20 125/80 97 Nasal Cannula 3.0 07/12/16 00:00 98.1 96 20 117/78 97 Nasal Cannula 2.0 07/11/16 20:00 89 07/11/16 20:00 98.2 97 20 117/77 100 Nasal Cannula 3.0 07/11/16 19:49 Nasal Cannula 3.0 32 07/11/16 19:48 95 20 Nasal Cannula 3.0 32 07/11/16 19:48 99 Nasal Cannula 3.0 32 07/11/16 16:00 97.5 94 26 117/78 100 Nasal Cannula 3.0 07/11/16 15:08 88 07/11/16 12:00 97.3 97 28 131/89 100 Nasal Cannula 3.0 07/11/16 11:55 98 Intake and Output 07/11/16 07/12/16 19:00 07:00 Intake Total 590 ml 560 ml Output Total 750 ml 725 ml Balance -160 ml -165 ml Free Water 100 ml Tube Feeding 470 ml 460 ml Other 120 ml Output Urine Total 750 ml 725 ml Height (Feet): 5 Height (Inches): 10.00 Weight (Pounds): 129 Objective General Appearance: WD/WN, lethargic Neck: supple Cardiovascular: regular rhythm Respiratory/Chest: rhonchi - bilaterally Abdomen: normal bowel sounds, non tender, soft, no organomegaly Edema: no edema noted Arm (L), no edema noted Arm (R), no edema noted Leg (L), no edema noted Leg (R), no edema noted Pedal (L), no edema noted Pedal (R), no edema noted 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
[2016-07-12] MEDS: Docusate 100mg tablet ORAL SCH ×2 (08:26→16:42)
[2016-07-12] MEDS ORDERED: Heparin 5000 units/ml inj SUBQ SCH (09:00)
[2016-07-12] MEDS ORDERED: Vitamin A&D Oint 2oz Tube TOPIC SCH (09:00)
[2016-07-12] MEDS ORDERED: Amiodarone 200mg tab NG SCH (09:00)
[2016-07-12] MEDS ORDERED: NS 275ml ONE (09:56)
[2016-07-12 11:52] VITALS: BP 127/84
--- NOTE | 2016-07-12 14:54 | General Progress Note ---
Assessment/Plan Assessment/Plan Assessment - malnutrition / NPO - s/p PEG - abnormal, but declining LFT - US and CT negative - elevated CEA - UTI, PNA, Sepsis - resolving renal failure Recommendations - check viral serologies - continue TF - elevate HOB - Abx - Supportive care - follow LFT Subjective Allergies: Coded Allergies: No Known Allergies (Unverified , 07/02/16) Subjective LFT slowly declining awake Objective Last 24 Hour Vital Signs Date Time Temp Pulse Resp B/P Pulse Ox O2 Delivery O2 Flow Rate FiO2 07/12/16 11:52 97.9 99 21 127/84 100 Room Air 07/12/16 08:01 98.1 101 21 125/85 99 Room Air 07/12/16 06:43 Nasal Cannula 3.0 07/12/16 06:43 99 Nasal Cannula 3.0 07/12/16 06:43 102 18 Nasal Cannula 3.0 07/12/16 04:00 97.9 95 20 125/80 97 Nasal Cannula 3.0 07/12/16 00:00 98.1 96 20 117/78 97 Nasal Cannula 2.0 07/11/16 20:00 89 07/11/16 20:00 98.2 97 20 117/77 100 Nasal Cannula 3.0 07/11/16 19:49 Nasal Cannula 3.0 32 07/11/16 19:48 95 20 Nasal Cannula 3.0 32 07/11/16 19:48 99 Nasal Cannula 3.0 32 07/11/16 16:00 97.5 94 26 117/78 100 Nasal Cannula 3.0 07/11/16 15:08 88 Intake and Output 07/11/16 07/12/16 19:00 07:00 Intake Total 590 ml 560 ml Output Total 750 ml 725 ml Balance -160 ml -165 ml Free Water 100 ml Tube Feeding 470 ml 460 ml Other 120 ml Output Urine Total 750 ml 725 ml Height (Feet): 5 Height (Inches): 10.00 Weight (Pounds): 129 Objective Debilitated AA man NCAT supple CTA RRR Soft NT ND (+) PEG no edema OBS CLIFTON SAMUEL Jul 12, 2016 14:54
[2016-07-12 16:12] VITALS: BP 136/93
[2016-07-12] MEDS ORDERED: AMIODARONE HCL100 MG ORAL (17:18)
[2016-07-12] MEDS ORDERED: DOCUSATE SODIU100 MG ORAL (17:19)
--- NOTE | 2016-07-12 18:10 | Pulmonology Progress Note ---
Assessment/Plan Assessment/Plan IMPRESSION: 1. Possible rhabdomyolysis. 2. Acute on chronic renal failure. 3. Failure to thrive. 4. Evidence of transaminitis 5. Altered mental status. 6. Chronic encephalopathy. 7. Chronic debility. 8. Evidence of pneumonia.by cxr 9. aspiration 10. protein calorie malnutrition PLAN IV antibiotics may dc no acute change meds feeds DNI dc to snf today d/w sister and update given impression, plan, and exam edited and reviewed in detail care discussed with RN Subjective ROS Limited/Unobtainable: Yes Allergies: Coded Allergies: No Known Allergies (Unverified , 07/02/16) Subjective stable at present no acute changes cleared for discharge Objective Last 24 Hour Vital Signs Date Time Temp Pulse Resp B/P Pulse Ox O2 Delivery O2 Flow Rate FiO2 07/12/16 16:12 97.8 110 21 136/93 96 Room Air 07/12/16 11:52 97.9 99 21 127/84 100 Room Air 07/12/16 08:01 98.1 101 21 125/85 99 Room Air 07/12/16 06:43 Nasal Cannula 3.0 07/12/16 06:43 99 Nasal Cannula 3.0 07/12/16 06:43 102 18 Nasal Cannula 3.0 07/12/16 04:00 97.9 95 20 125/80 97 Nasal Cannula 3.0 07/12/16 00:00 98.1 96 20 117/78 97 Nasal Cannula 2.0 07/11/16 20:00 89 07/11/16 20:00 98.2 97 20 117/77 100 Nasal Cannula 3.0 07/11/16 19:49 Nasal Cannula 3.0 32 07/11/16 19:48 95 20 Nasal Cannula 3.0 32 07/11/16 19:48 99 Nasal Cannula 3.0 32 Intake and Output 07/11/16 07/12/16 19:00 07:00 Intake Total 590 ml 560 ml Output Total 750 ml 725 ml Balance -160 ml -165 ml Free Water 100 ml Tube Feeding 470 ml 460 ml Other 120 ml Output Urine Total 750 ml 725 ml Objective GENERAL: The patient is an ill appearing male, overall chronically ill and thin. NAD HEENT: Fairly negative. Oropharynx is moist NECK: Supple. No adenopathy. LUNGS: With moderate breath sounds. no wheeze or rhonchi. CARDIAC: S1 and S2, RRR without murmurs, rubs, or gallops. ABDOMEN: Soft, thin, nontender, and nondistended. gastric feeding tube in place EXTREMITIES: No cyanosis, clubbing, or edema. NEUROLOGIC: Grossly nonfocal, withdrawn and nonverbal. reviewed and edited Current Medications Medications (Trade) Dose Ordered Sig/Alex Route PRN Reason Start Time Stop Time Status Last Admin Dose Admin Amiodarone HCl (Cordarone) 200 mg DAILY NG 07/12/16 09:00 08/11/16 08:59 07/12/16 08:26 Docusate Sodium (Colace) 100 mg BID ORAL 07/12/16 09:00 08/11/16 08:59 07/12/16 16:42 Heparin Sodium (Porcine) (Heparin 5000 units/ml) 5,000 units EVERY 12 HOURS SUBQ 07/12/16 09:00 08/11/16 08:59 07/12/16 08:31 Vancomycin HCl (Vanco rx to dose) 1 ea DAILY PRN MISC Per rx protocol 07/11/16 22:00 08/10/16 21:59 Vitamin A/Vitamin D (A & D Oint) 1 applic EVERY 12 HOURS TOPIC 07/12/16 09:00 08/11/16 08:59 07/12/16 08:32 ESHA BEY Jul 12, 2016 18:10
[2016-07-12 20:00] VITALS: BP 131/83
--- NOTE | 2016-07-13 06:08 | Progress Note ---
DATE: 07/12/2016 CARDIOLOGY PROGRESS NOTE SUBJECTIVE: The patient is tolerating feedings. He is on nasal oxygen. He remains confused and withdrawn. OBJECTIVE: VITAL SIGNS: Blood pressure 125/85, heart rate 101, respiratory rate 21 and afebrile. LUNGS: Bilateral breath sounds with no wheezing. CARDIAC: Regular rhythm and rate. Normal S1 and S2 with a fourth heart sound. ABDOMEN: Soft. EXTREMITIES: Trace edema. LABORATORY DATA: Magnesium yesterday was 1.7. Liver function tests continue to slowly improve. Albumin is 2.1. AST and ALT were 60/86 and alkaline phosphatase 197. IMPRESSION: 1. Paroxysmal atrial fibrillation. 2. Improving transaminitis. 3. Status post gastrostomy tube. 4. Mildly elevated carcinoembryonic antigen. No obvious malignancy documented. 5. Severe protein-calorie malnutrition. 6. Chronic diastolic congestive heart failure. 7. Secondary sinus tachycardia. PLAN: 1. Maintenance dose amiodarone. 2. Monitor volume status and adjust anti-failure therapy accordingly. 3. Protein supplement. 4. Continue antimicrobials per Infectious Disease systems security consultant. Natalio Wisdom M.D. DR: MAX JOB#: [id number] CC:
[2016-07-14 08:37] LABS: CMV DNA PCR QUAL BLOOD/CSF Positive (Negative)
--- NOTE | 2016-07-14 14:02 | Discharge Summary ---
Discharge Summary Hospital Course Date of Admission Jul 02, 2016 at 17:27 Date of Discharge Jul 12, 2016 at 20:30 Admitting Diagnosis abnormal lab HPI Ruben Dixon is a 70 year old male who was admitted on Jul 02, 2016 at 17: 27 for Abnormal Lab Hospital Course dc summary #[id number] Discharge Medications Continued Medications: Amiodarone Hcl (Amiodarone Hcl) 100 Mg Tablet 200 MG ORAL DAILY, TAB Docusate Sodium* (Docusate Sodium*) 100 Mg Capsule 100 MG ORAL TWICE A DAY, CAP Discontinued Medications: Bisacodyl* (Dulcolax*) 5 Mg Tablet.dr 10 MG RC DAILY PRN for Constipation, #10 TAB 0 Refills Na Phos,M-B/Na Phos,Di-Ba* (Fleet Enema*) 133 Ml Enema 133 ML RECTAL DAILY PRN for Constipation, ML 0 Refills Discharge Condition Upon Discharge: stable Discharge Disposition Patient was discharged to SNF/Subacute Facility(03) Discharge Diagnoses: Discharge Instructions Discharge Instructions Special Instructions I have been assigned to complete a D/C Summary on this account. I was not involved in the patient management Luz Maria Mark NP (Vanchtein) July 14, 2016 14:02
--- NOTE | 2016-07-15 04:58 | Discharge Summary 2 SIG ---
DATE OF ADMISSION: 07/02/2016 DATE OF DISCHARGE: 07/12/2016 REASON FOR ADMISSION: 70-year-old male who was sent from the [facility] facility for abnormal labs. The patient apparently had a history of brain injury, status post cardiac arrest with DNR/DNI status. However, family requested transfer to the hospital for further management. Workup in the emergency room revealed low-grade fever of 100.5. The patient was tachycardic with heart rate of 117, tachypneic with respiratory rate of 40. The patient was initially with shortness of breath , dyspnea and required placement of nonrebreathing mask. The patient exhibited evidence of acute renal failure with BUN of 84, creatinine- 1.6, and CK of 1580. Chest x-ray revealed possible left-sided pneumonia. Noted transaminitis. The patient was pancultured. Urinalysis showed moderate bacteria, negative for nitrite and positive for pyuria. The patient was pancultured, started on empiric antibiotics, and admitted to hospital for further management. ADMITTING DIAGNOSES: 1. Acute renal failure/acute kidney injury. 2. Rhabdomyolysis. 3. Acute hypoxemic respiratory failure ( requiring nonrebreathing mask) 4. Lobar pneumonia/healthcare associated pneumonia. 5. Elevated LFT. 6. Possible urinary tract infection. 7. Chronic obstructive pulmonary disease. HOSPITAL COURSE: The patient was admitted, supplemental oxygen and pulmonary toilet provided as needed. Patient was initially on nonrebreathing mask. Pulmonary toilet provided. Supplemental oxygen was titrated to keep oxygen saturation above 92%. The patient was able to be weaned to oxygen via nasal cannula and then to the room air . Pulse oximetry was stable on room air. The patient started on IV fluids. Renal parameters and electrolytes were closely monitored. Box Covering Machine Operator followed. Acute renal failure, likely secondary to dehydration. Prior to discharge, BUN - 29 and creatinine -1.1. Renal ultrasound revealed no evidence of hydronephrosis, mild bilateral echogenicity consistent with early medical renal disease, recommended to avoid nephrotoxic. Neurology seen and evaluated the patient. EEG revealed toxic metabolic encephalopathy. Ammonia level was stable, 17. GI followed the patient for dysphagia. Initially NG tube inserted . . The patient status post PEG placement on 07/09/2016, started on tube feeding, tolerated well. The patient noted to be anemic. The patient required blood transfusion. Hemoglobin was stable prior to discharge, hemoglobin -12.7 and hematocrit - 39.1. Anemia workup revealed low iron, but high ferritin. Stool OB was negative. CEA revealed mild elevation - 4.9. Colonoscopy was deferred by GI at this time. LFTs were trending down. Hepatitis panel was negative. Abdominal ultrasound revealed gallbladder sludge. No evidence of acute cholecystitis. Subsequently, CT of the abdomen was done which revealed anasarca, left pleural effusion/consolidation acute versus chronic changes, some bronchiectasis noted. LFT were trending down. No leukocytosis. A low suspicion for acute cholecystitis. The patient was on empiric antibiotics. Blood culture negative. Urine culture negative. Monospot was negative. HCV was negative. Cytomegalovirus was positive by DNA polyphasic PCR. Blood sugar was managed with sliding scale of insulin. Initially with metabolic acidosis, inspector handbag frames placed the patient on IV fluids with bicarbonate, later intravenous fluids were changed, after metabolic acidosis resolved. The patient had evidence of severe protein-calorie malnutrition, started on tube feedings, protein supplements provided. Empiric antibiotics initially provided, status post treatment for pneumonia. Antibiotic discontinued prior to discharge. Leukocytosis resolved. Safety Inspector followed. According to sports leadership instructor, the patient has paroxysmal atrial fibrillation. No anticoagulation, but continue maintenance dose of amiodarone. Echocardiogram revealed preserved ejection fraction of 60%, right ventricular systolic pressure of 42 consistent with mild pulmonary hypertension. The patient also had evidence of chronic diastolic dysfunction. Per sports leadership instructor, monitor volume status and adjust anti-failure therapy accordingly. The patient with multiple decubitus ulcer present on admission. Wound care nurse seen and evaluated the patient. Wound care provided as per wound nurse recommendations. Supplemental oxygen and pulmonary toilet provided as needed. Status post treatment for pneumonia. Strict aspiration precautions maintained. Last chest x-ray revealed improved but persistent left middle lower lung infiltrate, likely chronic changes. The patient was stable for transfer back to [facility] facility. DISCHARGE DIAGNOSES: 1. Acute renal failure, (likely secondary to dehydration)- resolved, on chronic renal insufficiency. 2. Rhabdomyolysis, resolved. 3. Transaminitis, improving. 4. Healthcare-associated pneumonia, status post treatment. 5. Chronic obstructive pulmonary disease. 6. Acute hypoxemic respiratory failure requiring nonrebreathing mask, resolved. 7. Toxic metabolic encephalopathy/chronic encephalopathy. 8. Dysphagia, status post PEG placement 9. Anemia of chronic disease, status post blood transfusion. 11. Paroxysmal atrial fibrillation. 12. Diabetes mellitus x2. 13. Chronic diastolic congestive heart failure. 14. Mild pulmonary hypertension. 15. Metabolic acidosis. 16. Severe protein-calorie malnutrition. 17. History of cocaine and alcohol abuse. 18. Anemia, status post blood transfusion. 19. Multiple decubitus present on admission: sacral decubitus stage IV, left ischial tuberosity stage IV, left buttock stage III, left elbow stage III, left ear stage IV, right ear stage IV. 20. Benign prostatic hypertrophy. DISCHARGE MEDICATIONS: See medication reconciliation list. DISCHARGE INSTRUCTIONS: The patient was discharged to [facility] facility. The patient DNR/DNI status. Follow up with medical doctor at the facility n. Washington Bonner M.D. I have been assigned to dictate discharge summary on this account and I was not involved in the patient's management. Luz Maria QuiñonezWhite Plains HospitalSera N.PLizzie DR: LUIZA JOB#: [id number] CC: JOSE E
--- NOTE | 2016-07-15 23:39 | Progress Note ---
DATE: 07/05/2016 CARDIOLOGY PROGRESS NOTE Late entry for 07/05/2016. SUBJECTIVE: The patient remains on antibiotics and G-tube feedings. Alert, but non-communicative. Monitor sinus and sinus tachycardia. OBJECTIVE: VITAL SIGNS: Blood pressure 125/80, pulse 84, and respirations 18. LUNGS: Few rhonchi. HEART: Regular rhythm and rate. Normal S1 and S2. ABDOMEN: Soft. No focal tenderness. EXTREMITIES: Trace edema. IMPRESSION: 1. Healthcare-acquired pneumonia. 2. Transaminitis. 3. Paroxysmal atrial fibrillation. 4. Hypertensive cardiomyopathy. 5. Metabolic acidosis. 6. Hypernatremia and dehydration, improved. 7. Rhabdomyolysis, resolving. PLAN: 1. Off TPN. 2. Nutrition by NG tube. 3. Hypotonic intravenous fluids. 4. Antibiotics. 5. Respiratory hygiene. 6. We will consider to taper his antiarrhythmic re-dosed. Natalio Wisdom M.D. DR: KAYLEIGH JOB#: [id number] CC:
--- NOTE | 2016-07-15 23:49 | Consultation ---
DATE OF CONSULTATION: CARDIOLOGY CONSULTATION CONSULTING PHYSICIAN: Natalio Wisdom M.D. REQUESTING PHYSICIAN: Washington Bonner M.D. REASON FOR CONSULTATION: Hypertension. HISTORY OF PRESENT ILLNESS: This is a 70-year-old male, who resides at a senior care facility. He has been noted to have worsening renal parameters and altered mentation. He has been on TPN due to dysphasia. PAST MEDICAL HISTORY: Includes paroxysmal atrial fibrillation, hypertensive heart disease, chronic kidney disease, cerebrovascular disease with dementia, and prostatic hypertrophy. MEDICATIONS: Reviewed and reconciled. ALLERGIES: None known. SOCIAL HISTORY: No record of smoking or alcohol use. REVIEW OF SYSTEMS: Not obtainable. PHYSICAL EXAMINATION: VITAL SIGNS: Blood pressure 131/72, heart rate 96, respiratory rate 32, and afebrile. HEENT: Conjunctivae are pink. Sclerae anicteric. Oropharynx clear. NECK: Supple. LUNGS: With bilateral rhonchi. CARDIAC: Regular rhythm. Rapid rate. Normal S1, S2. ABDOMEN: Soft and nontender. EXTREMITIES: With trace edema. LABORATORY DATA: White count 10.9 and hemoglobin 10.6. BUN 86 and creatinine 1.7. Liver function tests are all elevated. Troponin negative. IMPRESSION: 1. Transaminitis. 2. Acute on chronic renal failure. 3. Rhabdomyolysis. 4. Dysphagia with chronic total parenteral nutrition use. 5. Paroxysmal atrial fibrillation. 6. Hypertensive cardiomyopathy. PLAN: 1. Hydration. 2. Monitor liver function. 3. Reassess antiarrhythmic regimen. 4. Obtain old records. 5. Respiratory hygiene. 6. Reassess for feeding tube versus continue TPN. Natalio Wisdom M.D. DR: KAYLEIGH JOB#: [id number] CC:
--- NOTE | 2016-07-16 00:08 | Progress Note ---
DATE: 07/06/2016 SUBJECTIVE: No new fevers. Remains alert, but minimally interactive. On NG-tube feedings. Monitored rhythm sinus and sinus tachycardia. OBJECTIVE: VITAL SIGNS: Blood pressure 120/70, pulse 89, respirations 21, and afebrile. LUNGS: Bilateral breath sounds. Few rhonchi. HEART: Regular rhythm and rate. Normal S1 and S2. ABDOMEN: Soft. No focal tenderness. No edema. LABORATORY DATA: Sodium 140, potassium 3.9, bicarbonate 21, BUN 48, and creatinine 1.2. Albumin 1.9. IMPRESSION: 1. Transaminitis, likely GGTP. 2. Severe protein-calorie malnutrition. 3. Acute on chronic renal failure, improving. 4. Dehydration and hypernatremia, resolved. 5. Paroxysmal atrial fibrillation. 6. Hypertensive cardiomyopathy. PLAN: 1. Decrease amiodarone dosing. 2. Check thyroid panel. 3. NG-tube feeds, antibiotics. 4. Respiratory hygiene. 5. Maintain adequate hydration. 6. Continue to monitor laboratory parameters and adjust therapy accordingly. Natalio Wisdom M.D. DR: EDER JOB#: [id number] CC:
--- NOTE | 2016-07-16 00:18 | Progress Note ---
DATE: 07/07/2016 CARDIOLOGY PROGRESS NOTE SUBJECTIVE: The patient is withdrawn and confused. He continues to have elevated liver function studies. Abdominal ultrasound is pending. OBJECTIVE: VITAL SIGNS: Blood pressure 113/73, pulse 77, respirations 22, and afebrile. LUNGS: Bilateral breath sounds. HEART: Regular rhythm and rate. Normal S1 and S2. ABDOMEN: Soft. EXTREMITIES: No edema. LABORATORY DATA: No new laboratories today. IMPRESSION: 1. Transaminitis. 2. Paroxysmal atrial fibrillation. 3. Severe protein-calorie malnutrition. 4. Prerenal azotemia. 5. Acute on chronic renal failure. 6. Chronic diastolic congestive heart failure. PLAN: 1. Reassess amiodarone dosing. 2. Obtain old records. 3. Follow up liver function studies. 4. Await abdominal ultrasound. Natalio Wisdom M.D. DR: MAX JOB#: [id number] CC:
--- NOTE | 2016-07-16 00:28 | Progress Note ---
DATE: 07/04/2016 CARDIOLOGY PROGRESS NOTE: Late entry 07/04/2016 SUBJECTIVE: The patient without any distress. He is alert, but nonverbal . OBJECTIVE: VITAL SIGNS: Blood pressure 172/77, heart rate 100, respiratory rate 19, afebrile, and monitored rhythm sinus tachycardia. NECK: Supple. LUNGS: Few rhonchi . CARDIAC: Regular rhythm and rate. Normal S1, S2. ABDOMEN: Soft. EXTREMITIES: Trace edema. LABORATORY STUDIES: White count 11.4 and hemoglobin 9.2. Sodium 146, potassium 3.4, bicarbonate 17, BUN 72, and creatinine 1.4. IMPRESSION: 1. Dehydration. 2. Hypernatremia. 3. Prerenal azotemia. 4. Metabolic acidosis. 5. Anemia. 6. Transaminitis. 7. Paroxysmal atrial fibrillation. 8. Secondary sinus tachycardia. 9. Rhabdomyolysis. PLAN: Continued hydration. Reassess amiodarone. Antimicrobials. Free water replacement. Nutritional support by NG tube. Natalio Wisdom M.D. DR: Balta JOB#: [id number] CC:
== END 2016-07-12 20:30 | DRG 682 ==
LOC: EDBD 16:52 → EMR 17:22 → EDBEDREQ 17:25 → 4W 17:27 → EDBEDREQ 17:31 → EDBEDREQSVC 19:39 → EDBEDREQ 19:40 → 2W 20:12 → 4W 07-11 22:32
PROC: 30233N1 Transfusion of Nonautologous Red Blood Cells into Peripheral Vein, Percutaneous Approach (ICD-10-PCS; principal; 2016-07-03)
PROC: 0DH63UZ Insertion of Feeding Device into Stomach, Percutaneous Approach (ICD-10-PCS; 2016-07-09 11:39)
DX: N17.9 Acute kidney failure, unspecified (principal); J18.9 Pneumonia, unspecified organism; J96.01 Acute respiratory failure with hypoxia; E43 Unspecified severe protein-calorie malnutrition; G92 Toxic encephalopathy; L89.154 Pressure ulcer of sacral region, stage 4; G93.1 Anoxic brain damage, not elsewhere classified; L89.324 Pressure ulcer of left buttock, stage 4; L89.894 Pressure ulcer of other site, stage 4; L89.814 Pressure ulcer of head, stage 4; L89.023 Pressure ulcer of left elbow, stage 3; E46 Unspecified protein-calorie malnutrition; M62.82 Rhabdomyolysis; Z68.1 Body mass index [BMI] 19.9 or less, adult; E87.2 Acidosis; E87.1 Hypo-osmolality and hyponatremia; I13.0 Hypertensive heart and chronic kidney disease with heart failure and stage 1 through stage 4 chronic kidney disease, or unspecified chronic kidney disease; I50.32 Chronic diastolic (congestive) heart failure; I95.9 Hypotension, unspecified; R13.10 Dysphagia, unspecified; J44.9 Chronic obstructive pulmonary disease, unspecified; R62.7 Adult failure to thrive; N18.9 Chronic kidney disease, unspecified; R74.0 Nonspecific elevation of levels of transaminase and lactic acid dehydrogenase [LDH]; E86.0 Dehydration; Z66 Do not resuscitate; N40.0 Benign prostatic hyperplasia without lower urinary tract symptoms; Z86.74 Personal history of sudden cardiac arrest; F10.21 Alcohol dependence, in remission; F14.21 Cocaine dependence, in remission; D64.9 Anemia, unspecified; I48.0 Paroxysmal atrial fibrillation; I69.319 Unspecified symptoms and signs involving cognitive functions following cerebral infarction; F01.50 Vascular dementia, unspecified severity, without behavioral disturbance, psychotic disturbance, mood disturbance, and anxiety
CPT/HCPCS: 36415; 71010; 74000; 74177; 76700; 76775; 80048; 80053; 80202; 81003; 82140; 82248; 82270; 82378; 82550; 82553; 82607; 82728; 82746; 82962; 83540; 83550; 83605; 83735; 83880; 84443; 84484; 85007; 85025; 85610; 85730; 86308; 86695; 86705; 86709; 86803; 86850; 86900; 86901; 86920; 87040; 87081; 87086; 87340; 87496; 93005; 93306; 94003; 94150; 94640; 94664; 94760; 95819

== ENCOUNTER 2016-07-20 06:35 | Inpatient (IN) | payer MEDICARE ==
[2016-07-20] VITALS (7 sets, daily range): BP systolic 98–118; BP diastolic 64–77
[~2016-07-20] VITALS: Ht 177.8 cm; Wt 67.6 kg
--- NOTE | 2016-07-20 06:33 | Emergency Room Report ---
History of Present Illness General Chief Complaint: Dyspnea/Respdistress Source: EMS Present Illness HPI The patient presents from [facility] by EMS. He has respiratory distress for several hours. Paramedics state he feels hot. The patient has some anoxic brain damage. He has a POLST that states DO NOT RESUSCITATE and DO NOT INTUBATE. Is not signed by MD. The patient is unable to give us any history. Oxygen saturation was 80% in the field. No treatment (other than O2) was instituted. He was discharged 07/12 with these diagnoses: 1. Acute renal failure, (likely secondary to dehydration)- resolved, on chronic renal insufficiency. 2. Rhabdomyolysis, resolved. 3. Transaminitis, improving. 4. Healthcare-associated pneumonia, status post treatment. 5. Chronic obstructive pulmonary disease. 6. Acute hypoxemic respiratory failure requiring nonrebreathing mask, resolved. 7. Toxic metabolic encephalopathy/chronic encephalopathy. 8. Dysphagia, status post PEG placement 9. Anemia of chronic disease, status post blood transfusion. 11. Paroxysmal atrial fibrillation. 12. Diabetes mellitus x2. 13. Chronic diastolic congestive heart failure. 14. Mild pulmonary hypertension. 15. Metabolic acidosis. 16. Severe protein-calorie malnutrition. 17. History of cocaine and alcohol abuse. 18. Anemia, status post blood transfusion. 19. Multiple decubitus present on admission: sacral decubitus stage IV, left ischial tuberosity stage IV, left buttock stage III, left elbow stage III, left ear stage IV, right ear stage IV. 20. Benign prostatic hypertrophy. Allergies: Coded Allergies: No Known Allergies (Unverified , 07/02/16) Patient History Past Medical History: see triage record Social History: Reports: alcohol use, drug use Social History Narrative [facility] Reviewed Nursing Documentation: PMH: Agreed, PSxH: Agreed Nursing Documentation-PM Past Medical History: No History, Except For Hx Diabetes: Yes History Of Psychiatric Problem: Yes - epilepsy Review of Systems All Other Systems: limited Physical Exam Vital Signs Date Time Temp Pulse Resp B/P Pulse Ox O2 Delivery O2 Flow Rate FiO2 07/20/16 06:23 99.5 116 30 122/84 100 Non-Rebreather Sp02 EP Interpretation: reviewed, abnormal - low as interpreted by me General Appearance: alert, mild distress, thin, Chronically Ill Head: normocephalic Eyes: bilateral eye PERRL, bilateral eye normal inspection ENT: dry mucus membranes Neck: supple Respiratory: respiratory distress, decreased breath sounds, crackles Cardiovascular #1: regular rate, rhythm Cardiovascular #2: 2+ radial (R) Gastrointestinal: normal inspection, normal bowel sounds, non tender, no mass, non-distended Musculoskeletal: back normal, no calf tenderness Neurologic: responsive, other - ebulic and not moving extremities Psychiatric: anxious Skin: normal inspection, warm/dry Procedures Critical Care Time Critical Care Time Total Critical Care Time: 30 min bedside evaluation and treatment excludes procedures (EKG). Reason for critical care: Possible complications: hypotension, hypertension, RI, shock, arrhythmias, metabolic acidosis, end organ damage, respiratory failure. Interventions: Course: Consultations: nursing staff, EMS, PMD, RT Performed by: Dr. Mccoy Tolerated well condition = critical Medical Decision Making Diagnostic Impression: Primary Impression: Respiratory failure Qualified Codes: J96.01 - Acute respiratory failure with hypoxia; J96.02 - Acute respiratory failure with hypercapnia Additional Impression: Bilateral pneumonia Qualified Codes: J18.9 - Pneumonia, unspecified organism ER Course Patient presents with hypoxia and respiratory distress. Immediately begun on BIPAP. Ddx: pneumonia, CHF, ARF, AMI, pneumothorax, COPD amongst others. POLST was confirmed last admission - DNR/DNI. Evaluation with sepsis w/u and treatment. NS bolus and antibiotics begun (triple). Sats improved on O2. Improved resp rate. CXR with dense infiltrates bilaterally. Labs with normal WBC, renal insufficiency, min elevated BNP. As clinically improving, no ABG ordered. Prognosis = poor. Admitted JEFF, Dr. Bonner. Laboratory Tests Test 07/20/16 06:30 07/20/16 06:56 White Blood Count 7.0 K/UL (4.8-10.8) Red Blood Count 3.11 M/UL (4.70-6.10) L Hemoglobin 9.3 G/DL (14.2-18.0) L Hematocrit 28.5 % (42.0-52.0) L Mean Corpuscular Volume 92 FL (80-99) Mean Corpuscular Hemoglobin 30.0 PG (27.0-31.0) Mean Corpuscular Hemoglobin Concent 32.7 G/DL (32.0-36.0) Red Cell Distribution Width 13.1 % (11.6-14.8) Platelet Count 289 K/UL (150-450) Mean Platelet Volume 6.6 FL (6.5-10.1) Neutrophils (%) (Auto) % (45.0-75.0) Lymphocytes (%) (Auto) % (20.0-45.0) Monocytes (%) (Auto) % (1.0-10.0) Eosinophils (%) (Auto) % (0.0-3.0) Basophils (%) (Auto) % (0.0-2.0) Differential Total Cells Counted 100 Neutrophils % (Manual) 82 % (45-75) H Lymphocytes % (Manual) 12 % (20-45) L Monocytes % (Manual) 2 % (1-10) Eosinophils % (Manual) 0 % (0-3) Basophils % (Manual) 0 % (0-2) Band Neutrophils 4 % (0-8) Platelet Estimate Adequate Platelet Morphology Normal Hypochromasia 1+ Prothrombin Time 11.5 SEC (9.30-11.50) Prothrombin Time INR 1.1 (0.9-1.1) PTT 28 SEC (23-33) Sodium Level 136 mEQ/L (135-145) Potassium Level 4.3 mEQ/L (3.4-4.9) Chloride Level 92 mEQ/L (98-107) L Carbon Dioxide Level 30 mEQ/L (20-30) Anion Gap 14 (5-15) Blood Urea Nitrogen 55 mg/dL (7-23) H Creatinine 1.5 mg/dL (0.7-1.2) H Estimate Glomerular Filtration Rate 56.4 mL/min (>60) Glucose Level 120 mg/dL (74-106) H Lactic Acid Level 1.10 mmol/L (0.66-2.22) Calcium Level 8.8 mg/dL (8.6-10.2) Total Bilirubin 0.6 mg/dL (0.0-1.2) Aspartate Amino Transferase (AST) 45 U/L (5-40) H Alanine Aminotransferase (ALT) 46 U/L (3-41) H Alkaline Phosphatase 166 U/L (40-129) H Total Creatine Kinase 224 U/L (38-174) H Troponin I < 0.30 ng/mL (<=0.30) Pro-B-Type Natriuretic Peptide 676 pg/mL (0-125) H Total Protein 7.0 g/dL (6.6-8.7) Albumin 1.8 g/dL (3.5-5.2) L Globulin 5.2 g/dL Albumin/Globulin Ratio 0.3 (1.0-2.7) L Urine Color Yellow Urine Appearance Slightly cloudy Urine pH 5 (4.5-8.0) Urine Specific [place] 1.010 (1.005-1.035) Urine Protein 3+ (NEGATIVE) H Urine Glucose (UA) Negative (NEGATIVE) Urine Ketones Negative (NEGATIVE) Urine Occult Blood 2+ (NEGATIVE) H Urine Nitrite Negative (NEGATIVE) Urine Bilirubin Negative (NEGATIVE) Urine Ictotest Negative Urine Urobilinogen 1 MG/DL (0.0-1.0) H Urine Leukocyte Esterase 1+ (NEGATIVE) H Urine RBC 2-4 /HPF (0 - 0) H Urine WBC 2-4 /HPF (0 - 0) Urine Squamous Epithelial Cells Occasional /LPF Urine Amorphous Sediment Moderate /LPF (NONE) H Urine Bacteria Few /HPF (NONE) EKG Diagnostic Results Rate: tachycardiac ST Segments: no acute changes Rhythm Strip Diag. Results EP Interpretation: yes Rhythm: no PVC's, no ectopy, other - ST Chest X-Ray Diagnostic Results EP Interpretation: Yes Findings: no effusion, other - bilateral infiltrates with PICC (assymmetric, consider pneumonia) Number of Views: 1 Last Vital Signs Date Time Temp Pulse Resp B/P Pulse Ox O2 Delivery O2 Flow Rate FiO2 07/20/16 09:00 100 37 100 Facial 50 07/20/16 08:39 99.4 113/73 15.0 Status: improved Disposition: ADMITTED INPATIENT Condition: Critical Natalio Mccoy M.D. July 20, 2016 06:33
[~2016-07-20 06:35] MED LIST: AMIODARONE HCL100 MG ORAL; Albuterol ud Inhalation HHN ONE; Azithromycin 500 MG in NS 275 ML IV ONE; BISACODYL5 MG RC; DOCUSATE SODIU100 MG ORAL; FLEET ENEMA133 ML RECTAL; Ipratropium 0.02% Inh Soln 2.5ml UD HHN ONE; Piperacillin/Tazobactam 4.5 GM in NS 110 ML IV ONE; Vancomycin 1 GM in NS 275 ML IV ONE
[2016-07-20] MEDS ORDERED: Zosyn 4.5gm inj ONE (06:41)
[2016-07-20] MEDS ORDERED: ZINC SULFATE220 M1 ORAL (06:53)
[2016-07-20] MEDS ORDERED: VITAMIN C500 M1 GT (06:53)
[2016-07-20] MEDS ORDERED: MULTIVITAMINS1 EAC8 ORAL (06:53)
[2016-07-20 06:58] LABS: MEAN CORPUSCULAR HGB CONC 32.7 G/DL (32.0-36.0); MEAN CORPUSCULAR VOLUME 92 FL (80-99); MEAN PLATELET VOLUME 6.6 FL (6.5-10.1); PLATELET COUNT 289 K/UL (150-450); RED BLOOD COUNT 3.11 M/UL (4.70-6.10); RED CELL DISTRIBUTION WIDTH 13.1 % (11.6-14.8)
[2016-07-20 07:03] LABS: INR 1.1 (0.9-1.1); PROTHROMBIN TIME 11.5 SEC (9.30-11.50)
[2016-07-20 07:09] LABS: APPEARANCE,URINE SLIGHTLY CLOUDY; KETONES,URINE NEGATIVE (NEGATIVE); LEUKOCYTE ESTERASE ,URINE 1+ (NEGATIVE); NITRITE,URINE NEGATIVE (NEGATIVE); PH,URINE 5 (4.5-8.0); PROTEIN,URINE 3+ (NEGATIVE); UROBILINOGEN,URINE 1 MG/DL (0.0-1.0)
[2016-07-20 07:14] LABS: TROPONIN I < 0.30 ng/mL (<=0.30)
[2016-07-20 07:16] LABS: ALANINE AMINOTRANSFERASE 46 U/L (3-41); ALBUMIN/GLOBULIN RATIO 0.3 (1.0-2.7); ANION GAP 14 (5-15); ASPARTATE AMINO TRANSFERASE 45 U/L (5-40); CALCIUM 8.8 mg/dL (8.6-10.2); CARBON DIOXIDE 30 mEQ/L (20-30); CHLORIDE 92 mEQ/L (98-107); CREATININE 1.5 mg/dL (0.7-1.2); GLOMERULAR FILTRATION RATE 56.4 mL/min (>60); HEMOLYSIS 2; POTASSIUM 4.3 mEQ/L (3.4-4.9); SODIUM 136 mEQ/L (135-145)
[2016-07-20] MEDS ORDERED: ACETAMINOPHEN325 M1 GT (07:17)
[2016-07-20] MEDS ORDERED: TRAMADOL HCL50 MG GT (07:17)
[2016-07-20] MEDS ORDERED: HEPARIN SO5000 UNIT2 SUBQ (07:17)
[2016-07-20 07:20] LABS: AMORPHOUS SEDIMENT,UR MODERATE /LPF; BACTERIA,URINE FEW /HPF; SQUAMOUS EPITHELIAL CELL,UR OCCASIONAL /LPF (NONE/OCC)
[2016-07-20 07:21] LABS: ICTOTEST NEGATIVE
[2016-07-20] MEDS ORDERED: Azithromycin Inj IV ONE (07:29)
[2016-07-20] MEDS ORDERED: Vancomycin 1gm inj IVPB ONE (07:29)
[2016-07-20 08:37] LABS: BAND NEUTROPHILS % (MANUAL) 4 % (0-8); BASOPHILS % (MANUAL) 0 % (0-2); EOSINOPHILS % (MANUAL) 0 % (0-3); HYPOCHROMASIA 1+; LYMPHOCYTES % (MANUAL) 12 % (20-45); NEUTROPHILS % (MANUAL) 82 % (45-75); PLATELET ESTIMATE ADEQUATE; PLATELET MORPHOLOGY NORMAL; TOTAL CELLS COUNTED 100
[2016-07-20] MEDS ORDERED: Docusate 100mg cap ORAL SCH (09:00)
[2016-07-20] MEDS: DuoNeb 0.5-3(2.5)mg/3ml neb HHN SCH ×4 (10:33→23:22)
--- NOTE | 2016-07-20 11:20 | Diagnostic Imaging Report ---
Indications: Chest pain and dyspnea Technique: AP chest Findings: Comparison: 07/06/16 Nasogastric tube has been removed. PICC remains in place. The case gastrostomy tube now in place. Next interstitial and alveolar opacities are now noted scattered throughout both lungs, left greater than right, new or increased from previous exam. Indistinctness of the left costophrenic angle persists; right remain sharp. Cardiac silhouette remains upper limits of normal in size. Central pulmonary vascular prominence unchanged. Peripheral pulmonary vasculature obscured. Mild calcification and elongation of thoracic aorta, thoracic vertebral osteophytes unchanged. IMPRESSION: Development of/increase in bilateral pulmonary mixed interstitial and alveolar opacities--pulmonary edema and/or pneumonia Persistent suggestion of small left pleural effusion versus thickening Replacement of nasogastric tube with percutaneous gastrostomy tube No other change
[2016-07-20] MEDS: Amiodarone 200mg tab ORAL SCH (11:44)
[2016-07-20] MEDS: Heparin 5000 units/ml inj SUBQ SCH ×2 (11:44→20:38)
[2016-07-20] MEDS: Ascorbic Acid 500mg tab GT SCH (11:45)
[2016-07-20] MEDS: Zinc Sulfate 220mg cap ORAL SCH (11:45)
[2016-07-20] MEDS: Multivitamin w/Minerals tab ORAL SCH (11:47)
[2016-07-20 12:08] LABS: ABG PCO2 38.1 mmHg (35.0-45.0)
[2016-07-20 12:09] LABS: ABG ALLEN TEST POSITIVE; ABG BASE EXCESS 1.8
--- NOTE | 2016-07-20 13:19 | History and Physical Report ---
DATE OF ADMISSION: 07/20/2016 CHIEF COMPLAINT: Sepsis and respiratory failure. HISTORY OF PRESENT ILLNESS: The patient is an unfortunate 70-year-old male. He has a history of encephalopathy, paroxysmal AFib, hypertension, and chronic kidney disease. He was recently admitted with failure to thrive. He was unable to tolerate NPOs. He eventually underwent placement of the G-tube. He was treated for pneumonia and sepsis and was [facility]. He developed acute respiratory distress. He was transferred to the emergency room. On evaluation there, the patient has hypoxia requiring placement on BiPAP. He had x-ray evidence of recurrence of a recurrent pneumonia. He has been started on IV antibiotic therapy. He is now admitted for further evaluation and care. He is confused and poorly responsive at baseline, unable provide any history. PAST MEDICAL HISTORY: As above. He has a history of BPH and failure to thrive. PAST SURGICAL HISTORY: He has history of G-tube. MEDICATIONS: Current medications are reconciled and reviewed. ALLERGIES: None. SOCIAL HISTORY: There is no known history of tobacco, ethanol, or drugs. FAMILY HISTORY: Unknown. REVIEW OF SYSTEMS: Review of systems from the patient is unobtainable. PHYSICAL EXAMINATION: VITAL SIGNS: Temperature 99.4 degrees, respirations 30, blood pressure 115/72, and pulse 98. GENERAL: The patient is chronically ill-appearing, thin male in no apparent distress. HEART: Regular rate and rhythm. LUNGS: With scattered rhonchi and rales. ABDOMEN: Soft, nontender and nondistended. EXTREMITIES: Without clubbing, cyanosis, or edema. LABORATORY AND DIAGNOSTIC DATA: X-ray showed evidence of bilateral infiltrates. White count was 17, hemoglobin 9, and hematocrit 28. Sodium 136, BUN 55, and creatinine 1.5. AST 45, ALT 46, CK of 224. Coags normal. Urine was clear. ASSESSMENT: This is an unfortunate male who complaints of respiratory failure and pneumonia: 1. Respiratory failure. 2. Pneumonia. 3. Hospital-acquired health care associated pneumonia. 4. History of dysphagia, status post gastrostomy tube. 5. History of atrial fibrillation. 6. Encephalopathy. PLAN: Continue BiPAP, broad-spectrum IV antibiotics, monitor chest x-ray, follow up cultures, continue G-tube feeds and follow pending cultures. The patient is DNR. Jair Keaton Carlson DR: Fredis JOB#: [id number] CC:
--- NOTE | 2016-07-20 14:05 | Wound Care Consultation ---
Wound Assessment Wound Assessment #1: Wound Number: #1 Wound Present on Admission: Yes New Wound: No Status Change of Wound: No Wound Location Body Site Modif: left Wound Location Body Site: trochanter Wound Type: pressure ulcer Garry Test: Does not Garry Pressure Ulcer Stage: IV/unstageable Wound Thickness: Full Thickness Wound Length: 10.0 Wound Width: 9.0 Wound Depth: utd Percent of Wound Neligh/Red: 20 Percent of Wound Bed Yellow/Wh: 20 Percent of Wound Purple/Maroon: 60 Wound Drainage Description: Serosanguineous Wound Drainage Amount: Scant Wound Drainage Odor: None/Absent Tissue Surrounding Wound: Erythemic Wound General Appearance: Reddened - maroon, Necrotic Wound Assessment #2: Wound Number: #2 Wound Present on Admission: Yes New Wound: No Status Change of Wound: No Wound Location Body Site Modif: left Wound Location Body Site: ear Wound Type: pressure ulcer Garry Test: Does not Garry Pressure Ulcer Stage: IV/unstageable Wound Thickness: Full Thickness Wound Length: 2.5 Wound Width: 2.5 Wound Depth: utd Percent of Wound Neligh/Red: 60 Percent of Wound Bed Yellow/Wh: 40 Wound Drainage Description: Serosanguineous Wound Drainage Amount: Moderate Wound Drainage Odor: None/Absent Tissue Surrounding Wound: Macerated Wound General Appearance: Reddened, Necrotic Wound Assessment #3: Wound Number: #3 Wound Present on Admission: Yes New Wound: No Status Change of Wound: No Wound Location Body Site Modif: right Wound Location Body Site: ear Wound Type: pressure ulcer Garry Test: Does not Garry Pressure Ulcer Stage: IV/unstageable Wound Thickness: Full Thickness Wound Length: 2.0 Wound Width: 3.0 Wound Depth: utd Percent of Wound Neligh/Red: 50 Percent of Wound Bed Yellow/Wh: 30 Percent of Wound Purple/Maroon: 20 Wound Drainage Description: Serosanguineous Wound Drainage Amount: Moderate Wound Drainage Odor: None/Absent Tissue Surrounding Wound: Macerated Wound General Appearance: Reddened, Necrotic Wound Assessment #4: Wound Number: #4 Wound Present on Admission: Yes New Wound: No Status Change of Wound: No Wound Location Body Site Modif: left Wound Location Body Site: ischial tuberosity Wound Type: pressure ulcer Garry Test: Does not Garry Pressure Ulcer Stage: IV/unstageable Wound Thickness: Full Thickness Wound Length: 4.5 Wound Width: 6.5 Wound Depth: utd Percent of Wound Neligh/Red: 30 Percent of Wound Bed Yellow/Wh: 70 Wound Drainage Description: Serosanguineous Wound Drainage Amount: Moderate Wound Drainage Odor: None/Absent Tissue Surrounding Wound: Macerated Wound General Appearance: Reddened, Necrotic Wound Assessment #5: Wound Number: #5 Wound Present on Admission: Yes New Wound: No Status Change of Wound: No Wound Location Body Site Modif: left, lateral Wound Location Body Site: malleolus/ankle Wound Type: pressure ulcer Garry Test: Does not Garry Pressure Ulcer Stage: deep tissue injury Wound Thickness: Full Thickness Wound Length: 4.0 Wound Width: 4.0 Wound Depth: utd Wound Drainage Amount: None Wound Drainage Odor: None/Absent Tissue Surrounding Wound: Erythemic Wound General Appearance: Reddened Wound Assessment #6: Wound Number: #6 Wound Present on Admission: Yes New Wound: No Status Change of Wound: No Wound Location Body Site Modif: left, mid, lateral Wound Location Body Site: foot Wound Type: pressure ulcer Garry Test: Does not Garry Pressure Ulcer Stage: deep tissue injury Wound Thickness: Full Thickness Wound Length: 3.0 Wound Width: 3.0 Wound Depth: utd Percent of Wound Purple/Maroon: 100 Wound Drainage Amount: None Wound Drainage Odor: None/Absent Tissue Surrounding Wound: Erythemic Wound General Appearance: Reddened Wound Assessment #7: Wound Number: #7 Wound Present on Admission: Yes New Wound: No Status Change of Wound: No Wound Location Body Site Modif: left Wound Location Body Site: metatarsal head - 5th Wound Type: pressure ulcer Garry Test: Does not Garry Pressure Ulcer Stage: deep tissue injury Wound Thickness: Full Thickness Wound Length: 2.0 Wound Width: 2.0 Wound Depth: utd Percent of Wound Purple/Maroon: 100 Wound Drainage Amount: None Wound Drainage Odor: None/Absent Tissue Surrounding Wound: Erythemic Wound General Appearance: Reddened Wound Assessment #8: Wound Number: #8 Wound Present on Admission: Yes New Wound: No Status Change of Wound: No Wound Location Body Site Modif: left Wound Location Body Site: metatarsal head - 1st Wound Type: pressure ulcer Garry Test: Does not Garry Pressure Ulcer Stage: deep tissue injury Wound Thickness: Full Thickness Wound Length: 3.0 Wound Width: 3.0 Wound Depth: utd Percent of Wound Purple/Maroon: 100 Wound Drainage Amount: None Wound Drainage Odor: None/Absent Tissue Surrounding Wound: Erythemic Wound General Appearance: Reddened Wound Assessment #9: Wound Number: #9 Wound Present on Admission: Yes New Wound: No Wound Location Body Site Modif: right, medial Wound Location Body Site: knee Wound Type: scar Garry Test: Does not Garry Wound Thickness: Full Thickness Wound Length: 2.0 Wound Width: 1.0 Percent of Wound Neligh/Red: 100 Wound Drainage Amount: None Wound Drainage Odor: None/Absent Tissue Surrounding Wound: Intact Wound General Appearance: Open to air, Clean/Dry Wound Assessment #10: Wound Number: #10 Wound Present on Admission: Yes New Wound: No Status Change of Wound: No Wound Location Body Site Modif: left Wound Location Body Site: elbow Wound Type: pressure ulcer Garry Test: Does not Garry Pressure Ulcer Stage: IV/unstageable - scattered full thickness scar tissue to surrouding tissue. Wound Thickness: Full Thickness Percent of Wound Neligh/Red: 20 Percent of Wound Bed Yellow/Wh: 80 Wound Drainage Description: Serosanguineous Wound Drainage Amount: Moderate Wound Drainage Odor: None/Absent Tissue Surrounding Wound: Erythemic Wound General Appearance: Reddened Wound Assessment #11: Wound Number: #11 Wound Present on Admission: Yes New Wound: No Status Change of Wound: No Wound Location Body Site Modif: mid Wound Location Body Site: sacral Wound Type: pressure ulcer Garry Test: Does not Garry Pressure Ulcer Stage: IV/unstageable Wound Thickness: Full Thickness Wound Length: 7.0 Wound Width: 10.0 Wound Depth: utd Percent of Wound Neligh/Red: 15 Percent of Wound Bed Yellow/Wh: 35 Percent of Wound Purple/Maroon: 50 Wound Drainage Description: Serosanguineous Wound Drainage Amount: Copious Wound Drainage Odor: None/Absent Tissue Surrounding Wound: Macerated Wound Undermining at 12:00: 1.0 Wound Undermining at 3:00: 1.5 Wound Undermining at 6:00: 1.5 Undermining Location: 12-6 Wound General Appearance: Reddened, Draining, Necrotic Wound Assessment #12: Wound Number: #12 Wound Present on Admission: Yes New Wound: No Status Change of Wound: No Wound Location Body Site Modif: right Wound Location Body Site: trochanter Wound Type: pressure ulcer Garry Test: Does not Garry Pressure Ulcer Stage: deep tissue injury Wound Thickness: Full Thickness Wound Length: 9.0 Wound Width: 9.0 Wound Depth: utd Percent of Wound Purple/Maroon: 100 Wound Drainage Amount: None Wound Drainage Odor: None/Absent Tissue Surrounding Wound: Erythemic Wound General Appearance: Reddened Wound Assessment #13: Wound Number: #13 Wound Present on Admission: Yes New Wound: No Status Change of Wound: No Wound Location Body Site Modif: right Wound Type: pressure ulcer Garry Test: Does not Garry Pressure Ulcer Stage: IV/unstageable - scattered noted full thicknesss scar tissue present to surrounding skin. Wound Thickness: Full Thickness Wound Length: 2.0 Wound Width: 2.0 Wound Depth: utd Percent of Wound Neligh/Red: 50 Percent of Wound Purple/Maroon: 50 Wound Drainage Description: Serosanguineous Wound Drainage Amount: Moderate Wound Drainage Odor: None/Absent Tissue Surrounding Wound: Erythemic Wound General Appearance: Reddened Wound Assessment #14: Wound Number: #14 Status Change of Wound: No Wound Location Body Site Modif: right Wound Location Body Site: heel Wound Type: pressure ulcer Garry Test: Does not Garry Pressure Ulcer Stage: deep tissue injury Wound Thickness: Full Thickness Wound Length: 6.0 Wound Width: 6.0 Wound Depth: utd Percent of Wound Purple/Maroon: 100 Wound Drainage Amount: None Wound Drainage Odor: None/Absent Tissue Surrounding Wound: Erythemic Wound General Appearance: Reddened Wound Assessment #15: Wound Number: #15 Wound Present on Admission: Yes New Wound: No Status Change of Wound: No Wound Location Body Site Modif: right, mid, lateral Wound Location Body Site: foot Wound Type: pressure ulcer Garry Test: Does not Garry Pressure Ulcer Stage: deep tissue injury Wound Thickness: Full Thickness Wound Length: 3.0 Wound Width: 3.0 Wound Depth: utd Percent of Wound Purple/Maroon: 100 Wound Drainage Amount: None Wound Drainage Odor: None/Absent Tissue Surrounding Wound: Erythemic Wound General Appearance: Reddened Wound Assessment #16: Wound Number: #16 Wound Present on Admission: Yes New Wound: No Status Change of Wound: No Wound Location Body Site Modif: right, mid Wound Location Body Site: foot Wound Type: pressure ulcer Garry Test: Does not Garry Pressure Ulcer Stage: deep tissue injury Wound Thickness: Full Thickness Wound Length: 2.0 Wound Width: 2.0 Wound Depth: utd Percent of Wound Purple/Maroon: 100 Wound Drainage Amount: None Wound Drainage Odor: None/Absent Tissue Surrounding Wound: Erythemic Wound General Appearance: Reddened Wound Assessment #17: Wound Number: #17 Wound Present on Admission: Yes New Wound: No Status Change of Wound: No Wound Location Body Site Modif: right Wound Location Body Site: metatarsal head - 1st Wound Type: pressure ulcer Garry Test: Does not Garry Pressure Ulcer Stage: deep tissue injury Wound Thickness: Full Thickness Wound Length: 3.0 Wound Width: 3.0 Wound Depth: utd Percent of Wound Purple/Maroon: 100 Wound Drainage Amount: None Wound Drainage Odor: None/Absent Tissue Surrounding Wound: Erythemic Wound General Appearance: Reddened Wound Assessment #18: Wound Number: #18 Wound Present on Admission: Yes New Wound: No Status Change of Wound: No Wound Location Body Site Modif: right Wound Location Body Site: malleolus/ankle Wound Type: pressure ulcer Garry Test: Does not Garry Pressure Ulcer Stage: deep tissue injury Wound Thickness: Full Thickness Wound Length: 3.0 Wound Width: 2.0 Wound Depth: utd Percent of Wound Purple/Maroon: 100 Wound Drainage Amount: None Wound Drainage Odor: None/Absent Tissue Surrounding Wound: Erythemic Wound General Appearance: Reddened Wound Assessment #19: Wound Number: #19 Wound Present on Admission: Yes New Wound: No Status Change of Wound: No Wound Location Body Site Modif: right, medial Wound Location Body Site: malleolus/ankle Wound Type: pressure ulcer Garry Test: Does not Garry Pressure Ulcer Stage: deep tissue injury Wound Thickness: Full Thickness Wound Length: 3.0 Wound Width: 2.0 Percent of Wound Purple/Maroon: 100 Wound Drainage Amount: None Wound Drainage Odor: None/Absent Tissue Surrounding Wound: Erythemic Wound General Appearance: Reddened Wound Assessment #20: Wound Number: #20 Wound Present on Admission: Yes New Wound: No Status Change of Wound: No Wound Location Body Site Modif: left, right, upper, lower Wound Location Body Site: back - along scapula and spine Wound Type: pressure ulcer Garry Test: Does not Garry Pressure Ulcer Stage: deep tissue injury - scattered deep tissie injuries Wound Thickness: Full Thickness Percent of Wound Purple/Maroon: 100 - scattered Wound Drainage Amount: None Wound Drainage Odor: None/Absent Tissue Surrounding Wound: Erythemic Wound General Appearance: Reddened Wound Comment #1 Left trochanter pressure ulcer stage IV/Unstageable. #2 Left ear pressure ulcer stage IV/Unstageable. #3 Right ear pressure ulcer stage IV/Unstageable. #4 Left ischial tuberosity pressure ulcer stage IV/Unstageable. #5 Left lateral malleolus deep tissue injury. #6 Left lateral mid foot deep tissue injury. #7 Left 5th metatarsal head deep tissue injury. #8 Left 1st metatarsal head deep tissue injury. #9 Right medial knee full thickness scar tissue. #10 Left elbow scattered pressure ulcer stage IV/Unstageable with scattered full thickness scar tissue to surrounding site. #11 Mid sacral pressure ulcer stage IV/Unstageable. #12 Right trochanter deep tissue injury. #13 Right elbow pressure ulcer stage IV/Unstageable with full thickness scar tissue to surrounding site. #14 Right heel deep tissue injury. #15 Right mid lateral foot deep tissue injury. #16 Right mid medial foot deep tissue injury. #17 Right 1st metatarsal head deep tissue injury. #18 Right lateral malleolus deep tissue injury. #19 Right medial malleolus deep tissue injury. #20 Posterior left and right upper and lower back scattered deep tissue injury extending to scapulas and mid spine. Recommendation. -Apply low air loss overlay mattress with AP .P200 -Local wound care as ordered. -Turn and reposition. -Keep clean and dry. -Optimize nutrition. -Heel protectors. -Offload affected wound sites, back heels and feet. -Avoid sheer and friction. -Assess and follow up with MD if further changes of condition to skin is noted. ERIC DAMON July 20, 2016 14:05
[2016-07-20] MEDS: Piperacillin/Tazobactam 3.375 GM in D5W 110 ML IVPB SCH ×2 (15:11→22:05)
[2016-07-20] MEDS: Docusate 100mg/10ml Liq NG SCH (19:03)
--- NOTE | 2016-07-20 19:29 | Consultation ---
DATE OF CONSULTATION: 07/20/2016 REFERRING PHYSICIAN: Dr. Washington Bonner. REASON FOR CONSULTATION: Pneumonia. HISTORY OF PRESENT ILLNESS: This is a 70-year-old gentleman with a history of anoxic brain injury, respiratory failure, and status post G-tube placement, who comes in with respiratory distress from [facility]. He was found to have a pneumonia and an infectious disease consultation has been obtained for antibiotics. PAST MEDICAL HISTORY: 1. History of anoxic brain injury. 2. History of status post AV replacement. 3. History of diabetes. 4. History of epilepsy. SOCIAL HISTORY: Unknown. FAMILY HISTORY: Unknown. REVIEW OF SYSTEMS: Unable to obtain currently. MEDICATIONS: As an inpatient, the patient is on: 1. IV vancomycin. 2. Docusate. 3. Zosyn. 4. Albuterol. 5. Amiodarone. 6. Ascorbic acid. 7. Subcutaneous heparin. 8. Multivitamin. 9. Zinc sulfate. 10. Protonix. 11. Tylenol. ALLERGIES: No known drug allergies. PHYSICAL EXAMINATION: VITAL SIGNS: Temperature 99.4, T-max 99.5, pulse 98, respiratory rate 28, blood pressure 98/65, and O2 saturation 100%. HEENT: Pupils are equal and reactive to light and accommodation. The patient is on a facemask. NECK: Supple. No adenopathy. No JVD. CARDIOVASCULAR: Regular rate and rhythm. No murmurs. LUNGS: Clear to auscultation bilaterally. No crackles. No wheezes. ABDOMEN: Soft and nontender. G-tube site appears clean. EXTREMITIES: No cyanosis. No clubbing. No edema. Right arm PICC line noted. LABORATORY DATA: White count 7, hemoglobin 9.3, hematocrit 28.5, MCV 92, platelet count 289,000, and neutrophils 82%. Sodium 136, potassium 4.3, chloride 92, bicarbonate 30, BUN 55, creatinine 1.5, glucose 120, and calcium 8.8. Total bilirubin 0.6, AST 45, ALT 46, and alkaline phosphatase 166. CK 224. Troponin less than 0.3. Beta-natriuretic peptide 676. Total protein 7 and albumin 1.8. UA showing 2-4 white cells. Chest x-ray showing bilateral pulmonary mixed interstitial and alveolar opacities, suggestive of pneumonia and small left-sided pleural effusion noted. ASSESSMENT: 1. This is a 70-year-old gentleman with a history of epilepsy, diabetes, and anoxic brain injury, who comes in and is found to have possible aspiration pneumonia. 2. Epilepsy. 3. Diabetes. 4. Anoxic brain injury. PLAN: 1. Continue vancomycin and Zosyn. 2. We will order sputum for Gram stain and culture. 3. We will follow up cultures and adjust antibiotics accordingly. I would like to thank Dr. Bonner for this consultation. Jhon Coelho M.D. DR: GUERRERO JOB#: [id number] CC: Washington Bonner M.D.; Fax#: [phone]
[2016-07-20] MEDS: D5NS 1,000 ML IV SCH (20:37)
--- NOTE | 2016-07-20 22:19 | Consultation ---
DATE OF CONSULTATION: 07/20/2016 NOTE: "POOR AUDIO QUALITY" PULMONARY CONSULTATION REASON FOR CONSULTATION: Respiratory insufficiency and pneumonia. HISTORY OF PRESENT ILLNESS: This is a 70-year-old male, who is having increasing respiratory distress for several hours. The patient appeared to be acutely not doing well and was transferred by paramedics over to the emergency room. The patient was a Do Not Resuscitate as per discussion with the sister. The patient is now seen and evaluated in the emergency room and being admitted again for pneumonia with bilateral infiltrates. The patient is unable to give much of a history. The patient was placed on a nonrebreather oxygen, which is much worse than the baseline. The patient at present is placed on BiPAP and due to again worsening overall distress. The patient is noted to be tachypneic and tachycardic. Further history is difficult to obtain. The patient had a recent admission for G-tube placement and was treated and [facility] the [facility]. PAST MEDICAL HISTORY: Notable for chronic encephalopathy, recent tracheostomy, aspiration, respiratory insufficiency, possible underlying COPD, prior history of bilateral pneumonia, history of acute renal failure, history of rhabdomyolysis, history of elevated liver enzymes, history of COPD, history of prior pressure ulcers MEDICATIONS: Reviewed. ALLERGIES: Reviewed. SOCIAL HISTORY: The patient resides in [facility] facility and is a Do Not Resuscitate. REVIEW OF SYSTEMS: Difficult to obtain. PHYSICAL EXAMINATION: GENERAL: The patient is a well-developed male, appears to be chronically ill overall. VITAL SIGNS: The patient's most current vital signs are notable for blood pressure of 115/77, saturation 100% on BiPAP, heart rate 93, and temperature 99.4. HEENT: Pupils are sluggishly reactive. NECK: Supple. LUNGS: Coarse breath sounds. Rhonchi bilaterally. CARDIAC: S1 and S2. Tachycardic without murmurs, rubs, or gallops. ABDOMEN: Soft and nontender, G-tube in place. EXTREMITIES: No cyanosis or clubbing. No significant edema. NEUROLOGIC: Poorly responsive. Reduced mental status. Appears to be tachypneic and in mild distress. LABORATORY DATA: White count 7, hemoglobin 9.3, hematocrit 28.5, and platelets 289,000. Chemistry, sodium 136, BUN 55, and creatinine 1.5. Liver enzymes are elevated. Blood sugar is 120. Albumin is 1.8. IMPRESSION: 1. Evidence of pneumonia. 2. Evidence of acute on chronic renal failure . 3. Evidence of transaminitis. 4. Evidence of severe protein-calorie malnutrition. 5. Anemia. 6. Chronic encephalopathy. RECOMMENDATIONS: Aggressive IV antibiotics with Zosyn and vancomycin. ID evaluation. Follow hemoglobin and hematocrit. Continue medication and antibiotic therapy. Oxygen therapy and BiPAP therapy. Follow the patient's blood gases routinely and further intervention. Confirm Do Not Resuscitate. Review care and changes. Nutritional support through tube feeds. Aspiration precautions and DVT prophylaxis. Monitor renal function. Hydrate as needed. reassess for ongoing recommendations. Washington Bonner M.D. DR: ITZ JOB#: [id number] CC: JOSE E
[2016-07-20] MEDS: NovoLOG Insulin Flexpen SUBQ SCH (23:55)
[2016-07-21] MEDS: DuoNeb 0.5-3(2.5)mg/3ml neb HHN SCH ×6 (03:31→23:25)
[2016-07-21] MEDS ORDERED: Vancomycin 1250mg/D5W 275ml IVPB SCH ×2 (04:30)
[2016-07-21] MEDS: Piperacillin/Tazobactam 3.375 GM in D5W 110 ML IVPB SCH ×3 (05:10→21:20)
[2016-07-21] MEDS: NovoLOG Insulin Flexpen SUBQ SCH ×4 (05:14→23:55)
[2016-07-21 06:06] LABS: BASOPHILS % (AUTO) 1.2 % (0.0-2.0); EOSINOPHILS % (AUTO) 1.5 % (0.0-3.0); LYMPHOCYTES % (AUTO) 8.8 % (20.0-45.0); MEAN CORPUSCULAR HGB CONC 31.6 G/DL (32.0-36.0); MEAN CORPUSCULAR VOLUME 95 FL (80-99); MONOCYTES % (AUTO) 7.2 % (1.0-10.0); NEUTROPHILS % (AUTO) 81.4 % (45.0-75.0); PLATELET COUNT 262 K/UL (150-450); RED BLOOD COUNT 2.71 M/UL (4.70-6.10); RED CELL DISTRIBUTION WIDTH 13.5 % (11.6-14.8); WHITE BLOOD COUNT 5.9 K/UL (4.8-10.8)
[2016-07-21 06:29] LABS: ALANINE AMINOTRANSFERASE 37 U/L (3-41); ALBUMIN/GLOBULIN RATIO 0.3 (1.0-2.7); ANION GAP 14 (5-15); ASPARTATE AMINO TRANSFERASE 41 U/L (5-40); CALCIUM 8.7 mg/dL (8.6-10.2); CARBON DIOXIDE 28 mEQ/L (20-30); CHLORIDE 97 mEQ/L (98-107); CREATININE 1.2 mg/dL (0.7-1.2); GLOMERULAR FILTRATION RATE > 60 mL/min (>60); HEMOLYSIS 5; POTASSIUM 3.5 mEQ/L (3.4-4.9); SODIUM 139 mEQ/L (135-145); TOTAL PROTEIN 6.2 g/dL (6.6-8.7)
--- NOTE | 2016-07-21 06:49 | Consultation ---
DATE OF CONSULTATION: 07/20/2016 CARDIOLOGY CONSULTATION CONSULTING PHYSICIAN: Natalio Wisdom M.D. REQUESTING PHYSICIAN: Jair Carlson M.D. REASON FOR CONSULTATION: Respiratory distress in the setting of elevated natriuretic peptide assay. HISTORY OF PRESENT ILLNESS: This is a 70-year-old male, who resides in a [facility] facility. He recently underwent placement of gastrostomy tube for dysphagia and malnutrition. He has a known history of hypertensive heart disease with diastolic dysfunction. He developed worsening shortness of breath and congestion and he was transported to the emergency room for further assessment by paramedics. In the emergency room, the patient's diagnostic workup included a chest radiograph revealing bilateral infiltrates versus edema. He was hypoxic and placed on a non-rebreather mask and elevated natriuretic peptide assay of over 600 was noted as well. The patient's EKG reveals sinus tachycardia with nonspecific ST changes. The patient was pancultured. He was started on broad-spectrum antibiotics and placed on BiPAP support. Advanced directives were reaffirmed for DNR. PAST MEDICAL HISTORY: Cerebrovascular disease, chronic encephalopathy, tracheostomy, dysphagia, chronic obstructive pulmonary disease, chronic kidney disease, history of rhabdomyolysis, hypertensive heart disease, diastolic dysfunction, atherosclerotic cardiovascular disease, and benign prostatic hypertrophy. CURRENT MEDICATIONS: Reviewed and reconciled. ALLERGIES: None. SOCIAL HISTORY: No record of smoking, alcohol, or substance abuse. FAMILY HISTORY: Not remarkable. REVIEW OF SYSTEMS: Not obtainable from patient. Review of prior hospitalization and records performed and pertinent data as outlined above. An echocardiogram performed on 07/10/2016 revealed normal ejection fraction, diastolic dysfunction, [id number] aortic regurgitation, mild tricuspid regurgitation, and PA systolic pressure of 42 consistent with mild pulmonary hypertension. PHYSICAL EXAMINATION: GENERAL: An ill-appearing patient. VITAL SIGNS: Blood pressure 115/77, pulse 93, respirations 18, and temperature 99.4 degrees. He is on BiPAP support. HEENT: Pupils are reactive. NECK: Supple. Accessory muscle use is noted. LUNGS: With coarse breath sounds and rhonchi. HEART: Regular rhythm. Rapid rate. Normal S1 and S2 with a fourth heart sound. ABDOMEN: Soft. G-tube intact. EXTREMITIES: Decreased capillary refill. No edema. NEUROLOGIC: Poorly responsive. LABORATORY DATA: White count 7 and hemoglobin 9.3. Sodium 136, BUN 55, and creatinine 1.5. Albumin 1.8. IMPRESSION: 1. Healthcare-acquired pneumonia. 2. Acute on chronic diastolic congestive heart failure. 3. Acute on chronic renal failure with prerenal azotemia due to acute tubular necrosis. 4. Severe protein-calorie malnutrition. 5. Cerebrovascular disease with chronic encephalopathy. 6. Mild pulmonary hypertension. 7. Degenerative valve disease. 8. Anemia of chronic kidney disease. 9. History of respiratory failure. PLAN: 1. Antimicrobials. 2. Bronchodilators and respiratory hygiene. 3. BiPAP support as needed. 4. DNR/DNI. 5. Hold diuresis. 6. Monitor cardiorenal parameters. 7. Trend natriuretic peptide assay. 8. Increase protein intake through feeding tube. 9. DVT prophylaxis. Natalio Wisdom M.D. DR: KAYLEIGH JOB#: [id number] CC:
[2016-07-21 08:06] VITALS: BP 119/88
--- NOTE | 2016-07-21 09:19 | Pulmonology Progress Note ---
Assessment/Plan Assessment/Plan IMPRESSION: 1. Evidence of pneumonia. 2. Evidence of acute on chronic renal failure . 3. Evidence of transaminitis. 4. Evidence of severe protein-calorie malnutrition. 5. Anemia. 6. Chronic encephalopathy. 7. aspiration 8. hypoxemia PLAN antibiotics respiratory care off BIPAP as able oxygen therapy snf meds DNR continue to support ID noted cards noted impression, plan, and exam edited and reviewed in detail care discussed with RN Subjective ROS Limited/Unobtainable: Yes Allergies: Coded Allergies: No Known Allergies (Unverified , 07/02/16) Subjective sister updated care reviewed Objective Last 24 Hour Vital Signs Date Time Temp Pulse Resp B/P Pulse Ox O2 Delivery O2 Flow Rate FiO2 07/21/16 09:15 75 25 100 Facial 35 07/21/16 08:06 97.8 84 32 119/88 100 Bi-pap 35 07/21/16 08:00 35 07/21/16 07:26 75 26 100 Bi-pap 07/21/16 07:16 72 26 100 Bi-pap 35 07/21/16 07:16 35 07/21/16 07:12 72 26 100 Facial 35 07/21/16 05:26 92 33 100 Facial 35 07/21/16 04:00 77 07/21/16 04:00 35 07/21/16 03:37 89 32 100 Bi-pap 07/21/16 03:33 97.6 07/21/16 03:33 97.6 07/21/16 03:32 35 07/21/16 03:31 95 27 100 Facial 35 07/21/16 03:31 97 27 100 Bi-pap 35 07/21/16 02:30 99.5 07/21/16 01:27 101 31 100 Facial 35 07/21/16 00:00 91 07/21/16 00:00 35 07/20/16 23:29 81 34 100 Bi-pap 07/20/16 23:23 35 07/20/16 23:22 85 49 100 Bi-pap 35 07/20/16 23:19 85 35 100 Facial 35 07/20/16 23:05 97.8 07/20/16 21:58 99.2 07/20/16 21:07 91 32 100 Facial 35 07/20/16 20:00 35 07/20/16 20:00 99.0 100 27 118/77 98 Bi-pap 35 07/20/16 20:00 98 07/20/16 19:38 89 29 100 Bi-pap 07/20/16 19:20 94 35 100 Bi-pap 35 07/20/16 19:20 35 07/20/16 19:19 94 35 100 Facial 35 07/20/16 17:30 95 30 100 Facial 35 07/20/16 16:00 97.5 93 34 116/71 99 35 07/20/16 16:00 95 07/20/16 14:58 35 07/20/16 14:46 94 30 100 Bi-pap 07/20/16 14:46 99 07/20/16 14:46 93 30 100 Facial 35 07/20/16 14:40 35 07/20/16 14:40 93 30 100 Bi-pap 35 07/20/16 13:08 89 30 100 Facial 40 07/20/16 12:00 98.1 94 30 111/64 100 40 07/20/16 12:00 50 07/20/16 10:34 91 32 100 Facial 50 07/20/16 10:34 91 30 100 Bi-pap 07/20/16 10:25 50 07/20/16 10:25 100 31 100 Bi-pap 50 Intake and Output 07/20/16 07/21/16 19:00 07:00 Intake Total 192.5 ml 550.0 ml Output Total 550 ml 200 ml Balance -357.5 ml 350.0 ml Intake IV Total 192.5 ml 550.0 ml Output Urine Total 550 ml 200 ml # Bowel Movements 3 3 Objective GENERAL: The patient is a well-developed male, appears to be in no distress HEENT: Pupils are sluggishly reactive. NECK: Supple. LUNGS: Coarse breath sounds. Rhonchi bilaterally. slightly improved CARDIAC: S1 and S2. RRR without murmurs, rubs, or gallops. ABDOMEN: Soft and nontender, G-tube in place. no HSM EXTREMITIES: No cyanosis or clubbing. No significant edema. NEUROLOGIC: Poorly responsive. Reduced mental status. nonfocal Laboratory Tests 07/20/16 12:00: Arterial Blood pH 7.440, Arterial Blood Partial Pressure CO2 38.1, Arterial Blood Partial Pressure O2 170.2H, Arterial Blood HCO3 25.8, Arterial Blood Oxygen Saturation 98.7H, Arterial Blood Base Excess 1.8, Vinny Test Positive 07/21/16 04:40: White Blood Count 5.9, Red Blood Count 2.71L, Hemoglobin 8.1L, Hematocrit 25.8L , Mean Corpuscular Volume 95, Mean Corpuscular Hemoglobin 30.0, Mean Corpuscular Hemoglobin Concent 31.6L, Red Cell Distribution Width 13.5, Platelet Count 262, Mean Platelet Volume 7.0, Neutrophils (%) (Auto) 81.4H, Lymphocytes (%) (Auto) 8.8L, Monocytes (%) (Auto) 7.2, Eosinophils (%) (Auto) 1.5, Basophils (%) (Auto) 1.2, Sodium Level 139, Potassium Level 3.5, Chloride Level 97L, Carbon Dioxide Level 28, Anion Gap 14, Blood Urea Nitrogen 43H, Creatinine 1.2, Estimat Glomerular Filtration Rate > 60, Glucose Level 135H, Calcium Level 8.7, Total Bilirubin 0.5, Aspartate Amino Transf (AST/SGOT) 41H, Alanine Aminotransferase (ALT/SGPT) 37, Alkaline Phosphatase 159H, Total Protein 6.2L, Albumin 1.6L, Globulin 4.6, Albumin/Globulin Ratio 0.3L Current Medications Medications (Trade) Dose Ordered Sig/Alex Route PRN Reason Start Time Stop Time Status Last Admin Dose Admin Acetaminophen (Tylenol) 650 mg Q4H PRN ORAL T>100.5 / Mild pain 07/20/16 08:30 08/19/16 08:29 07/21/16 02:34 Albuterol/ Ipratropium 3 ml 3 ml Q4HRT HHN 07/20/16 11:00 07/25/16 10:59 07/21/16 07:15 Amiodarone HCl (Cordarone) 200 mg DAILY ORAL 07/20/16 09:00 08/19/16 08:59 07/20/16 11:44 Ascorbic Acid (Vitamin C) 500 mg DAILY GT 07/20/16 09:00 08/19/16 08:59 07/20/16 11:45 Dextrose (Dextrose 50%) STAT PRN IV Hypoglycemia 07/20/16 19:30 08/19/16 19:29 Dextrose/Sodium Chloride (D5ns) 1,000 ml @ 50 mls/hr Q20H IV 07/20/16 20:30 08/19/16 20:29 07/20/16 20:37 Docusate Sodium (Colace) 100 mg TWICE A DAY NG 07/20/16 18:00 08/19/16 17:59 07/20/16 19:03 Heparin Sodium (Porcine) (Heparin 5000 units/ml) 5,000 units EVERY 12 HOURS SUBQ 07/20/16 09:00 08/19/16 08:59 07/20/16 20:38 Insulin Aspart (NovoLOG) EVERY 6 HOURS SUBQ 07/21/16 00:00 08/20/16 00:00 07/21/16 05:14 Lansoprazole 30 mg 30 mg DAILY NG 07/21/16 09:00 08/20/16 08:59 Multivitamins Therapeutic (Therapeutic Multivitamin) 1 ea DAILY ORAL 07/20/16 09:00 08/19/16 08:59 07/20/16 11:47 Piperacillin Sod/ Tazobactam Sod/ Dextrose (Zosyn/D5W) 110 ml @ 27.5 mls/hr EVERY 8 HOURS IVPB 07/20/16 14:00 07/27/16 13:59 07/21/16 05:10 Vancomycin HCl 1 ea 1 ea DAILY PRN MISC Per rx protocol 07/20/16 08:30 08/19/16 08:29 Vancomycin HCl/ Dextrose (Vancomycin/D5W) 275 ml @ 183.333 mls/hr Q24H IVPB 07/21/16 04:30 07/26/16 04:29 07/21/16 03:47 Zinc Sulfate (Zinc Sulfate) 220 mg DAILY ORAL 07/20/16 09:00 08/19/16 08:59 07/20/16 11:45 ESHA BEY July 21, 2016 09:19
[2016-07-21] MEDS: Docusate 100mg/10ml Liq NG SCH ×2 (09:28→17:49)
[2016-07-21] MEDS: Amiodarone 200mg tab ORAL SCH (09:29)
[2016-07-21] MEDS: Multivitamin w/Minerals tab ORAL SCH (09:29)
[2016-07-21] MEDS: Ascorbic Acid 500mg tab GT SCH (09:29)
[2016-07-21] MEDS: Zinc Sulfate 220mg cap ORAL SCH (09:29)
[2016-07-21] MEDS: Heparin 5000 units/ml inj SUBQ SCH ×2 (09:30→21:18)
[2016-07-21] MEDS ORDERED: NS 275ml ONE (10:22)
[2016-07-21] MEDS ORDERED: D5NS 1000ml IV ONE (10:22)
[2016-07-21] MEDS ORDERED: Tubing IV Secondary IV ONE (10:22)
--- NOTE | 2016-07-21 11:45 | Infectious Diseases Prog Note ---
Assessment/Plan Assessment/Plan antibiotics : vancomycin iv, zosyn A 1. aspiration pneumonia 2. anoxic encephalopathy 3. seizures 4. DM P 1. continue vancomycin iv, zosyn 2. will follow up cultures Subjective ROS Limited/Unobtainable: Yes Allergies: Coded Allergies: No Known Allergies (Unverified , 07/02/16) Objective Vital Signs Last 24 Hour Vital Signs Date Time Temp Pulse Resp B/P Pulse Ox O2 Delivery O2 Flow Rate FiO2 07/21/16 10:53 79 33 100 Bi-pap 07/21/16 10:46 78 27 100 Bi-pap 35 07/21/16 10:46 35 07/21/16 10:45 78 27 100 Facial 35 07/21/16 09:15 75 25 100 Facial 35 07/21/16 08:15 75 07/21/16 08:06 97.8 84 32 119/88 100 Bi-pap 35 07/21/16 08:00 35 07/21/16 07:26 75 26 100 Bi-pap 07/21/16 07:16 72 26 100 Bi-pap 35 07/21/16 07:16 35 07/21/16 07:12 72 26 100 Facial 35 07/21/16 05:26 92 33 100 Facial 35 07/21/16 04:00 77 07/21/16 04:00 35 07/21/16 03:37 89 32 100 Bi-pap 07/21/16 03:33 97.6 07/21/16 03:33 97.6 07/21/16 03:32 35 07/21/16 03:31 95 27 100 Facial 35 07/21/16 03:31 97 27 100 Bi-pap 35 07/21/16 02:30 99.5 07/21/16 01:27 101 31 100 Facial 35 07/21/16 00:00 91 07/21/16 00:00 35 07/20/16 23:29 81 34 100 Bi-pap 07/20/16 23:23 35 07/20/16 23:22 85 49 100 Bi-pap 35 07/20/16 23:19 85 35 100 Facial 35 07/20/16 23:05 97.8 07/20/16 21:58 99.2 07/20/16 21:07 91 32 100 Facial 35 07/20/16 20:00 35 07/20/16 20:00 99.0 100 27 118/77 98 Bi-pap 35 07/20/16 20:00 98 07/20/16 19:38 89 29 100 Bi-pap 07/20/16 19:20 94 35 100 Bi-pap 35 07/20/16 19:20 35 07/20/16 19:19 94 35 100 Facial 35 07/20/16 17:30 95 30 100 Facial 35 07/20/16 16:00 97.5 93 34 116/71 99 35 07/20/16 16:00 95 07/20/16 14:58 35 07/20/16 14:46 94 30 100 Bi-pap 07/20/16 14:46 99 07/20/16 14:46 93 30 100 Facial 35 07/20/16 14:40 35 07/20/16 14:40 93 30 100 Bi-pap 35 07/20/16 13:08 89 30 100 Facial 40 07/20/16 12:00 98.1 94 30 111/64 100 40 07/20/16 12:00 50 Height (Feet): 5 Height (Inches): 10.00 Weight (Pounds): 150 Respiratory/Chest: lungs clear Cardiovascular: normal rate, regular rhythm, no gallop/murmur Abdomen: soft, non tender, other - GT Extremities: no edema, other - right arm PICC Laboratory Tests Test 07/20/16 12:00 07/21/16 04:40 Arterial Blood pH 7.440 (7.350-7.450) Arterial Blood Partial Pressure CO2 38.1 mmHg (35.0-45.0) Arterial Blood Partial Pressure O2 170.2 mmHg (75.0-100.0) H Arterial Blood HCO3 25.8 mmol/L (22.0-26.0) Arterial Blood Oxygen Saturation 98.7 % (92.0-98.0) H Arterial Blood Base Excess 1.8 Vinny Test Positive White Blood Count 5.9 K/UL (4.8-10.8) Red Blood Count 2.71 M/UL (4.70-6.10) L Hemoglobin 8.1 G/DL (14.2-18.0) L Hematocrit 25.8 % (42.0-52.0) L Mean Corpuscular Volume 95 FL (80-99) Mean Corpuscular Hemoglobin 30.0 PG (27.0-31.0) Mean Corpuscular Hemoglobin Concent 31.6 G/DL (32.0-36.0) L Red Cell Distribution Width 13.5 % (11.6-14.8) Platelet Count 262 K/UL (150-450) Mean Platelet Volume 7.0 FL (6.5-10.1) Neutrophils (%) (Auto) 81.4 % (45.0-75.0) H Lymphocytes (%) (Auto) 8.8 % (20.0-45.0) L Monocytes (%) (Auto) 7.2 % (1.0-10.0) Eosinophils (%) (Auto) 1.5 % (0.0-3.0) Basophils (%) (Auto) 1.2 % (0.0-2.0) Sodium Level 139 mEQ/L (135-145) Potassium Level 3.5 mEQ/L (3.4-4.9) Chloride Level 97 mEQ/L (98-107) L Carbon Dioxide Level 28 mEQ/L (20-30) Anion Gap 14 (5-15) Blood Urea Nitrogen 43 mg/dL (7-23) H Creatinine 1.2 mg/dL (0.7-1.2) Estimat Glomerular Filtration Rate > 60 mL/min (>60) Glucose Level 135 mg/dL (74-106) H Calcium Level 8.7 mg/dL (8.6-10.2) Total Bilirubin 0.5 mg/dL (0.0-1.2) Aspartate Amino Transf (AST/SGOT) 41 U/L (5-40) H Alanine Aminotransferase (ALT/SGPT) 37 U/L (3-41) Alkaline Phosphatase 159 U/L (40-129) H Total Protein 6.2 g/dL (6.6-8.7) L Albumin 1.6 g/dL (3.5-5.2) L Globulin 4.6 g/dL Albumin/Globulin Ratio 0.3 (1.0-2.7) L YEVGENIY GARCIA July 21, 2016 11:45
[2016-07-21 12:00] VITALS: BP 131/78
[2016-07-21 16:00] VITALS: BP 126/71
[2016-07-21] MEDS: D5NS 1,000 ML IV SCH (16:00)
--- NOTE | 2016-07-21 16:15 | General Progress Note ---
Assessment/Plan Problem List: (1) Dysphagia ICD Codes: R13.10 - Dysphagia, unspecified SNOMED: 72493882, 205253548 (2) Respiratory failure ICD Codes: J96.90 - Respiratory failure, unspecified, unspecified whether with hypoxia or hypercapnia SNOMED: 918018244 (3) Bilateral pneumonia ICD Codes: J18.9 - Pneumonia, unspecified organism SNOMED: 032399881 Status: stable, progressing Assessment/Plan bipap resp rx iv abx follow cultures feeds monitor residuals poor prognosis guarded Subjective ROS Limited/Unobtainable: Yes Constitutional: Reports: malaise, weakness HEENT: Reports: no symptoms Cardiovascular: Reports: no symptoms Respiratory: Reports: cough, shortness of breath, sputum Gastrointestinal/Abdominal: Reports: difficulty swallowing Genitourinary: Reports: no symptoms Neurologic/Psychiatric: Reports: pre-existing deficit Endocrine: Reports: no symptoms Hematologic/Lymphatic: Reports: anemia Allergies: Coded Allergies: No Known Allergies (Unverified , 07/02/16) All Systems: reviewed and negative except above Subjective weak. remains on bipap. +sob. +blood cultures noted. on iv abx and resp rx. Objective Last 24 Hour Vital Signs Date Time Temp Pulse Resp B/P Pulse Ox O2 Delivery O2 Flow Rate FiO2 07/21/16 15:30 99 Venturi Mask 40 07/21/16 13:30 86 22 100 Facial 35 07/21/16 12:00 98.1 84 46 131/78 100 Bi-pap 35 07/21/16 12:00 35 07/21/16 11:49 79 07/21/16 10:53 79 33 100 Bi-pap 07/21/16 10:46 78 27 100 Bi-pap 35 07/21/16 10:46 35 07/21/16 10:45 78 27 100 Facial 35 07/21/16 09:15 75 25 100 Facial 35 07/21/16 08:15 75 07/21/16 08:06 97.8 84 32 119/88 100 Bi-pap 35 07/21/16 08:00 35 07/21/16 07:26 75 26 100 Bi-pap 07/21/16 07:16 72 26 100 Bi-pap 35 07/21/16 07:16 35 07/21/16 07:12 72 26 100 Facial 35 07/21/16 05:26 92 33 100 Facial 35 07/21/16 04:00 77 07/21/16 04:00 35 07/21/16 03:37 89 32 100 Bi-pap 07/21/16 03:33 97.6 07/21/16 03:33 97.6 07/21/16 03:32 35 07/21/16 03:31 95 27 100 Facial 35 07/21/16 03:31 97 27 100 Bi-pap 35 07/21/16 02:30 99.5 07/21/16 01:27 101 31 100 Facial 35 07/21/16 00:00 91 07/21/16 00:00 35 07/20/16 23:29 81 34 100 Bi-pap 07/20/16 23:23 35 07/20/16 23:22 85 49 100 Bi-pap 35 07/20/16 23:19 85 35 100 Facial 35 07/20/16 23:05 97.8 07/20/16 21:58 99.2 07/20/16 21:07 91 32 100 Facial 35 07/20/16 20:00 35 07/20/16 20:00 99.0 100 27 118/77 98 Bi-pap 35 07/20/16 20:00 98 07/20/16 19:38 89 29 100 Bi-pap 07/20/16 19:20 94 35 100 Bi-pap 35 07/20/16 19:20 35 07/20/16 19:19 94 35 100 Facial 35 07/20/16 17:30 95 30 100 Facial 35 Intake and Output 07/20/16 07/21/16 19:00 07:00 Intake Total 192.5 ml 550.0 ml Output Total 550 ml 200 ml Balance -357.5 ml 350.0 ml Intake IV Total 192.5 ml 550.0 ml Output Urine Total 550 ml 200 ml # Bowel Movements 3 3 Laboratory Tests 07/21/16 04:40: White Blood Count 5.9, Red Blood Count 2.71L, Hemoglobin 8.1L, Hematocrit 25.8L , Mean Corpuscular Volume 95, Mean Corpuscular Hemoglobin 30.0, Mean Corpuscular Hemoglobin Concent 31.6L, Red Cell Distribution Width 13.5, Platelet Count 262, Mean Platelet Volume 7.0, Neutrophils (%) (Auto) 81.4H, Lymphocytes (%) (Auto) 8.8L, Monocytes (%) (Auto) 7.2, Eosinophils (%) (Auto) 1.5, Basophils (%) (Auto) 1.2, Sodium Level 139, Potassium Level 3.5, Chloride Level 97L, Carbon Dioxide Level 28, Anion Gap 14, Blood Urea Nitrogen 43H, Creatinine 1.2, Estimat Glomerular Filtration Rate > 60, Glucose Level 135H, Calcium Level 8.7, Total Bilirubin 0.5, Aspartate Amino Transf (AST/SGOT) 41H, Alanine Aminotransferase (ALT/SGPT) 37, Alkaline Phosphatase 159H, Total Protein 6.2L, Albumin 1.6L, Globulin 4.6, Albumin/Globulin Ratio 0.3L Height (Feet): 5 Height (Inches): 10.00 Weight (Pounds): 150 General Appearance: WD/WN, lethargic, confused, cachetic, thin Neck: supple Cardiovascular: regular rhythm Respiratory/Chest: rhonchi - bilaterally Abdomen: normal bowel sounds, non tender, soft, no organomegaly Neurologic: disoriented, aphasia FAWN PORTER July 21, 2016 16:15
[2016-07-21] MEDS: Vancomycin 750 MG in D5W 275 ML IVPB SCH (17:49)
[2016-07-21 20:00] VITALS: BP 122/81
[2016-07-22] VITALS: BP 146/76
[2016-07-22] MEDS: DuoNeb 0.5-3(2.5)mg/3ml neb HHN SCH ×6 (03:45→23:16)
[2016-07-22 04:00] VITALS: BP 129/76
[2016-07-22] MEDS: Vancomycin 750 MG in D5W 275 ML IVPB SCH (05:11)
[2016-07-22] MEDS: NovoLOG Insulin Flexpen SUBQ SCH ×4 (05:41→23:58)
[2016-07-22] MEDS: Piperacillin/Tazobactam 3.375 GM in D5W 110 ML IVPB SCH ×3 (05:54→21:31)
--- NOTE | 2016-07-22 06:16 | Pulmonology Progress Note ---
Assessment/Plan Assessment/Plan IMPRESSION: 1. Evidence of pneumonia. 2. Evidence of acute on chronic renal failure . 3. Evidence of transaminitis. 4. Evidence of severe protein-calorie malnutrition. 5. Anemia. 6. Chronic encephalopathy. 7. aspiration 8. hypoxemia PLAN antibiotics noted ID reviewed respiratory care off BIPAP as able and taper oxygen snf meds DNR continue to support ID noted cards noted impression, plan, and exam edited and reviewed in detail care discussed with RN Subjective ROS Limited/Unobtainable: Yes Allergies: Coded Allergies: No Known Allergies (Unverified , 07/02/16) Subjective sister updated as to status care reviewed Objective Last 24 Hour Vital Signs Date Time Temp Pulse Resp B/P Pulse Ox O2 Delivery O2 Flow Rate FiO2 07/22/16 05:30 69 39 100 Facial 35 07/22/16 04:00 98.1 76 29 129/76 99 Bi-pap 35 07/22/16 04:00 35 07/22/16 03:54 87 07/22/16 03:48 84 38 100 Bi-pap 07/22/16 03:30 81 36 99 Bi-pap 35 07/22/16 03:30 78 36 100 Facial 35 07/22/16 01:30 84 31 100 Facial 35 07/22/16 00:00 35 07/22/16 00:00 98.8 95 24 146/76 99 Bi-pap 35 07/21/16 23:57 86 07/21/16 23:28 88 39 100 Bi-pap 07/21/16 23:27 85 39 99 Bi-pap 35 07/21/16 23:25 86 38 100 Facial 35 07/21/16 21:00 35 07/21/16 20:46 98 40 99 Facial 35 07/21/16 20:00 98.9 92 26 122/81 99 Bi-pap 35 07/21/16 20:00 89 07/21/16 19:45 98 36 100 Bi-pap 40 07/21/16 19:40 35 07/21/16 19:30 95 36 99 Facial 35 07/21/16 19:30 95 36 99 Bi-pap 35 07/21/16 17:03 97 20 98 8.0 40 07/21/16 16:00 97.8 88 24 126/71 100 Venturi Mask 40 07/21/16 15:39 103 07/21/16 15:34 97 20 100 Venturi Mask 8.0 40 07/21/16 15:30 99 Venturi Mask 40 07/21/16 15:25 40 07/21/16 15:25 90 20 100 8.0 40 07/21/16 15:25 90 20 100 Venturi Mask 8.0 40 07/21/16 13:30 86 22 100 Facial 35 07/21/16 12:00 98.1 84 46 131/78 100 Bi-pap 35 07/21/16 12:00 35 07/21/16 11:49 79 07/21/16 10:53 79 33 100 Bi-pap 35 07/21/16 10:46 78 27 100 Bi-pap 35 07/21/16 10:46 35 07/21/16 10:45 78 27 100 Facial 35 07/21/16 09:15 75 25 100 Facial 35 07/21/16 08:15 75 07/21/16 08:06 97.8 84 32 119/88 100 Bi-pap 35 07/21/16 08:00 35 07/21/16 07:26 75 26 100 Bi-pap 35 07/21/16 07:16 72 26 100 Bi-pap 35 07/21/16 07:16 35 07/21/16 07:12 72 26 100 Facial 35 Intake and Output 07/21/16 07/22/16 19:00 07:00 Intake Total 898.333 ml 871.667 ml Output Total 750 ml 370 ml Balance 148.333 ml 501.667 ml Intake Free Water 50 ml IV Total 898.333 ml 701.667 ml Tube Feeding 120 ml Output Urine Total 750 ml 370 ml # Bowel Movements 1 Objective GENERAL: The patient is a well-developed male, appears to be in no distress HEENT: Pupils are sluggishly reactive. NECK: Supple. LUNGS: Coarse breath sounds. persistent rhonchi bilaterally. CARDIAC: S1 and S2. RRR without murmurs, rubs, or gallops. ABDOMEN: Soft and nontender, G-tube in place. no HSM EXTREMITIES: No cyanosis or clubbing. No significant edema. NEUROLOGIC: Poorly responsive. Reduced mental status. nonfocal Microbiology Date/Time Source Procedure Growth Status 07/20/16 06:30 Blood Blood Culture - Preliminary Resulted Current Medications Medications (Trade) Dose Ordered Sig/Alex Route PRN Reason Start Time Stop Time Status Last Admin Dose Admin Acetaminophen (Tylenol) 650 mg Q4H PRN ORAL T>100.5 / Mild pain 07/20/16 08:30 08/19/16 08:29 07/21/16 16:01 Albuterol/ Ipratropium (DuoNeb 0.5-3(2.5)mg/3ml) 3 ml Q4HRT HHN 07/20/16 11:00 07/25/16 10:59 07/22/16 03:45 Amiodarone HCl (Cordarone) 200 mg DAILY ORAL 07/20/16 09:00 08/19/16 08:59 07/21/16 09:29 Ascorbic Acid (Vitamin C) 500 mg DAILY GT 07/20/16 09:00 08/19/16 08:59 07/21/16 09:29 Dextrose STAT PRN IV Hypoglycemia 07/20/16 19:30 08/19/16 19:29 Dextrose/Sodium Chloride (D5ns) 1,000 ml @ 50 mls/hr Q20H IV 07/20/16 20:30 08/19/16 20:29 07/21/16 16:00 Docusate Sodium (Colace) 100 mg TWICE A DAY NG 07/20/16 18:00 08/19/16 17:59 07/21/16 17:49 Heparin Sodium (Porcine) (Heparin 5000 units/ml) 5,000 units EVERY 12 HOURS SUBQ 07/20/16 09:00 08/19/16 08:59 07/21/16 21:18 Insulin Aspart (NovoLOG) EVERY 6 HOURS SUBQ 07/21/16 00:00 08/20/16 00:00 07/22/16 05:41 Lansoprazole 30 mg 30 mg DAILY NG 07/21/16 09:00 08/20/16 08:59 07/21/16 09:28 Multivitamins Therapeutic (Therapeutic Multivitamin) 1 ea DAILY ORAL 07/20/16 09:00 08/19/16 08:59 07/21/16 09:29 Piperacillin Sod/ Tazobactam Sod/ Dextrose (Zosyn/D5W) 110 ml @ 27.5 mls/hr EVERY 8 HOURS IVPB 07/20/16 14:00 07/27/16 13:59 07/22/16 05:54 Vancomycin HCl 1 ea 1 ea DAILY PRN MISC Per rx protocol 07/20/16 08:30 08/19/16 08:29 Vancomycin HCl/ Dextrose (Vancomycin/D5W) 275 ml @ 183.333 mls/hr Q12HR@0600,1800 IVPB 07/21/16 18:00 07/26/16 17:59 07/22/16 05:11 Zinc Sulfate (Zinc Sulfate) 220 mg DAILY ORAL 07/20/16 09:00 08/19/16 08:59 07/21/16 09:29 ESHA BEY July 22, 2016 06:16
[2016-07-22 07:57] VITALS: BP 139/73
[2016-07-22] MEDS: Ascorbic Acid 500mg tab GT SCH (08:32)
[2016-07-22] MEDS: Docusate 100mg/10ml Liq NG SCH ×2 (08:33→17:50)
[2016-07-22] MEDS: Multivitamin w/Minerals tab ORAL SCH (08:33)
[2016-07-22] MEDS: Amiodarone 200mg tab ORAL SCH (08:33)
[2016-07-22] MEDS: Zinc Sulfate 220mg cap ORAL SCH (08:33)
[2016-07-22] MEDS: Heparin 5000 units/ml inj SUBQ SCH ×2 (08:34→20:44)
--- NOTE | 2016-07-22 08:54 | General Progress Note ---
Assessment/Plan Problem List: (1) Dysphagia ICD Codes: R13.10 - Dysphagia, unspecified SNOMED: 20072167, 416462986 (2) Respiratory failure ICD Codes: J96.90 - Respiratory failure, unspecified, unspecified whether with hypoxia or hypercapnia SNOMED: 047090292 Qualifiers: Qualified Codes: J96.01 - Acute respiratory failure with hypoxia; J96.02 - Acute respiratory failure with hypercapnia (3) Bilateral pneumonia ICD Codes: J18.9 - Pneumonia, unspecified organism SNOMED: 976992826 Qualifiers: Qualified Codes: J18.9 - Pneumonia, unspecified organism Status: stable, not improved Assessment/Plan bipap resp rx iv abx follow cultures feeds monitor residuals eeg neuro consult poor prognosis guarded Subjective ROS Limited/Unobtainable: Yes Constitutional: Reports: malaise, weakness HEENT: Reports: no symptoms Cardiovascular: Reports: no symptoms Respiratory: Reports: cough, shortness of breath Gastrointestinal/Abdominal: Reports: difficulty swallowing Genitourinary: Reports: no symptoms Neurologic/Psychiatric: Reports: tremors Endocrine: Reports: no symptoms Hematologic/Lymphatic: Reports: no symptoms Allergies: Coded Allergies: No Known Allergies (Unverified , 07/02/16) All Systems: reviewed and negative except above Subjective weak. remains on bipap. +sob. +blood cultures noted. on iv abx and resp rx. family concerned that pt is having "seziures" Objective Last 24 Hour Vital Signs Date Time Temp Pulse Resp B/P Pulse Ox O2 Delivery O2 Flow Rate FiO2 07/22/16 07:57 97.7 73 30 139/73 100 Bi-pap 35 07/22/16 07:15 79 35 100 Bi-pap 35 07/22/16 07:05 70 28 100 Bi-pap 15.0 35 07/22/16 07:04 68 27 100 Facial 35 07/22/16 05:30 69 39 100 Facial 35 07/22/16 04:00 98.1 76 29 129/76 99 Bi-pap 35 07/22/16 04:00 35 07/22/16 03:54 87 07/22/16 03:48 84 38 100 Bi-pap 07/22/16 03:30 81 36 99 Bi-pap 35 07/22/16 03:30 78 36 100 Facial 35 07/22/16 01:30 84 31 100 Facial 35 07/22/16 00:00 35 07/22/16 00:00 98.8 95 24 146/76 99 Bi-pap 35 07/21/16 23:57 86 07/21/16 23:28 88 39 100 Bi-pap 07/21/16 23:27 85 39 99 Bi-pap 35 07/21/16 23:25 86 38 100 Facial 35 07/21/16 21:00 35 07/21/16 20:46 98 40 99 Facial 35 07/21/16 20:00 98.9 92 26 122/81 99 Bi-pap 35 07/21/16 20:00 89 07/21/16 19:45 98 36 100 Bi-pap 40 07/21/16 19:40 35 07/21/16 19:30 95 36 99 Facial 35 07/21/16 19:30 95 36 99 Bi-pap 35 07/21/16 17:03 97 20 98 8.0 40 07/21/16 16:00 97.8 88 24 126/71 100 Venturi Mask 40 07/21/16 15:39 103 07/21/16 15:34 97 20 100 Venturi Mask 8.0 40 07/21/16 15:30 99 Venturi Mask 40 07/21/16 15:25 40 07/21/16 15:25 90 20 100 8.0 40 07/21/16 15:25 90 20 100 Venturi Mask 8.0 40 07/21/16 13:30 86 22 100 Facial 35 07/21/16 12:00 98.1 84 46 131/78 100 Bi-pap 35 07/21/16 12:00 35 07/21/16 11:49 79 07/21/16 10:53 79 33 100 Bi-pap 35 07/21/16 10:46 78 27 100 Bi-pap 35 07/21/16 10:46 35 07/21/16 10:45 78 27 100 Facial 35 07/21/16 09:15 75 25 100 Facial 35 Intake and Output 07/21/16 07/22/16 19:00 07:00 Intake Total 898.333 ml 1224.167 ml Output Total 750 ml 370 ml Balance 148.333 ml 854.167 ml Intake Free Water 50 ml IV Total 898.333 ml 1054.167 ml Tube Feeding 120 ml Output Urine Total 750 ml 370 ml # Bowel Movements 1 Height (Feet): 5 Height (Inches): 10.00 Weight (Pounds): 150 General Appearance: WD/WN, lethargic, confused Neck: supple Cardiovascular: regular rhythm Respiratory/Chest: rhonchi - bilaterally Abdomen: normal bowel sounds, non tender, soft, no organomegaly Edema: no edema noted Arm (L), no edema noted Arm (R), no edema noted Leg (L), no edema noted Leg (R), no edema noted Pedal (L), no edema noted Pedal (R), no edema noted Generalized Neurologic: disoriented, aphasia FAWN PORTER July 22, 2016 08:54
[2016-07-22 12:00] VITALS: BP 125/69
[2016-07-22] MEDS: D5NS 1,000 ML IV SCH (12:01)
[2016-07-22] MEDS ORDERED: Acetaminophen 650mg/20.3ml GT PRN (14:00)
--- NOTE | 2016-07-22 14:05 | Infectious Diseases Prog Note ---
Assessment/Plan Assessment/Plan A: 1. aspiration pneumonia 2. anoxic encephalopathy 3. seizures 4. DM 5. Bacteremia, R/O line sepsis P 1. continue vancomycin iv & Zosyn 2. will f/u cultures Subjective ROS Limited/Unobtainable: Yes Allergies: Coded Allergies: No Known Allergies (Unverified , 07/02/16) Objective Vital Signs Last 24 Hour Vital Signs Date Time Temp Pulse Resp B/P Pulse Ox O2 Delivery O2 Flow Rate FiO2 07/22/16 12:00 97.3 80 29 125/69 100 Venturi Mask 07/22/16 11:36 73 07/22/16 11:25 82 35 100 Bi-pap 35 07/22/16 11:16 70 23 99 Bi-pap 15.0 35 07/22/16 11:15 70 28 99 Facial 35 07/22/16 08:51 72 30 100 Facial 35 07/22/16 07:57 97.7 73 30 139/73 100 Bi-pap 35 07/22/16 07:31 76 07/22/16 07:15 79 35 100 Bi-pap 35 07/22/16 07:05 70 28 100 Bi-pap 15.0 35 07/22/16 07:04 68 27 100 Facial 35 07/22/16 05:30 69 39 100 Facial 35 07/22/16 04:00 98.1 76 29 129/76 99 Bi-pap 35 07/22/16 04:00 35 07/22/16 03:54 87 07/22/16 03:48 84 38 100 Bi-pap 07/22/16 03:30 81 36 99 Bi-pap 35 07/22/16 03:30 78 36 100 Facial 35 07/22/16 01:30 84 31 100 Facial 35 07/22/16 00:00 35 07/22/16 00:00 98.8 95 24 146/76 99 Bi-pap 35 07/21/16 23:57 86 07/21/16 23:28 88 39 100 Bi-pap 07/21/16 23:27 85 39 99 Bi-pap 35 07/21/16 23:25 86 38 100 Facial 35 07/21/16 21:00 35 07/21/16 20:46 98 40 99 Facial 35 07/21/16 20:00 98.9 92 26 122/81 99 Bi-pap 35 07/21/16 20:00 89 07/21/16 19:45 98 36 100 Bi-pap 40 07/21/16 19:40 35 07/21/16 19:30 95 36 99 Facial 35 07/21/16 19:30 95 36 99 Bi-pap 35 07/21/16 17:03 97 20 98 8.0 40 07/21/16 16:00 97.8 88 24 126/71 100 Venturi Mask 40 07/21/16 15:39 103 07/21/16 15:34 97 20 100 Venturi Mask 8.0 40 07/21/16 15:30 99 Venturi Mask 40 07/21/16 15:25 40 07/21/16 15:25 90 20 100 8.0 40 07/21/16 15:25 90 20 100 Venturi Mask 8.0 40 Height (Feet): 5 Height (Inches): 10.00 Weight (Pounds): 150 General Appearance: cachetic HEENT: mucous membranes moist Respiratory/Chest: lungs clear, other - O2 by mask Cardiovascular: normal rate Abdomen: soft, non tender, other - GT feeding Extremities: no edema Skin: ulcers Neurologic/Psychiatric: unresponsiveness Microbiology Date/Time Source Procedure Growth Status 07/20/16 06:30 Blood Blood Culture - Preliminary Gram Positive Cocci Resulted 07/20/16 06:30 Blood Blood Culture - Preliminary NO GROWTH AFTER 48 HOURS Resulted 07/21/16 15:15 Sputum Gram Stain - Final Resulted 07/21/16 15:15 Sputum Sputum Culture Pending Resulted 07/20/16 08:10 Nasal Nares MRSA Culture - Final NO METHICILLIN RESISTANT STAPH AUREUS... Complete 07/20/16 08:10 Rectum VRE Culture - Final Enterococcus Faecalis - Vre Complete Current Medications Medications (Trade) Dose Ordered Sig/Alex Route PRN Reason Start Time Stop Time Status Last Admin Dose Admin Acetaminophen (Tylenol) 650 mg Q4H PRN GT T>100.5 / Mild pain 07/22/16 14:00 08/21/16 13:59 Albuterol/ Ipratropium (DuoNeb 0.5-3(2.5)mg/3ml) 3 ml Q4HRT HHN 07/20/16 11:00 07/25/16 10:59 07/22/16 11:15 Amiodarone HCl (Cordarone) 200 mg DAILY ORAL 07/20/16 09:00 6/7/17 08:59 07/22/16 08:33 Ascorbic Acid (Vitamin C) 500 mg DAILY GT 07/20/16 09:00 08/19/16 08:59 07/22/16 08:32 Dextrose STAT PRN IV Hypoglycemia 07/20/16 19:30 08/19/16 19:29 Dextrose/Sodium Chloride (D5ns) 1,000 ml @ 50 mls/hr Q20H IV 07/20/16 20:30 08/19/16 20:29 07/22/16 12:01 Docusate Sodium (Colace) 100 mg TWICE A DAY NG 07/20/16 18:00 08/19/16 17:59 07/22/16 08:33 Heparin Sodium (Porcine) (Heparin 5000 units/ml) 5,000 units EVERY 12 HOURS SUBQ 07/20/16 09:00 08/19/16 08:59 07/22/16 08:34 Insulin Aspart (NovoLOG) EVERY 6 HOURS SUBQ 07/21/16 00:00 08/20/16 00:00 07/22/16 11:58 Lansoprazole 30 mg 30 mg DAILY NG 07/21/16 09:00 08/20/16 08:59 07/22/16 08:33 Multivitamins Therapeutic (Therapeutic Multivitamin) 1 ea DAILY ORAL 07/20/16 09:00 08/19/16 08:59 07/22/16 08:33 Piperacillin Sod/ Tazobactam Sod/ Dextrose (Zosyn/D5W) 110 ml @ 27.5 mls/hr EVERY 8 HOURS IVPB 07/20/16 14:00 07/27/16 13:59 07/22/16 14:00 Vancomycin HCl 1 ea 1 ea DAILY PRN MISC Per rx protocol 07/20/16 08:30 08/19/16 08:29 Vancomycin HCl/ Dextrose (Vancomycin/D5W) 275 ml @ 183.333 mls/hr Q12HR@0600,1800 IVPB 07/21/16 18:00 07/26/16 17:59 07/22/16 05:11 Zinc Sulfate (Zinc Sulfate) 220 mg DAILY ORAL 07/20/16 09:00 08/19/16 08:59 07/22/16 08:33 TIESHA SERVIN July 22, 2016 14:05
[2016-07-22] MEDS ORDERED: D5NS 1000ml IV ONE (15:23)
[2016-07-22] MEDS ORDERED: NS 275ml ONE (15:23)
[2016-07-22 16:13] VITALS: BP 135/99
[2016-07-22 20:00] VITALS: BP 125/75
[2016-07-23] VITALS (7 sets, daily range): BP systolic 117–144; BP diastolic 72–86
--- NOTE | 2016-07-23 01:48 | Progress Note ---
DATE: 07/21/2016 CARDIOLOGY PROGRESS NOTE Late entry for 07/21/2016. SUBJECTIVE: The patient's condition remains tenuous. He remains intermittently on BiPAP support. He has moderate secretions. OBJECTIVE: VITAL SIGNS: Blood pressure 119/88, pulse 84, respirations 32, and afebrile. NECK: Thick trach secretions. LUNGS: Moderate rhonchi. HEART: Regular rhythm and rate. Normal S1 and S2. ABDOMEN: Soft with G-tube. EXTREMITIES: There is dependent edema noted. LABORATORY DATA: White count 5.9 and hemoglobin 8.1. Sodium 139, potassium 3.5, bicarbonate 28, BUN 43, and creatinine 1.2. Albumin 1.6. IMPRESSION: 1. Respiratory failure. 2. Healthcare-acquired pneumonia. 3. Acute on chronic diastolic congestive heart failure. 4. Acute on chronic renal failure, improved. 5. Severe protein-calorie malnutrition. 6. Cerebrovascular disease. 7. Chronic encephalopathy. 8. Anemia, multifactorial. 9. Pulmonary hypertension. PLAN: 1. Protein supplement. 2. Follow up laboratory studies. 3. May need transfusion. 4. Reassess for diuresis. 5. Prognosis remains poor. Natalio Wisdom M.D. DR: KAYLEIGH JOB#: [id number] CC:
[2016-07-23] MEDS: DuoNeb 0.5-3(2.5)mg/3ml neb HHN SCH ×6 (03:18→22:50)
--- NOTE | 2016-07-23 04:48 | Progress Note ---
DATE: 07/22/2016 CARDIOLOGY PROGRESS NOTE SUBJECTIVE: The patient remains on BiPAP support. OBJECTIVE: VITAL SIGNS: Afebrile. Blood pressure 139/73, pulse 73, and respirations 30. LUNGS: Coarse breath sounds. Moderate secretions. Scattered rhonchi. HEART: Regular rhythm and rate. Normal S1 and S2. ABDOMEN: Soft. G-tube intact. EXTREMITIES: A 1+ dependent edema. IMPRESSION: 1. Respiratory failure. 2. Cerebrovascular accident and chronic encephalopathy. 3. Prerenal azotemia, improving. 4. Severe protein-calorie malnutrition. 5. Anemia. 6. Acute on chronic diastolic congestive heart failure. PLAN: 1. Recheck laboratory studies. 2. Consider packed red blood cell transfusion with diuresis. 3. BiPAP support as needed. 4. Monitor volume status, cardiorenal parameters, and trend natriuretic peptide assay and diurese accordingly with furosemide. 5. Protein supplement by feeding tube. 6. DVT prophylaxis. 7. DNR. 8. No plans for ventilator support. Natalio Wisdom M.D. DR: KAYLEIGH JOB#: [id number] CC:
[2016-07-23 05:01] LABS: MEAN CORPUSCULAR HEMOGLOBIN 29.5 PG (27.0-31.0); MEAN CORPUSCULAR HGB CONC 30.9 G/DL (32.0-36.0); MEAN CORPUSCULAR VOLUME 95 FL (80-99); MEAN PLATELET VOLUME 6.4 FL (6.5-10.1); PLATELET COUNT 330 K/UL (150-450); RED BLOOD COUNT 3.12 M/UL (4.70-6.10); RED CELL DISTRIBUTION WIDTH 13.5 % (11.6-14.8); WHITE BLOOD COUNT 6.1 K/UL (4.8-10.8)
[2016-07-23 05:34] LABS: ALANINE AMINOTRANSFERASE 36 U/L (3-41); ALBUMIN/GLOBULIN RATIO 0.4 (1.0-2.7); ANION GAP 13 (5-15); ASPARTATE AMINO TRANSFERASE 34 U/L (5-40); CALCIUM 8.1 mg/dL (8.6-10.2); CARBON DIOXIDE 28 mEQ/L (20-30); CHLORIDE 101 mEQ/L (98-107); CREATININE 0.9 mg/dL (0.7-1.2); GLOMERULAR FILTRATION RATE > 60 mL/min (>60); HEMOLYSIS 2; MAGNESIUM 1.8 mg/dL (1.7-2.5); POTASSIUM 3.3 mEQ/L (3.4-4.9); SODIUM 142 mEQ/L (135-145); TOTAL PROTEIN 6.2 g/dL (6.6-8.7)
[2016-07-23] MEDS: Piperacillin/Tazobactam 3.375 GM in D5W 110 ML IVPB SCH (05:48)
[2016-07-23] MEDS: D5NS 1,000 ML IV SCH (05:49)
[2016-07-23] MEDS: NovoLOG Insulin Flexpen SUBQ SCH ×3 (05:51→17:28)
--- NOTE | 2016-07-23 08:02 | Pulmonology Progress Note ---
Assessment/Plan Assessment/Plan IMPRESSION: 1. Evidence of pneumonia. 2. Evidence of acute on chronic renal failure . 3. Evidence of transaminitis. 4. Evidence of severe protein-calorie malnutrition. 5. Anemia. 6. Chronic encephalopathy. 7. aspiration 8. hypoxemia 9. sepsis/bacteremia PLAN antibiotics noted ID reviewed respiratory care off BIPAP as able and taper oxygen snf meds DNR continue to support ID noted cards noted recheck cxr impression, plan, and exam edited and reviewed in detail care discussed with RN Subjective ROS Limited/Unobtainable: Yes Allergies: Coded Allergies: No Known Allergies (Unverified , 07/02/16) Subjective sister updated as to status care reviewed Objective Last 24 Hour Vital Signs Date Time Temp Pulse Resp B/P Pulse Ox O2 Delivery O2 Flow Rate FiO2 07/23/16 07:24 79 24 100 Venturi Mask 8.0 40 07/23/16 07:24 40 07/23/16 04:00 97.7 84 20 139/83 98 Venturi Mask 07/23/16 03:41 86 07/23/16 03:24 81 20 100 Venturi Mask 8.0 40 07/23/16 03:17 40 07/23/16 03:16 85 22 100 Venturi Mask 8.0 40 07/23/16 01:08 98.1 82 22 129/80 99 Venturi Mask 07/23/16 00:00 98.4 83 20 124/86 99 Venturi Mask 07/22/16 23:43 80 07/22/16 23:29 76 22 100 Venturi Mask 8.0 40 07/22/16 23:22 40 07/22/16 23:12 72 22 100 Venturi Mask 8.0 40 07/22/16 20:00 99.0 83 24 125/75 100 Venturi Mask 07/22/16 19:39 83 07/22/16 19:15 87 20 100 Venturi Mask 8.0 40 07/22/16 18:56 77 22 100 Venturi Mask 8.0 40 07/22/16 18:56 40 07/22/16 16:22 89 07/22/16 16:13 96.9 90 19 135/99 98 Venturi Mask 40 92 07/22/16 15:34 84 24 100 Venturi Mask 8.0 40 07/22/16 15:25 68 22 98 Venturi Mask 8.0 40 07/22/16 15:25 40 07/22/16 12:00 97.3 80 29 125/69 100 Venturi Mask 40 07/22/16 11:36 73 07/22/16 11:25 82 35 100 Bi-pap 35 07/22/16 11:16 70 23 99 Bi-pap 15.0 35 07/22/16 11:15 70 28 99 Facial 35 07/22/16 08:51 72 30 100 Facial 35 Intake and Output 07/22/16 07/23/16 19:00 07:00 Intake Total 852.5 ml 1107.5 ml Output Total 850 ml 500 ml Balance 2.5 ml 607.5 ml Intake Free Water 100 ml IV Total 492.5 ml 787.5 ml Tube Feeding 240 ml 220 ml Other 120 ml Output Urine Total 850 ml 500 ml # Bowel Movements 2 Objective GENERAL: The patient is a well-developed male, appears to be in no distress HEENT: Pupils are sluggishly reactive. NECK: Supple. LUNGS: Coarse breath sounds. reduced rhonchi bilaterally. no wheeze CARDIAC: S1 and S2. RRR without murmurs, rubs, or gallops. ABDOMEN: Soft and nontender, G-tube in place. no HSM EXTREMITIES: No cyanosis or clubbing. No significant edema. NEUROLOGIC: Poorly responsive. Reduced mental status. nonfocal reviewed and edited Microbiology Date/Time Source Procedure Growth Status 07/21/16 15:15 Sputum Gram Stain - Final Resulted 07/21/16 15:15 Sputum Sputum Culture Pending Resulted 07/20/16 08:10 Nasal Nares MRSA Culture - Final NO METHICILLIN RESISTANT STAPH AUREUS... Complete 07/20/16 08:10 Rectum VRE Culture - Final Enterococcus Faecalis - Vre Complete Laboratory Tests 07/22/16 17:15: Vancomycin Level Trough 26.4H 07/23/16 04:00: White Blood Count 6.1, Red Blood Count 3.12L, Hemoglobin 9.2L, Hematocrit 29.7L , Mean Corpuscular Volume 95, Mean Corpuscular Hemoglobin 29.5, Mean Corpuscular Hemoglobin Concent 30.9L, Red Cell Distribution Width 13.5, Platelet Count 330, Mean Platelet Volume 6.4L, Neutrophils (%) (Auto) , Lymphocytes (%) (Auto) , Monocytes (%) (Auto) , Eosinophils (%) (Auto) , Basophils (%) (Auto) , Sodium Level 142, Potassium Level 3.3L, Chloride Level 101, Carbon Dioxide Level 28, Anion Gap 13, Blood Urea Nitrogen 24H, Creatinine 0.9, Estimat Glomerular Filtration Rate > 60, Glucose Level 115H, Calcium Level 8.1L, Magnesium Level 1.8, Total Bilirubin 0.5, Aspartate Amino Transf (AST/SGOT ) 34, Alanine Aminotransferase (ALT/SGPT) 36, Alkaline Phosphatase 130H, Pro-B- Type Natriuretic Peptide 1328H, Total Protein 6.2L, Albumin 1.9L, Globulin 4.3, Albumin/Globulin Ratio 0.4L Current Medications Medications (Trade) Dose Ordered Sig/Alex Route PRN Reason Start Time Stop Time Status Last Admin Dose Admin Acetaminophen 650 mg 650 mg Q4H PRN GT T>100.5 / Mild pain 07/22/16 14:00 08/21/16 13:59 Albuterol/ Ipratropium (DuoNeb 0.5-3(2.5)mg/3ml) 3 ml Q4HRT HHN 07/20/16 11:00 07/25/16 10:59 07/23/16 07:23 Amiodarone HCl (Cordarone) 200 mg DAILY ORAL 07/20/16 09:00 08/19/16 08:59 07/22/16 08:33 Ascorbic Acid (Vitamin C) 500 mg DAILY GT 07/20/16 09:00 08/19/16 08:59 07/22/16 08:32 Dextrose (Dextrose 50%) STAT PRN IV Hypoglycemia 07/20/16 19:30 08/19/16 19:29 Dextrose/Sodium Chloride (D5ns) 1,000 ml @ 50 mls/hr Q20H IV 07/20/16 20:30 08/19/16 20:29 07/23/16 05:49 Docusate Sodium (Colace) 100 mg TWICE A DAY NG 07/20/16 18:00 08/19/16 17:59 07/22/16 17:50 Heparin Sodium (Porcine) (Heparin 5000 units/ml) 5,000 units EVERY 12 HOURS SUBQ 07/20/16 09:00 08/19/16 08:59 07/22/16 20:44 Insulin Aspart (NovoLOG) EVERY 6 HOURS SUBQ 07/21/16 00:00 08/20/16 00:00 07/23/16 05:51 Lansoprazole 30 mg 30 mg DAILY NG 07/21/16 09:00 08/20/16 08:59 07/22/16 08:33 Multivitamins Therapeutic (Therapeutic Multivitamin) 1 ea DAILY ORAL 07/20/16 09:00 08/19/16 08:59 07/22/16 08:33 Piperacillin Sod/ Tazobactam Sod/ Dextrose (Zosyn/D5W) 110 ml @ 27.5 mls/hr EVERY 8 HOURS IVPB 07/20/16 14:00 07/27/16 13:59 07/23/16 05:48 Vancomycin HCl 1 ea 1 ea DAILY PRN MISC Per rx protocol 07/20/16 08:30 08/19/16 08:29 Vancomycin HCl/ Dextrose (Vancomycin/D5W) 275 ml @ 183.333 mls/hr Q24H IVPB 07/23/16 18:00 07/28/16 17:59 Zinc Sulfate (Zinc Sulfate) 220 mg DAILY ORAL 07/20/16 09:00 08/19/16 08:59 07/22/16 08:33 ESHA BEY July 23, 2016 08:02
--- NOTE | 2016-07-23 08:33 | General Progress Note ---
Assessment/Plan Problem List: (1) Dysphagia ICD Codes: R13.10 - Dysphagia, unspecified SNOMED: 73519011, 549994961 (2) Respiratory failure ICD Codes: J96.90 - Respiratory failure, unspecified, unspecified whether with hypoxia or hypercapnia SNOMED: 607981573 Qualifiers: Qualified Codes: J96.01 - Acute respiratory failure with hypoxia; J96.02 - Acute respiratory failure with hypercapnia (3) Bilateral pneumonia ICD Codes: J18.9 - Pneumonia, unspecified organism SNOMED: 204219889 Qualifiers: Qualified Codes: J18.9 - Pneumonia, unspecified organism Status: stable, progressing Assessment/Plan bipap as needed resp rx iv abx follow cultures feeds adjusted. monitor residuals. eeg neuro consult pending poor prognosis guarded Subjective ROS Limited/Unobtainable: Yes Constitutional: Reports: malaise, weakness HEENT: Reports: no symptoms Cardiovascular: Reports: no symptoms Respiratory: Reports: SOB with excertion Gastrointestinal/Abdominal: Reports: no symptoms Genitourinary: Reports: no symptoms Neurologic/Psychiatric: Reports: pre-existing deficit Endocrine: Reports: no symptoms Hematologic/Lymphatic: Reports: anemia Allergies: Coded Allergies: No Known Allergies (Unverified , 07/02/16) All Systems: reviewed and negative except above Subjective weak. off bipap. +sob. +blood cultures noted- s.aureus. sputum with gnr. on iv abx and resp rx. family concerned that pt is having "seziures" Objective Last 24 Hour Vital Signs Date Time Temp Pulse Resp B/P Pulse Ox O2 Delivery O2 Flow Rate FiO2 07/23/16 07:36 82 19 100 Venturi Mask 8.0 40 07/23/16 07:24 79 24 100 Venturi Mask 8.0 40 07/23/16 07:24 40 07/23/16 04:00 97.7 84 20 139/83 98 Venturi Mask 07/23/16 03:41 86 07/23/16 03:24 81 20 100 Venturi Mask 8.0 40 07/23/16 03:17 40 07/23/16 03:16 85 22 100 Venturi Mask 8.0 40 07/23/16 01:08 98.1 82 22 129/80 99 Venturi Mask 07/23/16 00:00 98.4 83 20 124/86 99 Venturi Mask 07/22/16 23:43 80 07/22/16 23:29 76 22 100 Venturi Mask 8.0 40 07/22/16 23:22 40 07/22/16 23:12 72 22 100 Venturi Mask 8.0 40 07/22/16 20:00 99.0 83 24 125/75 100 Venturi Mask 07/22/16 19:39 83 07/22/16 19:15 87 20 100 Venturi Mask 8.0 40 07/22/16 18:56 77 22 100 Venturi Mask 8.0 40 07/22/16 18:56 40 07/22/16 16:22 89 07/22/16 16:13 96.9 90 19 135/99 98 Venturi Mask 40 92 07/22/16 15:34 84 24 100 Venturi Mask 8.0 40 07/22/16 15:25 68 22 98 Venturi Mask 8.0 40 07/22/16 15:25 40 07/22/16 12:00 97.3 80 29 125/69 100 Venturi Mask 40 07/22/16 11:36 73 07/22/16 11:25 82 35 100 Bi-pap 35 07/22/16 11:16 70 23 99 Bi-pap 15.0 35 07/22/16 11:15 70 28 99 Facial 35 07/22/16 08:51 72 30 100 Facial 35 Intake and Output 07/22/16 07/23/16 19:00 07:00 Intake Total 852.5 ml 1107.5 ml Output Total 850 ml 500 ml Balance 2.5 ml 607.5 ml Intake Free Water 100 ml IV Total 492.5 ml 787.5 ml Tube Feeding 240 ml 220 ml Other 120 ml Output Urine Total 850 ml 500 ml # Bowel Movements 2 Laboratory Tests 07/22/16 17:15: Vancomycin Level Trough 26.4H 07/23/16 04:00: White Blood Count 6.1, Red Blood Count 3.12L, Hemoglobin 9.2L, Hematocrit 29.7L , Mean Corpuscular Volume 95, Mean Corpuscular Hemoglobin 29.5, Mean Corpuscular Hemoglobin Concent 30.9L, Red Cell Distribution Width 13.5, Platelet Count 330, Mean Platelet Volume 6.4L, Neutrophils (%) (Auto) , Lymphocytes (%) (Auto) , Monocytes (%) (Auto) , Eosinophils (%) (Auto) , Basophils (%) (Auto) , Sodium Level 142, Potassium Level 3.3L, Chloride Level 101, Carbon Dioxide Level 28, Anion Gap 13, Blood Urea Nitrogen 24H, Creatinine 0.9, Estimat Glomerular Filtration Rate > 60, Glucose Level 115H, Calcium Level 8.1L, Magnesium Level 1.8, Total Bilirubin 0.5, Aspartate Amino Transf (AST/SGOT ) 34, Alanine Aminotransferase (ALT/SGPT) 36, Alkaline Phosphatase 130H, Pro-B- Type Natriuretic Peptide 1328H, Total Protein 6.2L, Albumin 1.9L, Globulin 4.3, Albumin/Globulin Ratio 0.4L Height (Feet): 5 Height (Inches): 10.00 Weight (Pounds): 150 General Appearance: WD/WN, alert Neck: supple Cardiovascular: regular rhythm Respiratory/Chest: rhonchi - bilaterally Abdomen: normal bowel sounds, non tender, soft, no organomegaly Edema: no edema noted Arm (L), no edema noted Arm (R), no edema noted Leg (L), no edema noted Leg (R), no edema noted Pedal (L), no edema noted Pedal (R), no edema noted Generalized Neurologic: aphasia Skin: normal pigmentation FAWN PORTER July 23, 2016 08:33
[2016-07-23] MEDS ORDERED: KCl 10% 40mEq/30ml liquid NG ONE (09:00)
[2016-07-23] MEDS: Heparin 5000 units/ml inj SUBQ SCH ×2 (09:01→20:38)
[2016-07-23] MEDS: Zinc Sulfate 220mg cap ORAL SCH (09:02)
[2016-07-23] MEDS: Multivitamin w/Minerals tab ORAL SCH (09:02)
[2016-07-23] MEDS: Ascorbic Acid 500mg tab GT SCH (09:02)
[2016-07-23] MEDS: Docusate 100mg/10ml Liq NG SCH ×2 (09:02→17:27)
[2016-07-23] MEDS: Amiodarone 200mg tab ORAL SCH (09:03)
[2016-07-23] MEDS ORDERED: Tubing IV Secondary IV ONE (09:29)
[2016-07-23] MEDS ORDERED: D5NS 1000ml IV ONE (09:29)
[2016-07-23] MEDS ORDERED: NS 275ml ONE (09:29)
[2016-07-23 11:32] LABS: ABG ALLEN TEST POSITIVE; ABG BASE EXCESS 6.5
--- NOTE | 2016-07-23 11:47 | Diagnostic Imaging Report ---
Indication: Dyspnea Comparison: 07/20/16 A single view chest radiograph was obtained. Findings: Patchy infiltrates are present bilaterally. The heart is enlarged and stable. PICC line has been removed since the last exam. Impression: Patchy infiltrates again noted
--- NOTE | 2016-07-23 11:49 | Infectious Diseases Prog Note ---
Assessment/Plan Assessment/Plan A: 1. aspiration pneumonia 2. anoxic encephalopathy 3. seizures 4. DM 5. MSSA sepsis likely line sepsis 6. VRE colonization P 1. discontinue vancomycin iv & Zosyn, start on Cefepime 2. repeat blood culture cultures Subjective ROS Limited/Unobtainable: Yes Allergies: Coded Allergies: No Known Allergies (Unverified , 07/02/16) Objective Vital Signs Last 24 Hour Vital Signs Date Time Temp Pulse Resp B/P Pulse Ox O2 Delivery O2 Flow Rate FiO2 07/23/16 11:43 97.4 84 20 117/72 100 Venturi Mask 07/23/16 08:00 98.0 90 20 140/84 100 Venturi Mask 07/23/16 07:47 86 07/23/16 07:36 82 19 100 Venturi Mask 8.0 40 07/23/16 07:24 79 24 100 Venturi Mask 8.0 40 07/23/16 07:24 40 07/23/16 04:00 97.7 84 20 139/83 98 Venturi Mask 07/23/16 03:41 86 07/23/16 03:24 81 20 100 Venturi Mask 8.0 40 07/23/16 03:17 40 07/23/16 03:16 85 22 100 Venturi Mask 8.0 40 07/23/16 01:08 98.1 82 22 129/80 99 Venturi Mask 07/23/16 00:00 98.4 83 20 124/86 99 Venturi Mask 07/22/16 23:43 80 07/22/16 23:29 76 22 100 Venturi Mask 8.0 40 07/22/16 23:22 40 07/22/16 23:12 72 22 100 Venturi Mask 8.0 40 07/22/16 20:00 99.0 83 24 125/75 100 Venturi Mask 07/22/16 19:39 83 07/22/16 19:15 87 20 100 Venturi Mask 8.0 40 07/22/16 18:56 77 22 100 Venturi Mask 8.0 40 07/22/16 18:56 40 07/22/16 16:22 89 07/22/16 16:13 96.9 90 19 135/99 98 Venturi Mask 40 92 07/22/16 15:34 84 24 100 Venturi Mask 8.0 40 07/22/16 15:25 68 22 98 Venturi Mask 8.0 40 07/22/16 15:25 40 07/22/16 12:00 97.3 80 29 125/69 100 Venturi Mask 40 Height (Feet): 5 Height (Inches): 10.00 Weight (Pounds): 150 General Appearance: cachetic HEENT: mucous membranes moist Respiratory/Chest: rhonchi - bilaterally, other - O2 by mask Cardiovascular: normal rate Abdomen: soft, non tender Extremities: no edema Neurologic/Psychiatric: unresponsiveness Microbiology Date/Time Source Procedure Growth Status 07/21/16 15:15 Sputum Gram Stain - Final Resulted 07/21/16 15:15 Sputum Culture - Preliminary Gram Negative Bacillus 1 Resulted Laboratory Tests Test 07/22/16 17:15 07/23/16 04:00 07/23/16 11:19 Vancomycin Level Trough 26.4 ug/mL (5.0-12.0) H White Blood Count 6.1 K/UL (4.8-10.8) Red Blood Count 3.12 M/UL (4.70-6.10) L Hemoglobin 9.2 G/DL (14.2-18.0) L Hematocrit 29.7 % (42.0-52.0) L Mean Corpuscular Volume 95 FL (80-99) Mean Corpuscular Hemoglobin 29.5 PG (27.0-31.0) Mean Corpuscular Hemoglobin Concent 30.9 G/DL (32.0-36.0) L Red Cell Distribution Width 13.5 % (11.6-14.8) Platelet Count 330 K/UL (150-450) Mean Platelet Volume 6.4 FL (6.5-10.1) L Neutrophils (%) (Auto) % (45.0-75.0) Lymphocytes (%) (Auto) % (20.0-45.0) Monocytes (%) (Auto) % (1.0-10.0) Eosinophils (%) (Auto) % (0.0-3.0) Basophils (%) (Auto) % (0.0-2.0) Sodium Level 142 mEQ/L (135-145) Potassium Level 3.3 mEQ/L (3.4-4.9) L Chloride Level 101 mEQ/L (98-107) Carbon Dioxide Level 28 mEQ/L (20-30) Anion Gap 13 (5-15) Blood Urea Nitrogen 24 mg/dL (7-23) H Creatinine 0.9 mg/dL (0.7-1.2) Estimat Glomerular Filtration Rate > 60 mL/min (>60) Glucose Level 115 mg/dL (74-106) H Calcium Level 8.1 mg/dL (8.6-10.2) L Magnesium Level 1.8 mg/dL (1.7-2.5) Total Bilirubin 0.5 mg/dL (0.0-1.2) Aspartate Amino Transf (AST/SGOT) 34 U/L (5-40) Alanine Aminotransferase (ALT/SGPT) 36 U/L (3-41) Alkaline Phosphatase 130 U/L (40-129) H Pro-B-Type Natriuretic Peptide 1328 pg/mL (0-125) H Total Protein 6.2 g/dL (6.6-8.7) L Albumin 1.9 g/dL (3.5-5.2) L Globulin 4.3 g/dL Albumin/Globulin Ratio 0.4 (1.0-2.7) L Arterial Blood pH 7.500 (7.350-7.450) Arterial Blood Partial Pressure CO2 40.0 mmHg (35.0-45.0) Arterial Blood Partial Pressure O2 104.0 mmHg (75.0-100.0) H Arterial Blood HCO3 30.3 mmol/L (22.0-26.0) H Arterial Blood Oxygen Saturation 97.3 % (92.0-98.0) Arterial Blood Base Excess 6.5 Vinny Test Positive Current Medications Medications (Trade) Dose Ordered Sig/Alex Route PRN Reason Start Time Stop Time Status Last Admin Dose Admin Acetaminophen 650 mg 650 mg Q4H PRN GT T>100.5 / Mild pain 07/22/16 14:00 08/21/16 13:59 Albuterol/ Ipratropium (DuoNeb 0.5-3(2.5)mg/3ml) 3 ml Q4HRT HHN 07/20/16 11:00 07/25/16 10:59 07/23/16 11:27 Amiodarone HCl (Cordarone) 200 mg DAILY ORAL 07/20/16 09:00 08/19/16 08:59 07/23/16 09:03 Ascorbic Acid (Vitamin C) 500 mg DAILY GT 07/20/16 09:00 08/19/16 08:59 07/23/16 09:02 Dextrose (Dextrose 50%) STAT PRN IV Hypoglycemia 07/20/16 19:30 08/19/16 19:29 Dextrose/Sodium Chloride (D5ns) 1,000 ml @ 50 mls/hr Q20H IV 07/20/16 20:30 08/19/16 20:29 07/23/16 05:49 Docusate Sodium (Colace) 100 mg TWICE A DAY NG 07/20/16 18:00 08/19/16 17:59 07/23/16 09:02 Heparin Sodium (Porcine) (Heparin 5000 units/ml) 5,000 units EVERY 12 HOURS SUBQ 07/20/16 09:00 08/19/16 08:59 07/23/16 09:01 Insulin Aspart (NovoLOG) EVERY 6 HOURS SUBQ 07/21/16 00:00 08/20/16 00:00 07/23/16 05:51 Lansoprazole 30 mg 30 mg DAILY NG 07/21/16 09:00 08/20/16 08:59 07/23/16 09:02 Multivitamins Therapeutic (Therapeutic Multivitamin) 1 ea DAILY ORAL 07/20/16 09:00 08/19/16 08:59 07/23/16 09:02 Piperacillin Sod/ Tazobactam Sod/ Dextrose (Zosyn/D5W) 110 ml @ 27.5 mls/hr EVERY 8 HOURS IVPB 07/20/16 14:00 07/27/16 13:59 07/23/16 05:48 Vancomycin HCl 1 ea 1 ea DAILY PRN MISC Per rx protocol 07/20/16 08:30 08/19/16 08:29 Vancomycin HCl/ Dextrose (Vancomycin/D5W) 275 ml @ 183.333 mls/hr Q24H IVPB 07/23/16 18:00 07/28/16 17:59 Zinc Sulfate (Zinc Sulfate) 220 mg DAILY ORAL 07/20/16 09:00 08/19/16 08:59 07/23/16 09:02 TIESHA SERIVN July 23, 2016 11:48
--- NOTE | 2016-07-23 12:21 | Neurology Progress Note ---
Interim History Interim History ROS Limited/Unobtainable: Yes Objective Physical Exam Last Vital Signs Date Time Temp Pulse Resp B/P Pulse Ox O2 Delivery O2 Flow Rate FiO2 07/23/16 11:51 85 21 100 Venturi Mask 8.0 40 07/23/16 11:43 97.4 117/72 Laboratory Tests Test 07/22/16 17:15 07/23/16 04:00 07/23/16 11:19 Vancomycin Level Trough 26.4 ug/mL (5.0-12.0) H White Blood Count 6.1 K/UL (4.8-10.8) Red Blood Count 3.12 M/UL (4.70-6.10) L Hemoglobin 9.2 G/DL (14.2-18.0) L Hematocrit 29.7 % (42.0-52.0) L Mean Corpuscular Volume 95 FL (80-99) Mean Corpuscular Hemoglobin 29.5 PG (27.0-31.0) Mean Corpuscular Hemoglobin Concent 30.9 G/DL (32.0-36.0) L Red Cell Distribution Width 13.5 % (11.6-14.8) Platelet Count 330 K/UL (150-450) Mean Platelet Volume 6.4 FL (6.5-10.1) L Neutrophils (%) (Auto) % (45.0-75.0) Lymphocytes (%) (Auto) % (20.0-45.0) Monocytes (%) (Auto) % (1.0-10.0) Eosinophils (%) (Auto) % (0.0-3.0) Basophils (%) (Auto) % (0.0-2.0) Sodium Level 142 mEQ/L (135-145) Potassium Level 3.3 mEQ/L (3.4-4.9) L Chloride Level 101 mEQ/L (98-107) Carbon Dioxide Level 28 mEQ/L (20-30) Anion Gap 13 (5-15) Blood Urea Nitrogen 24 mg/dL (7-23) H Creatinine 0.9 mg/dL (0.7-1.2) Estimat Glomerular Filtration Rate > 60 mL/min (>60) Glucose Level 115 mg/dL (74-106) H Calcium Level 8.1 mg/dL (8.6-10.2) L Magnesium Level 1.8 mg/dL (1.7-2.5) Total Bilirubin 0.5 mg/dL (0.0-1.2) Aspartate Amino Transf (AST/SGOT) 34 U/L (5-40) Alanine Aminotransferase (ALT/SGPT) 36 U/L (3-41) Alkaline Phosphatase 130 U/L (40-129) H Pro-B-Type Natriuretic Peptide 1328 pg/mL (0-125) H Total Protein 6.2 g/dL (6.6-8.7) L Albumin 1.9 g/dL (3.5-5.2) L Globulin 4.3 g/dL Albumin/Globulin Ratio 0.4 (1.0-2.7) L Arterial Blood pH 7.500 (7.350-7.450) Arterial Blood Partial Pressure CO2 40.0 mmHg (35.0-45.0) Arterial Blood Partial Pressure O2 104.0 mmHg (75.0-100.0) H Arterial Blood HCO3 30.3 mmol/L (22.0-26.0) H Arterial Blood Oxygen Saturation 97.3 % (92.0-98.0) Arterial Blood Base Excess 6.5 Vinny Test Positive Impression/Recommendations Problems: (1) intermittent postural hand tremors, doubt seizure event (2) severe post anoxic encephalopathy (3) Respiratory failure (4) Bilateral pneumonia Status: stable, progressing Recommendations #[id number] OLGA HERNANDEZ July 23, 2016 12:21
[2016-07-23] MEDS ORDERED: Vancomycin 1250mg/D5W 275ml IVPB SCH ×2 (18:00)
[2016-07-23] MEDS: Cefepime HCl 1 GM in D5W 55 ML IVPB SCH (20:36)
--- NOTE | 2016-07-23 21:29 | Electroencephalogram ---
DATE OF PROCEDURE: 07/23/2016 ELECTROENCEPHALOGRAPHY REPORT REQUESTING PHYSICIAN: Washington Bonner M.D. HISTORY: This is a 70-year-old man with a chronic respiratory failure, dysphagia, aphasia, pneumonia and chronic renal insufficiency, and G-tube, now maintained on antibiotics including vancomycin. No sedation was given prior to the study. The patient described as being poorly cooperative and aphasic. TECHNIQUE: EEG was done using 18 electrodes placed scalp to scalp, scalp to ear montages according to 10/20 International System. Throughout the recording, the background activity consisted of a low voltage 5-15 millivolts irregular slow-wave activities ranging 4-6 hertz having mixed with a fast or low voltage beta activities bilaterally, significant amount of EMG artifacts noted as he was blanching his teeth. There is no amplitude asymmetry noted. No spike or wave activities noted. No paroxysmal event noted. IMPRESSION: Abnormal electroencephalogram in presence of moderate to severe generalized slowing generalized slowing, low amplitudes. COMMENT: The above abnormality consistent with significant level of encephalopathy, this may relate to toxic metabolic hypoxic lesions. The patient has disappeared absence of epileptiform discharges on a single recording and does not rule out seizure disorder. Current test was compared with the previous EEG, which was obtained on 07/10/2016, there was no substantial differences and no seizure activities on previous study as well. . Vince Hays M.D. DR: INDY JOB#: [id number] CC:
[2016-07-24] VITALS: BP 127/78
[2016-07-24] MEDS: NovoLOG Insulin Flexpen SUBQ SCH ×4 (01:21→18:00)
[2016-07-24] MEDS: D5NS 1,000 ML IV SCH ×2 (02:47→17:01)
[2016-07-24] MEDS: DuoNeb 0.5-3(2.5)mg/3ml neb HHN SCH ×6 (03:06→22:45)
[2016-07-24 04:00] VITALS: BP 107/66
[2016-07-24 08:00] VITALS: BP 134/87
--- NOTE | 2016-07-24 08:38 | General Progress Note ---
Assessment/Plan Problem List: (1) Dysphagia ICD Codes: R13.10 - Dysphagia, unspecified SNOMED: 51773803, 644142469 (2) Respiratory failure ICD Codes: J96.90 - Respiratory failure, unspecified, unspecified whether with hypoxia or hypercapnia SNOMED: 403899989 Qualifiers: Qualified Codes: J96.01 - Acute respiratory failure with hypoxia; J96.02 - Acute respiratory failure with hypercapnia (3) Bilateral pneumonia ICD Codes: J18.9 - Pneumonia, unspecified organism SNOMED: 272627511 Qualifiers: Qualified Codes: J18.9 - Pneumonia, unspecified organism Status: stable, progressing Assessment/Plan bipap as needed. wean fio2 resp rx iv abx follow cultures feeds adjusted. monitor residuals. eeg neuro consult appreciated poor prognosis guarded Subjective ROS Limited/Unobtainable: No Constitutional: Reports: malaise, weakness HEENT: Reports: no symptoms Cardiovascular: Reports: no symptoms Gastrointestinal/Abdominal: Reports: difficulty swallowing Genitourinary: Reports: no symptoms Neurologic/Psychiatric: Reports: pre-existing deficit Endocrine: Reports: no symptoms Hematologic/Lymphatic: Reports: anemia Allergies: Coded Allergies: No Known Allergies (Unverified , 07/02/16) All Systems: reviewed and negative except above Subjective on face mask at 35%. poorly responsive at baseline. on iv abx. cxr yesterday still with patchy infiltrates. Objective Last 24 Hour Vital Signs Date Time Temp Pulse Resp B/P Pulse Ox O2 Delivery O2 Flow Rate FiO2 07/24/16 07:51 96 22 100 Venturi Mask 6.0 35 07/24/16 07:38 90 22 100 Venturi Mask 6.0 35 07/24/16 07:36 35 07/24/16 07:34 Venturi Mask 6.0 35 07/24/16 07:33 100 Venturi Mask 6.0 35 07/24/16 04:00 98.6 91 20 107/66 100 Venturi Mask 35 07/24/16 04:00 89 07/24/16 03:14 87 20 100 Venturi Mask 6.0 35 07/24/16 03:05 84 20 100 Venturi Mask 6.0 35 07/24/16 03:05 35 07/24/16 00:00 98.3 89 22 127/78 98 Venturi Mask 35 07/24/16 00:00 85 07/24/16 00:00 35 07/23/16 22:58 84 20 100 Venturi Mask 6.0 35 07/23/16 22:50 40 07/23/16 22:50 79 20 100 Venturi Mask 8.0 40 07/23/16 20:00 81 07/23/16 20:00 97.5 88 20 139/80 100 Venturi Mask 40 07/23/16 20:00 40 07/23/16 19:22 86 20 100 Venturi Mask 8.0 40 07/23/16 19:15 Venturi Mask 8.0 40 07/23/16 19:15 100 Venturi Mask 8.0 40 07/23/16 19:14 83 20 100 Venturi Mask 8.0 40 07/23/16 19:14 40 07/23/16 16:41 98.0 89 20 144/80 99 Venturi Mask 40 07/23/16 15:29 40 07/23/16 15:28 89 24 100 Venturi Mask 8.0 40 07/23/16 15:19 40 07/23/16 15:19 84 24 100 Venturi Mask 8.0 40 07/23/16 15:19 83 07/23/16 11:52 78 07/23/16 11:51 85 21 100 Venturi Mask 8.0 40 07/23/16 11:43 97.4 84 20 117/72 100 Venturi Mask 07/23/16 11:27 40 07/23/16 11:27 81 21 99 Venturi Mask 8.0 40 Intake and Output 07/23/16 07/24/16 19:00 07:00 Intake Total 1397.5 ml 1560.833 ml Output Total 550 ml 650 ml Balance 847.5 ml 910.833 ml Intake Free Water 450 ml 450 ml IV Total 627.5 ml 565.833 ml Tube Feeding 320 ml 545 ml Output Urine Total 550 ml 650 ml Laboratory Tests 07/23/16 11:19: Arterial Blood pH 7.500H, Arterial Blood Partial Pressure CO2 40.0, Arterial Blood Partial Pressure O2 104.0H, Arterial Blood HCO3 30.3H, Arterial Blood Oxygen Saturation 97.3, Arterial Blood Base Excess 6.5, Vinny Test Positive Height (Feet): 5 Height (Inches): 10.00 Weight (Pounds): 149 Objective General Appearance: WD/WN, alert Neck: supple Cardiovascular: regular rhythm Respiratory/Chest: rhonchi - bilaterally Abdomen: normal bowel sounds, non tender, soft, no organomegaly Edema: no edema noted Arm (L), no edema noted Arm (R), no edema noted Leg (L), no edema noted Leg (R), no edema noted Pedal (L), no edema noted Pedal (R), no edema noted Generalized Neurologic: aphasia Skin: normal pigmentation FAWN PORTER July 24, 2016 08:38
[2016-07-24] MEDS ORDERED: Multivitamins W/Minerals 15 ML UDC ORAL SCH (09:00)
[2016-07-24] MEDS: Ascorbic Acid 500mg tab GT SCH (09:11)
[2016-07-24] MEDS: Amiodarone 200mg tab GT SCH (09:12)
[2016-07-24] MEDS: Zinc Sulfate 220mg cap ORAL SCH (09:12)
[2016-07-24] MEDS: Docusate 100mg/10ml Liq NG SCH ×2 (09:12→17:01)
[2016-07-24] MEDS: Heparin 5000 units/ml inj SUBQ SCH ×2 (09:18→20:32)
[2016-07-24] MEDS: Cefepime HCl 1 GM in D5W 55 ML IVPB SCH ×2 (11:04→20:30)
[2016-07-24 11:41] VITALS: BP 132/90
--- NOTE | 2016-07-24 11:52 | Infectious Diseases Prog Note ---
Assessment/Plan Assessment/Plan antibiotics : cefepime A 1. gram negative pneumonia 2. anoxic encephalopathy 3. seizures 4. DM 5. staph aureus sepsis P 1. continue cefepime 2. will follow up cultures Subjective ROS Limited/Unobtainable: Yes Allergies: Coded Allergies: No Known Allergies (Unverified , 07/02/16) Objective Vital Signs Last 24 Hour Vital Signs Date Time Temp Pulse Resp B/P Pulse Ox O2 Delivery O2 Flow Rate FiO2 07/24/16 11:41 98.3 93 24 132/90 92 Venturi Mask 35 07/24/16 11:30 92 22 100 Venturi Mask 6.0 35 07/24/16 11:20 90 22 100 Venturi Mask 6.0 35 07/24/16 11:20 35 07/24/16 08:00 94 07/24/16 08:00 97.6 91 20 134/87 100 Venturi Mask 35 07/24/16 07:51 96 22 100 Venturi Mask 6.0 35 07/24/16 07:38 90 22 100 Venturi Mask 6.0 35 07/24/16 07:36 35 07/24/16 07:34 Venturi Mask 6.0 35 07/24/16 07:33 100 Venturi Mask 6.0 35 07/24/16 04:00 98.6 91 20 107/66 100 Venturi Mask 35 07/24/16 04:00 89 07/24/16 03:14 87 20 100 Venturi Mask 6.0 35 07/24/16 03:05 84 20 100 Venturi Mask 6.0 35 07/24/16 03:05 35 07/24/16 00:00 98.3 89 22 127/78 98 Venturi Mask 35 07/24/16 00:00 85 07/24/16 00:00 35 07/23/16 22:58 84 20 100 Venturi Mask 6.0 35 07/23/16 22:50 40 07/23/16 22:50 79 20 100 Venturi Mask 8.0 40 07/23/16 20:00 81 07/23/16 20:00 97.5 88 20 139/80 100 Venturi Mask 40 07/23/16 20:00 40 07/23/16 19:22 86 20 100 Venturi Mask 8.0 40 07/23/16 19:15 Venturi Mask 8.0 40 07/23/16 19:15 100 Venturi Mask 8.0 40 07/23/16 19:14 83 20 100 Venturi Mask 8.0 40 07/23/16 19:14 40 07/23/16 16:41 98.0 89 20 144/80 99 Venturi Mask 40 07/23/16 15:29 40 07/23/16 15:28 89 24 100 Venturi Mask 8.0 40 07/23/16 15:19 40 07/23/16 15:19 84 24 100 Venturi Mask 8.0 40 07/23/16 15:19 83 07/23/16 11:52 78 07/23/16 11:51 85 21 100 Venturi Mask 8.0 40 Height (Feet): 5 Height (Inches): 10.00 Weight (Pounds): 149 Respiratory/Chest: lungs clear Cardiovascular: normal rate, regular rhythm, no gallop/murmur Abdomen: soft, non tender, other - GT Extremities: no edema Microbiology Date/Time Source Procedure Growth Status 07/21/16 15:15 Sputum Gram Stain - Final Resulted 07/21/16 15:15 Sputum Culture - Preliminary Gram Negative Bacillus 1 Gram Negative Bacillus 2 Resulted 07/21/16 21:00 Arm Right Catheter Tip Culture - Preliminary NO GROWTH AFTER 48 HOURS Resulted YEVGENIY GARCIA July 24, 2016 11:52
--- NOTE | 2016-07-24 12:20 | Pulmonology Progress Note ---
Assessment/Plan Assessment/Plan IMPRESSION: 1. Evidence of pneumonia. 2. Evidence of acute on chronic renal failure . 3. Evidence of transaminitis. 4. Evidence of severe protein-calorie malnutrition. 5. Anemia. 6. Chronic encephalopathy. 7. aspiration 8. hypoxemia 9. sepsis/bacteremia PLAN antibiotics noted ID reviewed still with evidence of pneumonia abg improved respiratory care off BIPAP and monitor snf meds DNR continue to support ID noted cards noted hope to dc soon impression, plan, and exam edited and reviewed in detail care discussed with RN Subjective ROS Limited/Unobtainable: Yes Allergies: Coded Allergies: No Known Allergies (Unverified , 07/02/16) Subjective medication noted d/w snf care reviewed Objective Last 24 Hour Vital Signs Date Time Temp Pulse Resp B/P Pulse Ox O2 Delivery O2 Flow Rate FiO2 07/24/16 11:41 98.3 93 24 132/90 92 Venturi Mask 35 07/24/16 11:30 92 22 100 Venturi Mask 6.0 35 07/24/16 11:20 90 22 100 Venturi Mask 6.0 35 07/24/16 11:20 35 07/24/16 08:00 94 07/24/16 08:00 97.6 91 20 134/87 100 Venturi Mask 35 07/24/16 07:51 96 22 100 Venturi Mask 6.0 35 07/24/16 07:38 90 22 100 Venturi Mask 6.0 35 07/24/16 07:36 35 07/24/16 07:34 Venturi Mask 6.0 35 07/24/16 07:33 100 Venturi Mask 6.0 35 07/24/16 04:00 98.6 91 20 107/66 100 Venturi Mask 35 07/24/16 04:00 89 07/24/16 03:14 87 20 100 Venturi Mask 6.0 35 07/24/16 03:05 84 20 100 Venturi Mask 6.0 35 07/24/16 03:05 35 07/24/16 00:00 98.3 89 22 127/78 98 Venturi Mask 35 07/24/16 00:00 85 07/24/16 00:00 35 07/23/16 22:58 84 20 100 Venturi Mask 6.0 35 07/23/16 22:50 40 07/23/16 22:50 79 20 100 Venturi Mask 8.0 40 07/23/16 20:00 81 07/23/16 20:00 97.5 88 20 139/80 100 Venturi Mask 40 07/23/16 20:00 40 07/23/16 19:22 86 20 100 Venturi Mask 8.0 40 07/23/16 19:15 Venturi Mask 8.0 40 07/23/16 19:15 100 Venturi Mask 8.0 40 07/23/16 19:14 83 20 100 Venturi Mask 8.0 40 07/23/16 19:14 40 07/23/16 16:41 98.0 89 20 144/80 99 Venturi Mask 40 07/23/16 15:29 40 07/23/16 15:28 89 24 100 Venturi Mask 8.0 40 07/23/16 15:19 40 07/23/16 15:19 84 24 100 Venturi Mask 8.0 40 07/23/16 15:19 83 Intake and Output 07/23/16 07/24/16 19:00 07:00 Intake Total 1397.5 ml 1560.833 ml Output Total 550 ml 650 ml Balance 847.5 ml 910.833 ml Intake Free Water 450 ml 450 ml IV Total 627.5 ml 565.833 ml Tube Feeding 320 ml 545 ml Output Urine Total 550 ml 650 ml Objective GENERAL: The patient is a well-developed male, appears to be in no distress HEENT: Pupils are sluggishly reactive. NECK: Supple. LUNGS: Coarse breath sounds. improvement in rhonchi bilaterally. no wheeze CARDIAC: S1 and S2. RRR without murmurs, rubs, or gallops. ABDOMEN: Soft and nontender, G-tube in place. no HSM EXTREMITIES: No cyanosis or clubbing. No significant edema. NEUROLOGIC: Poorly responsive. Reduced mental status. nonfocal reviewed and edited Microbiology Date/Time Source Procedure Growth Status 07/21/16 15:15 Sputum Gram Stain - Final Resulted 07/21/16 15:15 Sputum Culture - Preliminary Gram Negative Bacillus 1 Gram Negative Bacillus 2 Resulted 07/21/16 21:00 Arm Right Catheter Tip Culture - Preliminary NO GROWTH AFTER 48 HOURS Resulted Current Medications Medications (Trade) Dose Ordered Sig/Alex Route PRN Reason Start Time Stop Time Status Last Admin Dose Admin Acetaminophen 650 mg 650 mg Q4H PRN GT T>100.5 / Mild pain 07/22/16 14:00 08/21/16 13:59 Albuterol/ Ipratropium (DuoNeb 0.5-3(2.5)mg/3ml) 3 ml Q4HRT HHN 07/20/16 11:00 07/25/16 10:59 07/24/16 11:26 Amiodarone HCl (Cordarone) 200 mg DAILY GT 07/23/16 15:23 08/19/16 08:59 07/24/16 09:12 Ascorbic Acid (Vitamin C) 500 mg DAILY GT 07/20/16 09:00 08/19/16 08:59 07/24/16 09:11 Cefepime HCl/ Dextrose (Maxipime/D5W) 55 ml @ 110 mls/hr EVERY 12 HOURS IVPB 07/23/16 21:00 07/30/16 20:59 07/24/16 11:04 Dextrose (Dextrose 50%) STAT PRN IV Hypoglycemia 07/20/16 19:30 08/19/16 19:29 Dextrose/Sodium Chloride (D5ns) 1,000 ml @ 50 mls/hr Q20H IV 07/20/16 20:30 08/19/16 20:29 07/24/16 02:47 Docusate Sodium (Colace) 100 mg TWICE A DAY NG 07/20/16 18:00 08/19/16 17:59 07/24/16 09:12 Heparin Sodium (Porcine) (Heparin 5000 units/ml) 5,000 units EVERY 12 HOURS SUBQ 07/20/16 09:00 08/19/16 08:59 07/24/16 09:18 Insulin Aspart (NovoLOG) EVERY 6 HOURS SUBQ 07/21/16 00:00 08/20/16 00:00 07/24/16 01:21 Lansoprazole 30 mg 30 mg DAILY NG 07/21/16 09:00 08/20/16 08:59 07/24/16 09:12 Multivitamins (Multivitamins W/ Minerals 15ml Liquid) 15 ml DAILY ORAL 07/24/16 09:00 08/23/16 08:59 07/24/16 09:12 Zinc Sulfate (Zinc Sulfate) 220 mg DAILY ORAL 07/20/16 09:00 08/19/16 08:59 5/12/17 09:12 ESHA BEY July 24, 2016 12:20
[2016-07-24 16:23] VITALS: BP 136/82
[2016-07-24] MEDS ORDERED: D5NS 1000ml IV ONE (17:28)
[2016-07-24 20:08] VITALS: BP 119/65
[2016-07-25] VITALS: BP 120/74
[2016-07-25] MEDS: NovoLOG Insulin Flexpen SUBQ SCH ×5 (00:13→23:14)
[2016-07-25] MEDS: DuoNeb 0.5-3(2.5)mg/3ml neb HHN SCH ×2 (02:56→07:47)
--- NOTE | 2016-07-25 03:19 | Progress Note ---
DATE: 07/23/2016 CARDIOLOGY PROGRESS NOTE SUBJECTIVE: The patient is off BiPAP. He has congestion, shortness of breath and positive blood cultures. Monitored rhythm sinus with frequent atrial ectopic. OBJECTIVE: VITAL SIGNS: Blood pressure 139/83, pulse 84, and respirations 20. LUNGS: Bilateral breath sounds with rhonchi. HEART: Regular rhythm and rate. Normal S1 and S2. ABDOMEN: Soft. EXTREMITIES: Trace edema. LABORATORY DATA: White count 6 and hemoglobin 9.2. ABG 7.50, 40 and 104. Sodium 142, potassium 3.3, bicarbonate 28, BUN 24 and creatinine 0.9. Pro-natriuretic peptide has increased to 1328 and albumin is 1.9. IMPRESSION: 1. Acute and chronic renal failure with prerenal azotemia resolved following hydration. 2. Hypokalemia. 3. Acute and chronic diastolic congestive heart failure. 4. Severe protein-calorie malnutrition. 5. Cerebrovascular disease with dementia. 6. Paroxysmal atrial fibrillation. PLAN: 1. Taper off IV fluids. 2. Continue amiodarone for arrhythmia suppression. 3. Nutritional support by feeding tube. 4. Prognosis is poor. Natalio Wisdom M.D. DR: MAX JOB#: [id number] CC:
[2016-07-25 04:00] VITALS: BP 116/88
--- NOTE | 2016-07-25 05:49 | Progress Note ---
DATE: 07/24/2016 CARDIOLOGY PROGRESS NOTE SUBJECTIVE: Condition remains tenuous. The patient remains on antibiotics and respiratory treatment for acute pneumonia. Neurologic evaluation appreciated. The patient felt to have postural hand tremors and postanoxic encephalopathy. OBJECTIVE: VITAL SIGNS: Blood pressure 119/65, pulse 87, and respirations 20. LUNGS: Bilateral breath sounds. Bilateral rhonchi. HEART: Regular rhythm and rate. Normal S1, S2 with a fourth heart sound. ABDOMEN: Soft. EXTREMITIES: Trace edema. LABORATORY DATA: Labs pending. IMPRESSION: 1. Paroxysmal atrial fibrillation. 2. Hypokalemia. 3. Nosocomial pneumonia. 4. Postanoxic encephalopathy. 5. Tremors may be due to amiodarone neurotoxicity. PLAN: 1. Recheck labs. 2. Continue antibiotics. 3. Maintenance dose amiodarone. 4. If tremors persist, we will need to consider discontinuing amiodarone. Natalio Wisdom M.D. DR: JA JOB#: [id number] CC:
[2016-07-25 08:34] VITALS: BP 141/84
[2016-07-25] MEDS: Zinc Sulfate 220mg cap GT SCH (08:35)
[2016-07-25] MEDS: Amiodarone 200mg tab GT SCH (08:35)
[2016-07-25] MEDS: Docusate 100mg/10ml Liq NG SCH ×2 (08:35→17:24)
[2016-07-25] MEDS: Ascorbic Acid 500mg tab GT SCH (08:35)
[2016-07-25] MEDS: Multivitamins W/Minerals 15 ML UDC GT SCH (08:36)
[2016-07-25] MEDS: Cefepime HCl 1 GM in D5W 55 ML IVPB SCH ×2 (08:37→20:42)
[2016-07-25] MEDS: Heparin 5000 units/ml inj SUBQ SCH ×2 (08:38→20:43)
[2016-07-25 10:23] LABS: BASOPHILS % (AUTO) 0.2 % (0.0-2.0); EOSINOPHILS % (AUTO) 1.6 % (0.0-3.0); LYMPHOCYTES % (AUTO) 10.6 % (20.0-45.0); MEAN CORPUSCULAR HEMOGLOBIN 29.9 PG (27.0-31.0); MEAN CORPUSCULAR HGB CONC 31.8 G/DL (32.0-36.0); MEAN CORPUSCULAR VOLUME 94 FL (80-99); MEAN PLATELET VOLUME 6.1 FL (6.5-10.1); MONOCYTES % (AUTO) 3.9 % (1.0-10.0); NEUTROPHILS % (AUTO) 83.7 % (45.0-75.0); PLATELET COUNT 353 K/UL (150-450); RED BLOOD COUNT 2.74 M/UL (4.70-6.10); RED CELL DISTRIBUTION WIDTH 13.4 % (11.6-14.8); WHITE BLOOD COUNT 7.1 K/UL (4.8-10.8)
--- NOTE | 2016-07-25 10:49 | General Progress Note ---
Assessment/Plan Problem List: (1) Dysphagia ICD Codes: R13.10 - Dysphagia, unspecified SNOMED: 01924450, 813700806 (2) Respiratory failure ICD Codes: J96.90 - Respiratory failure, unspecified, unspecified whether with hypoxia or hypercapnia SNOMED: 188614614 Qualifiers: Qualified Codes: J96.01 - Acute respiratory failure with hypoxia; J96.02 - Acute respiratory failure with hypercapnia (3) Bilateral pneumonia ICD Codes: J18.9 - Pneumonia, unspecified organism SNOMED: 844357010 Qualifiers: Qualified Codes: J18.9 - Pneumonia, unspecified organism Status: stable, progressing Assessment/Plan bipap as needed. wean fio2 resp rx suctioning monitor for aspiration iv abx follow cultures feeds adjusted. monitor residuals. eeg poor prognosis guarded but improving slowly Subjective ROS Limited/Unobtainable: Yes Constitutional: Reports: malaise, weakness HEENT: Reports: no symptoms Cardiovascular: Reports: no symptoms Respiratory: Reports: cough, shortness of breath, sputum Gastrointestinal/Abdominal: Reports: difficulty swallowing Genitourinary: Reports: no symptoms Neurologic/Psychiatric: Reports: pre-existing deficit Endocrine: Reports: no symptoms Hematologic/Lymphatic: Reports: no symptoms Allergies: Coded Allergies: No Known Allergies (Unverified , 07/02/16) All Systems: reviewed and negative except above Subjective on face mask at 35%. poorly responsive at baseline. on iv abx. cxr still with infiltrates, seems less congested. suctioned pink frothy secretions every 3 hrs per RT Objective Last 24 Hour Vital Signs Date Time Temp Pulse Resp B/P Pulse Ox O2 Delivery O2 Flow Rate FiO2 07/25/16 08:34 97.9 88 30 141/84 100 Venturi Mask 07/25/16 07:56 85 07/25/16 07:50 77 20 100 Venturi Mask 6.0 35 07/25/16 07:40 86 20 100 Venturi Mask 6.0 35 07/25/16 07:37 99 Venturi Mask 6.0 35 07/25/16 07:36 Venturi Mask 6.0 35 07/25/16 07:11 35 07/25/16 04:00 97.5 83 18 116/88 100 Simple Mask 07/25/16 04:00 84 07/25/16 02:57 77 18 100 Venturi Mask 6.0 35 07/25/16 02:56 35 07/25/16 02:56 80 18 98 Venturi Mask 6.0 35 07/25/16 00:00 87 07/25/16 00:00 96.6 89 18 120/74 100 Venturi Mask 07/24/16 22:47 84 18 100 Venturi Mask 6.0 35 07/24/16 22:47 35 07/24/16 22:46 85 18 100 Venturi Mask 6.0 35 07/24/16 20:08 98.2 87 20 119/65 100 Simple Mask 07/24/16 20:00 86 07/24/16 18:59 90 20 100 Venturi Mask 6.0 35 07/24/16 18:59 94 18 100 Venturi Mask 6.0 35 07/24/16 18:59 35 07/24/16 18:58 Venturi Mask 6.0 35 07/24/16 18:58 99 Venturi Mask 6.0 35 07/24/16 16:23 98.2 96 23 136/82 100 Venturi Mask 35 07/24/16 16:00 93 07/24/16 15:59 88 22 100 Venturi Mask 6.0 35 07/24/16 15:51 35 07/24/16 15:49 92 22 100 Venturi Mask 6.0 35 07/24/16 12:00 94 07/24/16 11:41 98.3 93 24 132/90 92 Venturi Mask 35 07/24/16 11:30 92 22 100 Venturi Mask 6.0 35 07/24/16 11:20 90 22 100 Venturi Mask 6.0 35 07/24/16 11:20 35 Intake and Output 07/24/16 07/25/16 19:00 07:00 Intake Total 1795 ml 1480 ml Output Total 600 ml 900 ml Balance 1195 ml 580 ml Intake Oral 0 ml Free Water 180 ml 450 ml IV Total 685 ml 250 ml Tube Feeding 780 ml 780 ml Blood Product 150 ml Output Urine Total 600 ml 900 ml Laboratory Tests 07/25/16 09:40: White Blood Count 7.1, Red Blood Count 2.74L, Hemoglobin 8.2L, Hematocrit 25.8L , Mean Corpuscular Volume 94, Mean Corpuscular Hemoglobin 29.9, Mean Corpuscular Hemoglobin Concent 31.8L, Red Cell Distribution Width 13.4, Platelet Count 353, Mean Platelet Volume 6.1L, Neutrophils (%) (Auto) 83.7H, Lymphocytes (%) (Auto) 10.6L, Monocytes (%) (Auto) 3.9, Eosinophils (%) (Auto) 1.6, Basophils (%) (Auto) 0.2, Sodium Level [Pending], Potassium Level [Pending] , Chloride Level [Pending], Carbon Dioxide Level [Pending], Blood Urea Nitrogen [Pending], Creatinine [Pending], Estimat Glomerular Filtration Rate [Pending], Glucose Level [Pending], Calcium Level [Pending], Magnesium Level [Pending], Total Bilirubin [Pending], Aspartate Amino Transf (AST/SGOT) [Pending], Alanine Aminotransferase (ALT/SGPT) [Pending], Alkaline Phosphatase [Pending], Pro-B- Type Natriuretic Peptide [Pending], Total Protein [Pending], Albumin [Pending], Globulin [Pending] Height (Feet): 5 Height (Inches): 10.00 Weight (Pounds): 149 Objective General Appearance: WD/WN, alert Neck: supple Cardiovascular: regular rhythm Respiratory/Chest: rhonchi - bilaterally Abdomen: normal bowel sounds, non tender, soft, no organomegaly Edema: no edema noted Arm (L), no edema noted Arm (R), no edema noted Leg (L), no edema noted Leg (R), no edema noted Pedal (L), no edema noted Pedal (R), no edema noted Generalized Neurologic: aphasia Skin: normal pigmentation FAWN PORTER July 25, 2016 10:49
[2016-07-25 10:53] LABS: ALANINE AMINOTRANSFERASE 47 U/L (3-41); ALBUMIN/GLOBULIN RATIO 0.4 (1.0-2.7); ANION GAP 13 (5-15); ASPARTATE AMINO TRANSFERASE 44 U/L (5-40); CALCIUM 8.1 mg/dL (8.6-10.2); CARBON DIOXIDE 28 mEQ/L (20-30); CHLORIDE 103 mEQ/L (98-107); CREATININE 0.9 mg/dL (0.7-1.2); GLOMERULAR FILTRATION RATE > 60 mL/min (>60); HEMOLYSIS 1; MAGNESIUM 1.8 mg/dL (1.7-2.5); POTASSIUM 3.3 mEQ/L (3.4-4.9); SODIUM 144 mEQ/L (135-145); TOTAL PROTEIN 6.2 g/dL (6.6-8.7)
[2016-07-25] MEDS ORDERED: KCl 10% 40mEq/30ml liquid GT ONE (11:30)
--- NOTE | 2016-07-25 11:50 | Pulmonology Progress Note ---
Assessment/Plan Assessment/Plan IMPRESSION: 1. Evidence of pneumonia. 2. Evidence of acute on chronic renal failure . 3. Evidence of transaminitis. 4. Evidence of severe protein-calorie malnutrition. 5. Anemia. 6. Chronic encephalopathy. 7. aspiration 8. hypoxemia 9. sepsis/bacteremia PLAN antibiotics noted ID reviewed still with evidence of pneumonia; repeat xray respiratory care off BIPAP and monitor snf meds DNR continue to support suction and aspiration monitoring hope to dc soon impression, plan, and exam edited and reviewed in detail care discussed with RN Subjective ROS Limited/Unobtainable: Yes Allergies: Coded Allergies: No Known Allergies (Unverified , 07/02/16) Subjective medication noted care reviewed ID noted d/w all Objective Last 24 Hour Vital Signs Date Time Temp Pulse Resp B/P Pulse Ox O2 Delivery O2 Flow Rate FiO2 07/25/16 08:34 97.9 88 30 141/84 100 Venturi Mask 07/25/16 07:56 85 07/25/16 07:50 77 20 100 Venturi Mask 6.0 35 07/25/16 07:40 86 20 100 Venturi Mask 6.0 35 07/25/16 07:37 99 Venturi Mask 6.0 35 07/25/16 07:36 Venturi Mask 6.0 35 07/25/16 07:11 35 07/25/16 04:00 97.5 83 18 116/88 100 Simple Mask 07/25/16 04:00 84 07/25/16 02:57 77 18 100 Venturi Mask 6.0 35 07/25/16 02:56 35 07/25/16 02:56 80 18 98 Venturi Mask 6.0 35 07/25/16 00:00 87 07/25/16 00:00 96.6 89 18 120/74 100 Venturi Mask 07/24/16 22:47 84 18 100 Venturi Mask 6.0 35 07/24/16 22:47 35 07/24/16 22:46 85 18 100 Venturi Mask 6.0 35 07/24/16 20:08 98.2 87 20 119/65 100 Simple Mask 07/24/16 20:00 86 07/24/16 18:59 90 20 100 Venturi Mask 6.0 35 07/24/16 18:59 94 18 100 Venturi Mask 6.0 35 07/24/16 18:59 35 07/24/16 18:58 Venturi Mask 6.0 35 07/24/16 18:58 99 Venturi Mask 6.0 35 07/24/16 16:23 98.2 96 23 136/82 100 Venturi Mask 35 07/24/16 16:00 93 07/24/16 15:59 88 22 100 Venturi Mask 6.0 35 07/24/16 15:51 35 07/24/16 15:49 92 22 100 Venturi Mask 6.0 35 07/24/16 12:00 94 Intake and Output 07/24/16 07/25/16 19:00 07:00 Intake Total 1795 ml 1480 ml Output Total 600 ml 900 ml Balance 1195 ml 580 ml Intake Oral 0 ml Free Water 180 ml 450 ml IV Total 685 ml 250 ml Tube Feeding 780 ml 780 ml Blood Product 150 ml Output Urine Total 600 ml 900 ml Objective GENERAL: The patient is a well-developed male, appears to be in no distress HEENT: Pupils are sluggishly reactive. NECK: Supple. LUNGS: some reduced breath sounds with rhonchi bilaterally. no wheeze CARDIAC: S1 and S2. RRR without murmurs, rubs, or gallops. ABDOMEN: Soft and nontender, G-tube in place. no HSM EXTREMITIES: No cyanosis or clubbing. No significant edema. NEUROLOGIC: Poorly responsive. Reduced mental status. nonfocal reviewed and edited Microbiology Date/Time Source Procedure Growth Status 07/23/16 12:15 Blood Blood Culture - Preliminary NO GROWTH AFTER 24 HOURS Resulted Laboratory Tests 07/25/16 09:40: White Blood Count 7.1, Red Blood Count 2.74L, Hemoglobin 8.2L, Hematocrit 25.8L , Mean Corpuscular Volume 94, Mean Corpuscular Hemoglobin 29.9, Mean Corpuscular Hemoglobin Concent 31.8L, Red Cell Distribution Width 13.4, Platelet Count 353, Mean Platelet Volume 6.1L, Neutrophils (%) (Auto) 83.7H, Lymphocytes (%) (Auto) 10.6L, Monocytes (%) (Auto) 3.9, Eosinophils (%) (Auto) 1.6, Basophils (%) (Auto) 0.2, Sodium Level 144, Potassium Level 3.3L, Chloride Level 103, Carbon Dioxide Level 28, Anion Gap 13, Blood Urea Nitrogen 23, Creatinine 0.9, Estimat Glomerular Filtration Rate > 60, Glucose Level 131H, Calcium Level 8.1L, Magnesium Level 1.8, Total Bilirubin 0.3, Aspartate Amino Transf (AST/SGOT) 44H, Alanine Aminotransferase (ALT/SGPT) 47H, Alkaline Phosphatase 119, Pro-B-Type Natriuretic Peptide 1928H, Total Protein 6.2L, Albumin 1.8L, Globulin 4.4, Albumin/Globulin Ratio 0.4L Current Medications Medications (Trade) Dose Ordered Sig/Alex Route PRN Reason Start Time Stop Time Status Last Admin Dose Admin Acetaminophen 650 mg 650 mg Q4H PRN GT T>100.5 / Mild pain 07/22/16 14:00 08/21/16 13:59 07/24/16 17:01 Amiodarone HCl (Cordarone) 200 mg DAILY GT 07/23/16 15:23 08/19/16 08:59 07/25/16 08:35 Ascorbic Acid (Vitamin C) 500 mg DAILY GT 07/20/16 09:00 08/19/16 08:59 07/25/16 08:35 Cefepime HCl/ Dextrose (Maxipime/D5W) 55 ml @ 110 mls/hr EVERY 12 HOURS IVPB 07/23/16 21:00 07/30/16 20:59 07/25/16 08:37 Dextrose (Dextrose 50%) STAT PRN IV Hypoglycemia 07/20/16 19:30 08/19/16 19:29 Docusate Sodium (Colace) 100 mg TWICE A DAY NG 07/20/16 18:00 08/19/16 17:59 07/25/16 08:35 Heparin Sodium (Porcine) (Heparin 5000 units/ml) 5,000 units EVERY 12 HOURS SUBQ 07/20/16 09:00 08/19/16 08:59 07/25/16 08:38 Insulin Aspart (NovoLOG) EVERY 6 HOURS SUBQ 07/21/16 00:00 08/20/16 00:00 07/25/16 00:13 Lansoprazole (Prevacid) 30 mg DAILY NG 07/21/16 09:00 08/20/16 08:59 07/25/16 08:35 Multivitamins (Multivitamins W/ Minerals 15ml Liquid) 15 ml DAILY GT 07/24/16 13:06 08/23/16 08:59 07/25/16 08:36 Zinc Sulfate (Zinc Sulfate) 220 mg DAILY GT 07/24/16 13:06 08/19/16 08:59 07/25/16 08:35 ESHA BEY July 25, 2016 11:50
[2016-07-25 12:45] VITALS: BP 141/94
[2016-07-25] MEDS ORDERED: NS 275ml ONE (16:00)
[2016-07-25] MEDS ORDERED: D5NS 1000ml IV ONE (16:00)
[2016-07-25 16:14] VITALS: BP 140/88
[2016-07-25 20:00] VITALS: BP 140/95
[2016-07-26] VITALS: BP 136/78
[2016-07-26 04:00] VITALS: BP 135/83
--- NOTE | 2016-07-26 04:39 | Progress Note ---
DATE: 07/25/2016 CARDIOLOGY PROGRESS NOTE SUBJECTIVE: The patient is on 35% face mask. He is less congested, but continues to have significant secretions requiring suctioning around the clock. Monitored rhythm revealed sinus tachycardia and episodic atrial ectopics. OBJECTIVE: VITAL SIGNS: Blood pressure 141/84, pulse 80, and respirations 30. No fevers. LUNGS: Bilateral breath sounds. Scattered rhonchi and rales. HEART: Regular rhythm and rate. Normal S1 and S2 with a fourth heart sound. ABDOMEN: Soft. EXTREMITIES: There is dependent edema. LABORATORY DATA: White count 7.1 and hemoglobin 8.2. Sodium 144, potassium 3.3, bicarbonate 28, BUN 22 and creatinine 0.9. Magnesium is 1.8. Pro-natriuretic peptide is 1900. Albumin is 1.8. IMPRESSIONS: 1. Healthcare-acquired pneumonia respiratory failure. 2. Cerebrovascular disease with severe encephalopathy. 3. Bacteremia with risk for endocarditis. 4. Aspiration. 5. Hypoxia. 6. Severe protein-calorie malnutrition. 7. Hypokalemia. 8. Paroxysmal atrial ectopy. 9. Secondary sinus tachycardia. 10. Acute on chronic diastolic congestive heart failure. PLAN: 1. Antimicrobials. 2. Respiratory hygiene. 3. Protein supplement. 4. Consider packed red blood cell transfusion with concomitant diuresis. 5. Prognosis remains very poor. Natalio Wisdom M.D. DR: MAX JOB#: [id number] CC:
[2016-07-26] MEDS: NovoLOG Insulin Flexpen SUBQ SCH ×4 (05:34→23:33)
[2016-07-26 05:57] LABS: BASOPHILS % (AUTO) 0.4 % (0.0-2.0); EOSINOPHILS % (AUTO) 1.6 % (0.0-3.0); LYMPHOCYTES % (AUTO) 11.2 % (20.0-45.0); MEAN CORPUSCULAR HEMOGLOBIN 29.6 PG (27.0-31.0); MEAN CORPUSCULAR HGB CONC 31.6 G/DL (32.0-36.0); MEAN CORPUSCULAR VOLUME 94 FL (80-99); MEAN PLATELET VOLUME 6.6 FL (6.5-10.1); MONOCYTES % (AUTO) 4.9 % (1.0-10.0); NEUTROPHILS % (AUTO) 81.9 % (45.0-75.0); PLATELET COUNT 397 K/UL (150-450); RED BLOOD COUNT 2.73 M/UL (4.70-6.10); WHITE BLOOD COUNT 8.7 K/UL (4.8-10.8)
[2016-07-26 06:13] LABS: ALANINE AMINOTRANSFERASE 48 U/L (3-41); ALBUMIN/GLOBULIN RATIO 0.4 (1.0-2.7); ANION GAP 12 (5-15); ASPARTATE AMINO TRANSFERASE 43 U/L (5-40); CALCIUM 8.2 mg/dL (8.6-10.2); CARBON DIOXIDE 30 mEQ/L (20-30); CHLORIDE 102 mEQ/L (98-107); GLOMERULAR FILTRATION RATE > 60 mL/min (>60); HEMOLYSIS 4; SODIUM 144 mEQ/L (135-145); TOTAL PROTEIN 6.4 g/dL (6.6-8.7)
[2016-07-26 08:00] VITALS: BP 141/82
--- NOTE | 2016-07-26 08:38 | Pulmonology Progress Note ---
Assessment/Plan Assessment/Plan IMPRESSION: 1. Evidence of pneumonia. 2. Evidence of acute on chronic renal failure . 3. Evidence of transaminitis. 4. Evidence of severe protein-calorie malnutrition. 5. Anemia. 6. Chronic encephalopathy. 7. aspiration 8. hypoxemia 9. sepsis/bacteremia PLAN antibiotics noted ID reviewed still with evidence of pneumonia; await xray respiratory care off BIPAP and monitor snf meds DNR continue to support suction and aspiration monitoring hope to dc in am d/w ID as to length of antibiotics impression, plan, and exam edited and reviewed in detail care discussed with RN Subjective ROS Limited/Unobtainable: Yes Allergies: Coded Allergies: No Known Allergies (Unverified , 07/02/16) Subjective medication noted care reviewed ID noted d/w all Objective Last 24 Hour Vital Signs Date Time Temp Pulse Resp B/P Pulse Ox O2 Delivery O2 Flow Rate FiO2 07/26/16 08:00 84 07/26/16 04:00 35 07/26/16 04:00 97.9 90 20 135/83 100 Venturi Mask 07/26/16 04:00 93 07/26/16 00:00 91 07/26/16 00:00 98.2 82 22 136/78 100 Venturi Mask 07/26/16 00:00 35 07/25/16 20:00 98.3 91 22 140/95 100 Venturi Mask 07/25/16 20:00 91 07/25/16 20:00 98.3 91 22 140/95 100 Mechanical Ventilator 07/25/16 20:00 35 07/25/16 19:14 100 Venturi Mask 6.0 35 07/25/16 19:14 Venturi Mask 6.0 35 07/25/16 16:14 98.2 89 28 140/88 100 Venturi Mask 07/25/16 16:13 89 07/25/16 12:45 98.2 87 26 141/94 100 Venturi Mask 07/25/16 12:40 143 07/25/16 11:46 88 Intake and Output 07/25/16 07/26/16 19:00 07:00 Intake Total 1285 ml 1285 ml Output Total 850 ml 1100 ml Balance 435 ml 185 ml Free Water 450 ml 450 ml IV Total 55 ml 55 ml Tube Feeding 780 ml 780 ml Output Urine Total 850 ml 1100 ml Objective GENERAL: The patient is a well-developed male, appears to be in no distress HEENT: Pupils are sluggishly reactive. NECK: Supple. LUNGS: some reduced breath sounds with minimal rhonchi bilaterally. no wheeze CARDIAC: S1 and S2. RRR without murmurs, rubs, or gallops. ABDOMEN: Soft and nontender, G-tube in place. no HSM EXTREMITIES: No cyanosis or clubbing. No significant edema. NEUROLOGIC: Poorly responsive. Reduced mental status. nonfocal reviewed and edited Microbiology Date/Time Source Procedure Growth Status 07/23/16 12:15 Blood Blood Culture - Preliminary NO GROWTH AFTER 48 HOURS Resulted Laboratory Tests 07/25/16 09:40: White Blood Count 7.1, Red Blood Count 2.74L, Hemoglobin 8.2L, Hematocrit 25.8L , Mean Corpuscular Volume 94, Mean Corpuscular Hemoglobin 29.9, Mean Corpuscular Hemoglobin Concent 31.8L, Red Cell Distribution Width 13.4, Platelet Count 353, Mean Platelet Volume 6.1L, Neutrophils (%) (Auto) 83.7H, Lymphocytes (%) (Auto) 10.6L, Monocytes (%) (Auto) 3.9, Eosinophils (%) (Auto) 1.6, Basophils (%) (Auto) 0.2, Sodium Level 144, Potassium Level 3.3L, Chloride Level 103, Carbon Dioxide Level 28, Anion Gap 13, Blood Urea Nitrogen 23, Creatinine 0.9, Estimat Glomerular Filtration Rate > 60, Glucose Level 131H, Calcium Level 8.1L, Magnesium Level 1.8, Total Bilirubin 0.3, Aspartate Amino Transf (AST/SGOT) 44H, Alanine Aminotransferase (ALT/SGPT) 47H, Alkaline Phosphatase 119, Pro-B-Type Natriuretic Peptide 1928H, Total Protein 6.2L, Albumin 1.8L, Globulin 4.4, Albumin/Globulin Ratio 0.4L 07/26/16 04:42: White Blood Count 8.7, Red Blood Count 2.73L, Hemoglobin 8.1L, Hematocrit 25.7L , Mean Corpuscular Volume 94, Mean Corpuscular Hemoglobin 29.6, Mean Corpuscular Hemoglobin Concent 31.6L, Red Cell Distribution Width 13.0, Platelet Count 397, Mean Platelet Volume 6.6, Neutrophils (%) (Auto) 81.9H, Lymphocytes (%) (Auto) 11.2L, Monocytes (%) (Auto) 4.9, Eosinophils (%) (Auto) 1.6, Basophils (%) (Auto) 0.4, Sodium Level 144, Potassium Level 4.0, Chloride Level 102, Carbon Dioxide Level 30, Anion Gap 12, Blood Urea Nitrogen 27H, Creatinine 1.0, Estimat Glomerular Filtration Rate > 60, Glucose Level 97, Calcium Level 8.2L, Total Bilirubin 0.3, Aspartate Amino Transf (AST/SGOT) 43H, Alanine Aminotransferase (ALT/SGPT) 48H, Alkaline Phosphatase 122, Total Protein 6.4L, Albumin 1.9L, Globulin 4.5, Albumin/Globulin Ratio 0.4L Current Medications Medications (Trade) Dose Ordered Sig/Alex Route PRN Reason Start Time Stop Time Status Last Admin Dose Admin Acetaminophen 650 mg 650 mg Q4H PRN GT T>100.5 / Mild pain 07/22/16 14:00 08/21/16 13:59 07/24/16 17:01 Amiodarone HCl (Cordarone) 200 mg DAILY GT 07/23/16 15:23 08/19/16 08:59 07/25/16 08:35 Ascorbic Acid (Vitamin C) 500 mg DAILY GT 07/20/16 09:00 08/19/16 08:59 07/25/16 08:35 Cefepime HCl/ Dextrose (Maxipime/D5W) 55 ml @ 110 mls/hr EVERY 12 HOURS IVPB 07/23/16 21:00 07/30/16 20:59 07/25/16 20:42 Dextrose (Dextrose 50%) STAT PRN IV Hypoglycemia 07/20/16 19:30 08/19/16 19:29 Docusate Sodium (Colace) 100 mg TWICE A DAY NG 07/20/16 18:00 08/19/16 17:59 07/25/16 17:24 Heparin Sodium (Porcine) (Heparin 5000 units/ml) 5,000 units EVERY 12 HOURS SUBQ 07/20/16 09:00 08/19/16 08:59 07/25/16 20:43 Insulin Aspart (NovoLOG) EVERY 6 HOURS SUBQ 07/21/16 00:00 08/20/16 00:00 07/25/16 23:14 Lansoprazole (Prevacid) 30 mg DAILY NG 07/21/16 09:00 08/20/16 08:59 07/25/16 08:35 Multivitamins (Multivitamins W/ Minerals 15ml Liquid) 15 ml DAILY GT 07/24/16 13:06 08/23/16 08:59 07/25/16 08:36 Zinc Sulfate (Zinc Sulfate) 220 mg DAILY GT 07/24/16 13:06 08/19/16 08:59 07/25/16 08:35 ESHA BEY July 26, 2016 08:38
--- NOTE | 2016-07-26 08:57 | General Progress Note ---
Assessment/Plan Problem List: (1) Dysphagia ICD Codes: R13.10 - Dysphagia, unspecified SNOMED: 40641398, [id number] (2) Respiratory failure ICD Codes: J96.90 - Respiratory failure, unspecified, unspecified whether with hypoxia or hypercapnia SNOMED: 860252089 Qualifiers: Qualified Codes: J96.01 - Acute respiratory failure with hypoxia; J96.02 - Acute respiratory failure with hypercapnia (3) Bilateral pneumonia ICD Codes: J18.9 - Pneumonia, unspecified organism SNOMED: 855322200 Qualifiers: Qualified Codes: J18.9 - Pneumonia, unspecified organism Status: stable Assessment/Plan bipap as needed. wean fio2 resp rx suctioning as needed monitor for aspiration iv abx follow cultures feeds adjusted. monitor residuals. eeg monitor h/h trending down. may need to transfuse poor prognosis guarded but improving slowly Subjective ROS Limited/Unobtainable: Yes Constitutional: Reports: malaise, weakness HEENT: Reports: no symptoms Cardiovascular: Reports: no symptoms Respiratory: Reports: SOB at rest, cough, sputum, wheezing Gastrointestinal/Abdominal: Reports: difficulty swallowing Genitourinary: Reports: no symptoms Neurologic/Psychiatric: Reports: pre-existing deficit Endocrine: Reports: no symptoms Hematologic/Lymphatic: Reports: anemia Allergies: Coded Allergies: No Known Allergies (Unverified , 07/02/16) All Systems: reviewed and negative except above Subjective on face mask at 35%. poorly responsive at baseline. on iv abx. cxr still with infiltrates. requires frequent suctioning. tolerating feeds Objective Last 24 Hour Vital Signs Date Time Temp Pulse Resp B/P Pulse Ox O2 Delivery O2 Flow Rate FiO2 07/26/16 08:00 84 07/26/16 04:00 35 07/26/16 04:00 97.9 90 20 135/83 100 Venturi Mask 07/26/16 04:00 93 07/26/16 00:00 91 07/26/16 00:00 98.2 82 22 136/78 100 Venturi Mask 07/26/16 00:00 35 07/25/16 20:00 98.3 91 22 140/95 100 Venturi Mask 07/25/16 20:00 91 07/25/16 20:00 98.3 91 22 140/95 100 Mechanical Ventilator 07/25/16 20:00 35 07/25/16 19:14 100 Venturi Mask 6.0 35 07/25/16 19:14 Venturi Mask 6.0 35 07/25/16 16:14 98.2 89 28 140/88 100 Venturi Mask 07/25/16 16:13 89 07/25/16 12:45 98.2 87 26 141/94 100 Venturi Mask 07/25/16 12:40 143 07/25/16 11:46 88 Intake and Output 07/25/16 07/26/16 19:00 07:00 Intake Total 1285 ml 1285 ml Output Total 850 ml 1100 ml Balance 435 ml 185 ml Free Water 450 ml 450 ml IV Total 55 ml 55 ml Tube Feeding 780 ml 780 ml Output Urine Total 850 ml 1100 ml Laboratory Tests 07/25/16 09:40: White Blood Count 7.1, Red Blood Count 2.74L, Hemoglobin 8.2L, Hematocrit 25.8L , Mean Corpuscular Volume 94, Mean Corpuscular Hemoglobin 29.9, Mean Corpuscular Hemoglobin Concent 31.8L, Red Cell Distribution Width 13.4, Platelet Count 353, Mean Platelet Volume 6.1L, Neutrophils (%) (Auto) 83.7H, Lymphocytes (%) (Auto) 10.6L, Monocytes (%) (Auto) 3.9, Eosinophils (%) (Auto) 1.6, Basophils (%) (Auto) 0.2, Sodium Level 144, Potassium Level 3.3L, Chloride Level 103, Carbon Dioxide Level 28, Anion Gap 13, Blood Urea Nitrogen 23, Creatinine 0.9, Estimat Glomerular Filtration Rate > 60, Glucose Level 131H, Calcium Level 8.1L, Magnesium Level 1.8, Total Bilirubin 0.3, Aspartate Amino Transf (AST/SGOT) 44H, Alanine Aminotransferase (ALT/SGPT) 47H, Alkaline Phosphatase 119, Pro-B-Type Natriuretic Peptide 1928H, Total Protein 6.2L, Albumin 1.8L, Globulin 4.4, Albumin/Globulin Ratio 0.4L 07/26/16 04:42: White Blood Count 8.7, Red Blood Count 2.73L, Hemoglobin 8.1L, Hematocrit 25.7L , Mean Corpuscular Volume 94, Mean Corpuscular Hemoglobin 29.6, Mean Corpuscular Hemoglobin Concent 31.6L, Red Cell Distribution Width 13.0, Platelet Count 397, Mean Platelet Volume 6.6, Neutrophils (%) (Auto) 81.9H, Lymphocytes (%) (Auto) 11.2L, Monocytes (%) (Auto) 4.9, Eosinophils (%) (Auto) 1.6, Basophils (%) (Auto) 0.4, Sodium Level 144, Potassium Level 4.0, Chloride Level 102, Carbon Dioxide Level 30, Anion Gap 12, Blood Urea Nitrogen 27H, Creatinine 1.0, Estimat Glomerular Filtration Rate > 60, Glucose Level 97, Calcium Level 8.2L, Total Bilirubin 0.3, Aspartate Amino Transf (AST/SGOT) 43H, Alanine Aminotransferase (ALT/SGPT) 48H, Alkaline Phosphatase 122, Total Protein 6.4L, Albumin 1.9L, Globulin 4.5, Albumin/Globulin Ratio 0.4L Height (Feet): 5 Height (Inches): 10.00 Weight (Pounds): 149 Objective General Appearance: WD/WN, alert Neck: supple Cardiovascular: regular rhythm Respiratory/Chest: rhonchi - bilaterally Abdomen: normal bowel sounds, non tender, soft, no organomegaly Edema: no edema noted Arm (L), no edema noted Arm (R), no edema noted Leg (L), no edema noted Leg (R), no edema noted Pedal (L), no edema noted Pedal (R), no edema noted Generalized Neurologic: aphasia Skin: normal pigmentation FAWN PORTER July 26, 2016 08:57
[2016-07-26] MEDS: Amiodarone 200mg tab GT SCH (09:18)
[2016-07-26] MEDS: Zinc Sulfate 220mg cap GT SCH (09:18)
[2016-07-26] MEDS: Multivitamins W/Minerals 15 ML UDC GT SCH (09:18)
[2016-07-26] MEDS: Docusate 100mg/10ml Liq NG SCH ×2 (09:18→18:42)
[2016-07-26] MEDS: Ascorbic Acid 500mg tab GT SCH (09:18)
[2016-07-26] MEDS: Heparin 5000 units/ml inj SUBQ SCH ×2 (09:19→20:26)
[2016-07-26] MEDS: Cefepime HCl 1 GM in D5W 55 ML IVPB SCH ×2 (09:20→20:24)
[2016-07-26] MEDS ORDERED: NS 275ml ONE (09:27)
--- NOTE | 2016-07-26 09:35 | Infectious Diseases Prog Note ---
Assessment/Plan Assessment/Plan A: 1. aspiration pneumonia 2. anoxic encephalopathy 3. seizures 4. DM 5. MSSA sepsis likely line sepsis 6. VRE colonization P 1. continue Cefepime Subjective ROS Limited/Unobtainable: Yes Allergies: Coded Allergies: No Known Allergies (Unverified , 07/02/16) Objective Vital Signs Last 24 Hour Vital Signs Date Time Temp Pulse Resp B/P Pulse Ox O2 Delivery O2 Flow Rate FiO2 07/26/16 08:00 84 07/26/16 08:00 98.6 84 30 141/82 100 Venturi Mask 07/26/16 04:00 35 07/26/16 04:00 97.9 90 20 135/83 100 Venturi Mask 07/26/16 04:00 93 07/26/16 00:00 91 07/26/16 00:00 98.2 82 22 136/78 100 Venturi Mask 07/26/16 00:00 35 07/25/16 20:00 98.3 91 22 140/95 100 Venturi Mask 07/25/16 20:00 91 07/25/16 20:00 98.3 91 22 140/95 100 Mechanical Ventilator 07/25/16 20:00 35 07/25/16 19:14 100 Venturi Mask 6.0 35 07/25/16 19:14 Venturi Mask 6.0 35 07/25/16 16:14 98.2 89 28 140/88 100 Venturi Mask 07/25/16 16:13 89 07/25/16 12:45 98.2 87 26 141/94 100 Venturi Mask 07/25/16 12:40 143 07/25/16 11:46 88 Height (Feet): 5 Height (Inches): 10.00 Weight (Pounds): 149 General Appearance: no acute distress HEENT: other - O2 by mask Respiratory/Chest: lungs clear Cardiovascular: normal rate Abdomen: soft, non tender, other - GT feeding Neurologic/Psychiatric: unresponsiveness Microbiology Date/Time Source Procedure Growth Status 07/23/16 12:15 Blood Blood Culture - Preliminary NO GROWTH AFTER 48 HOURS Resulted Laboratory Tests Test 07/25/16 09:40 07/26/16 04:42 White Blood Count 7.1 K/UL (4.8-10.8) 8.7 K/UL (4.8-10.8) Red Blood Count 2.74 M/UL (4.70-6.10) L 2.73 M/UL (4.70-6.10) L Hemoglobin 8.2 G/DL (14.2-18.0) L 8.1 G/DL (14.2-18.0) L Hematocrit 25.8 % (42.0-52.0) L 25.7 % (42.0-52.0) L Mean Corpuscular Volume 94 FL (80-99) 94 FL (80-99) Mean Corpuscular Hemoglobin 29.9 PG (27.0-31.0) 29.6 PG (27.0-31.0) Mean Corpuscular Hemoglobin Concent 31.8 G/DL (32.0-36.0) L 31.6 G/DL (32.0-36.0) L Red Cell Distribution Width 13.4 % (11.6-14.8) 13.0 % (11.6-14.8) Platelet Count 353 K/UL (150-450) 397 K/UL (150-450) Mean Platelet Volume 6.1 FL (6.5-10.1) L 6.6 FL (6.5-10.1) Neutrophils (%) (Auto) 83.7 % (45.0-75.0) H 81.9 % (45.0-75.0) H Lymphocytes (%) (Auto) 10.6 % (20.0-45.0) L 11.2 % (20.0-45.0) L Monocytes (%) (Auto) 3.9 % (1.0-10.0) 4.9 % (1.0-10.0) Eosinophils (%) (Auto) 1.6 % (0.0-3.0) 1.6 % (0.0-3.0) Basophils (%) (Auto) 0.2 % (0.0-2.0) 0.4 % (0.0-2.0) Sodium Level 144 mEQ/L (135-145) 144 mEQ/L (135-145) Potassium Level 3.3 mEQ/L (3.4-4.9) L 4.0 mEQ/L (3.4-4.9) Chloride Level 103 mEQ/L (98-107) 102 mEQ/L (98-107) Carbon Dioxide Level 28 mEQ/L (20-30) 30 mEQ/L (20-30) Anion Gap 13 (5-15) 12 (5-15) Blood Urea Nitrogen 23 mg/dL (7-23) 27 mg/dL (7-23) H Creatinine 0.9 mg/dL (0.7-1.2) 1.0 mg/dL (0.7-1.2) Estimat Glomerular Filtration Rate > 60 mL/min (>60) > 60 mL/min (>60) Glucose Level 131 mg/dL (74-106) H 97 mg/dL (74-106) Calcium Level 8.1 mg/dL (8.6-10.2) L 8.2 mg/dL (8.6-10.2) L Magnesium Level 1.8 mg/dL (1.7-2.5) Total Bilirubin 0.3 mg/dL (0.0-1.2) 0.3 mg/dL (0.0-1.2) Aspartate Amino Transf (AST/SGOT) 44 U/L (5-40) H 43 U/L (5-40) H Alanine Aminotransferase (ALT/SGPT) 47 U/L (3-41) H 48 U/L (3-41) H Alkaline Phosphatase 119 U/L (40-129) 122 U/L (40-129) Pro-B-Type Natriuretic Peptide 1928 pg/mL (0-125) H Total Protein 6.2 g/dL (6.6-8.7) L 6.4 g/dL (6.6-8.7) L Albumin 1.8 g/dL (3.5-5.2) L 1.9 g/dL (3.5-5.2) L Globulin 4.4 g/dL 4.5 g/dL Albumin/Globulin Ratio 0.4 (1.0-2.7) L 0.4 (1.0-2.7) L Current Medications Medications (Trade) Dose Ordered Sig/Alex Route PRN Reason Start Time Stop Time Status Last Admin Dose Admin Acetaminophen 650 mg 650 mg Q4H PRN GT T>100.5 / Mild pain 07/22/16 14:00 08/21/16 13:59 07/24/16 17:01 Amiodarone HCl (Cordarone) 200 mg DAILY GT 07/23/16 15:23 08/19/16 08:59 07/26/16 09:18 Ascorbic Acid (Vitamin C) 500 mg DAILY GT 07/20/16 09:00 08/19/16 08:59 07/26/16 09:18 Cefepime HCl/ Dextrose (Maxipime/D5W) 55 ml @ 110 mls/hr EVERY 12 HOURS IVPB 07/23/16 21:00 07/30/16 20:59 07/26/16 09:20 Dextrose (Dextrose 50%) STAT PRN IV Hypoglycemia 07/20/16 19:30 08/19/16 19:29 Docusate Sodium (Colace) 100 mg TWICE A DAY NG 07/20/16 18:00 08/19/16 17:59 07/26/16 09:18 Heparin Sodium (Porcine) (Heparin 5000 units/ml) 5,000 units EVERY 12 HOURS SUBQ 07/20/16 09:00 08/19/16 08:59 07/26/16 09:19 Insulin Aspart (NovoLOG) EVERY 6 HOURS SUBQ 07/21/16 00:00 08/20/16 00:00 07/25/16 23:14 Lansoprazole (Prevacid) 30 mg DAILY NG 07/21/16 09:00 08/20/16 08:59 07/26/16 09:18 Multivitamins (Multivitamins W/ Minerals 15ml Liquid) 15 ml DAILY GT 07/24/16 13:06 08/23/16 08:59 07/26/16 09:18 Zinc Sulfate (Zinc Sulfate) 220 mg DAILY GT 07/24/16 13:06 08/19/16 08:59 07/26/16 09:18 TIESHA SERVIN July 26, 2016 09:35
--- NOTE | 2016-07-26 10:51 | Diagnostic Imaging Report ---
Indication: Shortness of breath Technique: XRAY CHEST 1 V Comparison: 07/23/16 Findings: Cardiomediastinal silhouette is stable. Patchy bilateral interstitial infiltrates are again noted. A small left pleural effusion is suggested. Osseous structures are stable. Impression: No significant change from 07/23/16.
[2016-07-26 12:00] VITALS: BP 138/79
[2016-07-26 16:54] VITALS: BP 138/81
[2016-07-26 20:00] VITALS: BP 149/96
[2016-07-27] VITALS: BP 145/91
--- NOTE | 2016-07-27 00:19 | Progress Note ---
DATE: 07/26/2016 CARDIOLOGY PROGRESS NOTE SUBJECTIVE: The patient is still with some respiratory congestion. Frequent suctioning is required for moderate secretions. OBJECTIVE: VITAL SIGNS: Blood pressure 135/83, pulse 90, and respirations 20. NECK: Supple. Thin oral secretions. LUNGS: Bilateral breath sounds with rhonchi. HEART: Regular rhythm and rate. Normal S1, S2. ABDOMEN: Soft. G-tube intact. EXTREMITIES: No edema. LABORATORY AND DIAGNOSTIC DATA: Labs notable for white count 8.7 and hemoglobin 8.1. Potassium 4, BUN 27, and creatinine 1. Albumin 1.9. Chest x-ray reveals patchy interstitial infiltrates with small left pleural effusion. IMPRESSION: 1. Healthcare-acquired pneumonia. 2. Respiratory failure. 3. Acute diastolic congestive heart failure. 4. Secondary sinus tachycardia. 5. Paroxysmal atrial fibrillation. 6. Intermittent tremors. 7. Severe protein-calorie malnutrition. PLAN: 1. Antibiotics. 2. Respiratory hygiene. 3. Continue maintenance dose amiodarone. 4. Assess for worsening tremors, which may be due to amiodarone neurotoxicity. 5. Nutritional support. Natalio Wisdom M.D. DR: KAYLEIGH JOB#: [id number] CC:
[2016-07-27 04:00] VITALS: BP 143/88
[2016-07-27] MEDS: NovoLOG Insulin Flexpen SUBQ SCH ×3 (05:32→18:40)
[2016-07-27 05:53] LABS: BASOPHILS % (AUTO) 0.3 % (0.0-2.0); EOSINOPHILS % (AUTO) 1.5 % (0.0-3.0); LYMPHOCYTES % (AUTO) 11.5 % (20.0-45.0); MEAN CORPUSCULAR HEMOGLOBIN 30.1 PG (27.0-31.0); MEAN CORPUSCULAR HGB CONC 32.1 G/DL (32.0-36.0); MEAN CORPUSCULAR VOLUME 94 FL (80-99); MONOCYTES % (AUTO) 4.2 % (1.0-10.0); NEUTROPHILS % (AUTO) 82.5 % (45.0-75.0); PLATELET COUNT 396 K/UL (150-450); RED BLOOD COUNT 2.87 M/UL (4.70-6.10); RED CELL DISTRIBUTION WIDTH 13.6 % (11.6-14.8); WHITE BLOOD COUNT 8.2 K/UL (4.8-10.8)
--- NOTE | 2016-07-27 07:50 | General Progress Note ---
Assessment/Plan Problem List: (1) Dysphagia ICD Codes: R13.10 - Dysphagia, unspecified SNOMED: 33367278, 550506182 (2) Respiratory failure ICD Codes: J96.90 - Respiratory failure, unspecified, unspecified whether with hypoxia or hypercapnia SNOMED: 892254004 Qualifiers: Qualified Codes: J96.01 - Acute respiratory failure with hypoxia; J96.02 - Acute respiratory failure with hypercapnia (3) Bilateral pneumonia ICD Codes: J18.9 - Pneumonia, unspecified organism SNOMED: 860414006 Qualifiers: Qualified Codes: J18.9 - Pneumonia, unspecified organism Status: stable, progressing Assessment/Plan bipap/venti mask as needed. wean fio2 resp rx suctioning as needed monitor for aspiration iv abx follow cultures feeds adjusted. monitor residuals. eeg with encephalopathy monitor h/h transfuse as needed poor prognosis guarded but improving slowly Subjective ROS Limited/Unobtainable: Yes Constitutional: Reports: malaise, weakness HEENT: Reports: no symptoms Cardiovascular: Reports: no symptoms Respiratory: Reports: cough, shortness of breath, sputum Gastrointestinal/Abdominal: Reports: difficulty swallowing Genitourinary: Reports: no symptoms Neurologic/Psychiatric: Reports: pre-existing deficit Endocrine: Reports: no symptoms Hematologic/Lymphatic: Reports: anemia Allergies: Coded Allergies: No Known Allergies (Unverified , 07/02/16) All Systems: reviewed and negative except above Subjective now on venti mask. poorly responsive at baseline. currently awake and tracks. on iv abx. cxr still with infiltrates. requires frequent suctioning. tolerating feeds. hg better today(still low) Objective Last 24 Hour Vital Signs Date Time Temp Pulse Resp B/P Pulse Ox O2 Delivery O2 Flow Rate FiO2 07/27/16 06:53 96 18 Venturi Mask 6.0 35 07/27/16 06:53 Venturi Mask 6.0 35 07/27/16 06:53 98 Venturi Mask 6.0 35 07/27/16 04:00 98.9 88 18 143/88 100 Nasal Cannula 2.0 07/27/16 04:00 35 07/27/16 04:00 96 07/27/16 00:00 97.7 91 18 145/91 98 Nasal Cannula 9.0 07/27/16 00:00 94 07/27/16 00:00 35 5/14/17 20:00 35 07/26/16 20:00 94 07/26/16 20:00 98.8 92 18 149/96 96 Nasal Cannula 9.0 07/26/16 19:09 95 24 Venturi Mask 6.0 35 07/26/16 19:08 99 Venturi Mask 6.0 35 07/26/16 19:08 Venturi Mask 6.0 35 07/26/16 16:54 98.1 86 30 138/81 100 Venturi Mask 07/26/16 15:56 81 07/26/16 12:00 97.9 88 28 138/79 100 Venturi Mask 9.0 07/26/16 12:00 88 07/26/16 08:00 84 07/26/16 08:00 98.6 84 30 141/82 100 Venturi Mask Intake and Output 07/26/16 07/27/16 19:00 07:00 Intake Total 1285 ml 1070 ml Output Total 950 ml Balance 335 ml 1070 ml Free Water 450 ml 300 ml IV Total 55 ml 55 ml Tube Feeding 780 ml 715 ml Output Urine Total 950 ml Laboratory Tests 07/27/16 04:35: White Blood Count 8.2, Red Blood Count 2.87L, Hemoglobin 8.6L, Hematocrit 26.9L , Mean Corpuscular Volume 94, Mean Corpuscular Hemoglobin 30.1, Mean Corpuscular Hemoglobin Concent 32.1, Red Cell Distribution Width 13.6, Platelet Count 396, Mean Platelet Volume 7.0, Neutrophils (%) (Auto) 82.5H, Lymphocytes ( %) (Auto) 11.5L, Monocytes (%) (Auto) 4.2, Eosinophils (%) (Auto) 1.5, Basophils (%) (Auto) 0.3 Height (Feet): 5 Height (Inches): 10.00 Weight (Pounds): 149 Objective General Appearance: WD/WN, alert but confused. on venti mask Neck: supple Cardiovascular: regular rhythm Respiratory/Chest: rhonchi - bilaterally Abdomen: normal bowel sounds, non tender, soft, no organomegaly Edema: no edema noted Arm (L), no edema noted Arm (R), no edema noted Leg (L), no edema noted Leg (R), no edema noted Pedal (L), no edema noted Pedal (R), no edema noted Generalized Neurologic: aphasia Skin: normal pigmentation UOMOTO,FAWN July 27, 2016 07:50
[2016-07-27 08:00] VITALS: BP 142/78
[2016-07-27] MEDS: Ascorbic Acid 500mg tab GT SCH (09:05)
[2016-07-27] MEDS: Zinc Sulfate 220mg cap GT SCH (09:05)
[2016-07-27] MEDS: Cefepime HCl 1 GM in D5W 55 ML IVPB SCH (09:05)
[2016-07-27] MEDS: Amiodarone 200mg tab GT SCH (09:05)
[2016-07-27] MEDS: Docusate 100mg/10ml Liq NG SCH ×2 (09:05→18:39)
[2016-07-27] MEDS: Multivitamins W/Minerals 15 ML UDC GT SCH (09:05)
[2016-07-27] MEDS: Heparin 5000 units/ml inj SUBQ SCH (09:06)
--- NOTE | 2016-07-27 09:08 | Pulmonology Progress Note ---
Assessment/Plan Assessment/Plan IMPRESSION: 1. Evidence of pneumonia. 2. Evidence of acute on chronic renal failure . 3. Evidence of transaminitis. 4. Evidence of severe protein-calorie malnutrition. 5. Anemia. 6. Chronic encephalopathy. 7. aspiration 8. hypoxemia 9. sepsis/bacteremia PLAN antibiotics noted ID reviewed still with evidence of pneumonia; chest xray today and after dc respiratory care off BIPAP and monitor snf meds DNR continue to support suction and aspiration monitoring will dc and complete antibiotics after dc d/w ID as to length of antibiotics impression, plan, and exam edited and reviewed in detail care discussed with RN Subjective ROS Limited/Unobtainable: Yes Allergies: Coded Allergies: No Known Allergies (Unverified , 07/02/16) Subjective medication noted care reviewed ID noted d/w all ready for discharge Objective Last 24 Hour Vital Signs Date Time Temp Pulse Resp B/P Pulse Ox O2 Delivery O2 Flow Rate FiO2 07/27/16 08:00 98.8 93 21 142/78 99 Venturi Mask 35 07/27/16 08:00 93 07/27/16 06:53 96 18 Venturi Mask 6.0 35 07/27/16 06:53 Venturi Mask 6.0 35 07/27/16 06:53 98 Venturi Mask 6.0 35 07/27/16 04:00 98.9 88 18 143/88 100 Nasal Cannula 2.0 07/27/16 04:00 35 07/27/16 04:00 96 07/27/16 00:00 97.7 91 18 145/91 98 Nasal Cannula 9.0 07/27/16 00:00 94 07/27/16 00:00 35 07/26/16 20:00 35 07/26/16 20:00 94 07/26/16 20:00 98.8 92 18 149/96 96 Nasal Cannula 9.0 07/26/16 19:09 95 24 Venturi Mask 6.0 35 07/26/16 19:08 99 Venturi Mask 6.0 35 07/26/16 19:08 Venturi Mask 6.0 35 07/26/16 16:54 98.1 86 30 138/81 100 Venturi Mask 07/26/16 15:56 81 07/26/16 12:00 97.9 88 28 138/79 100 Venturi Mask 9.0 07/26/16 12:00 88 Intake and Output 07/26/16 07/27/16 19:00 07:00 Intake Total 1285 ml 1070 ml Output Total 950 ml Balance 335 ml 1070 ml Free Water 450 ml 300 ml IV Total 55 ml 55 ml Tube Feeding 780 ml 715 ml Output Urine Total 950 ml Objective GENERAL: The patient is a well-developed male, appears to be in no distress HEENT: Pupils are sluggishly reactive. NECK: Supple. LUNGS: some reduced breath sounds with nearly resolved rhonchi bilaterally. no wheeze CARDIAC: S1 and S2. RRR without murmurs, rubs, or gallops. ABDOMEN: Soft and nontender, G-tube in place. no HSM EXTREMITIES: No cyanosis or clubbing. No significant edema. NEUROLOGIC: Poorly responsive. Reduced mental status. nonfocal reviewed and edited Laboratory Tests 07/27/16 04:35: White Blood Count 8.2, Red Blood Count 2.87L, Hemoglobin 8.6L, Hematocrit 26.9L , Mean Corpuscular Volume 94, Mean Corpuscular Hemoglobin 30.1, Mean Corpuscular Hemoglobin Concent 32.1, Red Cell Distribution Width 13.6, Platelet Count 396, Mean Platelet Volume 7.0, Neutrophils (%) (Auto) 82.5H, Lymphocytes ( %) (Auto) 11.5L, Monocytes (%) (Auto) 4.2, Eosinophils (%) (Auto) 1.5, Basophils (%) (Auto) 0.3 Current Medications Medications (Trade) Dose Ordered Sig/Alex Route PRN Reason Start Time Stop Time Status Last Admin Dose Admin Acetaminophen 650 mg 650 mg Q4H PRN GT T>100.5 / Mild pain 07/22/16 14:00 08/21/16 13:59 07/24/16 17:01 Amiodarone HCl (Cordarone) 200 mg DAILY GT 07/23/16 15:23 08/19/16 08:59 07/27/16 09:05 Ascorbic Acid (Vitamin C) 500 mg DAILY GT 07/20/16 09:00 08/19/16 08:59 07/27/16 09:05 Cefepime HCl/ Dextrose (Maxipime/D5W) 55 ml @ 110 mls/hr EVERY 12 HOURS IVPB 07/23/16 21:00 07/30/16 20:59 07/27/16 09:05 Dextrose (Dextrose 50%) STAT PRN IV Hypoglycemia 07/20/16 19:30 08/19/16 19:29 Docusate Sodium (Colace) 100 mg TWICE A DAY NG 07/20/16 18:00 08/19/16 17:59 07/27/16 09:05 Heparin Sodium (Porcine) (Heparin 5000 units/ml) 5,000 units EVERY 12 HOURS SUBQ 07/20/16 09:00 08/19/16 08:59 07/27/16 09:06 Insulin Aspart (NovoLOG) EVERY 6 HOURS SUBQ 07/21/16 00:00 08/20/16 00:00 07/27/16 05:32 Lansoprazole (Prevacid) 30 mg DAILY NG 07/21/16 09:00 08/20/16 08:59 07/27/16 09:05 Multivitamins (Multivitamins W/ Minerals 15ml Liquid) 15 ml DAILY GT 07/24/16 13:06 08/23/16 08:59 07/27/16 09:05 Zinc Sulfate (Zinc Sulfate) 220 mg DAILY GT 07/24/16 13:06 08/19/16 08:59 07/27/16 09:05 ESHA BEY July 27, 2016 09:08
--- NOTE | 2016-07-27 11:54 | Infectious Diseases Prog Note ---
"Assessment/Plan Assessment/Plan antibiotics : cefepime A 1. gram negative | proteus pneumonia 2. anoxic encephalopathy 3. seizures 4. DM 5. staph aureus sepsis P 1. continue cefepime 2. will follow up cultures Subjective ROS Limited/Unobtainable: Yes Allergies: Coded Allergies: No Known Allergies (Unverified , 07/02/16) Objective Vital Signs Last 24 Hour Vital Signs Date Time Temp Pulse Resp B/P Pulse Ox O2 Delivery O2 Flow Rate FiO2 07/27/16 11:32 101 07/27/16 08:00 98.8 93 21 142/78 99 Venturi Mask 35 07/27/16 08:00 93 07/27/16 06:53 96 18 Venturi Mask 6.0 35 07/27/16 06:53 Venturi Mask 6.0 35 07/27/16 06:53 98 Venturi Mask 6.0 35 07/27/16 04:00 98.9 88 18 143/88 100 Nasal Cannula 2.0 07/27/16 04:00 35 07/27/16 04:00 96 07/27/16 00:00 97.7 91 18 145/91 98 Nasal Cannula 9.0 07/27/16 00:00 94 07/27/16 00:00 35 07/26/16 20:00 35 07/26/16 20:00 94 07/26/16 20:00 98.8 92 18 149/96 96 Nasal Cannula 9.0 07/26/16 19:09 95 24 Venturi Mask 6.0 35 07/26/16 19:08 99 Venturi Mask 6.0 35 07/26/16 19:08 Venturi Mask 6.0 35 07/26/16 16:54 98.1 86 30 138/81 100 Venturi Mask 07/26/16 15:56 81 07/26/16 12:00 97.9 88 28 138/79 100 Venturi Mask 9.0 07/26/16 12:00 88 Height (Feet): 5 Height (Inches): 10.00 Weight (Pounds): 149 Respiratory/Chest: lungs clear Cardiovascular: normal rate, regular rhythm, no gallop/murmur Abdomen: soft, non tender, other - GT Extremities: no edema Laboratory Tests Test 07/27/16 04:35 White Blood Count 8.2 K/UL (4.8-10.8) Red Blood Count 2.87 M/UL (4.70-6.10) L Hemoglobin 8.6 G/DL (14.2-18.0) L Hematocrit 26.9 % (42.0-52.0) L Mean Corpuscular Volume 94 FL (80-99) Mean Corpuscular Hemoglobin 30.1 PG (27.0-31.0) Mean Corpuscular Hemoglobin Concent 32.1 G/DL (32.0-36.0) Red Cell Distribution Width 13.6 % (11.6-14.8) Platelet Count 396 K/UL (150-450) Mean Platelet Volume 7.0 FL (6.5-10.1) Neutrophils (%) (Auto) 82.5 % (45.0-75.0) H Lymphocytes (%) (Auto) 11.5 % (20.0-45.0) L Monocytes (%) (Auto) 4.2 % (1.0-10.0) Eosinophils (%) (Auto) 1.5 % (0.0-3.0) Basophils (%) (Auto) 0.3 % (0.0-2.0) YEVGENIY GARCIA July 27, 2016 11:54"
[2016-07-27 12:00] VITALS: BP 138/91
[2016-07-27 16:00] VITALS: BP 126/87
--- NOTE | 2016-07-27 16:10 | Wound Care Consultation ---
Wound Assessment Wound Assessment #1: Wound Number: #1 Wound Present on Admission: Yes New Wound: No Status Change of Wound: No Wound Location Body Site Modif: left Wound Location Body Site: trochanter Wound Type: pressure ulcer Garry Test: Does not Garry Pressure Ulcer Stage: IV/unstageable Wound Thickness: Full Thickness Wound Length: 10.0 Wound Width: 9.0 Wound Depth: UTD Percent of Wound [place]/Red: 20 Percent of Wound Bed Yellow/Wh: 20 Percent of Wound Black/Brown: 60 - previous maroon color noted brown in color.,dry Wound Drainage Description: Serosanguineous Wound Drainage Amount: Scant Wound Drainage Odor: None/Absent Tissue Surrounding Wound: Erythemic Wound General Appearance: Reddened, Draining, Necrotic Wound Assessment #2: Wound Number: #2 Wound Present on Admission: Yes New Wound: No Status Change of Wound: No Wound Location Body Site Modif: left Wound Location Body Site: ear Wound Type: pressure ulcer Garry Test: Does not Garry Pressure Ulcer Stage: IV/unstageable Wound Thickness: Full Thickness Wound Length: 2.5 Wound Width: 2.5 Wound Depth: 0.3 Percent of Wound [place]/Red: 100% Wound Drainage Description: Serosanguineous Wound Drainage Amount: Moderate Wound Drainage Odor: None/Absent Tissue Surrounding Wound: Macerated Wound General Appearance: Reddened Wound Assessment #3: Wound Number: #3 Wound Present on Admission: Yes New Wound: No Status Change of Wound: No Wound Location Body Site Modif: right Wound Location Body Site: ear Wound Type: pressure ulcer Garry Test: Does not Garry Pressure Ulcer Stage: IV/unstageable Wound Thickness: Full Thickness Wound Length: 2.0 Wound Width: 3.0 Wound Depth: 0.3 Percent of Wound [place]/Red: 100 Wound Drainage Description: Serosanguineous Wound Drainage Amount: Moderate Wound Drainage Odor: None/Absent Tissue Surrounding Wound: Macerated Wound General Appearance: Reddened Wound Assessment #4: Wound Number: #4 Wound Present on Admission: Yes New Wound: No Status Change of Wound: No Wound Location Body Site Modif: left Wound Location Body Site: ischial tuberosity Wound Type: pressure ulcer Garry Test: Does not Garry Pressure Ulcer Stage: IV/unstageable Wound Thickness: Full Thickness Wound Length: 4.5 Wound Width: 6.5 Wound Depth: 0.4 Percent of Wound [place]/Red: 90 Percent of Wound Bed Yellow/Wh: 10 Wound Drainage Description: Serosanguineous Wound Drainage Amount: Moderate Wound Drainage Odor: None/Absent Tissue Surrounding Wound: Macerated Wound General Appearance: Reddened, Necrotic Wound Assessment #5: Wound Number: #5 Wound Present on Admission: Yes New Wound: No Status Change of Wound: No Wound Location Body Site Modif: left, lateral Wound Location Body Site: malleolus/ankle Wound Type: pressure ulcer Garry Test: Does not Garry Pressure Ulcer Stage: deep tissue injury Wound Thickness: Full Thickness Wound Length: 4.0 Wound Width: 4.0 Wound Depth: UTD Percent of Wound Purple/Maroon: 100 Wound Drainage Amount: None Wound Drainage Odor: None/Absent Tissue Surrounding Wound: Intact Wound General Appearance: Reddened Wound Assessment #6: Wound Number: #6 Wound Present on Admission: Yes New Wound: No Status Change of Wound: No Wound Location Body Site Modif: left, mid, lateral Wound Location Body Site: foot Wound Type: pressure ulcer Garry Test: Does not Garry Pressure Ulcer Stage: deep tissue injury Wound Thickness: Full Thickness Wound Length: 3.0 Wound Width: 3.0 Wound Depth: UTD Percent of Wound Purple/Maroon: 100 Wound Drainage Amount: None Wound Drainage Odor: None/Absent Tissue Surrounding Wound: Intact Wound General Appearance: Reddened Wound Assessment #7: Wound Number: #7 Wound Present on Admission: Yes New Wound: No Status Change of Wound: No Wound Location Body Site Modif: left Wound Location Body Site: metatarsal head - 5TH Wound Type: pressure ulcer Garry Test: Does not Garry Pressure Ulcer Stage: deep tissue injury Wound Thickness: Full Thickness Wound Length: 1.8 Wound Width: 1.8 Wound Depth: UTD Percent of Wound Purple/Maroon: 100 Wound Drainage Amount: None Wound Drainage Odor: None/Absent Tissue Surrounding Wound: Intact Wound General Appearance: Reddened Wound Assessment #8: Wound Number: #8 Wound Present on Admission: Yes New Wound: No Status Change of Wound: No Wound Location Body Site Modif: left Wound Location Body Site: metatarsal head - 1ST Wound Type: pressure ulcer Garry Test: Does not Garry Pressure Ulcer Stage: deep tissue injury Wound Thickness: Full Thickness Wound Length: 3.0 Wound Width: 3.0 Wound Depth: UTD Percent of Wound Purple/Maroon: 100 Wound Drainage Amount: None Wound Drainage Odor: None/Absent Tissue Surrounding Wound: Intact Wound General Appearance: Reddened Wound Assessment #9: Wound Number: #9 Wound Present on Admission: Yes New Wound: No Status Change of Wound: No Wound Location Body Site Modif: right, medial Wound Location Body Site: knee Wound Type: scar Garry Test: Does not Garry Wound Thickness: Full Thickness Wound Length: 2.0 Wound Width: 1.0 Percent of Wound [place]/Red: 100 Wound Drainage Amount: None Wound Drainage Odor: None/Absent Tissue Surrounding Wound: Intact Wound General Appearance: Asymptomatic, Clean/Dry Wound Assessment #10: Wound Number: #10 Wound Present on Admission: Yes New Wound: No Status Change of Wound: No Wound Location Body Site Modif: left Wound Location Body Site: elbow Wound Type: pressure ulcer Garry Test: Does not Garry Pressure Ulcer Stage: IV/unstageable - with full scattered scar tissue to surroudning tissue. Wound Thickness: Full Thickness Percent of Wound [place]/Red: 100 Wound Drainage Description: Serosanguineous Wound Drainage Amount: Scant Wound Drainage Odor: None/Absent Tissue Surrounding Wound: Erythemic Wound General Appearance: Reddened Wound Assessment #11: Wound Number: #11 Wound Present on Admission: Yes New Wound: No Status Change of Wound: No Wound Location Body Site Modif: mid Wound Location Body Site: sacral Wound Type: pressure ulcer Garry Test: Does not Garry Pressure Ulcer Stage: IV/unstageable Wound Thickness: Full Thickness Wound Length: 7.0 Wound Width: 10.0 Wound Depth: utd Percent of Wound [place]/Red: 40 Percent of Wound Bed Yellow/Wh: 30 Percent of Wound Black/Brown: 30 Wound Drainage Description: Serosanguineous Wound Drainage Amount: Copious Wound Drainage Odor: None/Absent Tissue Surrounding Wound: Macerated Wound Undermining at 12:00: 1.0 Wound Undermining at 3:00: 1.5 Wound Undermining at 6:00: 1.5 Wound General Appearance: Reddened, Draining, Necrotic Wound Assessment #12: Wound Number: #12 Wound Present on Admission: Yes New Wound: No Status Change of Wound: No Wound Location Body Site Modif: right Wound Location Body Site: trochanter Wound Type: pressure ulcer Garry Test: Does not Garry Pressure Ulcer Stage: deep tissue injury Wound Thickness: Full Thickness Wound Length: 8.5 Wound Width: 8.5 Wound Depth: utd Percent of Wound Purple/Maroon: 100 - skin remains intact durable medical equipment technician in color. mcleod color appearing. Wound Drainage Amount: None Wound Drainage Odor: None/Absent Tissue Surrounding Wound: Intact Wound General Appearance: Reddened Wound Assessment #13: Wound Number: #13 Wound Present on Admission: Yes New Wound: No Status Change of Wound: No Wound Location Body Site Modif: right Wound Location Body Site: elbow Wound Type: pressure ulcer Garry Test: Does not Garry Pressure Ulcer Stage: IV/unstageable - noted surrounding tissue with full thickness scar tissue. Wound Thickness: Full Thickness Wound Length: 2.0 Wound Width: 2.0 Wound Depth: 0.3 Percent of Wound [place]/Red: 100 Wound Drainage Description: Serosanguineous Wound Drainage Amount: Moderate Wound Drainage Odor: None/Absent Tissue Surrounding Wound: Erythemic Wound General Appearance: Reddened Wound Assessment #14: Wound Number: #14 Wound Present on Admission: Yes New Wound: No Status Change of Wound: No Wound Location Body Site Modif: right Wound Location Body Site: heel Wound Type: pressure ulcer Garry Test: Does not Garry Pressure Ulcer Stage: deep tissue injury Wound Thickness: Full Thickness Wound Length: 6.0 Wound Width: 6.0 Wound Depth: utd Percent of Wound Purple/Maroon: 100 Wound Drainage Amount: None Wound Drainage Odor: None/Absent Tissue Surrounding Wound: Intact Wound General Appearance: Reddened Wound Assessment #15: Wound Number: #15 Wound Present on Admission: Yes New Wound: No Status Change of Wound: No Wound Location Body Site Modif: right, mid, lateral Wound Location Body Site: foot Wound Type: pressure ulcer Garry Test: Does not Garry Pressure Ulcer Stage: deep tissue injury Wound Thickness: Full Thickness Wound Length: 3.0 Wound Width: 3.0 Wound Depth: utd Percent of Wound Purple/Maroon: 100 Wound Drainage Amount: None Wound Drainage Odor: None/Absent Tissue Surrounding Wound: Erythemic Wound General Appearance: Reddened Wound Assessment #16: Wound Number: #16 Wound Present on Admission: Yes New Wound: No Status Change of Wound: No Wound Location Body Site Modif: right, mid Wound Location Body Site: foot Wound Type: pressure ulcer Garry Test: Does not Garry Pressure Ulcer Stage: deep tissue injury Wound Thickness: Full Thickness Wound Length: 2.0 Wound Width: 2.0 Wound Depth: utd Percent of Wound Purple/Maroon: 100 Wound Drainage Amount: None Wound Drainage Odor: None/Absent Tissue Surrounding Wound: Erythemic Wound General Appearance: Reddened Wound Assessment #17: Wound Number: #17 Wound Present on Admission: Yes New Wound: No Status Change of Wound: No Wound Location Body Site Modif: right Wound Location Body Site: metatarsal head - 1st Wound Type: pressure ulcer Garry Test: Does not Garry Pressure Ulcer Stage: deep tissue injury Wound Thickness: Full Thickness Wound Length: 3.0 Wound Width: 3.0 Wound Depth: utd Wound Drainage Amount: None Wound Drainage Odor: None/Absent Tissue Surrounding Wound: Erythemic Wound General Appearance: Reddened Wound Assessment #18: Wound Number: #18 Wound Present on Admission: Yes New Wound: No Status Change of Wound: No Wound Location Body Site Modif: right, lateral Wound Location Body Site: malleolus/ankle Wound Type: pressure ulcer Garry Test: Does not Garry Pressure Ulcer Stage: deep tissue injury Wound Thickness: Full Thickness Wound Length: 3.0 Wound Width: 2.0 Wound Depth: utd Percent of Wound Purple/Maroon: 100 Wound Drainage Amount: None Wound Drainage Odor: None/Absent Tissue Surrounding Wound: Erythemic Wound General Appearance: Reddened Wound Assessment #19: Wound Number: #19 Wound Present on Admission: Yes New Wound: No Status Change of Wound: No Wound Location Body Site Modif: right, medial Wound Location Body Site: malleolus/ankle Wound Type: pressure ulcer Garry Test: Does not Garry Pressure Ulcer Stage: deep tissue injury Wound Thickness: Full Thickness Wound Length: 3.0 Wound Width: 2.0 Wound Depth: utd Percent of Wound Purple/Maroon: 100 Wound Drainage Amount: None Wound Drainage Odor: None/Absent Tissue Surrounding Wound: Erythemic Wound General Appearance: Reddened Wound Assessment #20: Wound Number: #20 Wound Present on Admission: Yes New Wound: No Status Change of Wound: No Wound Location Body Site Modif: left, right, upper, lower Wound Location Body Site: back - scapula and spine. Wound Type: pressure ulcer Garry Test: Does not Garry Pressure Ulcer Stage: deep tissue injury - scattered deep tissue injuries Wound Thickness: Full Thickness Percent of Wound Purple/Maroon: 100 - durable medical equipment technician in color. skin remains intact. Wound Drainage Amount: None Wound Drainage Odor: None/Absent Tissue Surrounding Wound: Intact Wound General Appearance: Reddened Wound Comment #1 Left trochanter pressure ulcer stage IV/Unstageable.- noted admitted maroon site , now appearing dry and brown in color, no further deterioration present. #2 Left ear pressure ulcer stage IV/Unstageable.- noted good progress , no further deterioration. #3 Right ear pressure ulcer stage IV/Unstageable.-noted good progress , no further deterioration. #4 Left ischial tuberosity pressure ulcer stage IV/Unstageable.-noted good progress , no further deterioration. noted increase in pink tissue decrease in slough #5 Left lateral malleolus deep tissue injury.-noted good progress , no further deterioration. #6 Left lateral mid foot deep tissue injury.-noted good progress , no further deterioration. #7 Left 5th metatarsal head deep tissue injury.-noted good progress , no further deterioration. #8 Left 1st metatarsal head deep tissue injury.-noted good progress , no further deterioration. #9 Right medial knee full thickness scar tissue- remains intact #10 Left elbow scattered pressure ulcer stage IV/Unstageable with scattered full thickness scar tissue to surrounding site.-noted good progress , no further deterioration. #11 Mid sacral pressure ulcer stage IV/Unstageable.-noted good progress , no further deterioration, noted increase in pink tissue. #12 Right trochanter deep tissue injury.-noted good progress , no further deterioration. noted durable medical equipment technician in color #13 Right elbow pressure ulcer stage IV/Unstageable with full thickness scar tissue to surrounding site.-noted good progress , no further deterioration. noted increase in pink tissue. #14 Right heel deep tissue injury.-noted good progress , no further deterioration. #15 Right mid lateral foot deep tissue injury.-noted good progress , no further deterioration. #16 Right mid medial foot deep tissue injury.-noted good progress , no further deterioration. #17 Right 1st metatarsal head deep tissue injury.-noted good progress , no further deterioration. #18 Right lateral malleolus deep tissue injury.-noted good progress , no further deterioration. #19 Right medial malleolus deep tissue injury.-noted good progress , no further deterioration. #20 Posterior left and right upper and lower back scattered deep tissue injury extending to scapulas and mid spine.-noted good progress , no further deterioration. Recommendation. -Apply low air loss overlay mattress with AP .P200 -Local wound care as ordered. -Turn and reposition. -Keep clean and dry. -Optimize nutrition. -Heel protectors. -Offload affected wound sites, back heels and feet. -Avoid sheer and friction. -Assess and follow up with MD if further changes of condition to skin is noted. ERIC DAMON July 27, 2016 16:09
[2016-07-27 20:00] VITALS: BP 120/82
[2016-07-27] MEDS ORDERED: NS 275ml ONE (21:14)
[2016-07-27] MEDS ORDERED: Sterile Water Irrig 1000ml IRRIG ONE (21:14)
--- NOTE | 2016-07-28 09:27 | Discharge Summary ---
Discharge Summary Hospital Course Date of Admission July 20, 2016 at 06:59 Date of Discharge July 27, 2016 at 21:15 Admitting Diagnosis respiratory failure HPI Ruben Dixon is a 70 year old male who was admitted on July 20, 2016 at 06:59 for Respiratory Failure Hospital Course dc summary #[id number] Discharge Medications Continued Medications: Acetaminophen* (Acetaminophen 325MG Tablet*) 325 Mg Tablet 650 MG GT Q4H PRN for Pain Scale (3-5), TAB Amiodarone Hcl (Amiodarone Hcl) 100 Mg Tablet 200 MG ORAL DAILY, TAB Ascorbic Acid* (Vitamin C*) 500 Mg Tablet 500 MG GT DAILY, #30 TAB 0 Refills Docusate Sodium* (Docusate Sodium*) 100 Mg Capsule 100 MG ORAL TWICE A DAY, CAP Heparin Sod (Porcine) (Heparin Sodium*) 5 000/1 Ml Vial 5000 UNITS SUBQ EVERY 12 HOURS, VIAL Multivitamin With Minerals (Multivitamins With Minerals*) 1 Each Tablet 1 TAB ORAL DAILY, TAB Tramadol Hcl* (Ultram*) 50 Mg Tablet 50 MG GT BID PRN for For Pain, #30 TAB 0 Refills Zinc Sulfate (Zinc Sulfate*) 220 Mg Capsule 220 MG ORAL DAILY, CAP 0 Refills Discharge Condition Upon Discharge: stable Discharge Disposition Patient was discharged to SNF/Subacute Facility(03) Discharge Diagnoses: Discharge Instructions Discharge Instructions Special Instructions I have been assigned to complete a D/C Summary on this account. I was not involved in the patient management Luz Maria Mark NP (Vanchtein) July 28, 2016 09:27
--- NOTE | 2016-07-29 05:41 | Discharge Summary 2 SIG ---
DATE OF ADMISSION: 07/20/2016 DATE OF DISCHARGE: 07/27/2016 REASON FOR ADMISSION: 70-year-old male , resident of the senior care facility, was brought by paramedics due to the respiratory distress for few hours that he had at the senior care facility. The patient with a history of CVA and anoxic encephalopathy. The patient was DNR/ DNI status. The patient was unable to provide any history. Oxygen saturation was 80% in the field. Supplemental oxygen via nonrebreathing mask was provided by paramedics. Workup in the emergency room revealed no leukocytosis, anemia, hemoglobin -9.3, and hematocrit- 28.5. The patient had a low-grade fever of 99.5, tachycardic -116, tachypneic-30 . Chest x-ray revealed bilateral dense infiltrates. The patient was started on IV fluids. Septic workup was initiated. The patient was pancultured and started on antibiotics. Noted BUN - 55, creatinine - 1.5 and lactic acid within normal limits; mild elevation in LFT: AST - 45, ALT- 46, and albumin - 1.8. Urinalysis was negative for evidence of UTI. EKG revealed sinus tachycardia, but no acute changes. No PVC. No ectopy. Troponin was negative. ProBNP -676. The patient was admitted for further management. ADMITTING DIAGNOSES: 1. Sepsis. 2. Respiratory failure. 3. Bilateral pneumonia. 4. Anoxic encephalopathy. 5. [id number] renal failure. 6. Anemia. 7. Transaminitis. 8. Dysphagia, gastrostomy tube. 9. History of paroxysmal atrial fibrillation. HOSPITAL COURSE: The patient was admitted. The patient initially was on the BiPAP. Pulmonary toilet was provided. Fraction of inspired oxygen was titrated to keep oxygen saturation above 92%. The patient was subsequently downgraded to Venturi mask and then to oxygen via nasal cannula. No intubation due to the DNR/ DNI status. ID consult was requested along with the Neuro consult. The patient was initially on empiric antibiotics. Sputum culture revealed Proteus and Acinetobacter multidrug resistant. Blood culture initially Staph aureus. Catheter tip culture was negative. Repeated blood culture were negative. Antibiotic regimen was optimized based on culture and sensitivity as per ID specialist. Volume status and cardiorenal parameters were closely monitored. The patient was diuresed accordingly as needed. Division Director closely followed. Pro BNP was monitored. Amiodarone was continued at the maintenance dose. Patient was in sinus rhythm on telemetry. DVT prophylaxis was provided. Protein supplements were given via G-tube. Strict aspiration precautions were maintained. Tube feeding tolerance was monitored. Neurology consult was requested due to the encephalopathy and noted intermittent postural hand tremors. EEG subsequently was done, which was abnormal and consistent with significant level of encephalopathy, may relate to toxic metabolic hypoxic lesion. Neurologist however doubted seizure activity. Renal failure resolved. Last BUN -27 and creatinine- 1.0.renal failure likely was precipitated by sepsis. Liver function tests essentially the same, no changes. Hemoglobin and hematocrit were closely monitored. Goal was to transfuse if hemoglobin below 7. Hemoglobin remained at the baseline. Prior to discharge, hemoglobin -8.6 and hematocrit- 26.9. Evaluation by wound nurse was done initially on admission and then with reevaluation in one week. Wound care was provided for multiple decubiti present on admission as per the wound nurse recommendation. Continue wound care as recommended by wound care nurse at the senior [facility]. Overall condition was guarded, but the patient improved with the current treatment. The patient was stable for discharge back to [facility]. DNR/DNI status DISCHARGE DIAGNOSES: 1. Staphylococcus aureus sepsis. 2. Acute hypoxemic respiratory failure requiring BiPAP, resolved. 3. Proteus pneumonia, bilateral. 4. Healthcare-associated pneumonia. 5. Dysphagia, gastrostomy tube. 6. [id number] renal failure. 7. Transaminitis. 8. History of cerebrovascular accident. 9. Anemia. 10. Acute diastolic congestive heart failure. 11. Paroxysmal atrial fibrillation. 12. Severe protein-calorie malnutrition. 13. Diabetes mellitus. 14. Intermittent postural hand tremors. 15. Multiple decubitus ulcer, present on admission (left trochanter st. IV, Left ear st. IV, Right ear st. IV, Left ischial st. IV, Left elbow st. IV, Right elbow st. IV). 16. Severe anoxic encephalopathy. DISCHARGE MEDICATIONS: See medication reconciliation list. DISCHARGE INSTRUCTIONS: The patient is to follow up with primary doctor at the facility. Washington Ishaaya, M.D. I have been assigned to dictate discharge summary on this account and I was not involved in the patient's management. Luz Maria Mark (Vanchtein) NLizziePLizzie DR: TONE JOB#: [id number] CC: JOSE E
--- NOTE | 2016-07-29 06:41 | Progress Note ---
DATE: 07/27/2016 CARDIOLOGY PROGRESS NOTE Late entry for 07/27/2016. SUBJECTIVE: Secretion control has improved. The patient is off BiPAP, monitored rhythm sinus. He continues to require respiratory hygiene. OBJECTIVE: VITAL SIGNS: Blood pressure 142/78, pulse 93, respiratory rate 21, afebrile. LUNGS: Coarse breath sounds. Scattered rhonchi. HEART: Regular rhythm and rate. Normal S1, S2. ABDOMEN: Soft. No edema. LABORATORY STUDIES: White count 8.2, hemoglobin 8.6. Sodium 144. IMPRESSION AND PLAN: 1. Healthcare-acquired pneumonia, improved. 2. Acute on chronic renal failure, resolved. 3. Protein-calorie malnutrition severe and on feedings by gastrostomy tube. 4. Respiratory failure with prior need for BiPAP. 5. Diastolic dysfunction with compensated congestive heart failure. 6. Stable for subacute facility. 7. Medication regimen reviewed for discharge. Natalio Wisdom M.D. DR: RD/rebeca JOB#: [id number] CC:
== END 2016-07-27 21:15 | DRG 871 ==
LOC: EDBD 06:35 → EDBEDREQ 06:40 → EMR 06:55 → 2W 06:59 → EDBEDREQ 08:09 → 2W 09:10
PROC: 5A09457 Assistance with Respiratory Ventilation, 24-96 Consecutive Hours, Continuous Positive Airway Pressure (ICD-10-PCS; principal; 2016-07-20)
DX: A41.01 Sepsis due to Methicillin susceptible Staphylococcus aureus (principal); N17.0 Acute kidney failure with tubular necrosis; J96.01 Acute respiratory failure with hypoxia; E43 Unspecified severe protein-calorie malnutrition; J69.0 Pneumonitis due to inhalation of food and vomit; G93.1 Anoxic brain damage, not elsewhere classified; I50.33 Acute on chronic diastolic (congestive) heart failure; L89.014 Pressure ulcer of right elbow, stage 4; L89.894 Pressure ulcer of other site, stage 4; J15.6 Pneumonia due to other Gram-negative bacteria; L89.324 Pressure ulcer of left buttock, stage 4; L89.024 Pressure ulcer of left elbow, stage 4; I13.0 Hypertensive heart and chronic kidney disease with heart failure and stage 1 through stage 4 chronic kidney disease, or unspecified chronic kidney disease; Z43.1 Encounter for attention to gastrostomy; Z68.1 Body mass index [BMI] 19.9 or less, adult; I69.318 Other symptoms and signs involving cognitive functions following cerebral infarction; R13.10 Dysphagia, unspecified; N18.9 Chronic kidney disease, unspecified; I27.2 Other secondary pulmonary hypertension; I48.0 Paroxysmal atrial fibrillation; E11.9 Type 2 diabetes mellitus without complications; Z66 Do not resuscitate; R74.0 Nonspecific elevation of levels of transaminase and lactic acid dehydrogenase [LDH]; Z16.24 Resistance to multiple antibiotics; G40.909 Epilepsy, unspecified, not intractable, without status epilepticus; J44.9 Chronic obstructive pulmonary disease, unspecified; I25.10 Atherosclerotic heart disease of native coronary artery without angina pectoris; N40.0 Benign prostatic hyperplasia without lower urinary tract symptoms; I08.2 Rheumatic disorders of both aortic and tricuspid valves; Z95.2 Presence of prosthetic heart valve; G25.1 Drug-induced tremor; T46.2X5A Adverse effect of other antidysrhythmic drugs, initial encounter; D64.9 Anemia, unspecified
CPT/HCPCS: 29240; 36415; 36600; 71010; 80053; 80202; 81003; 82550; 82803; 82962; 83605; 83735; 83880; 84484; 85007; 85025; 85610; 85730; 86850; 86900; 86901; 87040; 87070; 87081; 87181; 87205; 93005; 94640; 94660; 94664; 94760; 95819; 99284; J7620

== ENCOUNTER 2016-08-04 19:48 | Inpatient (IN) | payer MEDICARE ==
[~2016-08-04] VITALS: Ht 172.7 cm; Wt 58.5 kg
[~2016-08-04 19:48] MED LIST changes: +ACETAMINOPHEN325 M1 GT; -Albuterol ud Inhalation HHN ONE; -Azithromycin 500 MG in NS 275 ML IV ONE; +HEPARIN SO5000 UNIT2 SUBQ; -Ipratropium 0.02% Inh Soln 2.5ml UD HHN ONE; +MULTIVITAMINS1 EAC8 ORAL; -Piperacillin/Tazobactam 4.5 GM in NS 110 ML IV ONE; +TRAMADOL HCL50 MG GT; +VITAMIN C500 M1 GT; -Vancomycin 1 GM in NS 275 ML IV ONE; +ZINC SULFATE220 M1 ORAL
[2016-08-04 19:50] VITALS: BP 101/76
[2016-08-04] MEDS ORDERED: Acetaminophen 650mg/20.3ml GT ONE (20:00)
[2016-08-04] MEDS ORDERED: Piperacillin/Tazobactam 3.375 GM in NS 110 ML IVPB ONE (20:00)
[2016-08-04] MEDS ORDERED: TRAMADOL HCL50 MG GT (20:23)
[2016-08-04] MEDS ORDERED: AMIODARONE HCL200 MG GT (20:24)
[2016-08-04] MEDS ORDERED: ZINC SULFATE220 M1 GT (20:26)
[2016-08-04] MEDS ORDERED: MULTIVITAMINS1 EAC8 GT (20:26)
[2016-08-04] MEDS ORDERED: LANSOPRAZOLE30 MG GT (20:27)
[2016-08-04] MEDS ORDERED: NOVOLOG100 UNIT/3 SUBQ (20:28)
[2016-08-04] MEDS ORDERED: HYDROGEL3000 GM (20:30)
[2016-08-04] MEDS ORDERED: VITAMIN A & D113 GM TP (20:32)
[2016-08-04] MEDS ORDERED: SANTYL30 GM TP (20:33)
[2016-08-04] MEDS ORDERED: DOCUSATE SODIU100 MG GT (20:34)
[2016-08-04] MEDS ORDERED: ALBUTEROL2.5 MG/3 M INH (20:35)
[2016-08-04] MEDS ORDERED: ATROVENT HFA12.9 GM IH (20:36)
[2016-08-04] MEDS ORDERED: Zosyn 3.375gm inj ONE (21:01)
[2016-08-04 21:16] LABS: EOSINOPHILS % (AUTO) 2.2 % (0.0-3.0); LYMPHOCYTES % (AUTO) 18.1 % (20.0-45.0); MEAN CORPUSCULAR HEMOGLOBIN 31.2 PG (27.0-31.0); MEAN CORPUSCULAR HGB CONC 32.3 G/DL (32.0-36.0); MEAN CORPUSCULAR VOLUME 97 FL (80-99); MEAN PLATELET VOLUME 7.2 FL (6.5-10.1); MONOCYTES % (AUTO) 7.6 % (1.0-10.0); NEUTROPHILS % (AUTO) 71.1 % (45.0-75.0); PLATELET COUNT 300 K/UL (150-450); RED BLOOD COUNT 2.67 M/UL (4.70-6.10); RED CELL DISTRIBUTION WIDTH 14.3 % (11.6-14.8); WHITE BLOOD COUNT 7.5 K/UL (4.8-10.8)
[2016-08-04 21:32] LABS: ALANINE AMINOTRANSFERASE 68 U/L (3-41); ALBUMIN/GLOBULIN RATIO 0.5 (1.0-2.7); ANION GAP 12 (5-15); ASPARTATE AMINO TRANSFERASE 69 U/L (5-40); CALCIUM 8.6 mg/dL (8.6-10.2); CARBON DIOXIDE 31 mEQ/L (20-30); CHLORIDE 110 mEQ/L (98-107); CREATININE 1.2 mg/dL (0.7-1.2); GLOMERULAR FILTRATION RATE > 60 mL/min (>60); HEMOLYSIS 73; LIPASE 44 U/L (< 60); POTASSIUM 5.3 mEQ/L (3.4-4.9); SODIUM 153 mEQ/L (135-145); TROPONIN I < 0.30 ng/mL (<=0.30)
[2016-08-04 21:40] VITALS: BP 103/73
[2016-08-04 21:41] LABS: APPEARANCE,URINE CLEAR; KETONES,URINE NEGATIVE (NEGATIVE); LEUKOCYTE ESTERASE ,URINE 1+ (NEGATIVE); NITRITE,URINE NEGATIVE (NEGATIVE); PH,URINE 7 (4.5-8.0); PROTEIN,URINE 3+ (NEGATIVE); UROBILINOGEN,URINE 1 MG/DL (0.0-1.0)
[2016-08-04 21:42] LABS: CKMB 4.7 ng/mL (< 6.7)
[2016-08-04 21:48] LABS: BACTERIA,URINE FEW /HPF
[2016-08-04 22:39] LABS: INR 1.2 (0.9-1.1); PROTHROMBIN TIME 11.8 SEC (9.30-11.50)
[2016-08-04 23:00] VITALS: BP 104/70
[2016-08-05] VITALS: BP 104/69
[2016-08-05 04:00] VITALS: BP 112/77
[2016-08-05] MEDS ORDERED: Zosyn 3.375gm inj ONE (04:13)
[2016-08-05] MEDS: Piperacillin/Tazobactam 3.375 GM in D5W 110 ML IVPB SCH ×3 (04:29→21:10)
[2016-08-05] MEDS: NovoLOG Insulin Flexpen SUBQ SCH ×4 (06:24→21:00)
[2016-08-05 08:25] VITALS: BP 114/79
--- NOTE | 2016-08-05 08:38 | Consultation ---
Consult Note Consult Note REASON FOR CONSULTATION: Respiratory failure and pneumonia. HISTORY OF PRESENT ILLNESS: 70-year-old male, who again was noted to have increasing respiratory distress and was transferred emergently. The patient appeared to have acutely deteriorated. The patient was a Do Not Resuscitate as per discussion with the sister recently. Patient again being admitted again for pneumonia and now with hypernatremia and dehydration. The patient was placed on oxygen, which is now worse than the baseline. The patient was noted to be somewhat tachypneic and tachycardic. The patient has had a recent admission for pneumonia and had stabilized. PAST MEDICAL HISTORY: Notable for chronic encephalopathy, recent tracheostomy, aspiration, respiratory insufficiency, possible underlying COPD, prior history of recurrent bilateral pneumonia, history of acute renal failure, history of rhabdomyolysis, history of elevated liver enzymes, history of COPD, history of prior pressure ulcers MEDICATIONS: Reviewed. ALLERGIES: Reviewed. SOCIAL HISTORY: The patient resides in [facility] facility and is a Do Not Resuscitate. currently fully dependent and bed bound REVIEW OF SYSTEMS: Difficult to obtain. PHYSICAL EXAMINATION: GENERAL: The patient is a well-developed male, appears to be chronically ill overall. VITAL SIGNS: The patient's most current vital signs are notable for blood pressure of 114/79, saturation 100% on oxygen, heart rate 88, and temperature 98.4. HEENT: Pupils are sluggishly reactive. oropharynx clear NECK: Supple. LUNGS: Coarse breath sounds. Rhonchi bilaterally. moderate air entry CARDIAC: S1 and S2. RRR without murmurs, rubs, or gallops. ABDOMEN: Soft and nontender, G-tube in place. no distention EXTREMITIES: No cyanosis or clubbing. No significant edema. NEUROLOGIC: Poorly responsive. Reduced mental status. nonfocal LABORATORY DATA: Laboratory Tests Test 08/04/16 20:30 08/04/16 21:34 08/04/16 22:00 White Blood Count 7.5 K/UL (4.8-10.8) Red Blood Count 2.67 M/UL (4.70-6.10) L Hemoglobin 8.3 G/DL (14.2-18.0) L Hematocrit 25.8 % (42.0-52.0) L Mean Corpuscular Volume 97 FL (80-99) Mean Corpuscular Hemoglobin 31.2 PG (27.0-31.0) H Mean Corpuscular Hemoglobin Concent 32.3 G/DL (32.0-36.0) Red Cell Distribution Width 14.3 % (11.6-14.8) Platelet Count 300 K/UL (150-450) Mean Platelet Volume 7.2 FL (6.5-10.1) Neutrophils (%) (Auto) 71.1 % (45.0-75.0) Lymphocytes (%) (Auto) 18.1 % (20.0-45.0) L Monocytes (%) (Auto) 7.6 % (1.0-10.0) Eosinophils (%) (Auto) 2.2 % (0.0-3.0) Basophils (%) (Auto) 1.0 % (0.0-2.0) Sodium Level 153 mEQ/L (135-145) H Potassium Level 5.3 mEQ/L (3.4-4.9) H Chloride Level 110 mEQ/L (98-107) H Carbon Dioxide Level 31 mEQ/L (20-30) H Anion Gap 12 (5-15) Blood Urea Nitrogen 64 mg/dL (7-23) H Creatinine 1.2 mg/dL (0.7-1.2) Estimat Glomerular Filtration Rate > 60 mL/min (>60) Glucose Level 120 mg/dL (74-106) H Lactic Acid Level 1.50 mmol/L (0.66-2.22) Calcium Level 8.6 mg/dL (8.6-10.2) Total Bilirubin 0.2 mg/dL (0.0-1.2) Aspartate Amino Transf (AST/SGOT) 69 U/L (5-40) H Alanine Aminotransferase (ALT/SGPT) 68 U/L (3-41) H Alkaline Phosphatase 114 U/L (40-129) Total Creatine Kinase 201 U/L (38-174) H Creatine Kinase MB 4.7 ng/mL (< 6.7) Creatine Kinase MB Relative Index 2.3 Troponin I < 0.30 ng/mL (<=0.30) Pro-B-Type Natriuretic Peptide 464 pg/mL (0-125) H Total Protein 7.0 g/dL (6.6-8.7) Albumin 2.4 g/dL (3.5-5.2) L Globulin 4.6 g/dL Albumin/Globulin Ratio 0.5 (1.0-2.7) L Lipase 44 U/L (< 60) Urine Color Yellow Urine Appearance Clear Urine pH 7 (4.5-8.0) Urine Specific [place] 1.005 (1.005-1.035) Urine Protein 3+ (NEGATIVE) H Urine Glucose (UA) Negative (NEGATIVE) Urine Ketones Negative (NEGATIVE) Urine Occult Blood 4+ (NEGATIVE) H Urine Nitrite Negative (NEGATIVE) Urine Bilirubin Negative (NEGATIVE) Urine Urobilinogen 1 MG/DL (0.0-1.0) H Urine Leukocyte Esterase 1+ (NEGATIVE) H Urine RBC 10-15 /HPF (0 - 0) H Urine WBC 10-15 /HPF (0 - 0) H Urine Squamous Epithelial Cells None /LPF (NONE/OCC) Urine Bacteria Few /HPF (NONE) Prothrombin Time 11.8 SEC (9.30-11.50) H Prothromb Time International Ratio 1.2 (0.9-1.1) H Activated Partial Thromboplast Time 26 SEC (23-33) IMPRESSION: 1. Evidence of pneumonia. 2. Evidence of acute on chronic renal failure . 3. Evidence of transaminitis. 4. Evidence of severe protein-calorie malnutrition. 5. Anemia. 6. Chronic encephalopathy 7. Hypernatremia 8. Azotemia. RECOMMENDATIONS: Aggressive IV antibiotics. ID evaluation. Follow labs and hydrate. Continue medication and antibiotic therapy. Oxygen therapy for now adequate. Follow the patient's blood gases routinely and further intervention. Confirm Do Not Resuscitate. Review care and changes. Nutritional support through tube feeds. Aspiration precautions and DVT prophylaxis. Monitor renal function. reassess for ongoing recommendations. Stabilize and dc back when improved. update family Esha Bonner M.D. DR: ITZ JOB#: [id number] CC: ESHA BONNER August 05, 2016 08:38
[2016-08-05] MEDS: Amiodarone 200mg tab ORAL SCH (09:00)
[2016-08-05] MEDS: Heparin 5000 units/ml inj SUBQ SCH ×2 (09:24→21:15)
--- NOTE | 2016-08-05 10:01 | History and Physical Report ---
DATE OF ADMISSION: 08/04/2016 CHIEF COMPLAINT: Sepsis and pneumonia. HISTORY OF PRESENT ILLNESS: The patient is a 70-year-old male, he has a history of encephalopathy, stroke, anemia, dysphagia, status post G-tube. He was transferred from a nursing home facility with complaints of dehydration and pneumonia. The patient is poorly responsive at baseline, he is unable provide any history. According to staff at the nursing, the patient has been increasingly congested and short of breath, more withdrawn and lethargic. There is no reports of any nausea or vomiting. No diarrhea. PAST MEDICAL HISTORY: As above. PAST SURGERY HISTORY: G-tube. MEDICATIONS: Current medications reconciled and reviewed. ALLERGIES: None. SOCIAL HISTORY: Negative for tobacco, ethanol, or drugs. The patient is DNR. FAMILY HISTORY: None. REVIEW OF SYSTEMS: Unobtainable as the patient is confused. PHYSICAL EXAMINATION: VITAL SIGNS: Temperature was 100.0 degrees, pulse 89, respirations 30, blood pressure 104/78, the patient saturating 100% on four liters nasal cannula. GENERAL: The patient is a chronic ill-appearing thin male in no apparent distress. He is awake, but does not follow commands, does not track. NECK: Supple. HEART: Regular rate and rhythm. LUNGS: Significant for bilateral rhonchi and rales. ABDOMEN: Soft, nontender, and nondistended. EXTREMITIES: Without clubbing or cyanosis. LABORATORY DATA: Sodium is 153, potassium 5.3, chloride 110, bicarbonate 31, BUN 64, and creatinine is 1.2. White count 7, hemoglobin 8.3, hematocrit 25.8, and platelet count 300,000. Urinalysis showed 10-15 WBCs. ASSESSMENT: This is a unfortunate elderly male with history of encephalopathy, pneumonia, stroke admitted with sepsis suspect secondary to recurrent pneumonia. Condition appears to have a urinary tract infection. He is hypernatremic and dehydrated with acute renal failure. PLAN: Aggressive fluid resuscitation. Broad-spectrum IV antibiotics. Respiratory treatments. Aggressive pulmonary toilet. Continue G-tube feedings. Water replacement. Continue wound care. The patient is DNR. Jair Carlson M.D. DR: Fredis JOB#: [id number] CC:
[2016-08-05] MEDS: DuoNeb 0.5-3(2.5)mg/3ml neb HHN SCH ×4 (10:22→23:27)
[2016-08-05] MEDS ORDERED: 1/2 NS 1000ml IV ONE (10:48)
[2016-08-05] MEDS ORDERED: NS 275ml ONE (10:48)
[2016-08-05] MEDS ORDERED: Tubing IV Secondary IV ONE (10:48)
--- NOTE | 2016-08-05 10:52 | Diagnostic Imaging Report ---
Indication: Chest Pain Comparison: 07/25/69 A single view chest radiograph was obtained. Findings: Interstitial appearing infiltrates are demonstrated within the lungs bilaterally. The left pleural effusion seen previously is less apparent and may have resolved or shifted into the posterior sulcus. Heart size is borderline and unchanged. Impression: Bilateral infiltrates. Diminished versus shifted left pleural effusion
[2016-08-05 11:50] VITALS: BP 123/79
[2016-08-05 16:04] VITALS: BP 122/78
[2016-08-05] MEDS: Ascorbic Acid 500mg tab GT SCH (18:27)
[2016-08-05] MEDS ORDERED: Pneumococcal Vaccine 25mcg/0.5ml IM ONE (19:30)
[2016-08-05 20:24] VITALS: BP 129/80
[2016-08-06] VITALS (7 sets, daily range): BP systolic 99–111; BP diastolic 63–74
--- NOTE | 2016-08-06 02:25 | Emergency Room Report ---
History of Present Illness General Chief Complaint: Fever Source: Medical Record, EMS Present Illness HPI Patient presents from nursing facility with complaints of general weakness Patient was found to be febrile here Was also reports of low blood pressure at the nursing facility Patient himself is nonverbal This does limit the history of present illness significantly No reports of vomiting or diarrhea patient has feeding tube in place Also multiple decubitus ulcers are present Allergies: Coded Allergies: No Known Allergies (Unverified , 07/02/16) Patient History Limited by: medical condition Past Medical History: see triage record Pertinent Family History: unable to obtain Reviewed Nursing Documentation: PMH: Agreed, PSxH: Agreed Nursing Documentation-PM Past Medical History: No History, Except For Hx Cardiac Problems: Yes Hx Asthma: No Hx COPD: Yes - CHRONIC RESPIRATORY FAILURE Hx Diabetes: Yes Hx Gastrointestinal Problems: Yes - G tube placement Hx Dialysis: No - CKD Hx Neurological Problems: Yes - Anoxic Brain injury Hx Epilepsy: Yes Hx Speech Problem: Yes - Aphasic Hx Dysphasia: Yes Hx Weakness: Yes Review of Systems All Other Systems: limited - Other than the ones mentioned in the history of present illness all others are reviewed however they do stay limited due to the patient's mental status Physical Exam Vital Signs Date Time Temp Pulse Resp B/P Pulse Ox O2 Delivery O2 Flow Rate FiO2 08/04/16 19:40 99.9 100 36 101/76 100 Nasal Cannula 5.0 08/05/16 10:23 28 Sp02 EP Interpretation: reviewed, normal General Appearance: mild distress - Patient appears tachypneic Head: normocephalic, atraumatic Eyes: bilateral eye EOMI, bilateral eye PERRL ENT: dry mucus membranes Neck: supple, thyroid normal Respiratory: crackles - diffusely in both lower lobes Cardiovascular #1: regular rate, rhythm, no edema Gastrointestinal: non tender, soft, no mass Musculoskeletal: other - Patient does not move extremities to command however does withdraw on the upper extremity from stimuli appears contracted and lower extremity, Neurologic: other - decrease GCS, appears chronically ill Skin: other - Multiple decubitus ulcers Lymphatic: no adenopathy Medical Decision Making Diagnostic Impression: Primary Impression: Fever Additional Impressions: Sepsis Pneumonia ER Course Patient is a fairly complex patient with multiple differential to consideration including but not limited to cardiac cardiopulmonary and vascular emergencies Patient blood work reveals a mild anemia X-rays concerning for infiltrates Patient is provided process or antibiotics and IV hydration Admitted for further inpatient care Labs Test 08/04/16 20:30 08/04/16 21:34 08/04/16 22:00 White Blood Count 7.5 K/UL (4.8-10.8) Red Blood Count 2.67 M/UL (4.70-6.10) Hemoglobin 8.3 G/DL (14.2-18.0) Hematocrit 25.8 % (42.0-52.0) Mean Corpuscular Volume 97 FL (80-99) Mean Corpuscular Hemoglobin 31.2 PG (27.0-31.0) Mean Corpuscular Hemoglobin Concent 32.3 G/DL (32.0-36.0) Red Cell Distribution Width 14.3 % (11.6-14.8) Platelet Count 300 K/UL (150-450) Mean Platelet Volume 7.2 FL (6.5-10.1) Neutrophils (%) (Auto) 71.1 % (45.0-75.0) Lymphocytes (%) (Auto) 18.1 % (20.0-45.0) Monocytes (%) (Auto) 7.6 % (1.0-10.0) Eosinophils (%) (Auto) 2.2 % (0.0-3.0) Basophils (%) (Auto) 1.0 % (0.0-2.0) Sodium Level 153 mEQ/L (135-145) Potassium Level 5.3 mEQ/L (3.4-4.9) Chloride Level 110 mEQ/L (98-107) Carbon Dioxide Level 31 mEQ/L (20-30) Anion Gap 12 (5-15) Blood Urea Nitrogen 64 mg/dL (7-23) Creatinine 1.2 mg/dL (0.7-1.2) Estimat Glomerular Filtration Rate > 60 mL/min (>60) Glucose Level 120 mg/dL (74-106) Lactic Acid Level 1.50 mmol/L (0.66-2.22) Calcium Level 8.6 mg/dL (8.6-10.2) Total Bilirubin 0.2 mg/dL (0.0-1.2) Aspartate Amino Transf (AST/SGOT) 69 U/L (5-40) Alanine Aminotransferase (ALT/SGPT) 68 U/L (3-41) Alkaline Phosphatase 114 U/L (40-129) Total Creatine Kinase 201 U/L (38-174) Creatine Kinase MB 4.7 ng/mL (< 6.7) Creatine Kinase MB Relative Index 2.3 Troponin I < 0.30 ng/mL (<=0.30) Pro-B-Type Natriuretic Peptide 464 pg/mL (0-125) Total Protein 7.0 g/dL (6.6-8.7) Albumin 2.4 g/dL (3.5-5.2) Globulin 4.6 g/dL Albumin/Globulin Ratio 0.5 (1.0-2.7) Lipase 44 U/L (< 60) Urine Color Yellow Urine Appearance Clear Urine pH 7 (4.5-8.0) Urine Specific [place] 1.005 (1.005-1.035) Urine Protein 3+ (NEGATIVE) Urine Glucose (UA) Negative (NEGATIVE) Urine Ketones Negative (NEGATIVE) Urine Occult Blood 4+ (NEGATIVE) Urine Nitrite Negative (NEGATIVE) Urine Bilirubin Negative (NEGATIVE) Urine Urobilinogen 1 MG/DL (0.0-1.0) Urine Leukocyte Esterase 1+ (NEGATIVE) Urine RBC 10-15 /HPF (0 - 0) Urine WBC 10-15 /HPF (0 - 0) Urine Squamous Epithelial Cells None /LPF (NONE/OCC) Urine Bacteria Few /HPF (NONE) Prothrombin Time 11.8 SEC (9.30-11.50) Prothromb Time International Ratio 1.2 (0.9-1.1) Activated Partial Thromboplast Time 26 SEC (23-33) Rhythm Strip Diag. Results EP Interpretation: yes Rate: 67 Rhythm: NSR, no PVC's, no ectopy Chest X-Ray Diagnostic Results EP Interpretation: Yes Findings: no effusion, no pneumothorax, other - Bilateral infiltrates, heart size normal Number of Views: 1 Last Vital Signs Date Time Temp Pulse Resp B/P Pulse Ox O2 Delivery O2 Flow Rate FiO2 08/06/16 00:09 97.4 99 21 102/67 100 Nasal Cannula 08/05/16 23:37 2.0 28 Status: improved Disposition: ADMITTED INPATIENT Condition: Serious Referrals: ESHA BEY (PCP) LIVIA ANDERSON D.O. August 06, 2016 02:25
[2016-08-06] MEDS: DuoNeb 0.5-3(2.5)mg/3ml neb HHN SCH ×6 (03:15→23:32)
[2016-08-06] MEDS: Piperacillin/Tazobactam 3.375 GM in D5W 110 ML IVPB SCH ×3 (05:40→20:41)
[2016-08-06] MEDS: NovoLOG Insulin Flexpen SUBQ SCH ×4 (05:47→20:49)
[2016-08-06 08:56] LABS: MEAN CORPUSCULAR HEMOGLOBIN 28.9 PG (27.0-31.0); MEAN CORPUSCULAR HGB CONC 30.8 G/DL (32.0-36.0); MEAN CORPUSCULAR VOLUME 94 FL (80-99); MEAN PLATELET VOLUME 6.9 FL (6.5-10.1); PLATELET COUNT 308 K/UL (150-450); RED BLOOD COUNT 2.57 M/UL (4.70-6.10); RED CELL DISTRIBUTION WIDTH 14.6 % (11.6-14.8); WHITE BLOOD COUNT 7.2 K/UL (4.8-10.8)
--- NOTE | 2016-08-06 08:56 | Pulmonology Progress Note ---
Assessment/Plan Assessment/Plan IMPRESSION: 1. Evidence of pneumonia. 2. Evidence of acute on chronic renal failure . 3. Evidence of transaminitis. 4. Evidence of severe protein-calorie malnutrition. 5. Anemia. 6. Chronic encephalopathy 7. Hypernatremia 8. Azotemia. PLAN respiratory care oxygen therapy IV antibiotics monitor cultures maintain meds nutrition GT feeds aspiration precautions impression, plan, and exam edited and reviewed in detail care discussed with RN Subjective ROS Limited/Unobtainable: Yes Allergies: Coded Allergies: No Known Allergies (Unverified , 07/02/16) Objective Last 24 Hour Vital Signs Date Time Temp Pulse Resp B/P Pulse Ox O2 Delivery O2 Flow Rate FiO2 08/06/16 08:00 98.1 97 20 99/69 100 Nasal Cannula 3.0 08/06/16 04:00 100 08/06/16 04:00 97.4 98 19 110/70 99 Room Air 08/06/16 03:11 104 18 99 Nasal Cannula 2.0 28 08/06/16 03:00 100 20 97 Nasal Cannula 2.0 08/06/16 00:09 97.4 99 21 102/67 100 Nasal Cannula 08/06/16 00:00 100 08/05/16 23:37 100 18 100 Nasal Cannula 2.0 08/05/16 23:28 99 20 98 Nasal Cannula 2.0 08/05/16 20:24 97.3 94 20 129/80 100 Nasal Cannula 08/05/16 20:00 103 08/05/16 19:55 104 18 99 Nasal Cannula 2.0 08/05/16 19:47 98 Nasal Cannula 2.0 08/05/16 19:47 102 20 98 Nasal Cannula 2.0 28 08/05/16 19:46 Nasal Cannula 2.0 28 08/05/16 16:04 97.3 103 20 122/78 100 Nasal Cannula 3.0 08/05/16 16:00 106 08/05/16 15:31 Nasal Cannula 2.0 28 08/05/16 14:40 102 20 99 Nasal Cannula 2.0 28 08/05/16 14:36 104 20 98 Nasal Cannula 2.0 28 08/05/16 12:00 99 08/05/16 11:50 97.3 99 20 123/79 99 Nasal Cannula 3.0 08/05/16 10:28 95 20 97 Nasal Cannula 2.0 28 08/05/16 10:25 94 20 Nasal Cannula 2.0 28 08/05/16 10:23 94 20 94 Nasal Cannula 2.0 28 Intake and Output 08/05/16 08/06/16 19:00 07:00 Intake Total 457.5 ml 1189.7 ml Output Total 500 ml 1000 ml Balance -42.5 ml 189.7 ml Intake Free Water 100 ml IV Total 457.5 ml 979.7 ml Tube Feeding 110 ml Output Urine Total 500 ml 1000 ml # Voids 2 # Bowel Movements 2 1 Objective WDWN NAD reduced breath sounds bilaterally with some rhonchi [id number] without MRG NABS nontender no HSM no CCE nonfocal poor LOC Microbiology Date/Time Source Procedure Growth Status 08/04/16 20:30 Blood Blood Culture - Preliminary NO GROWTH AFTER 24 HOURS Resulted 08/04/16 20:15 Blood Blood Culture - Preliminary NO GROWTH AFTER 24 HOURS Resulted Current Medications Medications (Trade) Dose Ordered Sig/Alex Route PRN Reason Start Time Stop Time Status Last Admin Dose Admin Acetaminophen (Tylenol) 650 mg Q4H PRN ORAL Mild Pain/Temp > 100.5 08/05/16 01:45 09/04/16 01:44 Albuterol/ Ipratropium (DuoNeb 0.5-3(2.5)mg/3ml) 3 ml Q4HRT HHN 08/05/16 11:00 08/10/16 10:59 08/06/16 07:41 Amiodarone HCl (Cordarone) 200 mg DAILY ORAL 08/05/16 09:00 09/04/16 08:59 Ascorbic Acid (Vitamin C) 500 mg TWICE A DAY GT 08/05/16 18:00 09/04/16 17:59 08/05/16 18:27 Dextrose STAT PRN IV Hypoglycemia 08/05/16 01:45 09/04/16 01:44 Heparin Sodium (Porcine) (Heparin 5000 units/ml) 5,000 units EVERY 12 HOURS SUBQ 08/05/16 09:00 09/04/16 08:59 08/05/16 21:15 Insulin Aspart (NovoLOG) BEFORE MEALS AND HS SUBQ 08/05/16 06:30 09/04/16 06:29 08/05/16 06:24 Piperacillin Sod/ Tazobactam Sod/ Dextrose (Zosyn/D5W) 110 ml @ 27.5 mls/hr Q8H IVPB 08/05/16 05:00 08/12/16 04:59 08/06/16 05:40 Sodium Chloride (0.45% NS 1000ml) 1,000 ml @ 75 mls/hr [id number] IV 08/05/16 11:00 09/04/16 10:59 08/05/16 23:54 ESHA BEY August 06, 2016 08:56
[2016-08-06 09:18] LABS: ANION GAP 12 (5-15); CALCIUM 8.4 mg/dL (8.6-10.2); CARBON DIOXIDE 27 mEQ/L (20-30); CHLORIDE 111 mEQ/L (98-107); CREATININE 1.1 mg/dL (0.7-1.2); GLOMERULAR FILTRATION RATE > 60 mL/min (>60); HEMOLYSIS 2; POTASSIUM 3.4 mEQ/L (3.4-4.9); SODIUM 150 mEQ/L (135-145)
[2016-08-06] MEDS: Ascorbic Acid 500mg tab GT SCH ×2 (10:26→18:28)
[2016-08-06] MEDS: Heparin 5000 units/ml inj SUBQ SCH ×2 (10:28→20:46)
[2016-08-06] MEDS: Amiodarone 200mg tab ORAL SCH (10:30)
[2016-08-06 11:10] LABS: ANISOCYTOSIS 1+; BAND NEUTROPHILS % (MANUAL) 0 % (0-8); BASOPHILS % (MANUAL) 0 % (0-2); EOSINOPHILS % (MANUAL) 2 % (0-3); HYPOCHROMASIA 1+; LYMPHOCYTES % (MANUAL) 15 % (20-45); NEUTROPHILS % (MANUAL) 76 % (45-75); PLATELET ESTIMATE ADEQUATE; PLATELET MORPHOLOGY NORMAL; TOTAL CELLS COUNTED 100
--- NOTE | 2016-08-06 14:20 | General Progress Note ---
Assessment/Plan Problem List: (1) Dysphagia ICD Codes: R13.10 - Dysphagia, unspecified SNOMED: 40063751, 011155849 (2) severe post anoxic encephalopathy (3) intermittent postural hand tremors, doubt seizure event (4) Sepsis ICD Codes: A41.9 - Sepsis, unspecified organism SNOMED: 31179470 (5) Pneumonia ICD Codes: J18.9 - Pneumonia, unspecified organism SNOMED: 781480091 (6) Fever ICD Codes: R50.9 - Fever, unspecified SNOMED: 366481691 Assessment/Plan iv abx resp rx gt feeds follow up cultures skin care Subjective ROS Limited/Unobtainable: Yes Constitutional: Reports: malaise, weakness HEENT: Reports: no symptoms Cardiovascular: Reports: no symptoms Respiratory: Reports: cough, sputum Gastrointestinal/Abdominal: Reports: difficulty swallowing Genitourinary: Reports: no symptoms Neurologic/Psychiatric: Reports: pre-existing deficit Endocrine: Reports: no symptoms Hematologic/Lymphatic: Reports: anemia Allergies: Coded Allergies: No Known Allergies (Unverified , 07/02/16) All Systems: reviewed and negative except above Subjective more alert and less congested. on iv abx. on resp rx. tolerating feeds Objective Last 24 Hour Vital Signs Date Time Temp Pulse Resp B/P Pulse Ox O2 Delivery O2 Flow Rate FiO2 08/06/16 12:00 95 18 100 Nasal Cannula 3.0 08/06/16 12:00 97.6 96 20 107/63 Nasal Cannula 3.0 08/06/16 12:00 93 08/06/16 11:48 28 08/06/16 11:48 96 20 100 Nasal Cannula 3.0 28 08/06/16 08:00 98.1 97 20 99/69 100 Nasal Cannula 3.0 08/06/16 08:00 96 08/06/16 07:56 100 20 99 Nasal Cannula 2.0 08/06/16 07:41 100 Nasal Cannula 2.0 28 08/06/16 07:41 96 18 100 Nasal Cannula 2.0 28 08/06/16 07:41 Nasal Cannula 2.0 28 08/06/16 07:41 28 08/06/16 04:00 100 08/06/16 04:00 97.4 98 19 110/70 99 Room Air 08/06/16 03:11 104 18 99 Nasal Cannula 2.0 28 08/06/16 03:00 100 20 97 Nasal Cannula 2.0 28 08/06/16 00:09 97.4 99 21 102/67 100 Nasal Cannula 08/06/16 00:00 100 08/05/16 23:37 100 18 100 Nasal Cannula 2.0 28 08/05/16 23:28 99 20 98 Nasal Cannula 2.0 28 08/05/16 20:24 97.3 94 20 129/80 100 Nasal Cannula 08/05/16 20:00 103 08/05/16 19:55 104 18 99 Nasal Cannula 2.0 28 08/05/16 19:47 98 Nasal Cannula 2.0 08/05/16 19:47 102 20 98 Nasal Cannula 2.0 08/05/16 19:46 Nasal Cannula 2.0 08/05/16 16:04 97.3 103 20 122/78 100 Nasal Cannula 3.0 08/05/16 16:00 106 08/05/16 15:31 Nasal Cannula 2.0 08/05/16 14:40 102 20 99 Nasal Cannula 2.0 08/05/16 14:36 104 20 98 Nasal Cannula 2.0 28 Intake and Output 08/05/16 08/06/16 19:00 07:00 Intake Total 457.5 ml 1189.7 ml Output Total 500 ml 1000 ml Balance -42.5 ml 189.7 ml Intake Free Water 100 ml IV Total 457.5 ml 979.7 ml Tube Feeding 110 ml Output Urine Total 500 ml 1000 ml # Voids 2 # Bowel Movements 2 1 Laboratory Tests 08/06/16 08:40: White Blood Count 7.2, Red Blood Count 2.57L, Hemoglobin 7.4L, Hematocrit 24.1L , Mean Corpuscular Volume 94, Mean Corpuscular Hemoglobin 28.9, Mean Corpuscular Hemoglobin Concent 30.8L, Red Cell Distribution Width 14.6, Platelet Count 308, Mean Platelet Volume 6.9, Neutrophils (%) (Auto) , Lymphocytes (%) (Auto) , Monocytes (%) (Auto) , Eosinophils (%) (Auto) , Basophils (%) (Auto) , Differential Total Cells Counted 100, Neutrophils % ( Manual) 76H, Lymphocytes % (Manual) 15L, Monocytes % (Manual) 7, Eosinophils % ( Manual) 2, Basophils % (Manual) 0, Band Neutrophils 0, Platelet Estimate Adequate, Platelet Morphology Normal, Hypochromasia 1+, Anisocytosis 1+, Sodium Level 150H, Potassium Level 3.4, Chloride Level 111H, Carbon Dioxide Level 27, Anion Gap 12, Blood Urea Nitrogen 42H, Creatinine 1.1, Estimat Glomerular Filtration Rate > 60, Glucose Level 130H, Calcium Level 8.4L Height (Feet): 5 Height (Inches): 8.00 Weight (Pounds): 180 General Appearance: WD/WN, confused Neck: supple Cardiovascular: normal rate Respiratory/Chest: no respiratory distress, no accessory muscle use, rhonchi - bilaterally Abdomen: normal bowel sounds, non tender, soft, no organomegaly Neurologic: disoriented Skin: normal pigmentation FAWN PORTER August 06, 2016 14:20
[2016-08-06] MEDS ORDERED: Vancomycin 1.5 GM in D5W 325 ML IVPB ONE (16:00)
--- NOTE | 2016-08-06 21:46 | Consultation ---
DATE OF CONSULTATION: 08/06/2016 INFECTIOUS DISEASE CONSULTATION This consult is for coverage of Dr. Coelho. PRIMARY ATTENDING PHYSICIAN: Jair Carlson M.D. REASON FOR CONSULTATION: Sepsis, pneumonia, and UTI. HISTORY OF PRESENT ILLNESS: This is a 70-year-old -[place] male, who is a long-term resident, admitted on 08/04/2016 because of weakness and low blood pressure. He had fever with a maximum temperature of 101.4 degrees in the hospital. He was found to have hypernatremia, hypokalemia, and acute renal failure. He has bilateral infiltrate in the chest x-ray. PAST MEDICAL HISTORY: Significant for anoxic encephalopathy, diabetes mellitus, COPD, anemia, multiple pressure ulcers, status post G-tube placement, and seizure disorder. MEDICATIONS: Vitamin C, sodium chloride, DuoNeb inhaler, amiodarone, insulin, Zosyn, and Tylenol. ALLERGIES: No known drug allergies. SOCIAL HISTORY: [facility] resident. No other history is obtainable. CODE STATUS: DNR. PHYSICAL EXAMINATION: VITAL SIGNS: Temperature 97.6 degrees, pulse 96, and blood pressure 107/63. GENERAL APPEARANCE: Seems to be thin and cachectic. HEAD AND NECK: Dry mouth. HEART: Regular. LUNGS: Still coughing. ABDOMEN: Soft. G-tube in place. EXTREMITIES: He has muscle atrophy in the lower extremities. No edema. LABORATORY DATA: Sodium 150, potassium 2.4, chloride 111, bicarbonate 27, BUN 32, and creatinine 1.1. Glucose is 130. WBC 7.2, hemoglobin 7.4, hematocrit 24.1, and platelets is 208,000. Chest x-ray shows bilateral infiltrate. Blood cultures x2 is growing gram-positive cocci in clusters. Urine culture also showed gram-positive cocci and gram-negative rods. IMPRESSION: Sepsis with bacteremia. The patient has fever and evidence of lung dysfunction. The patient has bilateral pneumonia. He has bacteriuria and urinary tract infection. He has multiple pressures ulcers, some of them are in the advanced stage. He has severe anemia, chronic obstructive pulmonary disease, diabetes mellitus, and epilepsy. RECOMMENDATIONS: We will continue with Zosyn. Add IV vancomycin. We will follow up the culture. At the end of my exam, I thank Dr. Carlson for involving me in the care of this patient. Wicho Pineda M.D. DR: MARTIN JOB#: [id number] CC:
[2016-08-07] MEDS: DuoNeb 0.5-3(2.5)mg/3ml neb HHN SCH ×6 (04:17→23:06)
[2016-08-07 04:18] VITALS: BP 124/71
[2016-08-07] MEDS: Piperacillin/Tazobactam 3.375 GM in D5W 110 ML IVPB SCH ×3 (04:26→20:51)
[2016-08-07] MEDS: NovoLOG Insulin Flexpen SUBQ SCH ×4 (06:40→21:00)
[2016-08-07 07:46] VITALS: BP 117/73
--- NOTE | 2016-08-07 08:11 | Pulmonology Progress Note ---
Assessment/Plan Assessment/Plan IMPRESSION: 1. Evidence of pneumonia. 2. Evidence of acute on chronic renal failure . 3. Evidence of transaminitis. 4. Evidence of severe protein-calorie malnutrition. 5. Anemia. 6. Chronic encephalopathy 7. Hypernatremia 8. Azotemia. PLAN respiratory care consider transfusion oxygen therapy IV antibiotics monitor cultures maintain meds nutrition as is GT feeds aspiration precautions follow up chest xr for clearing impression, plan, and exam edited and reviewed in detail care discussed with RN Subjective ROS Limited/Unobtainable: Yes Allergies: Coded Allergies: No Known Allergies (Unverified , 07/02/16) Subjective still with some congestion on oxygen Objective Last 24 Hour Vital Signs Date Time Temp Pulse Resp B/P Pulse Ox O2 Delivery O2 Flow Rate FiO2 08/07/16 07:46 96.2 94 20 117/73 96 Nasal Cannula 2.0 08/07/16 07:35 104 22 100 Nasal Cannula 2.0 28 08/07/16 07:30 Nasal Cannula 2.0 28 08/07/16 07:30 102 22 98 Nasal Cannula 2.0 28 08/07/16 07:30 98 Nasal Cannula 2.0 28 08/07/16 04:18 98.7 85 19 124/71 100 Nasal Cannula 2.0 08/07/16 04:00 84 08/07/16 03:59 90 20 99 Nasal Cannula 2.0 08/07/16 03:49 87 22 99 Nasal Cannula 2.0 28 08/07/16 03:49 28 08/07/16 00:00 88 08/06/16 23:52 98.1 96 18 111/68 97 Nasal Cannula 3.0 08/06/16 23:45 92 18 99 Nasal Cannula 2.0 28 08/06/16 23:33 88 20 99 Nasal Cannula 2.0 28 08/06/16 23:33 28 08/06/16 20:08 98.7 95 19 104/74 95 Nasal Cannula 3.0 08/06/16 20:00 94 08/06/16 19:54 98 20 99 Nasal Cannula 2.0 28 08/06/16 19:41 28 08/06/16 19:41 93 24 98 Nasal Cannula 2.0 28 08/06/16 19:40 98 Nasal Cannula 2.0 28 08/06/16 19:40 Nasal Cannula 2.0 28 08/06/16 16:00 98.1 90 20 104/64 100 Nasal Cannula 3.0 08/06/16 16:00 98 08/06/16 15:08 98 18 100 Nasal Cannula 3.0 28 08/06/16 14:54 95 18 100 Nasal Cannula 3.0 28 08/06/16 14:54 28 08/06/16 12:00 95 18 100 Nasal Cannula 3.0 28 08/06/16 12:00 97.6 96 20 107/63 Nasal Cannula 3.0 08/06/16 12:00 93 08/06/16 11:48 28 08/06/16 11:48 96 20 100 Nasal Cannula 3.0 28 Intake and Output 08/06/16 08/07/16 19:00 07:00 Intake Total 205 ml 1997.0 ml Output Total 1000 ml Balance 205 ml 997.0 ml Intake Free Water 100 ml IV Total 75 ml 927.0 ml Tube Feeding 130 ml 715 ml Blood Product 255 ml Output Urine Total 1000 ml Objective WDWN NAD reduced breath sounds bilaterally with some residual rhonchi [id number] without MRG NABS nontender no HSM no CCE nonfocal poor LOC skin noted Microbiology Date/Time Source Procedure Growth Status 08/04/16 20:30 Blood Blood Culture - Preliminary Resulted 08/04/16 20:15 Blood Blood Culture - Preliminary Resulted 08/04/16 21:34 Urine,Clean Catch Urine Culture - Final Enterococcus Faecalis - Vre Gram Negative Arnold Complete 08/04/16 22:50 Rectum VRE Culture - Final Enterococcus Faecalis - Vre Complete Laboratory Tests 08/06/16 08:40: White Blood Count 7.2, Red Blood Count 2.57L, Hemoglobin 7.4L, Hematocrit 24.1L , Mean Corpuscular Volume 94, Mean Corpuscular Hemoglobin 28.9, Mean Corpuscular Hemoglobin Concent 30.8L, Red Cell Distribution Width 14.6, Platelet Count 308, Mean Platelet Volume 6.9, Neutrophils (%) (Auto) , Lymphocytes (%) (Auto) , Monocytes (%) (Auto) , Eosinophils (%) (Auto) , Basophils (%) (Auto) , Differential Total Cells Counted 100, Neutrophils % ( Manual) 76H, Lymphocytes % (Manual) 15L, Monocytes % (Manual) 7, Eosinophils % ( Manual) 2, Basophils % (Manual) 0, Band Neutrophils 0, Platelet Estimate Adequate, Platelet Morphology Normal, Hypochromasia 1+, Anisocytosis 1+, Sodium Level 150H, Potassium Level 3.4, Chloride Level 111H, Carbon Dioxide Level 27, Anion Gap 12, Blood Urea Nitrogen 42H, Creatinine 1.1, Estimat Glomerular Filtration Rate > 60, Glucose Level 130H, Calcium Level 8.4L Current Medications Medications (Trade) Dose Ordered Sig/Alex Route PRN Reason Start Time Stop Time Status Last Admin Dose Admin Acetaminophen (Tylenol) 650 mg Q4H PRN ORAL Mild Pain/Temp > 100.5 08/05/16 01:45 09/04/16 01:44 Albuterol/ Ipratropium (DuoNeb 0.5-3(2.5)mg/3ml) 3 ml Q4HRT HHN 08/05/16 11:00 08/10/16 10:59 08/07/16 07:39 Amiodarone HCl (Cordarone) 200 mg DAILY ORAL 08/05/16 09:00 09/04/16 08:59 08/06/16 10:30 Ascorbic Acid (Vitamin C) 500 mg TWICE A DAY GT 08/05/16 18:00 09/04/16 17:59 08/06/16 18:28 Dextrose STAT PRN IV Hypoglycemia 08/05/16 01:45 09/04/16 01:44 Heparin Sodium (Porcine) (Heparin 5000 units/ml) 5,000 units EVERY 12 HOURS SUBQ 08/05/16 09:00 09/04/16 08:59 08/06/16 10:28 Insulin Aspart (NovoLOG) BEFORE MEALS AND HS SUBQ 08/05/16 06:30 09/04/16 06:29 08/07/16 06:40 Piperacillin Sod/ Tazobactam Sod/ Dextrose (Zosyn/D5W) 110 ml @ 27.5 mls/hr Q8H IVPB 08/05/16 05:00 08/12/16 04:59 08/07/16 04:26 Sodium Chloride (0.45% NS 1000ml) 1,000 ml @ 75 mls/hr [id number] IV 08/05/16 11:00 09/04/16 10:59 08/07/16 04:35 Vancomycin HCl 1 ea 1 ea DAILY PRN MISC Per rx protocol 08/06/16 14:15 09/05/16 14:14 Vancomycin HCl/ Dextrose (Vancomycin/D5W) 275 ml @ 183.333 mls/hr Q24H IVPB 08/07/16 16:00 08/12/16 15:59 ESHA BEY August 07, 2016 08:11
[2016-08-07 08:12] LABS: OTHERS PATHOLOGIST COMMENT
--- NOTE | 2016-08-07 08:45 | General Progress Note ---
Assessment/Plan Problem List: (1) Dysphagia ICD Codes: R13.10 - Dysphagia, unspecified SNOMED: 91492031, 349245623 (2) severe post anoxic encephalopathy (3) intermittent postural hand tremors, doubt seizure event (4) Sepsis ICD Codes: A41.9 - Sepsis, unspecified organism SNOMED: 59576501 (5) Pneumonia ICD Codes: J18.9 - Pneumonia, unspecified organism SNOMED: 842293975 (6) Fever ICD Codes: R50.9 - Fever, unspecified SNOMED: 995236890 Status: stable, progressing Assessment/Plan iv abx resp rx gt feeds follow up cultures follow up labs hypotonic fluids wound care/ skin care Subjective ROS Limited/Unobtainable: Yes Constitutional: Reports: malaise, weakness HEENT: Reports: no symptoms Cardiovascular: Reports: no symptoms Respiratory: Reports: cough, shortness of breath, sputum Gastrointestinal/Abdominal: Reports: difficulty swallowing Genitourinary: Reports: no symptoms Neurologic/Psychiatric: Reports: pre-existing deficit Endocrine: Reports: no symptoms Hematologic/Lymphatic: Reports: no symptoms Allergies: Coded Allergies: No Known Allergies (Unverified , 07/02/16) All Systems: reviewed and negative except above Subjective more alert and less congested. on iv abx. on resp rx. tolerating feeds . s/p 1 unit prbc. morning labs not back yet Objective Last 24 Hour Vital Signs Date Time Temp Pulse Resp B/P Pulse Ox O2 Delivery O2 Flow Rate FiO2 08/07/16 07:46 96.2 94 20 117/73 96 Nasal Cannula 2.0 08/07/16 07:35 104 22 100 Nasal Cannula 2.0 08/07/16 07:30 Nasal Cannula 2.0 08/07/16 07:30 102 22 98 Nasal Cannula 2.0 08/07/16 07:30 98 Nasal Cannula 2.0 08/07/16 04:18 98.7 85 19 124/71 100 Nasal Cannula 2.0 08/07/16 04:00 84 08/07/16 03:59 90 20 99 Nasal Cannula 2.0 08/07/16 03:49 87 22 99 Nasal Cannula 2.0 28 08/07/16 03:49 28 08/07/16 00:00 88 08/06/16 23:52 98.1 96 18 111/68 97 Nasal Cannula 3.0 08/06/16 23:45 92 18 99 Nasal Cannula 2.0 28 08/06/16 23:33 88 20 99 Nasal Cannula 2.0 28 08/06/16 23:33 28 08/06/16 20:08 98.7 95 19 104/74 95 Nasal Cannula 3.0 08/06/16 20:00 94 08/06/16 19:54 98 20 99 Nasal Cannula 2.0 08/06/16 19:41 28 08/06/16 19:41 93 24 98 Nasal Cannula 2.0 08/06/16 19:40 98 Nasal Cannula 2.0 28 08/06/16 19:40 Nasal Cannula 2.0 28 08/06/16 16:00 98.1 90 20 104/64 100 Nasal Cannula 3.0 08/06/16 16:00 98 08/06/16 15:08 98 18 100 Nasal Cannula 3.0 08/06/16 14:54 95 18 100 Nasal Cannula 3.0 08/06/16 14:54 28 08/06/16 12:00 95 18 100 Nasal Cannula 3.0 08/06/16 12:00 97.6 96 20 107/63 Nasal Cannula 3.0 08/06/16 12:00 93 08/06/16 11:48 28 08/06/16 11:48 96 20 100 Nasal Cannula 3.0 28 Intake and Output 08/06/16 08/07/16 19:00 07:00 Intake Total 205 ml 1997.0 ml Output Total 1000 ml Balance 205 ml 997.0 ml Intake Free Water 100 ml IV Total 75 ml 927.0 ml Tube Feeding 130 ml 715 ml Blood Product 255 ml Output Urine Total 1000 ml Height (Feet): 5 Height (Inches): 8.00 Weight (Pounds): 180 General Appearance: WD/WN, alert, confused Neck: supple Cardiovascular: normal rate, regular rhythm Respiratory/Chest: rhonchi - bilaterally Abdomen: normal bowel sounds, non tender, soft, no organomegaly Edema: no edema noted Arm (L), no edema noted Arm (R), no edema noted Leg (L), no edema noted Leg (R), no edema noted Pedal (L), no edema noted Pedal (R), no edema noted Generalized Neurologic: aphasia FAWN PORTER August 07, 2016 08:45
[2016-08-07] MEDS: Heparin 5000 units/ml inj SUBQ SCH ×2 (09:18→20:57)
[2016-08-07] MEDS: Amiodarone 200mg tab ORAL SCH (09:24)
[2016-08-07] MEDS: Ascorbic Acid 500mg tab GT SCH ×2 (09:25→17:07)
[2016-08-07 10:07] LABS: BASOPHILS % (AUTO) 0.6 % (0.0-2.0); EOSINOPHILS % (AUTO) 3.8 % (0.0-3.0); LYMPHOCYTES % (AUTO) 15.1 % (20.0-45.0); MEAN CORPUSCULAR HEMOGLOBIN 29.3 PG (27.0-31.0); MEAN CORPUSCULAR HGB CONC 31.7 G/DL (32.0-36.0); MEAN CORPUSCULAR VOLUME 93 FL (80-99); MEAN PLATELET VOLUME 8.3 FL (6.5-10.1); MONOCYTES % (AUTO) 7.8 % (1.0-10.0); NEUTROPHILS % (AUTO) 72.7 % (45.0-75.0); PLATELET COUNT 286 K/UL (150-450); RED BLOOD COUNT 2.99 M/UL (4.70-6.10); RED CELL DISTRIBUTION WIDTH 13.8 % (11.6-14.8); WHITE BLOOD COUNT 6.9 K/UL (4.8-10.8)
[2016-08-07 10:28] LABS: ALANINE AMINOTRANSFERASE 32 U/L (3-41); ALBUMIN/GLOBULIN RATIO 0.3 (1.0-2.7); ANION GAP 12 (5-15); ASPARTATE AMINO TRANSFERASE 24 U/L (5-40); CALCIUM 8.4 mg/dL (8.6-10.2); CARBON DIOXIDE 28 mEQ/L (20-30); CHLORIDE 108 mEQ/L (98-107); GLOMERULAR FILTRATION RATE > 60 mL/min (>60); HEMOLYSIS 2; POTASSIUM 3.4 mEQ/L (3.4-4.9); SODIUM 148 mEQ/L (135-145); TOTAL PROTEIN 6.8 g/dL (6.6-8.7)
[2016-08-07 11:21] VITALS: BP 119/75
--- NOTE | 2016-08-07 12:27 | Infectious Diseases Prog Note ---
"Assessment/Plan Assessment/Plan antibiotics : vancomycin iv, zosyn A 1. gram positive sepsis 2. VRE | gram negative UTI 3. pneumonia 4. DM 5. COPD P 1. continue zosyn 2. d/c iv vancomycin 3. start linezolid 4. 2 d echo 5. will follow up cultures Subjective ROS Limited/Unobtainable: Yes Allergies: Coded Allergies: No Known Allergies (Unverified , 07/02/16) Objective Vital Signs Last 24 Hour Vital Signs Date Time Temp Pulse Resp B/P Pulse Ox O2 Delivery O2 Flow Rate FiO2 08/07/16 11:35 96 20 100 Nasal Cannula 2.0 28 08/07/16 11:30 92 20 97 Nasal Cannula 2.0 28 08/07/16 11:21 97.7 92 20 119/75 97 Nasal Cannula 2.0 08/07/16 08:00 91 08/07/16 07:46 96.2 94 20 117/73 96 Nasal Cannula 2.0 08/07/16 07:35 104 22 100 Nasal Cannula 2.0 28 08/07/16 07:30 Nasal Cannula 2.0 28 08/07/16 07:30 102 22 98 Nasal Cannula 2.0 28 08/07/16 07:30 98 Nasal Cannula 2.0 28 08/07/16 04:18 98.7 85 19 124/71 100 Nasal Cannula 2.0 08/07/16 04:00 84 08/07/16 03:59 90 20 99 Nasal Cannula 2.0 28 08/07/16 03:49 87 22 99 Nasal Cannula 2.0 28 08/07/16 03:49 28 08/07/16 00:00 88 08/06/16 23:52 98.1 96 18 111/68 97 Nasal Cannula 3.0 08/06/16 23:45 92 18 99 Nasal Cannula 2.0 28 08/06/16 23:33 88 20 99 Nasal Cannula 2.0 28 08/06/16 23:33 28 08/06/16 20:08 98.7 95 19 104/74 95 Nasal Cannula 3.0 08/06/16 20:00 94 08/06/16 19:54 98 20 99 Nasal Cannula 2.0 28 08/06/16 19:41 28 08/06/16 19:41 93 24 98 Nasal Cannula 2.0 28 08/06/16 19:40 98 Nasal Cannula 2.0 28 08/06/16 19:40 Nasal Cannula 2.0 28 08/06/16 16:00 98.1 90 20 104/64 100 Nasal Cannula 3.0 08/06/16 16:00 98 08/06/16 15:08 98 18 100 Nasal Cannula 3.0 28 08/06/16 14:54 95 18 100 Nasal Cannula 3.0 28 08/06/16 14:54 28 Height (Feet): 5 Height (Inches): 8.00 Weight (Pounds): 180 Respiratory/Chest: rhonchi - bilaterally Cardiovascular: normal rate, regular rhythm, no gallop/murmur Abdomen: soft, non tender, other - GT Extremities: no edema Microbiology Date/Time Source Procedure Growth Status 08/04/16 20:30 Blood Blood Culture - Preliminary Resulted 08/04/16 20:15 Blood Blood Culture - Preliminary Resulted 08/04/16 22:50 Nasal Nares MRSA Culture - Final NO METHICILLIN RESISTANT STAPH AUREUS... Complete 08/04/16 21:34 Urine,Clean Catch Urine Culture - Final Enterococcus Faecalis - Vre Gram Negative Arnold Complete 08/06/16 06:00 Sacral Wound Gram Stain - Final Resulted 08/06/16 06:00 Sacral Wound Wound Culture Pending Resulted 08/04/16 22:50 Rectum VRE Culture - Final Enterococcus Faecalis - Vre Complete Laboratory Tests Test 08/07/16 09:00 White Blood Count 6.9 K/UL (4.8-10.8) Red Blood Count 2.99 M/UL (4.70-6.10) L Hemoglobin 8.8 G/DL (14.2-18.0) L Hematocrit 27.7 % (42.0-52.0) L Mean Corpuscular Volume 93 FL (80-99) Mean Corpuscular Hemoglobin 29.3 PG (27.0-31.0) Mean Corpuscular Hemoglobin Concent 31.7 G/DL (32.0-36.0) L Red Cell Distribution Width 13.8 % (11.6-14.8) Platelet Count 286 K/UL (150-450) Mean Platelet Volume 8.3 FL (6.5-10.1) Neutrophils (%) (Auto) 72.7 % (45.0-75.0) Lymphocytes (%) (Auto) 15.1 % (20.0-45.0) L Monocytes (%) (Auto) 7.8 % (1.0-10.0) Eosinophils (%) (Auto) 3.8 % (0.0-3.0) H Basophils (%) (Auto) 0.6 % (0.0-2.0) Sodium Level 148 mEQ/L (135-145) H Potassium Level 3.4 mEQ/L (3.4-4.9) Chloride Level 108 mEQ/L (98-107) H Carbon Dioxide Level 28 mEQ/L (20-30) Anion Gap 12 (5-15) Blood Urea Nitrogen 40 mg/dL (7-23) H Creatinine 1.0 mg/dL (0.7-1.2) Estimat Glomerular Filtration Rate > 60 mL/min (>60) Glucose Level 146 mg/dL (74-106) H Calcium Level 8.4 mg/dL (8.6-10.2) L Total Bilirubin 0.4 mg/dL (0.0-1.2) Aspartate Amino Transf (AST/SGOT) 24 U/L (5-40) Alanine Aminotransferase (ALT/SGPT) 32 U/L (3-41) Alkaline Phosphatase 89 U/L (40-129) Total Protein 6.8 g/dL (6.6-8.7) Albumin 1.9 g/dL (3.5-5.2) L Globulin 4.9 g/dL Albumin/Globulin Ratio 0.3 (1.0-2.7) L YEVGENIY GARCIA August 07, 2016 12:27"
[2016-08-07] MEDS ORDERED: NS 275ml ONE (13:54)
[2016-08-07] MEDS ORDERED: NS Irrig 1000ml ONE (13:54)
[2016-08-07] MEDS ORDERED: 1/2 NS 1000ml IV ONE (13:54)
[2016-08-07] MEDS ORDERED: Tubing IV Secondary IV ONE (13:54)
[2016-08-07] MEDS ORDERED: Tubing Blood Filter IV ONE (13:54)
[2016-08-07 15:23] VITALS: BP 124/77
[2016-08-07] MEDS ORDERED: Vancomycin 1250mg/D5W 275ml IVPB SCH ×2 (16:00)
--- NOTE | 2016-08-07 19:12 | Cardiology Report ---
APPROVED REPORT EXAM: Two-dimensional and M-mode echocardiogram with Doppler and color Doppler. INDICATION Endocarditis M-Mode DIMENSIONS IVSd0.7 (0.7-1.1cm)Left Atrium (MM)4.4 (1.6-4.0cm) LVDd4.3 (3.5-5.6cm)Aortic Root3.7 (2.0-3.7cm) IVSs0.9 cm LVDs1.8 (2.5-4.0cm) PWs1.8 cm Technically difficult study due to poor acoustic windows. Normal left ventricular chamber size, systolic function and wall motion. Left ventricular ejection fraction estimated to be 60-65%. No evidence of left ventricular hypertrophy. No evidence of pericardial fat or effusion. All other cardiac chamber sizes are within normal limits. Focal aortic valve sclerosis with adequate cusp excursion Thickened mitral valve leaflets with normal excursion. Mitral annulus and aortic root calcification. Pulmonic valve not well visualized. Normal tricuspid valve structure. IVC dilated at 2.3cm with physiologic collapse. Small echo density seen on anterior mitral valve leaflet can not rule out vegitation, consider ERON if clinically indicated. A color flow and spectral Doppler study was performed and revealed: Trace aortic regurgitation. No mitral regurgitation. Left ventricular diastolic dysfunction grade 1. No tricuspid regurgitation. Tricuspid systolic velocities suggests peak right ventricular systolic pressure of 17 mmHg
[2016-08-07 20:06] VITALS: BP 135/80
[2016-08-08 00:20] VITALS: BP 129/74
[2016-08-08] MEDS: DuoNeb 0.5-3(2.5)mg/3ml neb HHN SCH ×6 (03:29→23:03)
[2016-08-08 04:07] VITALS: BP 127/79
[2016-08-08] MEDS: Piperacillin/Tazobactam 3.375 GM in D5W 110 ML IVPB SCH ×3 (06:21→21:13)
[2016-08-08] MEDS: NovoLOG Insulin Flexpen SUBQ SCH ×3 (06:32→17:42)
[2016-08-08 07:50] LABS: BASOPHILS % (AUTO) 0.6 % (0.0-2.0); LYMPHOCYTES % (AUTO) 12.8 % (20.0-45.0); MEAN CORPUSCULAR HEMOGLOBIN 29.3 PG (27.0-31.0); MEAN CORPUSCULAR HGB CONC 31.6 G/DL (32.0-36.0); MEAN CORPUSCULAR VOLUME 93 FL (80-99); MONOCYTES % (AUTO) 6.5 % (1.0-10.0); PLATELET COUNT 279 K/UL (150-450); RED BLOOD COUNT 3.02 M/UL (4.70-6.10); RED CELL DISTRIBUTION WIDTH 14.1 % (11.6-14.8); WHITE BLOOD COUNT 6.1 K/UL (4.8-10.8)
[2016-08-08 08:00] VITALS: BP 123/85
[2016-08-08 08:11] LABS: ALANINE AMINOTRANSFERASE 29 U/L (3-41); ALBUMIN/GLOBULIN RATIO 0.3 (1.0-2.7); ANION GAP 12 (5-15); ASPARTATE AMINO TRANSFERASE 24 U/L (5-40); CALCIUM 8.3 mg/dL (8.6-10.2); CARBON DIOXIDE 27 mEQ/L (20-30); CHLORIDE 103 mEQ/L (98-107); GLOMERULAR FILTRATION RATE > 60 mL/min (>60); HEMOLYSIS 13; POTASSIUM 3.7 mEQ/L (3.4-4.9); SODIUM 142 mEQ/L (135-145); TOTAL PROTEIN 6.7 g/dL (6.6-8.7)
[2016-08-08] MEDS: Ascorbic Acid 500mg tab GT SCH ×2 (09:01→17:42)
[2016-08-08] MEDS: Amiodarone 200mg tab ORAL SCH (09:01)
[2016-08-08] MEDS: Heparin 5000 units/ml inj SUBQ SCH ×2 (09:03→21:14)
--- NOTE | 2016-08-08 09:29 | Pulmonology Progress Note ---
Assessment/Plan Assessment/Plan IMPRESSION: 1. Evidence of pneumonia. 2. Evidence of acute on chronic renal failure . 3. Evidence of transaminitis. 4. Evidence of severe protein-calorie malnutrition. 5. Anemia. 6. Chronic encephalopathy 7. Hypernatremia 8. Azotemia. PLAN respiratory care as outlined HH improved oxygen therapy IV antibiotics reviewed monitor cultures maintain meds nutrition as is GT feeds aspiration precautions follow up chest xr 08/08 hope to proceed with dc planning soon impression, plan, and exam edited and reviewed in detail care discussed with RN Subjective ROS Limited/Unobtainable: Yes Allergies: Coded Allergies: No Known Allergies (Unverified , 07/02/16) Subjective improved congestion on oxygen ID noted echo noted Objective Last 24 Hour Vital Signs Date Time Temp Pulse Resp B/P Pulse Ox O2 Delivery O2 Flow Rate FiO2 08/08/16 08:00 97.0 89 18 123/85 Nasal Cannula 2.0 98 08/08/16 04:07 98.6 88 19 127/79 99 Nasal Cannula 2.0 08/08/16 03:44 88 08/08/16 03:41 88 20 100 Nasal Cannula 2.0 08/08/16 03:29 91 20 100 Nasal Cannula 2.0 08/08/16 00:20 98.3 90 19 129/74 99 Nasal Cannula 2.0 08/07/16 23:41 91 08/07/16 23:14 92 20 100 Nasal Cannula 2.0 08/07/16 23:07 94 20 100 Nasal Cannula 2.0 08/07/16 20:06 98.8 86 20 135/80 100 Nasal Cannula 2.0 08/07/16 19:20 91 08/07/16 19:15 100 Nasal Cannula 2.0 08/07/16 19:15 Nasal Cannula 2.0 28 08/07/16 19:14 90 20 100 Nasal Cannula 2.0 08/07/16 19:10 94 20 100 Nasal Cannula 2.0 08/07/16 16:00 93 08/07/16 15:25 97 20 100 Nasal Cannula 2.0 08/07/16 15:23 97.3 95 20 124/77 96 Nasal Cannula 2.0 08/07/16 15:20 96 20 96 Nasal Cannula 2.0 08/07/16 12:00 93 5/26/17 11:35 96 20 100 Nasal Cannula 2.0 28 08/07/16 11:30 92 20 97 Nasal Cannula 2.0 28 08/07/16 11:21 97.7 92 20 119/75 97 Nasal Cannula 2.0 Intake and Output 08/07/16 08/08/16 19:00 07:00 Intake Total 975.0 ml 1330 ml Output Total 650 ml 800 ml Balance 325.0 ml 530 ml Intake Free Water 100 ml IV Total 910.0 ml 450 ml Tube Feeding 65 ml 780 ml Output Urine Total 650 ml 800 ml # Bowel Movements 1 1 Objective WDWN NAD reduced breath sounds bilaterally with occasional rhonchi [id number] without MRG NABS nontender no HSM no CCE nonfocal poor LOC skin noted Microbiology Date/Time Source Procedure Growth Status 08/06/16 06:00 Sacral Wound Gram Stain - Final Resulted 08/06/16 06:00 Wound Culture - Preliminary Gram Negative Arnold Staphylococcus Aureus Strep Species, Gamma-Hemolytic Resulted Laboratory Tests 08/08/16 06:55: White Blood Count 6.1, Red Blood Count 3.02L, Hemoglobin 8.8L, Hematocrit 28.0L , Mean Corpuscular Volume 93, Mean Corpuscular Hemoglobin 29.3, Mean Corpuscular Hemoglobin Concent 31.6L, Red Cell Distribution Width 14.1, Platelet Count 279, Mean Platelet Volume 8.0, Neutrophils (%) (Auto) 75.0, Lymphocytes (%) (Auto) 12.8L, Monocytes (%) (Auto) 6.5, Eosinophils (%) (Auto) 5.0H, Basophils (%) (Auto) 0.6, Sodium Level 142, Potassium Level 3.7, Chloride Level 103, Carbon Dioxide Level 27, Anion Gap 12, Blood Urea Nitrogen 42H, Creatinine 1.0, Estimat Glomerular Filtration Rate > 60, Glucose Level 130H, Calcium Level 8.3L, Total Bilirubin 0.2, Aspartate Amino Transf (AST/SGOT) 24, Alanine Aminotransferase (ALT/SGPT) 29, Alkaline Phosphatase 93, Total Protein 6.7, Albumin 1.9L, Globulin 4.8, Albumin/Globulin Ratio 0.3L Current Medications Medications (Trade) Dose Ordered Sig/Alex Route PRN Reason Start Time Stop Time Status Last Admin Dose Admin Acetaminophen (Tylenol) 650 mg Q4H PRN ORAL Mild Pain/Temp > 100.5 08/05/16 01:45 09/04/16 01:44 Albuterol/ Ipratropium (DuoNeb 0.5-3(2.5)mg/3ml) 3 ml Q4HRT HHN 08/05/16 11:00 08/10/16 10:59 08/08/16 07:40 Amiodarone HCl (Cordarone) 200 mg DAILY ORAL 08/05/16 09:00 09/04/16 08:59 08/08/16 09:01 Ascorbic Acid 500 mg 500 mg TWICE A DAY GT 08/05/16 18:00 09/04/16 17:59 08/08/16 09:01 Dextrose 1,000 ml @ 50 mls/hr Q20H IV 08/07/16 09:00 09/06/16 08:59 08/08/16 06:22 Dextrose (Dextrose 50%) STAT PRN IV Hypoglycemia 08/05/16 01:45 09/04/16 01:44 Heparin Sodium (Porcine) (Heparin 5000 units/ml) 5,000 units EVERY 12 HOURS SUBQ 08/05/16 09:00 09/04/16 08:59 08/08/16 09:03 Insulin Aspart (NovoLOG) Q6HR SUBQ 08/08/16 12:00 09/07/16 11:59 Linezolid (Zyvox) 300 ml @ 300 mls/hr Q12HR IVPB 08/07/16 14:00 08/14/16 13:59 08/08/16 09:01 Piperacillin Sod/ Tazobactam Sod/ Dextrose (Zosyn/D5W) 110 ml @ 27.5 mls/hr Q8H IVPB 08/05/16 05:00 08/12/16 04:59 08/08/16 06:21 ESHA BEY August 08, 2016 09:29
--- NOTE | 2016-08-08 09:42 | General Progress Note ---
Assessment/Plan Problem List: (1) Dysphagia ICD Codes: R13.10 - Dysphagia, unspecified SNOMED: 19728012, 577412445 (2) severe post anoxic encephalopathy (3) intermittent postural hand tremors, doubt seizure event (4) Sepsis ICD Codes: A41.9 - Sepsis, unspecified organism SNOMED: 45793210 (5) Pneumonia ICD Codes: J18.9 - Pneumonia, unspecified organism SNOMED: 573685121 (6) Fever ICD Codes: R50.9 - Fever, unspecified SNOMED: 463648901 Status: stable, progressing Assessment/Plan iv abx resp rx gt feeds follow up cultures follow up cxr from today hypotonic fluids wound care skin care Subjective ROS Limited/Unobtainable: No Constitutional: Reports: malaise, weakness HEENT: Reports: no symptoms Cardiovascular: Reports: no symptoms Respiratory: Reports: cough, shortness of breath, sputum Gastrointestinal/Abdominal: Reports: no symptoms Genitourinary: Reports: no symptoms Neurologic/Psychiatric: Reports: pre-existing deficit Endocrine: Reports: no symptoms Hematologic/Lymphatic: Reports: no symptoms Allergies: Coded Allergies: No Known Allergies (Unverified , 07/02/16) All Systems: reviewed and negative except above Subjective more congested today. requires frequent deep suctioning. s/p 1 unit prbc. no bleeding. Objective Last 24 Hour Vital Signs Date Time Temp Pulse Resp B/P Pulse Ox O2 Delivery O2 Flow Rate FiO2 08/08/16 08:00 97.0 89 18 123/85 Nasal Cannula 2.0 98 08/08/16 04:07 98.6 88 19 127/79 99 Nasal Cannula 2.0 08/08/16 03:44 88 08/08/16 03:41 88 20 100 Nasal Cannula 2.0 08/08/16 03:29 91 20 100 Nasal Cannula 2.0 28 08/08/16 00:20 98.3 90 19 129/74 99 Nasal Cannula 2.0 08/07/16 23:41 91 08/07/16 23:14 92 20 100 Nasal Cannula 2.0 28 08/07/16 23:07 94 20 100 Nasal Cannula 2.0 28 08/07/16 20:06 98.8 86 20 135/80 100 Nasal Cannula 2.0 08/07/16 19:20 91 08/07/16 19:15 100 Nasal Cannula 2.0 28 /26/17 19:15 Nasal Cannula 2.0 08/07/16 19:14 90 20 100 Nasal Cannula 2.0 08/07/16 19:10 94 20 100 Nasal Cannula 2.0 08/07/16 16:00 93 08/07/16 15:25 97 20 100 Nasal Cannula 2.0 08/07/16 15:23 97.3 95 20 124/77 96 Nasal Cannula 2.0 08/07/16 15:20 96 20 96 Nasal Cannula 2.0 08/07/16 12:00 93 08/07/16 11:35 96 20 100 Nasal Cannula 2.0 08/07/16 11:30 92 20 97 Nasal Cannula 2.0 08/07/16 11:21 97.7 92 20 119/75 97 Nasal Cannula 2.0 Intake and Output 08/07/16 08/08/16 19:00 07:00 Intake Total 975.0 ml 1330 ml Output Total 650 ml 800 ml Balance 325.0 ml 530 ml Intake Free Water 100 ml IV Total 910.0 ml 450 ml Tube Feeding 65 ml 780 ml Output Urine Total 650 ml 800 ml # Bowel Movements 1 1 Laboratory Tests 08/08/16 06:55: White Blood Count 6.1, Red Blood Count 3.02L, Hemoglobin 8.8L, Hematocrit 28.0L , Mean Corpuscular Volume 93, Mean Corpuscular Hemoglobin 29.3, Mean Corpuscular Hemoglobin Concent 31.6L, Red Cell Distribution Width 14.1, Platelet Count 279, Mean Platelet Volume 8.0, Neutrophils (%) (Auto) 75.0, Lymphocytes (%) (Auto) 12.8L, Monocytes (%) (Auto) 6.5, Eosinophils (%) (Auto) 5.0H, Basophils (%) (Auto) 0.6, Sodium Level 142, Potassium Level 3.7, Chloride Level 103, Carbon Dioxide Level 27, Anion Gap 12, Blood Urea Nitrogen 42H, Creatinine 1.0, Estimat Glomerular Filtration Rate > 60, Glucose Level 130H, Calcium Level 8.3L, Total Bilirubin 0.2, Aspartate Amino Transf (AST/SGOT) 24, Alanine Aminotransferase (ALT/SGPT) 29, Alkaline Phosphatase 93, Total Protein 6.7, Albumin 1.9L, Globulin 4.8, Albumin/Globulin Ratio 0.3L Height (Feet): 5 Height (Inches): 8.00 Weight (Pounds): 180 General Appearance: WD/WN, alert Neck: supple Cardiovascular: normal rate, regular rhythm Respiratory/Chest: chest wall non-tender, lungs clear, normal breath sounds Abdomen: normal bowel sounds, non tender, soft, no organomegaly Edema: no edema noted Arm (L), no edema noted Arm (R), no edema noted Leg (L), no edema noted Leg (R), no edema noted Pedal (L), no edema noted Pedal (R), no edema noted Generalized Edema: trace edema 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
[2016-08-08] MEDS ORDERED: Sterile Water For Irrig 2000ml IRRIG ONE (10:31)
[2016-08-08] MEDS ORDERED: NS Irrig 1000ml ONE (10:31)
[2016-08-08] MEDS ORDERED: NS 275ml ONE (10:31)
[2016-08-08] MEDS ORDERED: Tubing IV Secondary IV ONE (10:31)
--- NOTE | 2016-08-08 10:32 | Infectious Diseases Prog Note ---
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 pneumonia 4. DM 5. COPD P 1. continue linezolid, zosyn 2. will follow up cultures 3. consider ERON Subjective ROS Limited/Unobtainable: Yes Allergies: Coded Allergies: No Known Allergies (Unverified , 07/02/16) Objective Vital Signs Last 24 Hour Vital Signs Date Time Temp Pulse Resp B/P Pulse Ox O2 Delivery O2 Flow Rate FiO2 08/08/16 08:00 97.0 89 18 123/85 Nasal Cannula 2.0 98 08/08/16 04:07 98.6 88 19 127/79 99 Nasal Cannula 2.0 08/08/16 03:44 88 08/08/16 03:41 88 20 100 Nasal Cannula 2.0 08/08/16 03:29 91 20 100 Nasal Cannula 2.0 08/08/16 00:20 98.3 90 19 129/74 99 Nasal Cannula 2.0 08/07/16 23:41 91 08/07/16 23:14 92 20 100 Nasal Cannula 2.0 08/07/16 23:07 94 20 100 Nasal Cannula 2.0 08/07/16 20:06 98.8 86 20 135/80 100 Nasal Cannula 2.0 08/07/16 19:20 91 08/07/16 19:15 100 Nasal Cannula 2.0 08/07/16 19:15 Nasal Cannula 2.0 08/07/16 19:14 90 20 100 Nasal Cannula 2.0 08/07/16 19:10 94 20 100 Nasal Cannula 2.0 08/07/16 16:00 93 08/07/16 15:25 97 20 100 Nasal Cannula 2.0 08/07/16 15:23 97.3 95 20 124/77 96 Nasal Cannula 2.0 08/07/16 15:20 96 20 96 Nasal Cannula 2.0 08/07/16 12:00 93 08/07/16 11:35 96 20 100 Nasal Cannula 2.0 28 08/07/16 11:30 92 20 97 Nasal Cannula 2.0 08/07/16 11:21 97.7 92 20 119/75 97 Nasal Cannula 2.0 Height (Feet): 5 Height (Inches): 8.00 Weight (Pounds): 180 Respiratory/Chest: lungs clear Cardiovascular: normal rate, regular rhythm, no gallop/murmur Abdomen: soft, non tender, other - GT Extremities: no edema Microbiology Date/Time Source Procedure Growth Status 08/06/16 06:00 Sacral Wound Gram Stain - Final Resulted 08/06/16 06:00 Wound Culture - Preliminary Gram Negative Arnold Staphylococcus Aureus Strep Species, Gamma-Hemolytic Resulted Laboratory Tests Test 08/08/16 06:55 White Blood Count 6.1 K/UL (4.8-10.8) Red Blood Count 3.02 M/UL (4.70-6.10) L Hemoglobin 8.8 G/DL (14.2-18.0) L Hematocrit 28.0 % (42.0-52.0) L Mean Corpuscular Volume 93 FL (80-99) Mean Corpuscular Hemoglobin 29.3 PG (27.0-31.0) Mean Corpuscular Hemoglobin Concent 31.6 G/DL (32.0-36.0) L Red Cell Distribution Width 14.1 % (11.6-14.8) Platelet Count 279 K/UL (150-450) Mean Platelet Volume 8.0 FL (6.5-10.1) Neutrophils (%) (Auto) 75.0 % (45.0-75.0) Lymphocytes (%) (Auto) 12.8 % (20.0-45.0) L Monocytes (%) (Auto) 6.5 % (1.0-10.0) Eosinophils (%) (Auto) 5.0 % (0.0-3.0) H Basophils (%) (Auto) 0.6 % (0.0-2.0) Sodium Level 142 mEQ/L (135-145) Potassium Level 3.7 mEQ/L (3.4-4.9) Chloride Level 103 mEQ/L (98-107) Carbon Dioxide Level 27 mEQ/L (20-30) Anion Gap 12 (5-15) Blood Urea Nitrogen 42 mg/dL (7-23) H Creatinine 1.0 mg/dL (0.7-1.2) Estimat Glomerular Filtration Rate > 60 mL/min (>60) Glucose Level 130 mg/dL (74-106) H Calcium Level 8.3 mg/dL (8.6-10.2) L Total Bilirubin 0.2 mg/dL (0.0-1.2) Aspartate Amino Transf (AST/SGOT) 24 U/L (5-40) Alanine Aminotransferase (ALT/SGPT) 29 U/L (3-41) Alkaline Phosphatase 93 U/L (40-129) Total Protein 6.7 g/dL (6.6-8.7) Albumin 1.9 g/dL (3.5-5.2) L Globulin 4.8 g/dL Albumin/Globulin Ratio 0.3 (1.0-2.7) L YEVGENIY GARCIA August 08, 2016 10:32"
[2016-08-08 12:00] VITALS: BP 102/70
[2016-08-08 16:00] VITALS: BP 111/68
[2016-08-08 20:00] VITALS: BP 126/80
[2016-08-09] MEDS: NovoLOG Insulin Flexpen SUBQ SCH ×4 (00:18→17:42)
[2016-08-09 00:30] VITALS: BP 133/84
[2016-08-09] MEDS: DuoNeb 0.5-3(2.5)mg/3ml neb HHN SCH ×6 (03:08→23:00)
[2016-08-09 04:14] VITALS: BP 114/75
[2016-08-09] MEDS: Piperacillin/Tazobactam 3.375 GM in D5W 110 ML IVPB SCH ×3 (05:31→21:39)
--- NOTE | 2016-08-09 07:52 | General Progress Note ---
Assessment/Plan Problem List: (1) Dysphagia ICD Codes: R13.10 - Dysphagia, unspecified SNOMED: 86154011, 794640381 (2) severe post anoxic encephalopathy (3) intermittent postural hand tremors, doubt seizure event (4) Sepsis ICD Codes: A41.9 - Sepsis, unspecified organism SNOMED: 57109315 (5) Pneumonia ICD Codes: J18.9 - Pneumonia, unspecified organism SNOMED: 486927178 (6) Fever ICD Codes: R50.9 - Fever, unspecified SNOMED: 025303843 Status: stable, progressing Assessment/Plan iv abx resp rx/suctioning gt feeds follow up cultures- multiple positive ivf wound care skin care Subjective ROS Limited/Unobtainable: Yes Constitutional: Reports: malaise, weakness HEENT: Reports: no symptoms Cardiovascular: Reports: no symptoms Respiratory: Reports: cough, shortness of breath, sputum Gastrointestinal/Abdominal: Reports: difficulty swallowing Genitourinary: Reports: no symptoms Neurologic/Psychiatric: Reports: pre-existing deficit Endocrine: Reports: no symptoms Hematologic/Lymphatic: Reports: no symptoms Allergies: Coded Allergies: No Known Allergies (Unverified , 07/02/16) All Systems: reviewed and negative except above Subjective stable congestion. requires frequent deep suctioning. more alert but still confused. tolerating feeds Objective Last 24 Hour Vital Signs Date Time Temp Pulse Resp B/P Pulse Ox O2 Delivery O2 Flow Rate FiO2 08/09/16 07:46 90 22 100 Nasal Cannula 2.0 08/09/16 07:36 88 24 97 Nasal Cannula 2.0 08/09/16 07:36 Nasal Cannula 2.0 08/09/16 07:36 97 Nasal Cannula 2.0 08/09/16 04:14 98.1 88 18 114/75 98 08/09/16 04:00 88 08/09/16 03:20 89 22 100 Nasal Cannula 2.0 08/09/16 03:09 90 22 100 Nasal Cannula 2.0 08/09/16 00:30 97.0 90 18 133/84 100 08/09/16 00:00 93 08/08/16 23:15 88 22 100 Nasal Cannula 2.0 08/08/16 23:03 92 24 100 Nasal Cannula 2.0 08/08/16 20:00 97.5 94 18 126/80 99 Nasal Cannula 2.0 08/08/16 20:00 88 08/08/16 19:20 84 22 100 Nasal Cannula 2.0 08/08/16 19:19 Nasal Cannula 2.0 08/08/16 19:18 100 Nasal Cannula 2.0 08/08/16 19:10 89 24 100 Nasal Cannula 2.0 08/08/16 16:00 97.0 89 18 111/68 94 Room Air 08/08/16 16:00 91 08/08/16 15:30 82 20 96 Nasal Cannula 2.0 08/08/16 15:30 82 20 100 Nasal Cannula 2.0 08/08/16 12:00 97.4 76 19 102/70 94 Room Air 08/08/16 12:00 95 08/08/16 11:30 78 18 96 Nasal Cannula 2.0 08/08/16 11:30 78 20 100 Nasal Cannula 2.0 08/08/16 08:00 97.0 89 18 123/85 Nasal Cannula 2.0 98 08/08/16 08:00 90 Intake and Output 08/08/16 08/09/16 19:00 07:00 Intake Total 1670.0 ml 1867.5 ml Balance 1670.0 ml 1867.5 ml Intake Free Water 100 ml 100 ml IV Total 920.0 ml 987.5 ml Tube Feeding 650 ml 780 ml # Bowel Movements 1 2 Height (Feet): 5 Height (Inches): 8.00 Weight (Pounds): 136 Objective General Appearance: WD/WN, alert Neck: supple Cardiovascular: normal rate, regular rhythm Respiratory/Chest: chest wall non-tender, lungs clear, normal breath sounds Abdomen: normal bowel sounds, non tender, soft, no organomegaly Edema: no edema noted Arm (L), no edema noted Arm (R), no edema noted Leg (L), no edema noted Leg (R), no edema noted Pedal (L), no edema noted Pedal (R), no edema noted Generalized Edema: trace edema 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
[2016-08-09 08:00] VITALS: BP 120/75
[2016-08-09 08:34] LABS: BASOPHILS % (AUTO) 0.5 % (0.0-2.0); EOSINOPHILS % (AUTO) 3.9 % (0.0-3.0); LYMPHOCYTES % (AUTO) 12.8 % (20.0-45.0); MEAN CORPUSCULAR HEMOGLOBIN 29.8 PG (27.0-31.0); MEAN CORPUSCULAR HGB CONC 32.4 G/DL (32.0-36.0); MEAN CORPUSCULAR VOLUME 92 FL (80-99); MONOCYTES % (AUTO) 6.6 % (1.0-10.0); NEUTROPHILS % (AUTO) 76.2 % (45.0-75.0); PLATELET COUNT 267 K/UL (150-450); RED BLOOD COUNT 2.92 M/UL (4.70-6.10); RED CELL DISTRIBUTION WIDTH 13.8 % (11.6-14.8); WHITE BLOOD COUNT 6.4 K/UL (4.8-10.8)
[2016-08-09] MEDS: Ascorbic Acid 500mg tab GT SCH ×2 (08:43→17:41)
[2016-08-09] MEDS: Amiodarone 200mg tab GT SCH (08:43)
[2016-08-09] MEDS: Heparin 5000 units/ml inj SUBQ SCH ×2 (08:44→21:51)
--- NOTE | 2016-08-09 08:46 | Pulmonology Progress Note ---
Assessment/Plan Assessment/Plan IMPRESSION: 1. Evidence of pneumonia. 2. Evidence of acute on chronic renal failure . 3. Evidence of transaminitis. 4. Evidence of severe protein-calorie malnutrition. 5. Anemia. 6. Chronic encephalopathy 7. Hypernatremia 8. Azotemia. PLAN respiratory care without change HH improved oxygen therapy IV antibiotics reviewed monitor cultures maintain meds nutrition as is GT feeds wound care aspiration precautions follow up chest xr 08/08- for improvement hope to proceed with dc planning in am if cleared by ID impression, plan, and exam edited and reviewed in detail care discussed with RN Subjective ROS Limited/Unobtainable: Yes Allergies: Coded Allergies: No Known Allergies (Unverified , 07/02/16) Subjective respiratory santos stable on oxygen ID noted echo noted cultures noted Objective Last 24 Hour Vital Signs Date Time Temp Pulse Resp B/P Pulse Ox O2 Delivery O2 Flow Rate FiO2 08/09/16 08:00 96.0 64 18 120/75 Nasal Cannula 2.0 95 08/09/16 08:00 96.0 64 18 120/75 95 Nasal Cannula 2.0 08/09/16 07:46 90 22 100 Nasal Cannula 2.0 08/09/16 07:36 88 24 97 Nasal Cannula 2.0 08/09/16 07:36 Nasal Cannula 2.0 08/09/16 07:36 97 Nasal Cannula 2.0 08/09/16 04:14 98.1 88 18 114/75 98 08/09/16 04:00 88 08/09/16 03:20 89 22 100 Nasal Cannula 2.0 08/09/16 03:09 90 22 100 Nasal Cannula 2.0 08/09/16 00:30 97.0 90 18 133/84 100 08/09/16 00:00 93 08/08/16 23:15 88 22 100 Nasal Cannula 2.0 08/08/16 23:03 92 24 100 Nasal Cannula 2.0 08/08/16 20:00 97.5 94 18 126/80 99 Nasal Cannula 2.0 08/08/16 20:00 88 08/08/16 19:20 84 22 100 Nasal Cannula 2.0 08/08/16 19:19 Nasal Cannula 2.0 08/08/16 19:18 100 Nasal Cannula 2.0 08/08/16 19:10 89 24 100 Nasal Cannula 2.0 17 16:00 97.0 89 18 111/68 94 Room Air 08/08/16 16:00 91 08/08/16 15:30 82 20 96 Nasal Cannula 2.0 28 08/08/16 15:30 82 20 100 Nasal Cannula 2.0 28 08/08/16 12:00 97.4 76 19 102/70 94 Room Air 08/08/16 12:00 95 08/08/16 11:30 78 18 96 Nasal Cannula 2.0 28 08/08/16 11:30 78 20 100 Nasal Cannula 2.0 28 Intake and Output 08/08/16 08/09/16 19:00 07:00 Intake Total 1670.0 ml 1867.5 ml Balance 1670.0 ml 1867.5 ml Intake Free Water 100 ml 100 ml IV Total 920.0 ml 987.5 ml Tube Feeding 650 ml 780 ml # Bowel Movements 1 2 Objective WDWN NAD reduced breath sounds bilaterally with minimal rhonchi [id number] without MRG NABS nontender no HSM no CCE nonfocal poor LOC skin noted- wounds noted Laboratory Tests 08/09/16 07:25: White Blood Count 6.4, Red Blood Count 2.92L, Hemoglobin 8.7L, Hematocrit 26.9L , Mean Corpuscular Volume 92, Mean Corpuscular Hemoglobin 29.8, Mean Corpuscular Hemoglobin Concent 32.4, Red Cell Distribution Width 13.8, Platelet Count 267, Mean Platelet Volume 8.0, Neutrophils (%) (Auto) 76.2H, Lymphocytes ( %) (Auto) 12.8L, Monocytes (%) (Auto) 6.6, Eosinophils (%) (Auto) 3.9H, Basophils (%) (Auto) 0.5, Sodium Level [Pending], Potassium Level [Pending], Chloride Level [Pending], Carbon Dioxide Level [Pending], Blood Urea Nitrogen [ Pending], Creatinine [Pending], Estimat Glomerular Filtration Rate [Pending], Glucose Level [Pending], Calcium Level [Pending], Total Bilirubin [Pending], Aspartate Amino Transf (AST/SGOT) [Pending], Alanine Aminotransferase (ALT/SGPT ) [Pending], Alkaline Phosphatase [Pending], Total Protein [Pending], Albumin [ Pending], Globulin [Pending] Current Medications Medications (Trade) Dose Ordered Sig/Alex Route PRN Reason Start Time Stop Time Status Last Admin Dose Admin Acetaminophen (Tylenol) 650 mg Q4H PRN ORAL Mild Pain/Temp > 100.5 08/05/16 01:45 09/04/16 01:44 Albuterol/ Ipratropium (DuoNeb 0.5-3(2.5)mg/3ml) 3 ml Q4HRT HHN 08/05/16 11:00 08/10/16 10:59 08/09/16 07:36 Amiodarone HCl (Cordarone) 200 mg DAILY GT 08/09/16 04:22 09/04/16 08:59 Ascorbic Acid 500 mg 500 mg TWICE A DAY GT 08/05/16 18:00 09/04/16 17:59 08/08/16 17:42 Dextrose 1,000 ml @ 50 mls/hr Q20H IV 08/07/16 09:00 09/06/16 08:59 08/09/16 00:19 Dextrose (Dextrose 50%) STAT PRN IV Hypoglycemia 08/05/16 01:45 09/04/16 01:44 Heparin Sodium (Porcine) (Heparin 5000 units/ml) 5,000 units EVERY 12 HOURS SUBQ 08/05/16 09:00 09/04/16 08:59 08/08/16 21:14 Insulin Aspart (NovoLOG) Q6HR SUBQ 08/08/16 12:00 09/07/16 11:59 08/09/16 05:59 Linezolid (Zyvox) 300 ml @ 300 mls/hr Q12HR IVPB 08/07/16 14:00 08/14/16 13:59 08/08/16 21:12 Piperacillin Sod/ Tazobactam Sod/ Dextrose (Zosyn/D5W) 110 ml @ 27.5 mls/hr Q8H IVPB 08/05/16 05:00 08/12/16 04:59 08/09/16 05:31 ESHA BEY August 09, 2016 08:46
[2016-08-09] MEDS ORDERED: NS 275ml ONE (09:12)
[2016-08-09] MEDS ORDERED: Tubing IV Secondary IV ONE (09:12)
[2016-08-09 09:18] LABS: ALANINE AMINOTRANSFERASE 24 U/L (3-41); ALBUMIN/GLOBULIN RATIO 0.4 (1.0-2.7); ANION GAP 13 (5-15); ASPARTATE AMINO TRANSFERASE 21 U/L (5-40); CALCIUM 8.4 mg/dL (8.6-10.2); CARBON DIOXIDE 28 mEQ/L (20-30); CHLORIDE 99 mEQ/L (98-107); GLOMERULAR FILTRATION RATE > 60 mL/min (>60); HEMOLYSIS 5; POTASSIUM 3.8 mEQ/L (3.4-4.9); SODIUM 140 mEQ/L (135-145); TOTAL PROTEIN 6.5 g/dL (6.6-8.7)
--- NOTE | 2016-08-09 10:03 | Infectious Diseases Prog Note ---
Assessment/Plan Assessment/Plan A 1. 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 pneumonia 4. DM 5. COPD 6. pressure ulcers P 1. continue linezolid, Zosyn 2. will follow up cultures 3. consider ERON Subjective ROS Limited/Unobtainable: Yes Allergies: Coded Allergies: No Known Allergies (Unverified , 07/02/16) Objective Vital Signs Last 24 Hour Vital Signs Date Time Temp Pulse Resp B/P Pulse Ox O2 Delivery O2 Flow Rate FiO2 08/09/16 08:00 96.0 64 18 120/75 Nasal Cannula 2.0 95 08/09/16 08:00 96.0 64 18 120/75 95 Nasal Cannula 2.0 08/09/16 08:00 87 08/09/16 07:46 90 22 100 Nasal Cannula 2.0 08/09/16 07:36 88 24 97 Nasal Cannula 2.0 08/09/16 07:36 Nasal Cannula 2.0 08/09/16 07:36 97 Nasal Cannula 2.0 08/09/16 04:14 98.1 88 18 114/75 98 08/09/16 04:00 88 08/09/16 03:20 89 22 100 Nasal Cannula 2.0 08/09/16 03:09 90 22 100 Nasal Cannula 2.0 08/09/16 00:30 97.0 90 18 133/84 100 08/09/16 00:00 93 08/08/16 23:15 88 22 100 Nasal Cannula 2.0 08/08/16 23:03 92 24 100 Nasal Cannula 2.0 08/08/16 20:00 97.5 94 18 126/80 99 Nasal Cannula 2.0 08/08/16 20:00 88 08/08/16 19:20 84 22 100 Nasal Cannula 2.0 08/08/16 19:19 Nasal Cannula 2.0 28 08/08/16 19:18 100 Nasal Cannula 2.0 08/08/16 19:10 89 24 100 Nasal Cannula 2.0 08/08/16 16:00 97.0 89 18 111/68 94 Room Air 08/08/16 16:00 91 08/08/16 15:30 82 20 96 Nasal Cannula 2.0 28 08/08/16 15:30 82 20 100 Nasal Cannula 2.0 28 08/08/16 12:00 97.4 76 19 102/70 94 Room Air 08/08/16 12:00 95 08/08/16 11:30 78 18 96 Nasal Cannula 2.0 28 08/08/16 11:30 78 20 100 Nasal Cannula 2.0 28 Height (Feet): 5 Height (Inches): 8.00 Weight (Pounds): 136 General Appearance: cachetic HEENT: mucous membranes moist Respiratory/Chest: lungs clear Cardiovascular: normal rate Abdomen: soft, non tender Extremities: no edema Skin: ulcers Neurologic/Psychiatric: aphasia, other - awake Laboratory Tests Test 08/09/16 07:25 White Blood Count 6.4 K/UL (4.8-10.8) Red Blood Count 2.92 M/UL (4.70-6.10) L Hemoglobin 8.7 G/DL (14.2-18.0) L Hematocrit 26.9 % (42.0-52.0) L Mean Corpuscular Volume 92 FL (80-99) Mean Corpuscular Hemoglobin 29.8 PG (27.0-31.0) Mean Corpuscular Hemoglobin Concent 32.4 G/DL (32.0-36.0) Red Cell Distribution Width 13.8 % (11.6-14.8) Platelet Count 267 K/UL (150-450) Mean Platelet Volume 8.0 FL (6.5-10.1) Neutrophils (%) (Auto) 76.2 % (45.0-75.0) H Lymphocytes (%) (Auto) 12.8 % (20.0-45.0) L Monocytes (%) (Auto) 6.6 % (1.0-10.0) Eosinophils (%) (Auto) 3.9 % (0.0-3.0) H Basophils (%) (Auto) 0.5 % (0.0-2.0) Sodium Level 140 mEQ/L (135-145) Potassium Level 3.8 mEQ/L (3.4-4.9) Chloride Level 99 mEQ/L (98-107) Carbon Dioxide Level 28 mEQ/L (20-30) Anion Gap 13 (5-15) Blood Urea Nitrogen 38 mg/dL (7-23) H Creatinine 1.0 mg/dL (0.7-1.2) Estimat Glomerular Filtration Rate > 60 mL/min (>60) Glucose Level 102 mg/dL (74-106) Calcium Level 8.4 mg/dL (8.6-10.2) L Total Bilirubin 0.3 mg/dL (0.0-1.2) Aspartate Amino Transf (AST/SGOT) 21 U/L (5-40) Alanine Aminotransferase (ALT/SGPT) 24 U/L (3-41) Alkaline Phosphatase 91 U/L (40-129) Total Protein 6.5 g/dL (6.6-8.7) L Albumin 2.0 g/dL (3.5-5.2) L Globulin 4.5 g/dL Albumin/Globulin Ratio 0.4 (1.0-2.7) L Current Medications Medications (Trade) Dose Ordered Sig/Alex Route PRN Reason Start Time Stop Time Status Last Admin Dose Admin Acetaminophen (Tylenol) 650 mg Q4H PRN ORAL Mild Pain/Temp > 100.5 08/05/16 01:45 09/04/16 01:44 Albuterol/ Ipratropium (DuoNeb 0.5-3(2.5)mg/3ml) 3 ml Q4HRT HHN 08/05/16 11:00 08/10/16 10:59 08/09/16 07:36 Amiodarone HCl (Cordarone) 200 mg DAILY GT 08/09/16 04:22 09/04/16 08:59 08/09/16 08:43 Ascorbic Acid 500 mg 500 mg TWICE A DAY GT 08/05/16 18:00 09/04/16 17:59 08/09/16 08:43 Dextrose 1,000 ml @ 50 mls/hr Q20H IV 08/07/16 09:00 09/06/16 08:59 08/09/16 00:19 Dextrose (Dextrose 50%) STAT PRN IV Hypoglycemia 08/05/16 01:45 09/04/16 01:44 Heparin Sodium (Porcine) (Heparin 5000 units/ml) 5,000 units EVERY 12 HOURS SUBQ 08/05/16 09:00 09/04/16 08:59 08/09/16 08:44 Insulin Aspart (NovoLOG) Q6HR SUBQ 08/08/16 12:00 09/07/16 11:59 08/09/16 05:59 Linezolid (Zyvox) 300 ml @ 300 mls/hr Q12HR IVPB 08/07/16 14:00 08/14/16 13:59 08/09/16 09:42 Piperacillin Sod/ Tazobactam Sod/ Dextrose (Zosyn/D5W) 110 ml @ 27.5 mls/hr Q8H IVPB 08/05/16 05:00 08/12/16 04:59 08/09/16 05:31 TIESHA SERVIN August 09, 2016 10:03
[2016-08-09 12:00] VITALS: BP 114/74
[2016-08-09 16:00] VITALS: BP_SYST 118; BP_SYST 157; BP_DIAS 62; BP_DIAS 73
[2016-08-09 20:11] VITALS: BP 126/86
[2016-08-10] VITALS: BP 111/70
[2016-08-10] MEDS: NovoLOG Insulin Flexpen SUBQ SCH ×4 (00:27→17:26)
[2016-08-10] MEDS: DuoNeb 0.5-3(2.5)mg/3ml neb HHN SCH ×2 (03:11→07:29)
[2016-08-10 04:00] VITALS: BP 122/75
[2016-08-10] MEDS: Piperacillin/Tazobactam 3.375 GM in D5W 110 ML IVPB SCH ×3 (04:59→21:58)
[2016-08-10 07:01] LABS: MEAN CORPUSCULAR HEMOGLOBIN 29.6 PG (27.0-31.0); MEAN CORPUSCULAR HGB CONC 32.6 G/DL (32.0-36.0); MEAN CORPUSCULAR VOLUME 91 FL (80-99); MEAN PLATELET VOLUME 8.2 FL (6.5-10.1); PLATELET COUNT 262 K/UL (150-450); RED BLOOD COUNT 2.67 M/UL (4.70-6.10); RED CELL DISTRIBUTION WIDTH 13.8 % (11.6-14.8); WHITE BLOOD COUNT 6.3 K/UL (4.8-10.8)
[2016-08-10 07:29] LABS: ALANINE AMINOTRANSFERASE 25 U/L (3-41); ALBUMIN/GLOBULIN RATIO 0.4 (1.0-2.7); ANION GAP 12 (5-15); ASPARTATE AMINO TRANSFERASE 23 U/L (5-40); CALCIUM 8.3 mg/dL (8.6-10.2); CARBON DIOXIDE 29 mEQ/L (20-30); CHLORIDE 94 mEQ/L (98-107); CREATININE 1.1 mg/dL (0.7-1.2); GLOMERULAR FILTRATION RATE > 60 mL/min (>60); HEMOLYSIS 5; SODIUM 135 mEQ/L (135-145); TOTAL PROTEIN 6.6 g/dL (6.6-8.7)
[2016-08-10 07:57] VITALS: BP 117/70
[2016-08-10] MEDS: Ascorbic Acid 500mg tab GT SCH ×2 (08:12→18:00)
[2016-08-10] MEDS: Amiodarone 200mg tab GT SCH (08:12)
[2016-08-10] MEDS: Heparin 5000 units/ml inj SUBQ SCH ×2 (08:14→21:57)
[2016-08-10 09:03] LABS: BAND NEUTROPHILS % (MANUAL) 0 % (0-8); BASOPHILS % (MANUAL) 0 % (0-2); EOSINOPHILS % (MANUAL) 3 % (0-3); HYPOCHROMASIA 1+; LYMPHOCYTES % (MANUAL) 22 % (20-45); NEUTROPHILS % (MANUAL) 69 % (45-75); PLATELET ESTIMATE ADEQUATE; PLATELET MORPHOLOGY NORMAL; TOTAL CELLS COUNTED 100
--- NOTE | 2016-08-10 09:06 | Pulmonology Progress Note ---
Assessment/Plan Assessment/Plan IMPRESSION: 1. Evidence of pneumonia. 2. Evidence of acute on chronic renal failure . 3. Evidence of transaminitis. 4. Evidence of severe protein-calorie malnutrition. 5. Anemia. 6. Chronic encephalopathy 7. Hypernatremia 8. Azotemia. PLAN respiratory care without change HH improved oxygen therapy IV antibiotics reviewed monitor cultures maintain meds nutrition as is GT feeds wound care aspiration precautions follow up chest xr 08/08- with minimal left infiltrate transfuse hope to proceed with dc planning in am after transfusion impression, plan, and exam edited and reviewed in detail care discussed with RN Subjective ROS Limited/Unobtainable: Yes Allergies: Coded Allergies: No Known Allergies (Unverified , 07/02/16) Subjective worsening anemia ID noted cultures noted Objective Last 24 Hour Vital Signs Date Time Temp Pulse Resp B/P Pulse Ox O2 Delivery O2 Flow Rate FiO2 08/10/16 07:57 98.1 91 20 117/70 100 Nasal Cannula 2.0 08/10/16 07:33 Nasal Cannula 2.0 08/10/16 07:33 95 20 100 Nasal Cannula 2.0 08/10/16 07:24 91 20 100 Nasal Cannula 2.0 08/10/16 07:22 100 Nasal Cannula 2.0 08/10/16 04:00 96 08/10/16 04:00 97.0 100 20 122/75 96 Nasal Cannula 2.0 08/10/16 03:22 81 22 100 Nasal Cannula 2.0 08/10/16 03:12 82 18 99 Nasal Cannula 2.0 08/10/16 00:15 Nasal Cannula 08/10/16 00:14 Nasal Cannula 08/10/16 00:00 97.7 92 20 111/70 99 Nasal Cannula 2.0 08/10/16 00:00 90 08/09/16 20:11 97.0 92 18 126/86 94 Nasal Cannula 2.0 08/09/16 20:00 88 08/09/16 19:54 75 22 100 Nasal Cannula 2.0 08/09/16 19:53 99 Nasal Cannula 2.0 08/09/16 19:53 Nasal Cannula 2.0 28 08/09/16 19:53 93 18 99 Nasal Cannula 2.0 08/09/16 16:00 88 08/09/16 16:00 98.0 86 16 118/73 Nasal Cannula 2.0 96 08/09/16 15:33 88 20 100 Nasal Cannula 2.0 08/09/16 15:25 85 18 100 Nasal Cannula 2.0 08/09/16 12:00 88 08/09/16 12:00 97.4 91 18 114/74 Nasal Cannula 2.0 98 08/09/16 10:56 88 22 100 Nasal Cannula 2.0 08/09/16 10:46 81 20 97 Nasal Cannula 2.0 Intake and Output 08/09/16 08/10/16 19:00 07:00 Intake Total 2032.5 ml 1845.0 ml Output Total 900 ml 1500 ml Balance 1132.5 ml 345.0 ml Intake Free Water 160 ml 100 ml IV Total 1092.5 ml 965.0 ml Tube Feeding 780 ml 780 ml Output Urine Total 900 ml 1500 ml # Bowel Movements 1 2 Objective WDWN NAD reduced breath sounds bilaterally with scattered rhonchi [id number] without MRG NABS nontender no HSM no CCE nonfocal poor LOC skin noted- wounds noted reviewed and edited Laboratory Tests 08/10/16 05:55: White Blood Count 6.3, Red Blood Count 2.67L, Hemoglobin 7.9L, Hematocrit 24.3L , Mean Corpuscular Volume 91, Mean Corpuscular Hemoglobin 29.6, Mean Corpuscular Hemoglobin Concent 32.6, Red Cell Distribution Width 13.8, Platelet Count 262, Mean Platelet Volume 8.2, Neutrophils (%) (Auto) , Lymphocytes (%) ( Auto) , Monocytes (%) (Auto) , Eosinophils (%) (Auto) , Basophils (%) (Auto) , Differential Total Cells Counted 100, Neutrophils % (Manual) 69, Lymphocytes % ( Manual) 22, Monocytes % (Manual) 6, Eosinophils % (Manual) 3, Basophils % ( Manual) 0, Band Neutrophils 0, Platelet Estimate Adequate, Platelet Morphology Normal, Hypochromasia 1+, Sodium Level 135, Potassium Level 4.0, Chloride Level 94L, Carbon Dioxide Level 29, Anion Gap 12, Blood Urea Nitrogen 32H, Creatinine 1.1, Estimat Glomerular Filtration Rate > 60, Glucose Level 120H, Calcium Level 8.3L, Total Bilirubin 0.2, Aspartate Amino Transf (AST/SGOT) 23, Alanine Aminotransferase (ALT/SGPT) 25, Alkaline Phosphatase 93, Total Protein 6.6, Albumin 2.0L, Globulin 4.6, Albumin/Globulin Ratio 0.4L Current Medications Medications (Trade) Dose Ordered Sig/Alex Route PRN Reason Start Time Stop Time Status Last Admin Dose Admin Acetaminophen (Tylenol) 650 mg Q4H PRN ORAL Mild Pain/Temp > 100.5 08/05/16 01:45 09/04/16 01:44 Albuterol/ Ipratropium (DuoNeb 0.5-3(2.5)mg/3ml) 3 ml Q4HRT HHN 08/05/16 11:00 08/10/16 10:59 08/10/16 07:29 Amiodarone HCl (Cordarone) 200 mg DAILY GT 08/09/16 04:22 09/04/16 08:59 08/10/16 08:12 Ascorbic Acid 500 mg 500 mg TWICE A DAY GT 08/05/16 18:00 09/04/16 17:59 08/10/16 08:12 Dextrose 1,000 ml @ 50 mls/hr Q20H IV 08/07/16 09:00 09/06/16 08:59 08/09/16 21:39 Dextrose (Dextrose 50%) STAT PRN IV Hypoglycemia 08/05/16 01:45 09/04/16 01:44 Heparin Sodium (Porcine) (Heparin 5000 units/ml) 5,000 units EVERY 12 HOURS SUBQ 08/05/16 09:00 09/04/16 08:59 08/10/16 08:14 Insulin Aspart (NovoLOG) Q6HR SUBQ 08/08/16 12:00 09/07/16 11:59 08/10/16 06:25 Linezolid (Zyvox) 300 ml @ 300 mls/hr Q12HR IVPB 08/07/16 14:00 08/14/16 13:59 08/10/16 08:12 Piperacillin Sod/ Tazobactam Sod/ Dextrose (Zosyn/D5W) 110 ml @ 27.5 mls/hr Q8H IVPB 08/05/16 05:00 08/12/16 04:59 08/10/16 04:59 ESHA BEY August 10, 2016 09:06
--- NOTE | 2016-08-10 10:06 | General Progress Note ---
Assessment/Plan Problem List: (1) Dysphagia ICD Codes: R13.10 - Dysphagia, unspecified SNOMED: 38708443, 191235420 (2) severe post anoxic encephalopathy (3) intermittent postural hand tremors, doubt seizure event (4) Sepsis ICD Codes: A41.9 - Sepsis, unspecified organism SNOMED: 25274408 (5) Pneumonia ICD Codes: J18.9 - Pneumonia, unspecified organism SNOMED: 475315762 (6) Fever ICD Codes: R50.9 - Fever, unspecified SNOMED: 321220226 Status: stable, progressing Assessment/Plan iv abx resp rx/suctioning gt feeds follow up cultures- multiple positive ivf transfuse per pulm wound care skin care Subjective ROS Limited/Unobtainable: Yes Constitutional: Reports: malaise, weakness HEENT: Reports: no symptoms Cardiovascular: Reports: no symptoms Respiratory: Reports: cough, shortness of breath, sputum Gastrointestinal/Abdominal: Reports: difficulty swallowing Genitourinary: Reports: no symptoms Neurologic/Psychiatric: Reports: pre-existing deficit Endocrine: Reports: no symptoms Hematologic/Lymphatic: Reports: no symptoms Allergies: Coded Allergies: No Known Allergies (Unverified , 07/02/16) All Systems: reviewed and negative except above Subjective stable congestion. requires frequent deep suctioning. more alert but still confused. tolerating feeds Objective Last 24 Hour Vital Signs Date Time Temp Pulse Resp B/P Pulse Ox O2 Delivery O2 Flow Rate FiO2 08/10/16 07:57 98.1 91 20 117/70 100 Nasal Cannula 2.0 08/10/16 07:33 Nasal Cannula 2.0 28 08/10/16 07:33 95 20 100 Nasal Cannula 2.0 08/10/16 07:24 91 20 100 Nasal Cannula 2.0 08/10/16 07:22 100 Nasal Cannula 2.0 08/10/16 04:00 96 08/10/16 04:00 97.0 100 20 122/75 96 Nasal Cannula 2.0 08/10/16 03:22 81 22 100 Nasal Cannula 2.0 08/10/16 03:12 82 18 99 Nasal Cannula 2.0 08/10/16 00:15 Nasal Cannula 08/10/16 00:14 Nasal Cannula 08/10/16 00:00 97.7 92 20 111/70 99 Nasal Cannula 2.0 08/10/16 00:00 90 08/09/16 20:11 97.0 92 18 126/86 94 Nasal Cannula 2.0 08/09/16 20:00 88 08/09/16 19:54 75 22 100 Nasal Cannula 2.0 08/09/16 19:53 99 Nasal Cannula 2.0 08/09/16 19:53 Nasal Cannula 2.0 28 08/09/16 19:53 93 18 99 Nasal Cannula 2.0 08/09/16 16:00 88 08/09/16 16:00 98.0 86 16 118/73 Nasal Cannula 2.0 96 08/09/16 15:33 88 20 100 Nasal Cannula 2.0 08/09/16 15:25 85 18 100 Nasal Cannula 2.0 08/09/16 12:00 88 08/09/16 12:00 97.4 91 18 114/74 Nasal Cannula 2.0 98 08/09/16 10:56 88 22 100 Nasal Cannula 2.0 08/09/16 10:46 81 20 97 Nasal Cannula 2.0 Intake and Output 08/09/16 08/10/16 19:00 07:00 Intake Total 2032.5 ml 1845.0 ml Output Total 900 ml 1500 ml Balance 1132.5 ml 345.0 ml Intake Free Water 160 ml 100 ml IV Total 1092.5 ml 965.0 ml Tube Feeding 780 ml 780 ml Output Urine Total 900 ml 1500 ml # Bowel Movements 1 2 Laboratory Tests 08/10/16 05:55: White Blood Count 6.3, Red Blood Count 2.67L, Hemoglobin 7.9L, Hematocrit 24.3L , Mean Corpuscular Volume 91, Mean Corpuscular Hemoglobin 29.6, Mean Corpuscular Hemoglobin Concent 32.6, Red Cell Distribution Width 13.8, Platelet Count 262, Mean Platelet Volume 8.2, Neutrophils (%) (Auto) , Lymphocytes (%) ( Auto) , Monocytes (%) (Auto) , Eosinophils (%) (Auto) , Basophils (%) (Auto) , Differential Total Cells Counted 100, Neutrophils % (Manual) 69, Lymphocytes % ( Manual) 22, Monocytes % (Manual) 6, Eosinophils % (Manual) 3, Basophils % ( Manual) 0, Band Neutrophils 0, Platelet Estimate Adequate, Platelet Morphology Normal, Hypochromasia 1+, Sodium Level 135, Potassium Level 4.0, Chloride Level 94L, Carbon Dioxide Level 29, Anion Gap 12, Blood Urea Nitrogen 32H, Creatinine 1.1, Estimat Glomerular Filtration Rate > 60, Glucose Level 120H, Calcium Level 8.3L, Total Bilirubin 0.2, Aspartate Amino Transf (AST/SGOT) 23, Alanine Aminotransferase (ALT/SGPT) 25, Alkaline Phosphatase 93, Total Protein 6.6, Albumin 2.0L, Globulin 4.6, Albumin/Globulin Ratio 0.4L Height (Feet): 5 Height (Inches): 8.00 Weight (Pounds): 143 Objective General Appearance: WD/WN, alert Neck: supple Cardiovascular: normal rate, regular rhythm Respiratory/Chest: chest wall non-tender, lungs clear, normal breath sounds Abdomen: normal bowel sounds, non tender, soft, no organomegaly Edema: no edema noted Arm (L), no edema noted Arm (R), no edema noted Leg (L), no edema noted Leg (R), no edema noted Pedal (L), no edema noted Pedal (R), no edema noted Generalized Edema: trace edema 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
--- NOTE | 2016-08-10 11:16 | Infectious Diseases Prog Note ---
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 pneumonia 4. DM 5. COPD P 1. continue linezolid, zosyn 2. will follow up cultures 3. consider ERON Subjective ROS Limited/Unobtainable: Yes Allergies: Coded Allergies: No Known Allergies (Unverified , 07/02/16) Objective Vital Signs Last 24 Hour Vital Signs Date Time Temp Pulse Resp B/P Pulse Ox O2 Delivery O2 Flow Rate FiO2 08/10/16 08:00 90 08/10/16 07:57 98.1 91 20 117/70 100 Nasal Cannula 2.0 08/10/16 07:33 Nasal Cannula 2.0 28 08/10/16 07:33 95 20 100 Nasal Cannula 2.0 08/10/16 07:24 91 20 100 Nasal Cannula 2.0 08/10/16 07:22 100 Nasal Cannula 2.0 08/10/16 04:00 96 08/10/16 04:00 97.0 100 20 122/75 96 Nasal Cannula 2.0 08/10/16 03:22 81 22 100 Nasal Cannula 2.0 08/10/16 03:12 82 18 99 Nasal Cannula 2.0 08/10/16 00:15 Nasal Cannula 08/10/16 00:14 Nasal Cannula 08/10/16 00:00 97.7 92 20 111/70 99 Nasal Cannula 2.0 08/10/16 00:00 90 08/09/16 20:11 97.0 92 18 126/86 94 Nasal Cannula 2.0 08/09/16 20:00 88 08/09/16 19:54 75 22 100 Nasal Cannula 2.0 08/09/16 19:53 99 Nasal Cannula 2.0 08/09/16 19:53 Nasal Cannula 2.0 28 08/09/16 19:53 93 18 99 Nasal Cannula 2.0 08/09/16 16:00 88 08/09/16 16:00 98.0 86 16 118/73 Nasal Cannula 2.0 96 08/09/16 15:33 88 20 100 Nasal Cannula 2.0 08/09/16 15:25 85 18 100 Nasal Cannula 2.0 08/09/16 12:00 88 08/09/16 12:00 97.4 91 18 114/74 Nasal Cannula 2.0 98 Height (Feet): 5 Height (Inches): 8.00 Weight (Pounds): 143 Respiratory/Chest: lungs clear Cardiovascular: normal rate, regular rhythm, no gallop/murmur Abdomen: soft, non tender, other - GT Extremities: no edema Laboratory Tests Test 08/10/16 05:55 White Blood Count 6.3 K/UL (4.8-10.8) Red Blood Count 2.67 M/UL (4.70-6.10) L Hemoglobin 7.9 G/DL (14.2-18.0) L Hematocrit 24.3 % (42.0-52.0) L Mean Corpuscular Volume 91 FL (80-99) Mean Corpuscular Hemoglobin 29.6 PG (27.0-31.0) Mean Corpuscular Hemoglobin Concent 32.6 G/DL (32.0-36.0) Red Cell Distribution Width 13.8 % (11.6-14.8) Platelet Count 262 K/UL (150-450) Mean Platelet Volume 8.2 FL (6.5-10.1) Neutrophils (%) (Auto) % (45.0-75.0) Lymphocytes (%) (Auto) % (20.0-45.0) Monocytes (%) (Auto) % (1.0-10.0) Eosinophils (%) (Auto) % (0.0-3.0) Basophils (%) (Auto) % (0.0-2.0) Differential Total Cells Counted 100 Neutrophils % (Manual) 69 % (45-75) Lymphocytes % (Manual) 22 % (20-45) Monocytes % (Manual) 6 % (1-10) Eosinophils % (Manual) 3 % (0-3) Basophils % (Manual) 0 % (0-2) Band Neutrophils 0 % (0-8) Platelet Estimate Adequate Platelet Morphology Normal Hypochromasia 1+ Sodium Level 135 mEQ/L (135-145) Potassium Level 4.0 mEQ/L (3.4-4.9) Chloride Level 94 mEQ/L (98-107) L Carbon Dioxide Level 29 mEQ/L (20-30) Anion Gap 12 (5-15) Blood Urea Nitrogen 32 mg/dL (7-23) H Creatinine 1.1 mg/dL (0.7-1.2) Estimat Glomerular Filtration Rate > 60 mL/min (>60) Glucose Level 120 mg/dL (74-106) H Calcium Level 8.3 mg/dL (8.6-10.2) L Total Bilirubin 0.2 mg/dL (0.0-1.2) Aspartate Amino Transf (AST/SGOT) 23 U/L (5-40) Alanine Aminotransferase (ALT/SGPT) 25 U/L (3-41) Alkaline Phosphatase 93 U/L (40-129) Total Protein 6.6 g/dL (6.6-8.7) Albumin 2.0 g/dL (3.5-5.2) L Globulin 4.6 g/dL Albumin/Globulin Ratio 0.4 (1.0-2.7) L YEVGENIY GARCIA August 10, 2016 11:16"
[2016-08-10 11:57] VITALS: BP 118/73
[2016-08-10] MEDS ORDERED: Sterile Water Irrig 1000ml IRRIG ONE (13:26)
[2016-08-10] MEDS ORDERED: Tubing IV Secondary IV ONE (13:26)
[2016-08-10 15:56] VITALS: BP 121/79
--- NOTE | 2016-08-10 16:45 | Wound Care Consultation ---
Wound Assessment Wound Assessment #1: Wound Present on Admission: Yes New Wound: No Status Change of Wound: No Wound Location Body Site Modif: mid Wound Location Body Site: sacral Wound Type: pressure ulcer Garry Test: Does not Garry Pressure Ulcer Stage: IV/unstageable Wound Thickness: Full Thickness Wound Length: 9.0 Wound Width: 8.5 Wound Depth: 0.5 Percent of Wound [place]/Red: 95 Percent of Wound Bed Yellow/Wh: 5 Wound Drainage Description: Serosanguineous Wound Drainage Amount: Moderate Wound Drainage Odor: None/Absent Tissue Surrounding Wound: Macerated Wound Undermining at 12:00: 1.0 Wound Undermining at 3:00: 1.0 Wound General Appearance: Reddened, Draining Wound Assessment #2: Wound Number: #2 Wound Present on Admission: Yes New Wound: No Status Change of Wound: No Wound Location Body Site Modif: right Wound Location Body Site: trochanter Wound Type: pressure ulcer Garry Test: Does not Garry Pressure Ulcer Stage: deep tissue injury Wound Thickness: Full Thickness Wound Length: 6.0 Wound Width: 6.0 Wound Depth: utd Percent of Wound Black/Brown: 100 Wound Drainage Amount: None Wound Drainage Odor: None/Absent Tissue Surrounding Wound: Intact Wound Assessment #3: Wound Number: #3 Wound Present on Admission: Yes New Wound: No Status Change of Wound: No Wound Location Body Site Modif: left Wound Location Body Site: ear Wound Type: pressure ulcer Garry Test: Does not Garry Pressure Ulcer Stage: IV/unstageable Wound Thickness: Full Thickness Wound Length: 2.5 Wound Width: 1.0 Wound Depth: 0.3 Percent of Wound [place]/Red: 100 Wound Drainage Description: Serosanguineous Wound Drainage Amount: Scant Wound Drainage Odor: None/Absent Tissue Surrounding Wound: Erythemic Wound General Appearance: Reddened, Draining Wound Assessment #4: Wound Number: #4 Wound Present on Admission: Yes New Wound: No Status Change of Wound: No Wound Location Body Site Modif: right Wound Location Body Site: ear Wound Type: pressure ulcer Garry Test: Does not Garry Pressure Ulcer Stage: IV/unstageable Wound Thickness: Full Thickness Wound Length: 3.0 Wound Width: 1.5 Wound Depth: 0.3 Percent of Wound [place]/Red: 100 Wound Drainage Description: Serosanguineous Wound Drainage Amount: Scant Wound Drainage Odor: None/Absent Tissue Surrounding Wound: Erythemic Wound General Appearance: Reddened, Draining Wound Assessment #5: Wound Number: #5 Wound Present on Admission: Yes New Wound: No Status Change of Wound: No Wound Location Body Site Modif: left, medial Wound Location Body Site: malleolus/ankle Wound Type: pressure ulcer Garry Test: Does not Garry Pressure Ulcer Stage: deep tissue injury Wound Thickness: Full Thickness Wound Length: 4.0 Wound Width: 3.0 Wound Depth: utd Percent of Wound Purple/Maroon: 100 Wound Drainage Amount: None Wound Drainage Odor: None/Absent Tissue Surrounding Wound: Intact Wound General Appearance: Reddened - purple Wound Assessment #6: Wound Number: #6 Wound Present on Admission: Yes New Wound: No Status Change of Wound: No Wound Location Body Site Modif: left, lateral Wound Location Body Site: toe - 1st Garry Test: Does not Garry Pressure Ulcer Stage: deep tissue injury Wound Thickness: Full Thickness Wound Length: 1.5 Wound Width: 1.5 Wound Depth: utd Percent of Wound Purple/Maroon: 100 Wound Drainage Amount: None Wound Drainage Odor: None/Absent Tissue Surrounding Wound: Intact Wound General Appearance: Reddened Wound Assessment #7: Wound Number: #7 Wound Present on Admission: Yes New Wound: No Status Change of Wound: No Wound Location Body Site Modif: left, lateral Wound Location Body Site: metatarsal head - 1st Wound Type: pressure ulcer Garry Test: Does not Garry Pressure Ulcer Stage: deep tissue injury Wound Thickness: Full Thickness Wound Length: 1.0 Wound Width: 0.5 Wound Depth: utd Percent of Wound Purple/Maroon: 100 Wound Drainage Amount: None Wound Drainage Odor: None/Absent Tissue Surrounding Wound: Intact Wound General Appearance: Reddened Wound Assessment #8: Wound Number: #8 Wound Present on Admission: Yes New Wound: No Status Change of Wound: No Wound Location Body Site Modif: left, mid, medial Wound Location Body Site: foot Wound Type: pressure ulcer Garry Test: Does not Garry Pressure Ulcer Stage: deep tissue injury Wound Thickness: Full Thickness Wound Length: 2.0 Wound Width: 2.0 Wound Depth: utd Percent of Wound Purple/Maroon: 100 Wound Drainage Amount: None Wound Drainage Odor: None/Absent Tissue Surrounding Wound: Intact Wound General Appearance: Reddened Wound Assessment #9: Wound Number: #9 Wound Present on Admission: Yes New Wound: No Status Change of Wound: No Wound Location Body Site Modif: right Wound Location Body Site: heel Wound Type: pressure ulcer Garry Test: Does not Garry Pressure Ulcer Stage: III Wound Thickness: Full Thickness Wound Length: 3.0 Wound Width: 3.0 Wound Depth: 0.2 Percent of Wound [place]/Red: 100 Wound Drainage Description: Serosanguineous Wound Drainage Amount: Scant Wound Drainage Odor: None/Absent Tissue Surrounding Wound: Macerated Wound General Appearance: Reddened, Draining Wound Assessment #10: Wound Number: #10 Wound Present on Admission: Yes New Wound: No Status Change of Wound: No Wound Location Body Site Modif: left Wound Location Body Site: elbow Wound Type: pressure ulcer Garry Test: Does not Garry Pressure Ulcer Stage: IV/unstageable Wound Thickness: Full Thickness Wound Length: 3.0 Wound Width: 3.0 Wound Depth: utd Percent of Wound [place]/Red: 30 Percent of Wound Bed Yellow/Wh: 70 Wound Drainage Description: Serosanguineous Wound Drainage Amount: Scant Wound Drainage Odor: None/Absent Tissue Surrounding Wound: Macerated Wound General Appearance: Draining Wound Assessment #11: Wound Number: #11 Wound Present on Admission: Yes New Wound: No Status Change of Wound: No Wound Location Body Site Modif: left Wound Location Body Site: trochanter Wound Type: pressure ulcer Garry Test: Does not Garry Pressure Ulcer Stage: IV/unstageable Wound Thickness: Full Thickness Wound Length: 10.0 Wound Width: 7.0 Wound Depth: utd Percent of Wound Bed Yellow/Wh: 10 Percent of Wound Black/Brown: 90 Wound Drainage Description: Serosanguineous Wound Drainage Amount: Scant Wound Drainage Odor: None/Absent Tissue Surrounding Wound: Macerated Wound General Appearance: Blackened, Draining, Necrotic Wound Assessment #12: Wound Number: #12 Wound Present on Admission: Yes New Wound: No Status Change of Wound: No Wound Location Body Site Modif: left Wound Location Body Site: ischial tuberosity Garry Test: Does not Garry Pressure Ulcer Stage: IV/unstageable Wound Thickness: Full Thickness Wound Length: 3.0 Wound Width: 3.0 Wound Depth: utd Percent of Wound [place]/Red: 100 Wound Drainage Description: Serosanguineous Wound Drainage Amount: Moderate Wound Drainage Odor: None/Absent Tissue Surrounding Wound: Macerated Wound General Appearance: Reddened, Draining Wound Assessment #13: Wound Number: #13 Wound Present on Admission: Yes New Wound: No Status Change of Wound: No Wound Location Body Site Modif: left, lateral Wound Location Body Site: malleolus/ankle Wound Type: pressure ulcer Grary Test: Does not Garry Pressure Ulcer Stage: IV/unstageable Wound Thickness: Full Thickness Wound Length: 3.0 Wound Width: 3.0 Wound Depth: utd Percent of Wound Black/Brown: 100 Wound Drainage Description: Serosanguineous Wound Drainage Amount: Scant Wound Drainage Odor: None/Absent Tissue Surrounding Wound: Intact Wound General Appearance: Blackened Wound Assessment #14: Wound Number: #14 Wound Present on Admission: Yes New Wound: No Status Change of Wound: No Wound Location Body Site Modif: left, mid, lateral Wound Location Body Site: foot Wound Type: pressure ulcer Garry Test: Does not Garry Pressure Ulcer Stage: IV/unstageable Wound Thickness: Full Thickness Wound Length: 2.0 Wound Width: 2.0 Wound Depth: utd Percent of Wound Black/Brown: 100 Wound Drainage Description: Serosanguineous Wound Drainage Amount: Scant Wound Drainage Odor: None/Absent Tissue Surrounding Wound: Intact Wound General Appearance: Blackened, Draining Wound Comment #1 Sacral stage IV pressure ulcer #2 Right trochanter sDTI pressure ulcer #3 Left ear stage IV pressure ulcer #4 Right ear stage IV pressure ulcer #5 Left medial malleolus DTI pressure ulcer #6 Left 1st metatarsal head DTI pressure ulcer #7 Left medial mid foot DTI pressure ulcer #8 Right heel stage III pressure ulcer #9 Left elbow stage IV/unstageable pressure ulcer #10 Left 1st lateral big toe DTI pressure ulcer #11 Left trochanter stage IV/unstageable pressure ulcer #12 Left ischial tuberosity stage IV pressure ulcer #13 Left lateral malleolus stage IV/unstageable pressure ulcer #14 Left lateral mid foot stage IV/unstageable pressure ulcer Recommendation #1 Left trochanter pressure ulcer stage IV/Unstageable. Cleanse with normal saline ,pat dry Therahoney gel to wound bed, apply Triad cream to periwound area, cover with 4x4, secure with Bordered gauze dressing DAILY and PRN if soiled/dislodged. #2 Left ear pressure ulcer stage IV/Unstageable. #3 Right ear pressure ulcer stage IV/Unstageable. #4 Left elbow scattered pressure ulcer stage IV/Unstageable with scattered full thickness scar tissue to surrounding site. #5 Right elbow pressure ulcer stage IV/Unstageable with full thickness scar tissue to surrounding site. #6 Left ischial tuberosity pressure ulcer stage IV/Unstageable. -Cleanse with normal saline ,pat dry ,apply TRIAD,apply 4x4 cover with Bordered dressing DAILY and PRN if soiled/dislodged. . #7 Mid sacral pressure ulcer stage IV/Unstageable. #8 Right heel, left lateral malleolus and left lateral mid foot pressure ulcers -Cleanse with normal saline, pat dry, apply TRIAD TO PERIWOUND ONLY, hydrogel TO WOUND BED ONLY, apply calcium alginate, cover with 4x4, secure with Biatain silicone DAILY and PRN if soiled/dislodged. -Local wound care for DTI pressure ulcer -Turn and reposition -Keep clean and dry -Offload both heels -Heel protector on both heels -Low air loss mattress -Optimize nutrition -Assess and f/u accordingly for any changes YOKASTA BLAIR RN August 10, 2016 16:45
[2016-08-10 20:00] VITALS: BP 130/78
[2016-08-11] VITALS: BP 113/69
[2016-08-11] MEDS: NovoLOG Insulin Flexpen SUBQ SCH ×4 (00:53→17:52)
[2016-08-11 04:00] VITALS: BP 128/84
[2016-08-11] MEDS: Piperacillin/Tazobactam 3.375 GM in D5W 110 ML IVPB SCH ×3 (05:05→21:02)
[2016-08-11 08:00] VITALS: BP 142/89
--- NOTE | 2016-08-11 08:06 | Pulmonology Progress Note ---
Assessment/Plan Assessment/Plan IMPRESSION: 1. Evidence of pneumonia. 2. Evidence of acute on chronic renal failure . 3. Evidence of transaminitis. 4. Evidence of severe protein-calorie malnutrition. 5. Anemia. 6. Chronic encephalopathy 7. Hypernatremia 8. Azotemia. PLAN respiratory care as is transfusion ordered oxygen therapy IV antibiotics reviewed maintain meds nutrition as is GT feeds wound care aspiration precautions hope to proceed with dc planning impression, plan, and exam edited and reviewed in detail care discussed with RN Subjective ROS Limited/Unobtainable: Yes Allergies: Coded Allergies: No Known Allergies (Unverified , 07/02/16) Subjective worsening anemia- transfusion completed ID noted cultures noted care discussed Objective Last 24 Hour Vital Signs Date Time Temp Pulse Resp B/P Pulse Ox O2 Delivery O2 Flow Rate FiO2 08/11/16 04:00 81 08/11/16 04:00 97.6 86 20 128/84 97 Room Air 08/11/16 00:00 97.9 94 22 113/69 98 Room Air 08/11/16 00:00 92 08/10/16 20:00 95 08/10/16 20:00 97.2 97 21 130/78 100 Room Air 08/10/16 19:30 Nasal Cannula 2.0 28 08/10/16 19:30 98 Nasal Cannula 2.0 28 08/10/16 16:00 86 08/10/16 15:56 96.8 90 20 121/79 97 Nasal Cannula 2.0 08/10/16 12:00 84 08/10/16 11:57 97.9 85 20 118/73 98 Nasal Cannula 2.0 Intake and Output 08/10/16 08/11/16 19:00 07:00 Intake Total 498.333 ml 1450.0000 ml Output Total 750 ml 600 ml Balance -251.667 ml 850.0000 ml IV Total 433.333 ml 810.0000 ml Tube Feeding 65 ml 520 ml Blood Product 120 ml Output Urine Total 750 ml 600 ml # Bowel Movements 2 2 Objective WDWN NAD EOMI reduced breath sounds bilaterally with minimal rhonchi [id number] without MRG NABS nontender no HSM no CCE nonfocal poor LOC skin noted- wounds noted reviewed and edited Laboratory Tests 08/11/16 07:35: White Blood Count [Pending], Red Blood Count [Pending], Hemoglobin [Pending], Hematocrit [Pending], Mean Corpuscular Volume [Pending], Mean Corpuscular Hemoglobin [Pending], Mean Corpuscular Hemoglobin Concent [Pending], Red Cell Distribution Width [Pending], Platelet Count [Pending], Mean Platelet Volume [ Pending], Neutrophils (%) (Auto) [Pending], Lymphocytes (%) (Auto) [Pending], Monocytes (%) (Auto) [Pending], Eosinophils (%) (Auto) [Pending], Basophils (%) (Auto) [Pending], Sodium Level [Pending], Potassium Level [Pending], Chloride Level [Pending], Carbon Dioxide Level [Pending], Blood Urea Nitrogen [Pending], Creatinine [Pending], Estimat Glomerular Filtration Rate [Pending], Glucose Level [Pending], Calcium Level [Pending], Total Bilirubin [Pending], Aspartate Amino Transf (AST/SGOT) [Pending], Alanine Aminotransferase (ALT/SGPT) [Pending] , Alkaline Phosphatase [Pending], Total Protein [Pending], Albumin [Pending], Globulin [Pending] Current Medications Medications (Trade) Dose Ordered Sig/Alex Route PRN Reason Start Time Stop Time Status Last Admin Dose Admin Acetaminophen (Tylenol) 650 mg Q4H PRN ORAL Mild Pain/Temp > 100.5 08/05/16 01:45 09/04/16 01:44 Amiodarone HCl (Cordarone) 200 mg DAILY GT 08/09/16 04:22 09/04/16 08:59 08/10/16 08:12 Ascorbic Acid 500 mg 500 mg TWICE A DAY GT 08/05/16 18:00 09/04/16 17:59 08/10/16 18:00 Dextrose 1,000 ml @ 50 mls/hr Q20H IV 08/07/16 09:00 09/06/16 08:59 08/11/16 07:59 Dextrose (Dextrose 50%) STAT PRN IV Hypoglycemia 08/05/16 01:45 09/04/16 01:44 Heparin Sodium (Porcine) (Heparin 5000 units/ml) 5,000 units EVERY 12 HOURS SUBQ 08/05/16 09:00 09/04/16 08:59 08/10/16 21:57 Insulin Aspart (NovoLOG) Q6HR SUBQ 08/08/16 12:00 09/07/16 11:59 08/11/16 00:53 Linezolid (Zyvox) 300 ml @ 300 mls/hr Q12HR IVPB 08/07/16 14:00 08/14/16 13:59 08/10/16 21:58 Piperacillin Sod/ Tazobactam Sod/ Dextrose (Zosyn/D5W) 110 ml @ 27.5 mls/hr Q8H IVPB 08/05/16 05:00 08/16/16 04:59 08/11/16 05:05 ESHA BEY August 11, 2016 08:06
[2016-08-11 08:17] LABS: BASOPHILS % (AUTO) 0.5 % (0.0-2.0); LYMPHOCYTES % (AUTO) 11.3 % (20.0-45.0); MEAN CORPUSCULAR HEMOGLOBIN 29.7 PG (27.0-31.0); MEAN CORPUSCULAR HGB CONC 32.5 G/DL (32.0-36.0); MEAN CORPUSCULAR VOLUME 91 FL (80-99); MEAN PLATELET VOLUME 7.8 FL (6.5-10.1); MONOCYTES % (AUTO) 6.3 % (1.0-10.0); NEUTROPHILS % (AUTO) 78.9 % (45.0-75.0); PLATELET COUNT 293 K/UL (150-450); RED BLOOD COUNT 3.66 M/UL (4.70-6.10); RED CELL DISTRIBUTION WIDTH 13.2 % (11.6-14.8); WHITE BLOOD COUNT 7.8 K/UL (4.8-10.8)
[2016-08-11 08:26] LABS: ALBUMIN/GLOBULIN RATIO 0.4 (1.0-2.7); CALCIUM 8.3 mg/dL (8.6-10.2); CREATININE 1.9 mg/dL (0.7-1.2); GLOMERULAR FILTRATION RATE 42.9 mL/min (>60); POTASSIUM 4.4 mEQ/L (3.4-4.9); TOTAL PROTEIN 6.8 g/dL (6.6-8.7)
--- NOTE | 2016-08-11 09:18 | Diagnostic Imaging Report ---
Indication: Chest Pain Comparison: 08/04/16 A single view chest radiograph was obtained. Findings: Heart is enlarged. Mild basilar atelectasis is present. No ulna edema identified. Left perihilar infiltrate may be present. Please correlate clinically. Impression: No change from the prior study. Questionable left perihilar infiltrate
[2016-08-11] MEDS: Ascorbic Acid 500mg tab GT SCH ×2 (09:33→17:51)
[2016-08-11] MEDS: Heparin 5000 units/ml inj SUBQ SCH ×2 (09:34→21:03)
[2016-08-11] MEDS: Amiodarone 200mg tab GT SCH (09:34)
--- NOTE | 2016-08-11 11:45 | Infectious Diseases Prog Note ---
Assessment/Plan Assessment/Plan A 1. 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 pneumonia 4. DM 5. COPD 6. pressure ulcers 7. acute renal failure P 1. continue linezolid, Zosyn 2. will follow up cultures 3. consider ERON Subjective ROS Limited/Unobtainable: Yes Respiratory: Reports: other - thick respiratory secretions Allergies: Coded Allergies: No Known Allergies (Unverified , 07/02/16) Objective Vital Signs Last 24 Hour Vital Signs Date Time Temp Pulse Resp B/P Pulse Ox O2 Delivery O2 Flow Rate FiO2 08/11/16 11:31 87 08/11/16 08:00 97.0 86 18 142/89 99 Room Air 08/11/16 08:00 81 08/11/16 07:42 Nasal Cannula 2.0 28 08/11/16 07:41 99 Nasal Cannula 2.0 08/11/16 04:00 81 08/11/16 04:00 97.6 86 20 128/84 97 Room Air 08/11/16 00:00 97.9 94 22 113/69 98 Room Air 08/11/16 00:00 92 08/10/16 20:00 95 08/10/16 20:00 97.2 97 21 130/78 100 Room Air 08/10/16 19:30 Nasal Cannula 2.0 28 08/10/16 19:30 98 Nasal Cannula 2.0 28 08/10/16 16:00 86 08/10/16 15:56 96.8 90 20 121/79 97 Nasal Cannula 2.0 08/10/16 12:00 84 08/10/16 11:57 97.9 85 20 118/73 98 Nasal Cannula 2.0 Height (Feet): 5 Height (Inches): 8.00 Weight (Pounds): 142 General Appearance: cachetic HEENT: mucous membranes moist Respiratory/Chest: lungs clear Cardiovascular: normal rate Abdomen: soft, non tender, other - GT feeding Extremities: no edema Skin: ulcers Neurologic/Psychiatric: alert, aphasia Laboratory Tests Test 08/11/16 07:35 White Blood Count 7.8 K/UL (4.8-10.8) Red Blood Count 3.66 M/UL (4.70-6.10) L Hemoglobin 10.9 G/DL (14.2-18.0) #L Hematocrit 33.4 % (42.0-52.0) #L Mean Corpuscular Volume 91 FL (80-99) Mean Corpuscular Hemoglobin 29.7 PG (27.0-31.0) Mean Corpuscular Hemoglobin Concent 32.5 G/DL (32.0-36.0) Red Cell Distribution Width 13.2 % (11.6-14.8) Platelet Count 293 K/UL (150-450) Mean Platelet Volume 7.8 FL (6.5-10.1) Neutrophils (%) (Auto) 78.9 % (45.0-75.0) H Lymphocytes (%) (Auto) 11.3 % (20.0-45.0) L Monocytes (%) (Auto) 6.3 % (1.0-10.0) Eosinophils (%) (Auto) 3.0 % (0.0-3.0) Basophils (%) (Auto) 0.5 % (0.0-2.0) Sodium Level 135 mEQ/L (135-145) Potassium Level 4.4 mEQ/L (3.4-4.9) Chloride Level 95 mEQ/L (98-107) L Carbon Dioxide Level 28 mEQ/L (20-30) Anion Gap 12 (5-15) Blood Urea Nitrogen 40 mg/dL (7-23) H Creatinine 1.9 mg/dL (0.7-1.2) #H Estimat Glomerular Filtration Rate 42.9 mL/min (>60) Glucose Level 112 mg/dL (74-106) H Calcium Level 8.3 mg/dL (8.6-10.2) L Total Bilirubin 0.4 mg/dL (0.0-1.2) Aspartate Amino Transf (AST/SGOT) 28 U/L (5-40) Alanine Aminotransferase (ALT/SGPT) 26 U/L (3-41) Alkaline Phosphatase 90 U/L (40-129) Total Protein 6.8 g/dL (6.6-8.7) Albumin 2.1 g/dL (3.5-5.2) L Globulin 4.7 g/dL Albumin/Globulin Ratio 0.4 (1.0-2.7) L Current Medications Medications (Trade) Dose Ordered Sig/Alex Route PRN Reason Start Time Stop Time Status Last Admin Dose Admin Acetaminophen (Tylenol) 650 mg Q4H PRN ORAL Mild Pain/Temp > 100.5 08/05/16 01:45 09/04/16 01:44 Amiodarone HCl (Cordarone) 200 mg DAILY GT 08/09/16 04:22 09/04/16 08:59 08/11/16 09:34 Ascorbic Acid 500 mg 500 mg TWICE A DAY GT 08/05/16 18:00 09/04/16 17:59 08/11/16 09:33 Dextrose 1,000 ml @ 50 mls/hr Q20H IV 08/07/16 09:00 09/06/16 08:59 08/11/16 07:59 Dextrose (Dextrose 50%) STAT PRN IV Hypoglycemia 08/05/16 01:45 09/04/16 01:44 Heparin Sodium (Porcine) (Heparin 5000 units/ml) 5,000 units EVERY 12 HOURS SUBQ 08/05/16 09:00 09/04/16 08:59 08/11/16 09:34 Insulin Aspart (NovoLOG) Q6HR SUBQ 08/08/16 12:00 09/07/16 11:59 08/11/16 00:53 Linezolid (Zyvox) 300 ml @ 300 mls/hr Q12HR IVPB 08/07/16 14:00 08/14/16 13:59 08/11/16 09:33 Piperacillin Sod/ Tazobactam Sod/ Dextrose (Zosyn/D5W) 110 ml @ 27.5 mls/hr Q8H IVPB 08/05/16 05:00 08/16/16 04:59 08/11/16 05:05 TIESHA SERVIN August 11, 2016 11:45
[2016-08-11 12:00] VITALS: BP 132/85
[2016-08-11 16:00] VITALS: BP 151/95
[2016-08-11] MEDS ORDERED: NS 275ml ONE (16:56)
[2016-08-11] MEDS ORDERED: Tubing IV Secondary IV ONE (16:56)
[2016-08-11] MEDS ORDERED: Tubing Blood Filter IV ONE (16:56)
--- NOTE | 2016-08-11 18:53 | General Progress Note ---
Assessment/Plan Problem List: (1) Dysphagia ICD Codes: R13.10 - Dysphagia, unspecified SNOMED: 61132941, 624758051 (2) severe post anoxic encephalopathy (3) intermittent postural hand tremors, doubt seizure event (4) Sepsis ICD Codes: A41.9 - Sepsis, unspecified organism SNOMED: 06002984 (5) Pneumonia ICD Codes: J18.9 - Pneumonia, unspecified organism SNOMED: 590540455 (6) Fever ICD Codes: R50.9 - Fever, unspecified SNOMED: 891198085 Status: stable, progressing Assessment/Plan iv abx per id per cards too high risk for ERON(poor pulm status) per ID 3 weeks iv vanco- empiric rx for endocarditis resp rx/suctioning gt feeds follow up cultures- multiple positive ivf transfuse per pulm wound care skin care picc line d/w family updated on poc Subjective ROS Limited/Unobtainable: Yes Constitutional: Reports: malaise, weakness HEENT: Reports: no symptoms Cardiovascular: Reports: no symptoms Respiratory: Reports: cough, shortness of breath, sputum Gastrointestinal/Abdominal: Reports: difficulty swallowing Genitourinary: Reports: no symptoms Neurologic/Psychiatric: Reports: pre-existing deficit Endocrine: Reports: no symptoms Hematologic/Lymphatic: Reports: anemia Allergies: Coded Allergies: No Known Allergies (Unverified , 07/02/16) All Systems: reviewed and negative except above Subjective stable congestion. requires less frequent deep suctioning. more alert but still confused. tolerating feeds. ID noted. Objective Last 24 Hour Vital Signs Date Time Temp Pulse Resp B/P Pulse Ox O2 Delivery O2 Flow Rate FiO2 08/11/16 16:00 87 08/11/16 16:00 91 19 151/95 Nasal Cannula 2.0 100 08/11/16 12:00 97.0 91 18 132/85 99 Room Air 08/11/16 11:31 87 08/11/16 08:00 97.0 86 18 142/89 99 Room Air 08/11/16 08:00 81 08/11/16 07:42 Nasal Cannula 2.0 28 08/11/16 07:41 99 Nasal Cannula 2.0 08/11/16 04:00 81 08/11/16 04:00 97.6 86 20 128/84 97 Room Air 08/11/16 00:00 97.9 94 22 113/69 98 Room Air 08/11/16 00:00 92 08/10/16 20:00 95 08/10/16 20:00 97.2 97 21 130/78 100 Room Air 08/10/16 19:30 Nasal Cannula 2.0 28 08/10/16 19:30 98 Nasal Cannula 2.0 28 Intake and Output 08/10/16 08/11/16 19:00 07:00 Intake Total 498.333 ml 1962.7080 ml Output Total 750 ml 600 ml Balance -251.667 ml 1362.7080 ml IV Total 433.333 ml 1062.7080 ml Tube Feeding 65 ml 780 ml Blood Product 120 ml Output Urine Total 750 ml 600 ml # Bowel Movements 2 3 Laboratory Tests 08/11/16 07:35: White Blood Count 7.8, Red Blood Count 3.66L, Hemoglobin 10.9#L, Hematocrit 33.4 #L, Mean Corpuscular Volume 91, Mean Corpuscular Hemoglobin 29.7, Mean Corpuscular Hemoglobin Concent 32.5, Red Cell Distribution Width 13.2, Platelet Count 293, Mean Platelet Volume 7.8, Neutrophils (%) (Auto) 78.9H, Lymphocytes ( %) (Auto) 11.3L, Monocytes (%) (Auto) 6.3, Eosinophils (%) (Auto) 3.0, Basophils (%) (Auto) 0.5, Sodium Level 135, Potassium Level 4.4, Chloride Level 95L, Carbon Dioxide Level 28, Anion Gap 12, Blood Urea Nitrogen 40H, Creatinine 1.9#H, Estimat Glomerular Filtration Rate 42.9, Glucose Level 112H, Calcium Level 8.3L, Total Bilirubin 0.4, Aspartate Amino Transf (AST/SGOT) 28, Alanine Aminotransferase (ALT/SGPT) 26, Alkaline Phosphatase 90, Total Protein 6.8, Albumin 2.1L, Globulin 4.7, Albumin/Globulin Ratio 0.4L Height (Feet): 5 Height (Inches): 8.00 Weight (Pounds): 142 Objective General Appearance: WD/WN, alert Neck: supple Cardiovascular: normal rate, regular rhythm Respiratory/Chest: chest wall non-tender, lungs clear, normal breath sounds Abdomen: normal bowel sounds, non tender, soft, no organomegaly Edema: no edema noted Arm (L), no edema noted Arm (R), no edema noted Leg (L), no edema noted Leg (R), no edema noted Pedal (L), no edema noted Pedal (R), no edema noted Generalized Edema: trace edema Neurologic: art therapist II-XII grossly normal, no motor/sensory deficits, abnormal gait , alert but confused Skin: normal pigmentation FAWN PORTER August 11, 2016 18:53
[2016-08-11 20:00] VITALS: BP 140/99
[2016-08-12] VITALS: BP 158/91
[2016-08-12] MEDS: NovoLOG Insulin Flexpen SUBQ SCH ×5 (00:06→23:21)
--- NOTE | 2016-08-12 01:15 | Progress Note ---
DATE: 08/11/2016 CARDIOLOGY PROGRESS NOTE SUBJECTIVE: The patient's condition remains tenuous. He has significant respiratory secretions and requires around the clock suctioning. He has multiple positive blood cultures. He has an indwelling PICC line. OBJECTIVE: VITAL SIGNS: Blood pressure 151/95, pulse 91, respiratory rate 19. LUNGS: Moderate breath sounds. Thick secretions. Scattered rhonchi. HEART: Regular rhythm and rate. Normal S1 and S2 with a fourth heart sound. ABDOMEN: Soft with G-tube. EXTREMITIES: With trace dependent edema. LABORATORY DATA: White count 7.8, hemoglobin 10.9. Sodium 135, potassium 4.4, bicarbonate 28, BUN 40, creatinine 1.9. Albumin 2.1. IMPRESSION: 1. Polymicrobial sepsis. 2. Chronic aspiration, healthcare-acquired pneumonia. 3. Paroxysmal atrial fibrillation. 4. Dysphagia with gastrostomy tube. 5. Cerebrovascular disease with severe encephalopathy. 6. Increased risk for endocarditis based on comorbidities and indwelling lines. 7. Severely increased risk for respiratory failure with transesophageal echocardiogram. PLAN: Based on quality of life, risks and benefits, I have discussed with the primary care physician that empiric therapy rather than diagnostic transesophageal echocardiogram would be most prudent in this clinical setting. Final antibiotics recommendations per Infectious Disease telecommunications consultant. Natalio Wisdom M.D. DR: Gutierrez JOB#: [id number] CC: JOSE E
[2016-08-12 03:48] VITALS: BP 133/91
[2016-08-12] MEDS: Piperacillin/Tazobactam 3.375 GM in D5W 110 ML IVPB SCH (05:00)
[2016-08-12] MEDS ORDERED: Heparin 2000 units/Ns 1000ml INJ ONE (07:30)
[2016-08-12] MEDS ORDERED: Sodium Bicarbonate 4% 2.4meq/5ml vial INJ ONE (07:30)
[2016-08-12] MEDS ORDERED: Lidocaine 1% Plain 30 ml INJ ONE (07:30)
[2016-08-12 08:04] VITALS: BP 115/72
[2016-08-12] MEDS: Ascorbic Acid 500mg tab GT SCH ×2 (08:18→18:09)
[2016-08-12] MEDS: Amiodarone 200mg tab GT SCH (08:18)
[2016-08-12] MEDS: Heparin 5000 units/ml inj SUBQ SCH ×2 (08:19→21:22)
[2016-08-12 08:38] LABS: MEAN CORPUSCULAR HEMOGLOBIN 30.5 PG (27.0-31.0); MEAN CORPUSCULAR HGB CONC 33.5 G/DL (32.0-36.0); MEAN CORPUSCULAR VOLUME 91 FL (80-99); MEAN PLATELET VOLUME 7.7 FL (6.5-10.1); PLATELET COUNT 309 K/UL (150-450); RED BLOOD COUNT 3.68 M/UL (4.70-6.10); RED CELL DISTRIBUTION WIDTH 13.2 % (11.6-14.8); WHITE BLOOD COUNT 10.6 K/UL (4.8-10.8)
--- NOTE | 2016-08-12 08:41 | Pulmonology Progress Note ---
Assessment/Plan Assessment/Plan IMPRESSION: 1. Evidence of pneumonia. 2. Evidence of acute on chronic renal failure . 3. Evidence of transaminitis. 4. Evidence of severe protein-calorie malnutrition. 5. Anemia. 6. Chronic encephalopathy 7. Hypernatremia 8. Azotemia. PLAN respiratory care as is oxygen therapy Antibiotics reviewed maintain meds nutrition as is GT feeds wound care aspiration precautions dc planning discussed impression, plan, and exam edited and reviewed in detail care discussed with RN Subjective ROS Limited/Unobtainable: Yes Allergies: Coded Allergies: No Known Allergies (Unverified , 07/02/16) Subjective care noted and reviewed on oxygen findings reviewed Objective Last 24 Hour Vital Signs Date Time Temp Pulse Resp B/P Pulse Ox O2 Delivery O2 Flow Rate FiO2 08/12/16 08:04 96.3 96 20 115/72 100 Nasal Cannula 2.0 08/12/16 07:40 98 Nasal Cannula 2.0 28 08/12/16 07:40 Nasal Cannula 2.0 28 08/12/16 03:49 92 08/12/16 03:48 98.8 94 21 133/91 94 Nasal Cannula 2.0 08/12/16 00:00 91 08/12/16 00:00 97.0 89 20 158/91 100 Nasal Cannula 2.0 100 08/11/16 20:00 97.0 82 19 140/99 99 Nasal Cannula 2.0 100 08/11/16 20:00 89 08/11/16 19:30 Nasal Cannula 2.0 28 08/11/16 19:30 99 Nasal Cannula 2.0 28 08/11/16 16:00 87 08/11/16 16:00 91 19 151/95 Nasal Cannula 2.0 100 08/11/16 12:00 97.0 91 18 132/85 99 Room Air 08/11/16 11:31 87 Intake and Output 08/11/16 08/12/16 19:00 07:00 Intake Total 1875 ml 1845.0 ml Output Total 800 ml 700 ml Balance 1075 ml 1145.0 ml Intake Free Water 250 ml 100 ml IV Total 910 ml 965.0 ml Tube Feeding 715 ml 780 ml Output Urine Total 800 ml 700 ml # Bowel Movements 2 3 Objective WDWN NAD EOMI reduced breath sounds bilaterally with some rhonchi [id number] without MRG NABS nontender no HSM no CCE nonfocal poor LOC skin noted- wounds noted reviewed and edited Microbiology Date/Time Source Procedure Growth Status 08/11/16 17:45 Sputum Gram Stain - Final Resulted 08/11/16 17:45 Sputum Sputum Culture - Preliminary Resulted Laboratory Tests 08/12/16 08:15: White Blood Count 10.6, Red Blood Count 3.68L, Hemoglobin 11.2L, Hematocrit 33.5L, Mean Corpuscular Volume 91, Mean Corpuscular Hemoglobin 30.5, Mean Corpuscular Hemoglobin Concent 33.5, Red Cell Distribution Width 13.2, Platelet Count 309, Mean Platelet Volume 7.7, Neutrophils (%) (Auto) , Lymphocytes (%) ( Auto) , Monocytes (%) (Auto) , Eosinophils (%) (Auto) , Basophils (%) (Auto) , Neutrophils % (Manual) [Pending], Lymphocytes % (Manual) [Pending], Platelet Estimate [Pending], Platelet Morphology [Pending], Sodium Level [Pending], Potassium Level [Pending], Chloride Level [Pending], Carbon Dioxide Level [ Pending], Blood Urea Nitrogen [Pending], Creatinine [Pending], Estimat Glomerular Filtration Rate [Pending], Glucose Level [Pending], Calcium Level [ Pending] Current Medications Medications (Trade) Dose Ordered Sig/Alex Route PRN Reason Start Time Stop Time Status Last Admin Dose Admin Acetaminophen (Tylenol) 650 mg Q4H PRN ORAL Mild Pain/Temp > 100.5 08/05/16 01:45 09/04/16 01:44 Amiodarone HCl (Cordarone) 200 mg DAILY GT 08/09/16 04:22 09/04/16 08:59 08/12/16 08:18 Ascorbic Acid 500 mg 500 mg TWICE A DAY GT 08/05/16 18:00 09/04/16 17:59 08/12/16 08:18 Chlorhexidine Gluconate (Tabitha-Hex 2%) 1 applic DAILY TOPIC 08/12/16 09:00 09/11/16 08:59 UNV Dextrose 1,000 ml @ 50 mls/hr Q20H IV 08/07/16 09:00 09/06/16 08:59 08/12/16 05:00 Dextrose (Dextrose 50%) STAT PRN IV Hypoglycemia 08/05/16 01:45 09/04/16 01:44 Heparin Sodium (Porcine) (Heparin 5000 units/ml) 5,000 units EVERY 12 HOURS SUBQ 08/05/16 09:00 09/04/16 08:59 08/12/16 08:19 Heparin Sodium/ Sodium Chloride (Heparin 2000 units/Ns 1000ml premix) 2,000 unit ONCE ONCE INJ 08/12/16 07:30 08/12/16 07:31 UNV Insulin Aspart (NovoLOG) Q6HR SUBQ 08/08/16 12:00 09/07/16 11:59 08/12/16 00:06 Lidocaine HCl (Xylocaine 1% 30ml) 30 ml ONCE ONCE INJ 08/12/16 07:30 08/12/16 07:31 UNV Linezolid (Zyvox) 300 ml @ 300 mls/hr Q12HR IVPB 08/07/16 14:00 08/14/16 13:59 08/12/16 08:18 Piperacillin Sod/ Tazobactam Sod/ Dextrose (Zosyn/D5W) 110 ml @ 27.5 mls/hr Q8H IVPB 08/05/16 05:00 08/16/16 04:59 08/12/16 05:00 Sodium Bicarbonate (Sodium Bicarbonate 4%) 1 ml ONCE ONCE INJ 08/12/16 07:30 08/12/16 07:31 UNV ESHA BEY August 12, 2016 08:41
[2016-08-12 08:58] LABS: CALCIUM 8.2 mg/dL (8.6-10.2); CREATININE 2.5 mg/dL (0.7-1.2); GLOMERULAR FILTRATION RATE 31.3 mL/min (>60); POTASSIUM 5.1 mEQ/L (3.4-4.9)
--- NOTE | 2016-08-12 09:32 | Infectious Diseases Prog Note ---
Assessment/Plan Assessment/Plan A 1. 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 pneumonia 4. DM 5. COPD 6. pressure ulcers 7. acute renal failure 8. Hyperkalemia P 1. continue linezolid, Zosyn 2. will follow up cultures 3. consider ERON Subjective ROS Limited/Unobtainable: Yes Allergies: Coded Allergies: No Known Allergies (Unverified , 07/02/16) Objective Vital Signs Last 24 Hour Vital Signs Date Time Temp Pulse Resp B/P Pulse Ox O2 Delivery O2 Flow Rate FiO2 08/12/16 08:04 96.3 96 20 115/72 100 Nasal Cannula 2.0 08/12/16 08:00 96 08/12/16 07:40 98 Nasal Cannula 2.0 28 08/12/16 07:40 Nasal Cannula 2.0 28 08/12/16 03:49 92 08/12/16 03:48 98.8 94 21 133/91 94 Nasal Cannula 2.0 08/12/16 00:00 91 08/12/16 00:00 97.0 89 20 158/91 100 Nasal Cannula 2.0 100 08/11/16 20:00 97.0 82 19 140/99 99 Nasal Cannula 2.0 100 08/11/16 20:00 89 08/11/16 19:30 Nasal Cannula 2.0 28 08/11/16 19:30 99 Nasal Cannula 2.0 28 08/11/16 16:00 87 08/11/16 16:00 91 19 151/95 Nasal Cannula 2.0 100 08/11/16 12:00 97.0 91 18 132/85 99 Room Air 08/11/16 11:31 87 Height (Feet): 5 Height (Inches): 8.00 Weight (Pounds): 142 HEENT: mucous membranes moist Respiratory/Chest: lungs clear Cardiovascular: normal rate Abdomen: soft, non tender, other - GT feeding Extremities: no edema Skin: ulcers Neurologic/Psychiatric: aphasia Microbiology Date/Time Source Procedure Growth Status 08/11/16 17:45 Sputum Gram Stain - Final Resulted 08/11/16 17:45 Sputum Sputum Culture - Preliminary Resulted Laboratory Tests Test 08/12/16 08:15 White Blood Count 10.6 K/UL (4.8-10.8) Red Blood Count 3.68 M/UL (4.70-6.10) L Hemoglobin 11.2 G/DL (14.2-18.0) L Hematocrit 33.5 % (42.0-52.0) L Mean Corpuscular Volume 91 FL (80-99) Mean Corpuscular Hemoglobin 30.5 PG (27.0-31.0) Mean Corpuscular Hemoglobin Concent 33.5 G/DL (32.0-36.0) Red Cell Distribution Width 13.2 % (11.6-14.8) Platelet Count 309 K/UL (150-450) Mean Platelet Volume 7.7 FL (6.5-10.1) Neutrophils (%) (Auto) % (45.0-75.0) Lymphocytes (%) (Auto) % (20.0-45.0) Monocytes (%) (Auto) % (1.0-10.0) Eosinophils (%) (Auto) % (0.0-3.0) Basophils (%) (Auto) % (0.0-2.0) Neutrophils % (Manual) Pending Lymphocytes % (Manual) Pending Platelet Estimate Pending Platelet Morphology Pending Sodium Level 132 mEQ/L (135-145) L Potassium Level 5.1 mEQ/L (3.4-4.9) H Chloride Level 92 mEQ/L (98-107) L Carbon Dioxide Level 25 mEQ/L (20-30) Anion Gap 15 (5-15) Blood Urea Nitrogen 49 mg/dL (7-23) H Creatinine 2.5 mg/dL (0.7-1.2) H Estimat Glomerular Filtration Rate 31.3 mL/min (>60) Glucose Level 147 mg/dL (74-106) H Calcium Level 8.2 mg/dL (8.6-10.2) L Current Medications Medications (Trade) Dose Ordered Sig/Alex Route PRN Reason Start Time Stop Time Status Last Admin Dose Admin Acetaminophen (Tylenol) 650 mg Q4H PRN ORAL Mild Pain/Temp > 100.5 08/05/16 01:45 09/04/16 01:44 Amiodarone HCl (Cordarone) 200 mg DAILY GT 08/09/16 04:22 09/04/16 08:59 08/12/16 08:18 Ascorbic Acid 500 mg 500 mg TWICE A DAY GT 08/05/16 18:00 09/04/16 17:59 08/12/16 08:18 Chlorhexidine Gluconate (Tabitha-Hex 2%) 1 applic DAILY TOPIC 08/12/16 09:00 09/11/16 08:59 UNV Dextrose 1,000 ml @ 50 mls/hr Q20H IV 08/07/16 09:00 09/06/16 08:59 08/12/16 05:00 Dextrose (Dextrose 50%) STAT PRN IV Hypoglycemia 08/05/16 01:45 09/04/16 01:44 Heparin Sodium (Porcine) (Heparin 5000 units/ml) 5,000 units EVERY 12 HOURS SUBQ 08/05/16 09:00 09/04/16 08:59 08/12/16 08:19 Heparin Sodium/ Sodium Chloride (Heparin 2000 units/Ns 1000ml premix) 2,000 unit ONCE ONCE INJ 08/12/16 07:30 08/12/16 07:31 UNV Insulin Aspart (NovoLOG) Q6HR SUBQ 08/08/16 12:00 09/07/16 11:59 08/12/16 00:06 Lidocaine HCl (Xylocaine 1% 30ml) 30 ml ONCE ONCE INJ 08/12/16 07:30 08/12/16 07:31 UNV Linezolid (Zyvox) 300 ml @ 300 mls/hr Q12HR IVPB 08/07/16 14:00 08/14/16 13:59 08/12/16 08:18 Piperacillin Sod/ Tazobactam Sod/ Dextrose (Zosyn/D5W) 110 ml @ 27.5 mls/hr Q8H IVPB 08/05/16 05:00 08/16/16 04:59 08/12/16 05:00 Sodium Bicarbonate (Sodium Bicarbonate 4%) 1 ml ONCE ONCE INJ 08/12/16 07:30 08/12/16 07:31 UNV TIESHA SERVIN August 12, 2016 09:32
[2016-08-12 10:00] LABS: BAND NEUTROPHILS % (MANUAL) 0 % (0-8); BASOPHILS % (MANUAL) 0 % (0-2); EOSINOPHILS % (MANUAL) 2 % (0-3); HYPOCHROMASIA 1+; LYMPHOCYTES % (MANUAL) 7 % (20-45); NEUTROPHILS % (MANUAL) 89 % (45-75); PLATELET ESTIMATE ADEQUATE; PLATELET MORPHOLOGY NORMAL; TOTAL CELLS COUNTED 100
--- NOTE | 2016-08-12 11:46 | Diagnostic Imaging Report ---
Indications: Needs long-term IV access Technique: Ultrasound confirms patent compressible right brachial vein. Total sterile technique, including sterile probe cover and sterile gel, hat, mask,, sterile gown, large sterile drape, and preparation with 2% chlorhexidine utilized. Local anesthesia with 1% lidocaine. Under real-time ultrasound guidance, puncture right brachial vein using 21-gauge needle, documented and archived, passage 0.018 guidewire under direct fluoroscopy, which was used to determine appropriate catheter length, exchange for 5 Vincentian peel-away sheath. 5 Vincentian Bard dual-lumen power PICC cut to 37 cm. It was inserted through the peel-away sheath. Peel-away sheath and guidewire removed. Catheter fixed to the skin. Both catheter ports aspirated and flushed. Patient tolerated procedure well, without immediate complication. Digital radiograph documents satisfactory catheter tip position, at the cavoatrial junction. Total fluoroscopy time 0.3 minutes. Total dose area product 7.1 dGycm2 Impression: Successful placement of right arm PICC under sonographic and fluoroscopic guidance, as described above.
[2016-08-12 12:35] VITALS: BP 139/91
--- NOTE | 2016-08-12 15:10 | General Progress Note ---
Assessment/Plan Problem List: (1) Dysphagia ICD Codes: R13.10 - Dysphagia, unspecified SNOMED: 85100859, 439025198 (2) severe post anoxic encephalopathy (3) intermittent postural hand tremors, doubt seizure event (4) Sepsis ICD Codes: A41.9 - Sepsis, unspecified organism SNOMED: 46279991 (5) Pneumonia ICD Codes: J18.9 - Pneumonia, unspecified organism SNOMED: 929806173 (6) Fever ICD Codes: R50.9 - Fever, unspecified SNOMED: 326158275 Status: not improved Assessment/Plan iv abx per id check cxr and abg hold feeds ivf zofran for nausea monitor resp status closely. d/w sister magdaleno- updated on current status Subjective ROS Limited/Unobtainable: Yes Constitutional: Reports: malaise HEENT: Reports: no symptoms Cardiovascular: Reports: no symptoms Respiratory: Reports: cough, shortness of breath, sputum Gastrointestinal/Abdominal: Reports: difficulty swallowing Genitourinary: Reports: no symptoms Neurologic/Psychiatric: Reports: pre-existing deficit Endocrine: Reports: no symptoms Hematologic/Lymphatic: Reports: no symptoms Allergies: Coded Allergies: No Known Allergies (Unverified , 07/02/16) All Systems: reviewed and negative except above Subjective vomited and aspirated per rn. now tachypneic and sob. alert. Objective Last 24 Hour Vital Signs Date Time Temp Pulse Resp B/P Pulse Ox O2 Delivery O2 Flow Rate FiO2 08/12/16 12:35 96.6 98 20 139/91 100 Nasal Cannula 2.0 08/12/16 12:00 93 08/12/16 08:04 96.3 96 20 115/72 100 Nasal Cannula 2.0 08/12/16 08:00 96 08/12/16 07:40 98 Nasal Cannula 2.0 28 08/12/16 07:40 Nasal Cannula 2.0 28 08/12/16 03:49 92 08/12/16 03:48 98.8 94 21 133/91 94 Nasal Cannula 2.0 08/12/16 00:00 91 08/12/16 00:00 97.0 89 20 158/91 100 Nasal Cannula 2.0 100 08/11/16 20:00 97.0 82 19 140/99 99 Nasal Cannula 2.0 100 08/11/16 20:00 89 08/11/16 19:30 Nasal Cannula 2.0 28 08/11/16 19:30 99 Nasal Cannula 2.0 28 08/11/16 16:00 87 08/11/16 16:00 91 19 151/95 Nasal Cannula 2.0 100 Intake and Output 08/11/16 08/12/16 19:00 07:00 Intake Total 1875 ml 1845.0 ml Output Total 800 ml 700 ml Balance 1075 ml 1145.0 ml Intake Free Water 250 ml 100 ml IV Total 910 ml 965.0 ml Tube Feeding 715 ml 780 ml Output Urine Total 800 ml 700 ml # Bowel Movements 2 3 Laboratory Tests 08/12/16 08:15: White Blood Count 10.6, Red Blood Count 3.68L, Hemoglobin 11.2L, Hematocrit 33.5L, Mean Corpuscular Volume 91, Mean Corpuscular Hemoglobin 30.5, Mean Corpuscular Hemoglobin Concent 33.5, Red Cell Distribution Width 13.2, Platelet Count 309, Mean Platelet Volume 7.7, Neutrophils (%) (Auto) , Lymphocytes (%) ( Auto) , Monocytes (%) (Auto) , Eosinophils (%) (Auto) , Basophils (%) (Auto) , Differential Total Cells Counted 100, Neutrophils % (Manual) 89H, Lymphocytes % (Manual) 7L, Monocytes % (Manual) 2, Eosinophils % (Manual) 2, Basophils % ( Manual) 0, Band Neutrophils 0, Platelet Estimate Adequate, Platelet Morphology Normal, Hypochromasia 1+, Sodium Level 132L, Potassium Level 5.1H, Chloride Level 92L, Carbon Dioxide Level 25, Anion Gap 15, Blood Urea Nitrogen 49H, Creatinine 2.5H, Estimat Glomerular Filtration Rate 31.3, Glucose Level 147H, Calcium Level 8.2L Height (Feet): 5 Height (Inches): 8.00 Weight (Pounds): 142 Objective General Appearance: WD/WN, alert. 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
[2016-08-12 15:17] LABS: ABG ALLEN TEST POSITIVE; ABG BASE EXCESS 3.5; ABG PCO2 53.2 mmHg (35.0-45.0)
[2016-08-12 15:21] VITALS: BP 150/93
[2016-08-12] MEDS ORDERED: Piperacillin/Tazobactam 3.375 GM in D5W 110 ML IVPB SCH (18:00)
[2016-08-12 20:00] VITALS: BP 125/73
[2016-08-12 20:03] LABS: ABG PCO2 68.1 mmHg (35.0-45.0)
[2016-08-12 20:04] LABS: ABG ALLEN TEST POSITIVE
[2016-08-13] VITALS: BP 112/75
--- NOTE | 2016-08-13 02:30 | Progress Note ---
DATE: 08/12/2016 LATE ENTRY CARDIOLOGY PROGRESS NOTE: SUBJECTIVE: The patient remains severely congested. Trach secretions required round the clock suctioning from trach. Monitored rhythm. Sinus tachycardia. OBJECTIVE: VITAL SIGNS: Blood pressure is 122/78, pulse 103, respiratory rate 20, and afebrile. GENERAL: Noncommunicative. CHEST: Bilateral rhonchi. HEART: Regular rhythm. Rapid rate. Normal S1 and S2. Monitored rhythm. Sinus tachycardia. Occasional atrial ectopics. ABDOMEN: Soft. G-tube intact. EXTREMITIES: With contractures and dependent edema. IMPRESSION: 1. Healthcare-acquired pneumonia. 2. Severe dehydration. 3. Hypernatremia. 4. Hypovolemia. 5. Chronic diastolic congestive heart failure. 6. Anemia, multifactorial. 7. Acute on chronic kidney injury. 8. Degenerative valve disease. 9. Sepsis. 10. Condition is serious. 11. Advanced directives, DNR. PLAN: Hydration with hypotonic fluids. Antimicrobials, respiratory hygiene, aggressive suctioning, and deep venous thrombosis prophylaxis. Monitor clinical parameters and volume status. Follow up laboratory studies, pending. Natalio Wisdom M.D. DR: Peggy JOB#: [id number] CC:
--- NOTE | 2016-08-13 02:45 | Progress Note ---
DATE: 08/08/2016 CARDIOLOGY PROGRESS NOTE Late entry for 08/08/2016. SUBJECTIVE: The patient was seen and evaluated. Case discussed with Dr. Carlson and Infectious Disease apprenticeship consultant. The patient remains on hypotonic IV fluids and respiratory hygiene. He is status post packed red blood cell transfusion. No signs of blood loss is noted. Monitored rhythm, sinus and sinus tachycardia. PHYSICAL EXAMINATION: VITAL SIGNS: Blood pressure 123/85, pulse 89, respirations 18, and afebrile. LUNGS: Coarse rhonchi. HEART: Regular rhythm and rate. ABDOMEN: Soft. G-tube intact. Trace dependent edema. LABORATORY DATA: Blood cultures are positive for Staphylococcus epidermidis. Sodium 142, potassium 3.7, bicarbonate 27, BUN 42, and creatinine 1.0. White count is 6.1 and hemoglobin 8.8. IMPRESSION: 1. Sepsis. 2. Pneumonia. 3. Dysphagia. 4. Chronic aspiration. 5. Secondary sinus tachycardia. 6. Anemia, multifactorial. 7. Rehydrated. 8. Chronic diastolic congestive heart failure. PLAN: 1. Antimicrobials. 2. Follow up final cultures. 3. Taper off IV fluids. 4. Continue nutritional support by feeding tube. 5. Prognosis remains poor. Natalio Wisdom M.D. : ONUR JOB#: [id number] CC:
--- NOTE | 2016-08-13 03:00 | Progress Note ---
DATE: 08/07/2016 LATE ENTRY CARDIOLOGY PROGRESS NOTE: SUBJECTIVE: Condition somewhat improved, but overall poor. He continues to remain on hypotonic IV fluids and required round the clock suctioning. Cultures have been noted. The patient is status post packed red blood cell transfusion. OBJECTIVE: VITAL SIGNS: Blood pressure is 117/73, pulse 104, respiratory rate 22, and afebrile. CHEST: Coarse breath sounds. Scattered rhonchi. HEART: Regular rhythm and rate. Normal S1 and S2. ABDOMEN: Soft. G-tube intact. EXTREMITIES: Dependent edema. NEUROLOGICAL: Noncommunicative. LABORATORY DATA: White count is 6.9 and hemoglobin 8.8, post transfusion. Sodium 140, potassium 3.4, bicarbonate 28, BUN 40, creatinine 1, and albumin 1.9. IMPRESSION: 1. Multifactorial anemia, status post transfusion. 2. Sepsis. 3. Healthcare-acquired pneumonia. 4. Acute on chronic respiratory insufficiency. 5. Dehydration. 6. Hypernatremia. 7. Acute and chronic renal failure with prerenal azotemia. 8. Severe protein-calorie malnutrition. 9. Chronic diastolic congestive heart failure. 10. Secondary sinus tachycardia. PLAN: Hypotonic IV fluids. Antimicrobials. Follow up final culture results. Continue aggressive respiratory hygiene. DNR and DNI. G-tube nutrition with protein supplements. Prognosis remains very poor. Continue stress ulcer and deep venous thrombosis prophylaxes. Natalio Wisdom M.D. DR: Peggy JOB#: [id number] CC:
--- NOTE | 2016-08-13 03:45 | Progress Note ---
DATE: 08/05/2016 CARDIOLOGY PROGRESS NOTE SUBJECTIVE: The patient remains with respiratory congestion requiring suctioning. He is non-communicative. He remains on multiple antibiotics. OBJECTIVE: VITAL SIGNS: Blood pressure of 125/73, pulse 119, respirations 18, and afebrile. LUNGS: Scattered rhonchi. HEART: Regular rhythm. Rapid rate. Normal S1, S2. ABDOMEN: Soft. G-tube intact. Trace edema. LABORATORY DATA: Sodium 132, potassium 5.1, chloride 92, bicarbonate 25, BUN 49, and creatinine 2.5. White count 10.6 and hemoglobin 11.2. IMPRESSION: 1. Secondary sinus tachycardia. 2. Sepsis. 3. Acute on chronic renal failure. 4. Paroxysmal atrial fibrillation. 5. Chronic diastolic congestive heart failure. 6. Anoxic encephalopathy. 7. Condition is serious. Prognosis is poor. PLAN: 1. DNR. 2. Respiratory hygiene. 3. Antimicrobial dose adjusted per renal function. 4. Resume hydration by IV route. 5. Maintenance dose amiodarone decreased. 6. DVT prophylaxis. 7. Follow up chemistry panel. Natalio Wisdom M.D. DR: ONUR JOB#: [id number] CC: JOSE E
[2016-08-13 04:00] VITALS: BP 110/68
[2016-08-13 04:34] LABS: MEAN CORPUSCULAR HEMOGLOBIN 30.5 PG (27.0-31.0); MEAN CORPUSCULAR HGB CONC 32.7 G/DL (32.0-36.0); MEAN CORPUSCULAR VOLUME 93 FL (80-99); MEAN PLATELET VOLUME 7.9 FL (6.5-10.1); PLATELET COUNT 257 K/UL (150-450); RED BLOOD COUNT 3.08 M/UL (4.70-6.10); RED CELL DISTRIBUTION WIDTH 13.8 % (11.6-14.8); WHITE BLOOD COUNT 7.2 K/UL (4.8-10.8)
[2016-08-13 04:51] LABS: ALBUMIN/GLOBULIN RATIO 0.4 (1.0-2.7); CALCIUM 8.6 mg/dL (8.6-10.2); CREATININE 2.2 mg/dL (0.7-1.2); GLOMERULAR FILTRATION RATE 36.2 mL/min (>60); POTASSIUM 4.7 mEQ/L (3.4-4.9); TOTAL PROTEIN 6.4 g/dL (6.6-8.7)
[2016-08-13] MEDS: Piperacillin/Tazobactam 3.375 GM in D5W 110 ML IVPB SCH ×2 (05:04→17:33)
[2016-08-13] MEDS: NovoLOG Insulin Flexpen SUBQ SCH ×4 (05:10→23:48)
--- NOTE | 2016-08-13 06:15 | Progress Note ---
DATE: 08/09/2016 CARDIOLOGY PROGRESS NOTE Late entry for 08/09/2016. SUBJECTIVE: The patient has intermittent tremors. He remains unresponsive. He requires around the clock respiratory hygiene. OBJECTIVE: VITAL SIGNS: Blood pressure 114/75, pulse 88, respirations 18, and afebrile. LUNGS: Coarse rhonchi. HEART: Regular rhythm and rate. Normal S1 and S2. ABDOMEN: Soft. G-tube intact. Trace edema. IMPRESSION: 1. Decubitus sepsis. 2. Possible bacteremia with coagulase-negative staphylococcus. 3. Positive risk for endocarditis. 4. Multiple indwelling lines. 5. Tremors may be due to anoxic encephalopathy or amiodarone associated toxicity. PLAN: We will decrease amiodarone dosing. We would not pursue a transesophageal echocardiogram in this setting as to the increased risk for respiratory failure. We will treat empirically if endocarditis is suspected. Respiratory hygiene and other therapy without change. Laboratories reviewed. Natalio Wisdom M.D. DR: Mann JOB#: [id number] CC:
--- NOTE | 2016-08-13 06:15 | Progress Note ---
DATE: 08/06/2016 CARDIOLOGY PROGRESS NOTE: Late entry SUBJECTIVE: Still with moderate secretions requiring aggressive hygiene and suctioning. Monitored sinus and sinus tachycardia. He has defervesced. OBJECTIVE: VITAL SIGNS: Blood pressure 107/63, pulse 96, respiratory rate 20. LUNGS: Coarse breath sounds. Scattered rhonchi. HEART: Regular rhythm and rate. ABDOMEN: Soft. G-tube intact. EXTREMITIES: There is trace dependent edema. NEUROLOGIC: The patient is noncommunicative. LABORATORY DATA: Sodium 150, potassium 3.4, chloride 111, bicarbonate 27, BUN 42, creatinine 1.1. White count is 7.2, hemoglobin 7.4, platelet count 308,000. IMPRESSION: 1. Healthcare-acquired pneumonia. 2. Acute on chronic respiratory insufficiency. 3. Acute on chronic anemia. 4. Acute on chronic renal failure, improved. 5. Dehydration and hypernatremia. 6. Hypovolemia. 7. Chronic diastolic congestive heart failure. 8. Hyperchloremia. 9. Severe encephalopathy. PLAN: Antimicrobials. Await cultures. Hypotonic IV fluids. Respiratory hygiene and suctioning. DNR. DVT prophylaxis. Natalio Wisdom M.D. DR: Ralph JOB#: [id number] CC:
--- NOTE | 2016-08-13 07:31 | Progress Note ---
DATE: 08/10/2016 CARDIOLOGY PROGRESS NOTE: Late entry SUBJECTIVE: Status unchanged. OBJECTIVE: VITAL SIGNS: Unchanged. Blood pressure 117/70, heart rate 91, respiratory rate 20. RESPIRATORY: Coarse rhonchi. HEART: Regular rhythm and rate. Normal S1, S2. ABDOMEN: Soft. EXTREMITIES: Trace edema. NEUROLOGIC: Involuntary hand tremor. LABORATORY DATA: Cultures noted. White count 6.3, hemoglobin 7.9. Sodium 135, potassium 4, bicarbonate 29, BUN 32, creatinine 1.1. Albumin 2. IMPRESSION: 1. Rehydrated. 2. Severe protein-calorie malnutrition. 3. Pneumonia. 4. Sepsis. 5. Bacteremia. 6. Increased risk for endocarditis. 7. Paroxysmal atrial fibrillation. 8. Possible amiodarone associated tremors versus anoxic associated symptoms. PLAN: Lower dose amiodarone 100 mg daily. Would not pursue transesophageal echocardiogram due to risks and the patient's debility. Antibiotic course per Infectious Disease solutions consultant. Monitor volume status and cardiorenal parameters. Natalio Wisdom M.D. DR: Ralph JOB#: [id number] CC:
[2016-08-13 08:00] VITALS: BP 125/97
--- NOTE | 2016-08-13 08:39 | General Progress Note ---
Assessment/Plan Problem List: (1) Dysphagia ICD Codes: R13.10 - Dysphagia, unspecified SNOMED: 43503746, 710305481 (2) severe post anoxic encephalopathy (3) intermittent postural hand tremors, doubt seizure event (4) Sepsis ICD Codes: A41.9 - Sepsis, unspecified organism SNOMED: 50552213 (5) Pneumonia ICD Codes: J18.9 - Pneumonia, unspecified organism SNOMED: 790641148 (6) Fever ICD Codes: R50.9 - Fever, unspecified SNOMED: 896459305 Status: deteriorating Assessment/Plan iv abx per id check cxr- pending hold feeds ivf monitor renal fxn and volume status zofran for nausea monitor resp status closely. d/w sister magdaleno- updated on current status. DNR reaffirmed Subjective ROS Limited/Unobtainable: Yes Constitutional: Reports: malaise, weakness HEENT: Reports: no symptoms Cardiovascular: Reports: no symptoms Respiratory: Reports: shortness of breath, sputum Gastrointestinal/Abdominal: Reports: difficulty swallowing Genitourinary: Reports: no symptoms Neurologic/Psychiatric: Reports: pre-existing deficit Endocrine: Reports: no symptoms Hematologic/Lymphatic: Reports: no symptoms Allergies: Coded Allergies: No Known Allergies (Unverified , 07/02/16) All Systems: reviewed and negative except above Subjective transferred to shorty for resp distress. vomited several times. feeds on hold. on bipap. cxr results pending. Objective Last 24 Hour Vital Signs Date Time Temp Pulse Resp B/P Pulse Ox O2 Delivery O2 Flow Rate FiO2 08/13/16 08:00 98.4 117 18 125/97 92 60 08/13/16 06:30 111 25 97 Facial 60 08/13/16 04:32 120 28 99 Facial 40 08/13/16 04:00 97.9 112 18 110/68 100 08/13/16 04:00 113 08/13/16 03:30 116 32 98 Facial 40 08/13/16 01:30 112 31 100 Facial 40 08/13/16 00:00 98.0 111 18 112/75 100 08/13/16 00:00 116 08/12/16 23:30 122 22 100 Facial 40 08/12/16 21:30 120 23 100 Facial 40 08/12/16 20:00 129 08/12/16 20:00 98.1 119 18 125/73 100 08/12/16 20:00 08/12/16 19:26 Bi-pap 08/12/16 19:26 130 32 100 Facial 100 08/12/16 18:02 122 33 100 Facial 100 08/12/16 16:07 96.3 08/12/16 16:00 117 08/12/16 15:21 96.3 120 20 150/93 100 Nasal Cannula 4.0 08/12/16 12:35 96.6 98 20 139/91 100 Nasal Cannula 2.0 08/12/16 12:00 93 Intake and Output 08/12/16 08/13/16 19:00 07:00 Intake Total 725.0 ml 597 ml Output Total 400 ml 625 ml Balance 325.0 ml -28 ml Intake Free Water 100 ml IV Total 365.0 ml 597 ml Tube Feeding 260 ml Output Urine Total 400 ml 625 ml # Bowel Movements 2 3 Laboratory Tests 08/12/16 15:05: Arterial Blood pH 7.366, Arterial Blood Partial Pressure CO2 53.2H, Arterial Blood Partial Pressure O2 68.9L, Arterial Blood HCO3 29.8H, Arterial Blood Oxygen Saturation 92.7, Arterial Blood Base Excess 3.5, Vinny Test Positive 08/12/16 19:00: Arterial Blood pH 7.267L, Arterial Blood Partial Pressure CO2 68.1*H, Arterial Blood Partial Pressure O2 378.6H, Arterial Blood HCO3 30.4H, Arterial Blood Oxygen Saturation 99.4H, Arterial Blood Base Excess 2.0, Vinny Test Positive 08/13/16 03:50: White Blood Count 7.2, Red Blood Count 3.08L, Hemoglobin 9.4L, Hematocrit 28.6L , Mean Corpuscular Volume 93, Mean Corpuscular Hemoglobin 30.5, Mean Corpuscular Hemoglobin Concent 32.7, Red Cell Distribution Width 13.8, Platelet Count 257, Mean Platelet Volume 7.9, Neutrophils (%) (Auto) , Lymphocytes (%) ( Auto) , Monocytes (%) (Auto) , Eosinophils (%) (Auto) , Basophils (%) (Auto) , Sodium Level 135, Potassium Level 4.7, Chloride Level 92L, Carbon Dioxide Level 26, Anion Gap 17H, Blood Urea Nitrogen 60H, Creatinine 2.2H, Estimat Glomerular Filtration Rate 36.2, Glucose Level 71L, Calcium Level 8.6, Total Bilirubin 0.4 , Aspartate Amino Transf (AST/SGOT) 25, Alanine Aminotransferase (ALT/SGPT) 20, Alkaline Phosphatase 74, Total Protein 6.4L, Albumin 2.0L, Globulin 4.4, Albumin /Globulin Ratio 0.4L Height (Feet): 5 Height (Inches): 8.00 Weight (Pounds): 142 Objective General Appearance: WD/WN, alert. Dyspneic/tachypneic Neck: supple Cardiovascular: normal rate, regular rhythm Respiratory/Chest: chest wall non-tender, lungs - few rhonchi on the right. BS on the left Abdomen: normal bowel sounds, non tender, soft, no organomegaly Edema: no edema noted Arm (L), no edema noted Arm (R), no edema noted Leg (L), no edema noted Leg (R), no edema noted Pedal (L), no edema noted Pedal (R), no edema noted Generalized Edema: trace edema Neurologic: front of house manager II-XII grossly normal, no motor/sensory deficits, abnormal gait , alert but confused Skin: normal pigmentation FAWN PORTER Aug 13, 2016 08:39
--- NOTE | 2016-08-13 08:56 | Pulmonology Progress Note ---
Assessment/Plan Assessment/Plan IMPRESSION: 1. Evidence of pneumonia. 2. Evidence of acute on chronic renal failure . 3. Evidence of transaminitis. 4. Evidence of severe protein-calorie malnutrition. 5. Anemia. 6. Chronic encephalopathy 7. Hypernatremia 8. Azotemia. 9 Respiratory acidosis PLAN respiratory care as is BIPAP as needed oxygen therapy Antibiotics reviewed maintain meds nutrition as is GT feeds recheck chest XR wound care aspiration precautions dc planning on hold with deterioration DNR impression, plan, and exam edited and reviewed in detail care discussed with RN Subjective ROS Limited/Unobtainable: Yes Allergies: Coded Allergies: No Known Allergies (Unverified , 07/02/16) Subjective care noted and reviewed on oxygen findings reviewed increasing respiratory distress Objective Last 24 Hour Vital Signs Date Time Temp Pulse Resp B/P Pulse Ox O2 Delivery O2 Flow Rate FiO2 08/13/16 08:00 98.4 117 18 125/97 92 60 08/13/16 06:30 111 25 97 Facial 60 08/13/16 04:32 120 28 99 Facial 40 08/13/16 04:00 97.9 112 18 110/68 100 08/13/16 04:00 113 08/13/16 03:30 116 32 98 Facial 40 08/13/16 01:30 112 31 100 Facial 40 08/13/16 00:00 98.0 111 18 112/75 100 08/13/16 00:00 116 08/12/16 23:30 122 22 100 Facial 40 08/12/16 21:30 120 23 100 Facial 40 08/12/16 20:00 129 08/12/16 20:00 98.1 119 18 125/73 100 08/12/16 20:00 08/12/16 19:26 Bi-pap 08/12/16 19:26 130 32 100 Facial 100 08/12/16 18:02 122 33 100 Facial 100 08/12/16 16:07 96.3 08/12/16 16:00 117 08/12/16 15:21 96.3 120 20 150/93 100 Nasal Cannula 4.0 08/12/16 12:35 96.6 98 20 139/91 100 Nasal Cannula 2.0 08/12/16 12:00 93 Intake and Output 08/12/16 08/13/16 19:00 07:00 Intake Total 725.0 ml 597 ml Output Total 400 ml 625 ml Balance 325.0 ml -28 ml Intake Free Water 100 ml IV Total 365.0 ml 597 ml Tube Feeding 260 ml Output Urine Total 400 ml 625 ml # Bowel Movements 2 3 Objective WDWN NAD EOMI reduced breath sounds bilaterally with worsening rhonchi and increased RR [id number] without MRG NABS nontender no HSM no CCE nonfocal poor LOC skin noted- wounds noted reviewed and edited Microbiology Date/Time Source Procedure Growth Status 08/11/16 17:45 Sputum Gram Stain - Final Resulted 08/11/16 17:45 Sputum Culture - Preliminary Gram Negative Arnold Resulted Laboratory Tests 08/12/16 15:05: Arterial Blood pH 7.366, Arterial Blood Partial Pressure CO2 53.2H, Arterial Blood Partial Pressure O2 68.9L, Arterial Blood HCO3 29.8H, Arterial Blood Oxygen Saturation 92.7, Arterial Blood Base Excess 3.5, Vinny Test Positive 08/12/16 19:00: Arterial Blood pH 7.267L, Arterial Blood Partial Pressure CO2 68.1*H, Arterial Blood Partial Pressure O2 378.6H, Arterial Blood HCO3 30.4H, Arterial Blood Oxygen Saturation 99.4H, Arterial Blood Base Excess 2.0, Vinny Test Positive 08/13/16 03:50: White Blood Count 7.2, Red Blood Count 3.08L, Hemoglobin 9.4L, Hematocrit 28.6L , Mean Corpuscular Volume 93, Mean Corpuscular Hemoglobin 30.5, Mean Corpuscular Hemoglobin Concent 32.7, Red Cell Distribution Width 13.8, Platelet Count 257, Mean Platelet Volume 7.9, Neutrophils (%) (Auto) , Lymphocytes (%) ( Auto) , Monocytes (%) (Auto) , Eosinophils (%) (Auto) , Basophils (%) (Auto) , Sodium Level 135, Potassium Level 4.7, Chloride Level 92L, Carbon Dioxide Level 26, Anion Gap 17H, Blood Urea Nitrogen 60H, Creatinine 2.2H, Estimat Glomerular Filtration Rate 36.2, Glucose Level 71L, Calcium Level 8.6, Total Bilirubin 0.4 , Aspartate Amino Transf (AST/SGOT) 25, Alanine Aminotransferase (ALT/SGPT) 20, Alkaline Phosphatase 74, Total Protein 6.4L, Albumin 2.0L, Globulin 4.4, Albumin /Globulin Ratio 0.4L Current Medications Medications (Trade) Dose Ordered Sig/Alex Route PRN Reason Start Time Stop Time Status Last Admin Dose Admin Acetaminophen (Tylenol) 650 mg Q4H PRN GT Mild Pain/Temp > 100.5 08/12/16 20:00 09/11/16 19:59 Amiodarone HCl 200 mg 200 mg EVERY OTHER DAY GT 08/14/16 09:00 09/13/16 08:59 Ascorbic Acid (Vitamin C) 500 mg TWICE A DAY GT 08/13/16 09:00 09/12/16 08:59 Chlorhexidine Gluconate (Tabitha-Hex 2%) 1 applic DAILY TOPIC 08/13/16 09:00 09/12/16 08:59 Dextrose (Dextrose 50%) STAT PRN IV Hypoglycemia 08/12/16 19:45 09/11/16 19:44 Heparin Sodium (Porcine) (Heparin 5000 units/ml) 5,000 units EVERY 12 HOURS SUBQ 08/12/16 21:00 09/11/16 20:59 08/12/16 21:22 Insulin Aspart (NovoLOG) Q6HR SUBQ 08/13/16 00:00 09/12/16 00:00 Linezolid 300 ml @ 300 mls/hr Q12HR IVPB 08/12/16 21:00 08/19/16 20:59 08/12/16 21:23 Piperacillin Sod/ Tazobactam Sod/ Dextrose (Zosyn/D5W) 110 ml @ 27.5 mls/hr Q12HR@0600,1800 IVPB 08/13/16 06:00 08/20/16 05:59 08/13/16 05:04 Sodium Chloride (Sodium Chloride 1000ml bag) 1,000 ml @ 75 mls/hr [id number] IV 08/13/16 02:00 09/12/16 01:59 08/13/16 03:08 ESHA BEY Aug 13, 2016 08:56
[2016-08-13] MEDS ORDERED: Dyna-Hex 2% Top Sol 8oz TOPIC SCH ×3 (09:00)
[2016-08-13] MEDS ORDERED: Amiodarone 200mg tab GT SCH (09:00)
[2016-08-13 09:06] LABS: ABG ALLEN TEST POSITIVE; ABG BASE EXCESS 3.1
[2016-08-13] MEDS: Ascorbic Acid 500mg tab GT SCH ×2 (09:11→17:33)
[2016-08-13] MEDS: Dyna-Hex 2% Top Sol 8oz TOPIC SCH (09:11)
[2016-08-13] MEDS: Heparin 5000 units/ml inj SUBQ SCH ×2 (09:12→20:27)
--- NOTE | 2016-08-13 09:45 | Consultation ---
DATE OF CONSULTATION: 08/04/2016 CARDIOLOGY CONSULTATION CONSULTING PHYSICIAN: Natalio Wisdom M.D. The patient was seen in the emergency room. Case discussed with the emergency room staff. REASON FOR CONSULTATION: Elevated natriuretic peptide assay with volume management and cardiovascular therapies. HISTORY OF PRESENT ILLNESS: This is a debilitated male, residing at a [facility] facility with tracheostomy and anoxic brain injury. He was transferred for severe congestion. PAST MEDICAL HISTORY: Includes hypertension, congestive heart failure due to diastolic dysfunction, degenerative valve disease, paroxysmal atrial ectopy, dysphagia with G-tube, aphasia, anoxic encephalopathy, chronic kidney disease, and advanced directives, DNR. MEDICATIONS: Reviewed and reconciled. ALLERGIES: None known. SOCIAL HISTORY: No knowledge of prior smoking or alcohol abuse history. FAMILY HISTORY: Not known. REVIEW OF SYSTEMS: Not obtainable. PHYSICAL EXAMINATION: VITAL SIGNS: Temperature 101.4, blood pressure 101/76, respiratory rate 36, and pulse 98. GENERAL: Noncommunicative. LUNGS: Bilateral rhonchi. HEART: Regular rhythm, rapid rate. Normal S1 and S2. ABDOMEN: Soft. G-tube intact. Trace edema. EXTREMITIES: Decreased capillary refill. LABORATORY AND DIAGNOSTIC DATA: White count 7.5 and hemoglobin 8.3. Sodium 153, potassium 5.3, chloride 110, bicarbonate 31, BUN 64, creatinine 1.2, and nitrate peptide 464. Albumin 2.4. Troponin negative. EKG, sinus tachycardia, nonspecific ST changes. Chest x-ray is reviewed. IMPRESSION: 1. Sepsis. 2. Healthcare-acquired pneumonia. 3. Severe dehydration, hypernatremia. 4. Hyperchloremia. 5. Hyperkalemia. 6. Metabolic acidosis. 7. Acute on chronic kidney failure. 8. Severe protein-calorie malnutrition. 9. Chronic diastolic congestive heart failure. 10. Severe anoxic encephalopathy. 11. Acute on chronic respiratory insufficiency. PLAN: 1. Aggressive respiratory hygiene. 2. Broad-spectrum antibiotics. 3. Hypotonic intravenous fluid hydration. 4. DVT prophylaxis. 5. No diuresis. 6. Hold antihypertensives. 7. G-tube feedings. 8. We will monitor for residuals. 9. Prognosis is poor. Natalio Alyx, M.D. DR: ONUR JOB#: [id number] CC:
--- NOTE | 2016-08-13 10:42 | Infectious Diseases Prog Note ---
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 pneumonia 4. DM 5. COPD 6. respiratory failure 7. renal failure P 1. continue linezolid, zosyn 2. will follow up cultures Subjective ROS Limited/Unobtainable: Yes Allergies: Coded Allergies: No Known Allergies (Unverified , 07/02/16) Objective Vital Signs Last 24 Hour Vital Signs Date Time Temp Pulse Resp B/P Pulse Ox O2 Delivery O2 Flow Rate FiO2 08/13/16 09:37 60 08/13/16 09:10 118 28 95 Facial 60 08/13/16 08:00 107 08/13/16 08:00 98.4 117 18 125/97 92 60 08/13/16 06:30 111 25 97 Facial 60 08/13/16 04:32 120 28 99 Facial 40 08/13/16 04:00 97.9 112 18 110/68 100 08/13/16 04:00 113 08/13/16 03:30 116 32 98 Facial 40 08/13/16 01:30 112 31 100 Facial 40 08/13/16 00:00 98.0 111 18 112/75 100 08/13/16 00:00 116 08/12/16 23:30 122 22 100 Facial 40 08/12/16 21:30 120 23 100 Facial 40 08/12/16 20:00 129 08/12/16 20:00 98.1 119 18 125/73 100 08/12/16 20:00 08/12/16 19:26 Bi-pap 08/12/16 19:26 130 32 100 Facial 100 08/12/16 18:02 122 33 100 Facial 100 08/12/16 16:07 96.3 08/12/16 16:00 117 08/12/16 15:21 96.3 120 20 150/93 100 Nasal Cannula 4.0 08/12/16 12:35 96.6 98 20 139/91 100 Nasal Cannula 2.0 08/12/16 12:00 93 Height (Feet): 5 Height (Inches): 8.00 Weight (Pounds): 142 HEENT: other - on bipap Respiratory/Chest: lungs clear Cardiovascular: normal rate, regular rhythm, no gallop/murmur Abdomen: soft, non tender Extremities: no edema, other - right arm PICC Microbiology Date/Time Source Procedure Growth Status 08/11/16 17:45 Sputum Gram Stain - Final Resulted 08/11/16 17:45 Sputum Culture - Preliminary Gram Negative Arnold Resulted Laboratory Tests Test 08/12/16 15:05 08/12/16 19:00 08/13/16 03:50 08/13/16 08:52 Arterial Blood pH 7.366 (7.350-7.450) 7.267 (7.350-7.450) 7.324 (7.350-7.450) Arterial Blood Partial Pressure CO2 53.2 mmHg (35.0-45.0) H 68.1 mmHg (35.0-45.0) *H 59.0 mmHg (35.0-45.0) *H Arterial Blood Partial Pressure O2 68.9 mmHg (75.0-100.0) L 378.6 mmHg (75.0-100.0) H 89.9 mmHg (75.0-100.0) Arterial Blood HCO3 29.8 mmol/L (22.0-26.0) H 30.4 mmol/L (22.0-26.0) H 30.0 mmol/L (22.0-26.0) H Arterial Blood Oxygen Saturation 92.7 % (92.0-98.0) 99.4 % (92.0-98.0) H 95.8 % (92.0-98.0) Arterial Blood Base Excess 3.5 2.0 3.1 Vinny Test Positive Positive Positive White Blood Count 7.2 K/UL (4.8-10.8) Red Blood Count 3.08 M/UL (4.70-6.10) L Hemoglobin 9.4 G/DL (14.2-18.0) L Hematocrit 28.6 % (42.0-52.0) L Mean Corpuscular Volume 93 FL (80-99) Mean Corpuscular Hemoglobin 30.5 PG (27.0-31.0) Mean Corpuscular Hemoglobin Concent 32.7 G/DL (32.0-36.0) Red Cell Distribution Width 13.8 % (11.6-14.8) Platelet Count 257 K/UL (150-450) Mean Platelet Volume 7.9 FL (6.5-10.1) Neutrophils (%) (Auto) % (45.0-75.0) Lymphocytes (%) (Auto) % (20.0-45.0) Monocytes (%) (Auto) % (1.0-10.0) Eosinophils (%) (Auto) % (0.0-3.0) Basophils (%) (Auto) % (0.0-2.0) Sodium Level 135 mEQ/L (135-145) Potassium Level 4.7 mEQ/L (3.4-4.9) Chloride Level 92 mEQ/L (98-107) L Carbon Dioxide Level 26 mEQ/L (20-30) Anion Gap 17 (5-15) H Blood Urea Nitrogen 60 mg/dL (7-23) H Creatinine 2.2 mg/dL (0.7-1.2) H Estimat Glomerular Filtration Rate 36.2 mL/min (>60) Glucose Level 71 mg/dL (74-106) L Calcium Level 8.6 mg/dL (8.6-10.2) Total Bilirubin 0.4 mg/dL (0.0-1.2) Aspartate Amino Transf (AST/SGOT) 25 U/L (5-40) Alanine Aminotransferase (ALT/SGPT) 20 U/L (3-41) Alkaline Phosphatase 74 U/L (40-129) Total Protein 6.4 g/dL (6.6-8.7) L Albumin 2.0 g/dL (3.5-5.2) L Globulin 4.4 g/dL Albumin/Globulin Ratio 0.4 (1.0-2.7) L YEVGENIY GARCIA Aug 13, 2016 10:42"
[2016-08-13] MEDS: Solu-MEDROL 40mg Inj IVP SCH ×2 (10:43→20:26)
--- NOTE | 2016-08-13 11:09 | Diagnostic Imaging Report ---
Indication: SOB Technique: One view of the chest Comparison: 08/12/2016 Findings: There is diffuse bilateral mixed interstitial and alveolar disease, slightly worse on the right than on the left. This is stable on the left, but has increased on the right as the previous study. The pleural spaces remain clear. Heart size is upper limits normal. Aorta tortuous. Previously demonstrated right arm PICC has withdrawn since previous study, tip previously in the subclavian vein, now in the axillary vein (note original placement was in the cavoatrial junction) Impression: Bilateral infiltrates, stable on the left and worsening on the right over one day, as described Worsening malposition of PICC, suitable only for use as a midline in its current position. This finding was discussed with patient's nurse at the time of interpretation
--- NOTE | 2016-08-13 11:33 | Diagnostic Imaging Report ---
Indication: S/P LINE Technique: One view of the chest Comparison: 3 hours earlier Findings: Interim withdrawal of previously demonstrated malposition of PICC, tip now projected at the level of the subclavian vein. Bilateral mixed interstitial and alveolar infiltrates are again demonstrated. The heart size is normal. Aorta is elongated and tortuous Impression: Interim retraction of PICC, tip now at the level of the subclavian vein Other stable findings as noted This agrees with the preliminary interpretation provided overnight by Dr. Hardin
--- NOTE | 2016-08-13 11:39 | Diagnostic Imaging Report ---
Indication: Shortness of breath Technique: One view of the chest Comparison: 08/08/2016 Findings: Interim placement of a right arm PICC, tip which projects at level of the mid to downstream superior vena cava in good position. There are is interim development of patchy infiltrates in the right lung. Interstitial disease in the left perihilar region appears similar the prior study, possibly chronic. The pleural spaces are clear. Heart size is normal. Aorta is elongated and tortuous Impression: New right arm PICC, satisfactory position Patchy infiltrates in the right lung, new since 08/08/2016
[2016-08-13 12:00] VITALS: BP 102/69
[2016-08-13] MEDS: Acetaminophen 650mg/20.3ml GT PRN ×2 (15:41→20:29)
[2016-08-13 16:00] VITALS: BP 113/70
[2016-08-13 19:40] VITALS: BP 139/88
[2016-08-14] VITALS: BP 142/82
--- NOTE | 2016-08-14 | Progress Note ---
DATE: 08/13/2016 CARDIOLOGY PROGRESS NOTE SUBJECTIVE: The patient continues to have respiratory distress. He is back on BiPAP support. He has emesis and feedings are to be held. Monitored sinus tachycardia. OBJECTIVE: VITAL SIGNS: Afebrile. Blood pressure 125/97, pulse 117 and respirations 18. LUNGS: Increased secretions. Rhonchi. HEART: Irregular rhythm. Rapid rate. Normal S1 and S2. ABDOMEN: Soft. G-tube is intact. EXTREMITIES: Dependent edema. LABORATORY AND DIAGNOSTIC DATA: White count 7.2 and hemoglobin 9.4. Sputum culture showed gram-negative taqueria. Sodium 135, potassium 4.7, bicarbonate 26, BUN 16, and creatinine 2.2. Albumin is 2. ABG 7.32, 59 and 90. IMPRESSION: 1. Worsening respiratory status. 2. Acute on chronic respiratory acidosis. 3. Gram-negative pneumonia. 4. Advanced encephalopathy. 5. Secondary sinus tachycardia. 6. Paroxysmal atrial fibrillation. 7. Dysphagia with gastrostomy tube. 8. Gastroparesis. 9. Type 2 diabetes mellitus. 10. Serious condition and grave. 11. Guarded prognosis. 12. Acute on chronic renal failure with prerenal azotemia likely due to acute tubular necrosis. PLAN: 1. DNR. 2. Hold feedings. 3. Increased respiratory hygiene. 4. Antibiotics per Infectious Disease network pricing consultant. 5. Hypotonic hydration. 6. Monitor cardiorenal parameters. Natalio Wisdom M.D. DR: MAX JOB#: [id number] CC:
[2016-08-14 04:00] VITALS: BP 124/88
[2016-08-14] MEDS: NovoLOG Insulin Flexpen SUBQ SCH ×4 (05:08→23:46)
[2016-08-14 05:11] LABS: MEAN CORPUSCULAR HEMOGLOBIN 30.4 PG (27.0-31.0); MEAN CORPUSCULAR HGB CONC 32.6 G/DL (32.0-36.0); MEAN CORPUSCULAR VOLUME 93 FL (80-99); MEAN PLATELET VOLUME 7.3 FL (6.5-10.1); PLATELET COUNT 222 K/UL (150-450); WHITE BLOOD COUNT 13.2 K/UL (4.8-10.8)
[2016-08-14] MEDS: Piperacillin/Tazobactam 3.375 GM in D5W 110 ML IVPB SCH (05:16)
[2016-08-14 05:17] LABS: ALBUMIN/GLOBULIN RATIO 0.4 (1.0-2.7); CALCIUM 8.4 mg/dL (8.6-10.2); CREATININE 1.6 mg/dL (0.7-1.2); GLOMERULAR FILTRATION RATE 52.4 mL/min (>60); POTASSIUM 4.2 mEQ/L (3.4-4.9); TOTAL PROTEIN 6.5 g/dL (6.6-8.7)
--- NOTE | 2016-08-14 06:39 | General Progress Note ---
Assessment/Plan Problem List: (1) Dysphagia ICD Codes: R13.10 - Dysphagia, unspecified SNOMED: 60591370, 076170066 (2) severe post anoxic encephalopathy (3) intermittent postural hand tremors, doubt seizure event (4) Sepsis ICD Codes: A41.9 - Sepsis, unspecified organism SNOMED: 82574532 (5) Pneumonia ICD Codes: J18.9 - Pneumonia, unspecified organism SNOMED: 131990210 (6) Fever ICD Codes: R50.9 - Fever, unspecified SNOMED: 396547671 Qualifiers: Qualified Codes: O86.4 - Pyrexia of unknown origin following delivery Status: not improved, unchanged Assessment/Plan iv abx per id monitor cxr resp rx cautious resumption of feeds watch residual ivf monitor renal fxn and volume status zofran for nausea monitor resp status closely. d/w sister magdaleno- updated on current status. DNR reaffirmed Subjective ROS Limited/Unobtainable: Yes Constitutional: Reports: malaise, weakness HEENT: Reports: no symptoms Cardiovascular: Reports: no symptoms Respiratory: Reports: cough, shortness of breath, sputum Gastrointestinal/Abdominal: Reports: vomiting Genitourinary: Reports: no symptoms Neurologic/Psychiatric: Reports: pre-existing deficit Endocrine: Reports: no symptoms Hematologic/Lymphatic: Reports: anemia Allergies: Coded Allergies: No Known Allergies (Unverified , 07/02/16) All Systems: reviewed and negative except above Subjective still on bipap. no vomiting. appears more comfortable. cxr with worsening infiltrates. +witnessed aspiration with vomiting the other day. decrease h/h noted. repeat cbc pending Objective Last 24 Hour Vital Signs Date Time Temp Pulse Resp B/P Pulse Ox O2 Delivery O2 Flow Rate FiO2 08/14/16 05:20 113 22 98 Facial 50 08/14/16 04:00 96 08/14/16 04:00 97.8 100 21 124/88 99 50 08/14/16 04:00 50 08/14/16 02:44 110 21 98 Facial 50 08/14/16 01:15 118 23 95 Facial 50 08/14/16 00:00 98.4 118 22 142/82 99 50 08/14/16 00:00 109 08/14/16 00:00 50 08/13/16 23:29 116 23 97 Facial 50 08/13/16 20:34 113 24 98 Facial 50 08/13/16 20:00 101 08/13/16 20:00 50 08/13/16 19:40 97.3 100 19 139/88 97 08/13/16 19:06 131 28 97 Facial 4.0 50 08/13/16 17:26 98 21 99 Facial 50 08/13/16 16:11 98.4 08/13/16 16:00 114 08/13/16 16:00 98.6 110 20 113/70 99 60 08/13/16 16:00 60 08/13/16 14:31 113 27 99 Facial 60 08/13/16 12:33 110 27 99 Facial 65 08/13/16 12:00 98.4 110 22 102/69 99 60 08/13/16 12:00 60 08/13/16 12:00 108 08/13/16 09:37 60 08/13/16 09:10 118 28 95 Facial 60 08/13/16 08:00 107 08/13/16 08:00 98.4 117 18 125/97 92 60 Intake and Output 08/13/16 08/14/16 19:00 07:00 Intake Total 1366.5 ml 1201.0 ml Output Total 575 ml 1100 ml Balance 791.5 ml 101.0 ml IV Total 1276.5 ml 1171.0 ml Other 90 ml 30 ml Output Urine Total 575 ml 1100 ml # Bowel Movements 1 1 Laboratory Tests 08/13/16 08:52: Arterial Blood pH 7.324L, Arterial Blood Partial Pressure CO2 59.0*H, Arterial Blood Partial Pressure O2 89.9, Arterial Blood HCO3 30.0H, Arterial Blood Oxygen Saturation 95.8, Arterial Blood Base Excess 3.1, Vinny Test Positive 08/14/16 03:35: White Blood Count 13.2#H, Red Blood Count 2.60L, Hemoglobin 7.9L, Hematocrit 24.2L, Mean Corpuscular Volume 93, Mean Corpuscular Hemoglobin 30.4, Mean Corpuscular Hemoglobin Concent 32.6, Red Cell Distribution Width 14.0, Platelet Count 222, Mean Platelet Volume 7.3, Neutrophils (%) (Auto) , Lymphocytes (%) ( Auto) , Monocytes (%) (Auto) , Eosinophils (%) (Auto) , Basophils (%) (Auto) , Neutrophils % (Manual) [Pending], Lymphocytes % (Manual) [Pending], Platelet Estimate [Pending], Platelet Morphology [Pending], Sodium Level 140, Potassium Level 4.2, Chloride Level 98, Carbon Dioxide Level 26, Anion Gap 16H, Blood Urea Nitrogen 55H, Creatinine 1.6H, Estimat Glomerular Filtration Rate 52.4, Glucose Level 93, Calcium Level 8.4L, Total Bilirubin 0.3, Aspartate Amino Transf (AST/SGOT) 31, Alanine Aminotransferase (ALT/SGPT) 23, Alkaline Phosphatase 94, Total Protein 6.5L, Albumin 2.0L, Globulin 4.5, Albumin/ Globulin Ratio 0.4L 08/14/16 06:25: White Blood Count [Pending], Red Blood Count [Pending], Hemoglobin [Pending], Hematocrit [Pending], Mean Corpuscular Volume [Pending], Mean Corpuscular Hemoglobin [Pending], Mean Corpuscular Hemoglobin Concent [Pending], Red Cell Distribution Width [Pending], Platelet Count [Pending], Mean Platelet Volume [ Pending], Neutrophils (%) (Auto) [Pending], Lymphocytes (%) (Auto) [Pending], Monocytes (%) (Auto) [Pending], Eosinophils (%) (Auto) [Pending], Basophils (%) (Auto) [Pending] Height (Feet): 5 Height (Inches): 8.00 Weight (Pounds): 142 Objective General Appearance: WD/WN, alert. Dyspneic/tachypneic Neck: supple Cardiovascular: normal rate, regular rhythm Respiratory/Chest: chest wall non-tender, lungs - few rhonchi on the right. 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
[2016-08-14 06:49] LABS: MEAN CORPUSCULAR HGB CONC 33.3 G/DL (32.0-36.0); MEAN CORPUSCULAR VOLUME 93 FL (80-99); MEAN PLATELET VOLUME 6.9 FL (6.5-10.1); PLATELET COUNT 218 K/UL (150-450); RED BLOOD COUNT 2.65 M/UL (4.70-6.10); WHITE BLOOD COUNT 12.7 K/UL (4.8-10.8)
[2016-08-14 07:53] LABS: BAND NEUTROPHILS % (MANUAL) 47 % (0-8); BASOPHILS % (MANUAL) 0 % (0-2); EOSINOPHILS % (MANUAL) 0 % (0-3); LYMPHOCYTES % (MANUAL) 21 % (20-45); NEUTROPHILS % (MANUAL) 32 % (45-75); PLATELET ESTIMATE ADEQUATE; TOTAL CELLS COUNTED 100
[2016-08-14 07:53] LABS: ABG ALLEN TEST POSITIVE; ABG BASE EXCESS 3.3; ABG PCO2 46.9 mmHg (35.0-45.0)
[2016-08-14 07:54] LABS: ANISOCYTOSIS 1+; PLATELET MORPHOLOGY NORMAL; POIKILOCYTOSIS 1+
[2016-08-14 08:05] VITALS: BP 137/75
[2016-08-14] MEDS: Solu-MEDROL 40mg Inj IVP SCH ×2 (08:14→20:43)
[2016-08-14] MEDS: Heparin 5000 units/ml inj SUBQ SCH ×2 (08:14→20:44)
[2016-08-14] MEDS: Amiodarone 200mg tab GT SCH (08:15)
[2016-08-14] MEDS: Ascorbic Acid 500mg tab GT SCH ×2 (08:15→18:04)
[2016-08-14] MEDS: Dyna-Hex 2% Top Sol 8oz TOPIC SCH (08:15)
--- NOTE | 2016-08-14 08:58 | Pulmonology Progress Note ---
Assessment/Plan Assessment/Plan IMPRESSION: 1. Evidence of pneumonia. 2. Evidence of acute on chronic renal failure . 3. Evidence of transaminitis. 4. Evidence of severe protein-calorie malnutrition. 5. Anemia. 6. Chronic encephalopathy 7. Hypernatremia 8. Azotemia. 9 Respiratory acidosis 10. patchy infiltrates worse on right PLAN respiratory care as is BIPAP as needed oxygen therapy Antibiotics reviewed maintain meds nutrition as is GT feeds recheck chest XR and exam wound care aspiration precautions acid base improved DNR impression, plan, and exam edited and reviewed in detail care discussed with RN Subjective ROS Limited/Unobtainable: Yes Allergies: Coded Allergies: No Known Allergies (Unverified , 07/02/16) Subjective care noted and reviewed on oxygen/ still requiring BIPAP findings reviewed not back to baseline yet Objective Last 24 Hour Vital Signs Date Time Temp Pulse Resp B/P Pulse Ox O2 Delivery O2 Flow Rate FiO2 08/14/16 08:05 97.9 108 20 137/75 99 Bi-pap 50 08/14/16 07:15 88 19 98 Facial 50 08/14/16 05:20 113 22 98 Facial 50 08/14/16 04:00 96 08/14/16 04:00 97.8 100 21 124/88 99 50 08/14/16 04:00 50 08/14/16 02:44 110 21 98 Facial 50 08/14/16 01:15 118 23 95 Facial 50 08/14/16 00:00 98.4 118 22 142/82 99 50 08/14/16 00:00 109 08/14/16 00:00 50 08/13/16 23:29 116 23 97 Facial 50 08/13/16 20:34 113 24 98 Facial 50 08/13/16 20:00 101 08/13/16 20:00 50 08/13/16 19:40 97.3 100 19 139/88 97 08/13/16 19:06 131 28 97 Facial 4.0 50 08/13/16 17:26 98 21 99 Facial 50 08/13/16 16:11 98.4 08/13/16 16:00 114 08/13/16 16:00 98.6 110 20 113/70 99 60 08/13/16 16:00 60 08/13/16 14:31 113 27 99 Facial 60 08/13/16 12:33 110 27 99 Facial 65 08/13/16 12:00 98.4 110 22 102/69 99 60 08/13/16 12:00 60 08/13/16 12:00 108 08/13/16 09:37 60 08/13/16 09:10 118 28 95 Facial 60 Intake and Output 08/13/16 08/14/16 19:00 07:00 Intake Total 1366.5 ml 1276.0 ml Output Total 575 ml 1100 ml Balance 791.5 ml 176.0 ml IV Total 1276.5 ml 1246.0 ml Other 90 ml 30 ml Output Urine Total 575 ml 1100 ml # Bowel Movements 1 1 Objective WDWN on BIPAP NAD EOMI reduced breath sounds bilaterally with some rhonchi [id number] without MRG NABS nontender no HSM no CCE nonfocal poor LOC skin noted- wounds noted reviewed and edited Microbiology Date/Time Source Procedure Growth Status 08/11/16 17:45 Sputum Gram Stain - Final Resulted 08/11/16 17:45 Sputum Culture - Preliminary A.baumanii Complx - Mdr Gram Negative Bacillus 2 Resulted Laboratory Tests 08/14/16 03:35: White Blood Count 13.2#H, Red Blood Count 2.60L, Hemoglobin 7.9L, Hematocrit 24.2L, Mean Corpuscular Volume 93, Mean Corpuscular Hemoglobin 30.4, Mean Corpuscular Hemoglobin Concent 32.6, Red Cell Distribution Width 14.0, Platelet Count 222, Mean Platelet Volume 7.3, Neutrophils (%) (Auto) , Lymphocytes (%) ( Auto) , Monocytes (%) (Auto) , Eosinophils (%) (Auto) , Basophils (%) (Auto) , Differential Total Cells Counted 100, Neutrophils % (Manual) 32L, Lymphocytes % (Manual) 21, Monocytes % (Manual) 0L, Eosinophils % (Manual) 0, Basophils % ( Manual) 0, Band Neutrophils 47H, Platelet Estimate Adequate, Platelet Morphology Normal, Poikilocytosis 1+, Anisocytosis 1+, Sodium Level 140, Potassium Level 4.2, Chloride Level 98, Carbon Dioxide Level 26, Anion Gap 16H, Blood Urea Nitrogen 55H, Creatinine 1.6H, Estimat Glomerular Filtration Rate 52.4, Glucose Level 93, Calcium Level 8.4L, Total Bilirubin 0.3, Aspartate Amino Transf (AST/SGOT) 31, Alanine Aminotransferase (ALT/SGPT) 23, Alkaline Phosphatase 94, Total Protein 6.5L, Albumin 2.0L, Globulin 4.5, Albumin/ Globulin Ratio 0.4L 08/14/16 06:25: White Blood Count 12.7H, Red Blood Count 2.65L, Hemoglobin 8.2L, Hematocrit 24.6L, Mean Corpuscular Volume 93, Mean Corpuscular Hemoglobin 31.0, Mean Corpuscular Hemoglobin Concent 33.3, Red Cell Distribution Width 14.0, Platelet Count 218, Mean Platelet Volume 6.9, Neutrophils (%) (Auto) , Lymphocytes (%) ( Auto) , Monocytes (%) (Auto) , Eosinophils (%) (Auto) , Basophils (%) (Auto) 08/14/16 07:41: Arterial Blood pH 7.401, Arterial Blood Partial Pressure CO2 46.9H, Arterial Blood Partial Pressure O2 78.0, Arterial Blood HCO3 28.5H, Arterial Blood Oxygen Saturation 94.8, Arterial Blood Base Excess 3.3, Vinny Test Positive Current Medications Medications (Trade) Dose Ordered Sig/Alex Route PRN Reason Start Time Stop Time Status Last Admin Dose Admin Acetaminophen (Tylenol) 650 mg Q4H PRN GT Mild Pain/Temp > 100.5 08/12/16 20:00 09/11/16 19:59 08/13/16 20:29 Amiodarone HCl 200 mg 200 mg EVERY OTHER DAY GT 08/14/16 09:00 09/13/16 08:59 08/14/16 08:15 Ascorbic Acid (Vitamin C) 500 mg TWICE A DAY GT 08/13/16 09:00 09/12/16 08:59 08/14/16 08:15 Chlorhexidine Gluconate (Tabitha-Hex 2%) 1 applic DAILY TOPIC 08/13/16 09:00 09/12/16 08:59 08/14/16 08:15 Dextrose (Dextrose 50%) STAT PRN IV Hypoglycemia 08/12/16 19:45 09/11/16 19:44 Heparin Sodium (Porcine) (Heparin 5000 units/ml) 5,000 units EVERY 12 HOURS SUBQ 08/12/16 21:00 09/11/16 20:59 08/14/16 08:14 Insulin Aspart (NovoLOG) Q6HR SUBQ 08/13/16 00:00 09/12/16 00:00 Linezolid 300 ml @ 300 mls/hr Q12HR IVPB 08/12/16 21:00 08/19/16 20:59 08/14/16 08:15 Methylprednisolone Sodium Succinate (Solu-MEDROL) 40 mg EVERY 12 HOURS IVP 08/13/16 10:30 09/12/16 10:29 08/14/16 08:14 Piperacillin Sod/ Tazobactam Sod/ Dextrose (Zosyn/D5W) 110 ml @ 27.5 mls/hr Q12HR@0600,1800 IVPB 08/13/16 06:00 08/20/16 05:59 08/14/16 05:16 Sodium Chloride (Sodium Chloride 1000ml bag) 1,000 ml @ 75 mls/hr [id number] IV 08/13/16 02:00 09/12/16 01:59 08/14/16 05:08 ESHA BEY Aug 14, 2016 08:58
[2016-08-14 11:24] VITALS: BP 139/91
--- NOTE | 2016-08-14 11:48 | Infectious Diseases Prog Note ---
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 acenitobacter | gram negative pneumonia 4. DM 5. COPD 6. respiratory failure 7. renal failure P 1. continue linezolid 2. d/c zosyn 3. start tygacil 4. will follow up cultures Subjective ROS Limited/Unobtainable: Yes Allergies: Coded Allergies: No Known Allergies (Unverified , 07/02/16) Objective Vital Signs Last 24 Hour Vital Signs Date Time Temp Pulse Resp B/P Pulse Ox O2 Delivery O2 Flow Rate FiO2 08/14/16 11:24 99.0 111 20 139/91 99 Bi-pap 50 08/14/16 11:20 89 28 97 Facial 50 08/14/16 09:15 114 24 97 Facial 50 08/14/16 08:05 97.9 108 20 137/75 99 Bi-pap 50 08/14/16 08:00 50 08/14/16 07:39 85 08/14/16 07:15 88 19 98 Facial 50 08/14/16 05:20 113 22 98 Facial 50 08/14/16 04:00 96 08/14/16 04:00 97.8 100 21 124/88 99 50 08/14/16 04:00 50 08/14/16 02:44 110 21 98 Facial 50 08/14/16 01:15 118 23 95 Facial 50 08/14/16 00:00 98.4 118 22 142/82 99 50 08/14/16 00:00 109 08/14/16 00:00 50 08/13/16 23:29 116 23 97 Facial 50 08/13/16 20:34 113 24 98 Facial 50 08/13/16 20:00 101 08/13/16 20:00 50 08/13/16 19:40 97.3 100 19 139/88 97 08/13/16 19:06 131 28 97 Facial 4.0 50 08/13/16 17:26 98 21 99 Facial 50 08/13/16 16:11 98.4 08/13/16 16:00 114 08/13/16 16:00 98.6 110 20 113/70 99 60 08/13/16 16:00 60 08/13/16 14:31 113 27 99 Facial 60 08/13/16 12:33 110 27 99 Facial 65 08/13/16 12:00 98.4 110 22 102/69 99 60 08/13/16 12:00 60 08/13/16 12:00 108 Height (Feet): 5 Height (Inches): 8.00 Weight (Pounds): 142 HEENT: other - on bipap Respiratory/Chest: lungs clear Cardiovascular: normal rate, regular rhythm, no gallop/murmur Abdomen: soft, non tender, other - GT Extremities: no edema, other - right arm PICC Microbiology Date/Time Source Procedure Growth Status 08/11/16 17:45 Sputum Gram Stain - Final Resulted 08/11/16 17:45 Sputum Culture - Preliminary A.baumanii Complx - Mdr Gram Negative Bacillus 2 Resulted Laboratory Tests Test 08/14/16 03:35 08/14/16 06:25 08/14/16 07:41 White Blood Count 13.2 K/UL (4.8-10.8) #H 12.7 K/UL (4.8-10.8) H Red Blood Count 2.60 M/UL (4.70-6.10) L 2.65 M/UL (4.70-6.10) L Hemoglobin 7.9 G/DL (14.2-18.0) L 8.2 G/DL (14.2-18.0) L Hematocrit 24.2 % (42.0-52.0) L 24.6 % (42.0-52.0) L Mean Corpuscular Volume 93 FL (80-99) 93 FL (80-99) Mean Corpuscular Hemoglobin 30.4 PG (27.0-31.0) 31.0 PG (27.0-31.0) Mean Corpuscular Hemoglobin Concent 32.6 G/DL (32.0-36.0) 33.3 G/DL (32.0-36.0) Red Cell Distribution Width 14.0 % (11.6-14.8) 14.0 % (11.6-14.8) Platelet Count 222 K/UL (150-450) 218 K/UL (150-450) Mean Platelet Volume 7.3 FL (6.5-10.1) 6.9 FL (6.5-10.1) Neutrophils (%) (Auto) % (45.0-75.0) % (45.0-75.0) Lymphocytes (%) (Auto) % (20.0-45.0) % (20.0-45.0) Monocytes (%) (Auto) % (1.0-10.0) % (1.0-10.0) Eosinophils (%) (Auto) % (0.0-3.0) % (0.0-3.0) Basophils (%) (Auto) % (0.0-2.0) % (0.0-2.0) Differential Total Cells Counted 100 Neutrophils % (Manual) 32 % (45-75) L Lymphocytes % (Manual) 21 % (20-45) Monocytes % (Manual) 0 % (1-10) L Eosinophils % (Manual) 0 % (0-3) Basophils % (Manual) 0 % (0-2) Band Neutrophils 47 % (0-8) H Platelet Estimate Adequate Platelet Morphology Normal Poikilocytosis 1+ Anisocytosis 1+ Sodium Level 140 mEQ/L (135-145) Potassium Level 4.2 mEQ/L (3.4-4.9) Chloride Level 98 mEQ/L (98-107) Carbon Dioxide Level 26 mEQ/L (20-30) Anion Gap 16 (5-15) H Blood Urea Nitrogen 55 mg/dL (7-23) H Creatinine 1.6 mg/dL (0.7-1.2) H Estimat Glomerular Filtration Rate 52.4 mL/min (>60) Glucose Level 93 mg/dL (74-106) Calcium Level 8.4 mg/dL (8.6-10.2) L Total Bilirubin 0.3 mg/dL (0.0-1.2) Aspartate Amino Transf (AST/SGOT) 31 U/L (5-40) Alanine Aminotransferase (ALT/SGPT) 23 U/L (3-41) Alkaline Phosphatase 94 U/L (40-129) Total Protein 6.5 g/dL (6.6-8.7) L Albumin 2.0 g/dL (3.5-5.2) L Globulin 4.5 g/dL Albumin/Globulin Ratio 0.4 (1.0-2.7) L Arterial Blood pH 7.401 (7.350-7.450) Arterial Blood Partial Pressure CO2 46.9 mmHg (35.0-45.0) H Arterial Blood Partial Pressure O2 78.0 mmHg (75.0-100.0) Arterial Blood HCO3 28.5 mmol/L (22.0-26.0) H Arterial Blood Oxygen Saturation 94.8 % (92.0-98.0) Arterial Blood Base Excess 3.3 Vinny Test Positive YEVGENIY GARCIA Aug 14, 2016 11:48"
[2016-08-14] MEDS: Acetaminophen 650mg/20.3ml GT PRN (12:13)
[2016-08-14] MEDS ORDERED: Piperacillin/Tazobactam 3.375 GM in D5W 110 ML IVPB SCH (14:00)
[2016-08-14] MEDS ORDERED: Tigecycline 100 MG in D5W 110 ML IVPB ONE (14:00)
[2016-08-14 16:00] VITALS: BP 156/97
[2016-08-14] MEDS: LORazepam Inj 2mg/ml 1ml IV PRN (18:36)
[2016-08-14 20:00] VITALS: BP 153/97
--- NOTE | 2016-08-14 23:45 | Progress Note ---
DATE: 08/14/2016 CARDIOLOGY PROGRESS NOTE SUBJECTIVE: The patient remains congested requiring frequent respiratory interventions. Still on BiPAP support and oxygen titration. Monitored rhythm sinus and sinus tachycardia. OBJECTIVE: VITAL SIGNS: Blood pressure 137/75, pulse 108, respirations 20, and afebrile. He is on BiPAP support and responsive. LUNGS: Bilateral rhonchi and rales. HEART: Regular rhythm. Rapid rate. Normal S1 and S2. ABDOMEN: Soft. G-tube is intact. EXTREMITIES: There is dependent edema. LABORATORY DATA: White count 12.7 and hemoglobin 8.2. Sodium 140, potassium 4.2, bicarbonate 26, BUN 55, and creatinine 1.6. Albumin is 2.0. ABG, 7.40, 47 and 78. IMPRESSION: 1. Acute on chronic respiratory acidosis, resolved. 2. Chronic respiratory failure. 3. Severe encephalopathy. 4. Acute on chronic renal failure improved with hydration. 5. Dehydration. 6. Hypernatremia improved with hypotonic fluids. 7. Secondary sinus tachycardia secondary to infection and respiratory insufficiency. 8. Acute and chronic diastolic congestive heart failure. 9. Unable to diuresis presently. 10. Anemia due to chronic kidney disease and chronic disease. 11. Bacteremia with risk for endocarditis. PLAN: 1. Recheck laboratory studies. 2. Continue cautious hypotonic hydration. 3. We will need to discontinue intravenous fluids once renal parameters returned to baseline. 4. Antimicrobials. 5. Respiratory hygiene. 6. Transfuse for hemoglobin less than 7.5 g. 7. Prognosis is poor. 8. No plan for transesophageal echocardiogram due to increased risk of respiratory failure. Natalio Wisdom M.D. DR: MAX JOB#: [id number] CC:
[2016-08-15] VITALS (8 sets, daily range): BP systolic 139–169; BP diastolic 95–114
[2016-08-15] MEDS: Tigecycline 50 MG in D5W 110 ML IVPB SCH ×2 (02:15→13:28)
[2016-08-15 05:37] LABS: MEAN CORPUSCULAR HEMOGLOBIN 30.7 PG (27.0-31.0); MEAN CORPUSCULAR HGB CONC 32.5 G/DL (32.0-36.0); MEAN CORPUSCULAR VOLUME 94 FL (80-99); MEAN PLATELET VOLUME 6.9 FL (6.5-10.1); PLATELET COUNT 236 K/UL (150-450); RED BLOOD COUNT 2.91 M/UL (4.70-6.10); RED CELL DISTRIBUTION WIDTH 14.4 % (11.6-14.8); WHITE BLOOD COUNT 10.8 K/UL (4.8-10.8)
[2016-08-15 06:13] LABS: ALANINE AMINOTRANSFERASE 25 U/L (3-41); ALBUMIN/GLOBULIN RATIO 0.5 (1.0-2.7); ANION GAP 13 (5-15); ASPARTATE AMINO TRANSFERASE 24 U/L (5-40); CALCIUM 8.6 mg/dL (8.6-10.2); CARBON DIOXIDE 29 mEQ/L (20-30); CHLORIDE 99 mEQ/L (98-107); CREATININE 1.3 mg/dL (0.7-1.2); GLOMERULAR FILTRATION RATE > 60 mL/min (>60); HEMOLYSIS 1; POTASSIUM 4.5 mEQ/L (3.4-4.9); SODIUM 141 mEQ/L (135-145); TOTAL PROTEIN 7.2 g/dL (6.6-8.7)
[2016-08-15] MEDS: LORazepam Inj 2mg/ml 1ml IV PRN ×3 (06:30→21:25)
[2016-08-15] MEDS: NovoLOG Insulin Flexpen SUBQ SCH ×4 (06:40→23:52)
--- NOTE | 2016-08-15 08:23 | General Progress Note ---
Assessment/Plan Problem List: (1) Dysphagia ICD Codes: R13.10 - Dysphagia, unspecified SNOMED: 17315468, 247750381 (2) severe post anoxic encephalopathy (3) intermittent postural hand tremors, doubt seizure event (4) Sepsis ICD Codes: A41.9 - Sepsis, unspecified organism SNOMED: 15463350 (5) Pneumonia ICD Codes: J18.9 - Pneumonia, unspecified organism SNOMED: 385544439 (6) Fever ICD Codes: R50.9 - Fever, unspecified SNOMED: 803160965 Qualifiers: Qualified Codes: O86.4 - Pyrexia of unknown origin following delivery Status: stable, progressing Assessment/Plan iv abx per id monitor cxr resp rx cautious resumption of feeds watch residual ivf monitor renal fxn and volume status zofran for nausea monitor resp status closely. anxiety meds added Subjective ROS Limited/Unobtainable: Yes Constitutional: Reports: malaise, weakness HEENT: Reports: no symptoms Cardiovascular: Reports: no symptoms Respiratory: Reports: SOB at rest, cough, shortness of breath Gastrointestinal/Abdominal: Reports: difficulty swallowing Genitourinary: Reports: no symptoms Neurologic/Psychiatric: Reports: pre-existing deficit Endocrine: Reports: no symptoms Hematologic/Lymphatic: Reports: no symptoms Allergies: Coded Allergies: No Known Allergies (Unverified , 07/02/16) All Systems: reviewed and negative except above Subjective still on bipap. no vomiting. appears more comfortable. cxr with worsening infiltrates. on iv abx. picc line pulled and replaced with midline. Objective Last 24 Hour Vital Signs Date Time Temp Pulse Resp B/P Pulse Ox O2 Delivery O2 Flow Rate FiO2 08/15/16 07:27 108 31 98 Full Face 50 08/15/16 05:29 102 25 96 Facial 50 08/15/16 04:00 97.5 113 28 169/101 100 Bi-pap 50 08/15/16 04:00 50 08/15/16 03:44 110 08/15/16 03:05 103 26 96 Facial 50 08/15/16 01:17 106 27 97 Facial 50 08/15/16 00:00 50 08/15/16 00:00 87 08/15/16 00:00 97.7 102 22 145/95 100 Bi-pap 50 08/14/16 22:47 94 22 97 Facial 50 08/14/16 20:00 50 08/14/16 20:00 112 08/14/16 20:00 98.1 97 26 153/97 100 Bi-pap 50 08/14/16 19:15 95 23 98 Facial 50 08/14/16 17:18 98 23 97 Facial 50 08/14/16 16:00 107 08/14/16 16:00 50 08/14/16 16:00 97.8 111 24 156/97 99 Bi-pap 50 08/14/16 15:30 88 23 97 Facial 50 08/14/16 13:30 82 21 97 Facial 50 08/14/16 12:22 110 08/14/16 12:00 50 08/14/16 11:24 99.0 111 20 139/91 99 Bi-pap 50 08/14/16 11:20 89 28 97 Facial 50 08/14/16 09:15 114 24 97 Facial 50 Intake and Output 08/14/16 08/15/16 19:00 07:00 Intake Total 1732.5 ml 2060 ml Output Total 1000 ml 1300 ml Balance 732.5 ml 760 ml Intake Free Water 30 ml 200 ml IV Total 1202.5 ml 1420 ml Tube Feeding 440 ml 440 ml Other 60 ml Output Urine Total 1000 ml 1300 ml # Voids 1 # Bowel Movements 1 2 Laboratory Tests 08/15/16 04:35: White Blood Count 10.8, Red Blood Count 2.91L, Hemoglobin 8.9L, Hematocrit 27.4L , Mean Corpuscular Volume 94, Mean Corpuscular Hemoglobin 30.7, Mean Corpuscular Hemoglobin Concent 32.5, Red Cell Distribution Width 14.4, Platelet Count 236, Mean Platelet Volume 6.9, Neutrophils (%) (Auto) , Lymphocytes (%) ( Auto) , Monocytes (%) (Auto) , Eosinophils (%) (Auto) , Basophils (%) (Auto) , Sodium Level 141, Potassium Level 4.5, Chloride Level 99, Carbon Dioxide Level 29, Anion Gap 13, Blood Urea Nitrogen 63H, Creatinine 1.3H, Estimat Glomerular Filtration Rate > 60, Glucose Level 138H, Calcium Level 8.6, Total Bilirubin 0.2 , Aspartate Amino Transf (AST/SGOT) 24, Alanine Aminotransferase (ALT/SGPT) 25, Alkaline Phosphatase 135H, Total Protein 7.2, Albumin 2.4L, Globulin 4.8, Albumin/Globulin Ratio 0.5L Height (Feet): 5 Height (Inches): 8.00 Weight (Pounds): 142 Objective General Appearance: WD/WN, alert. Dyspneic/tachypneic Neck: supple Cardiovascular: normal rate, regular rhythm Respiratory/Chest: chest wall non-tender, lungs - few rhonchi on the right. 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
[2016-08-15] MEDS: Ascorbic Acid 500mg tab GT SCH ×2 (09:03→17:16)
[2016-08-15] MEDS: Solu-MEDROL 40mg Inj IVP SCH ×2 (09:03→21:24)
[2016-08-15] MEDS: Heparin 5000 units/ml inj SUBQ SCH ×2 (09:05→21:26)
[2016-08-15] MEDS: Dyna-Hex 2% Top Sol 8oz TOPIC SCH (09:35)
--- NOTE | 2016-08-15 10:14 | Pulmonology Progress Note ---
Assessment/Plan Assessment/Plan IMPRESSION: 1. Evidence of pneumonia. 2. Evidence of acute on chronic renal failure . 3. Evidence of transaminitis. 4. Evidence of severe protein-calorie malnutrition. 5. Anemia. 6. Chronic encephalopathy 7. Hypernatremia 8. Azotemia. 9 Respiratory acidosis 10. patchy infiltrates worse on right PLAN respiratory care as is BIPAP as needed oxygen therapy Antibiotics reviewed maintain meds nutrition as is GT feeds recheck chest XR and ABG wound care aspiration precautions acid base improved but patient clinically labile will follow up closely DNR impression, plan, and exam edited and reviewed in detail care discussed with RN Subjective ROS Limited/Unobtainable: Yes Allergies: Coded Allergies: No Known Allergies (Unverified , 07/02/16) Subjective care noted and reviewed on oxygen/ still requiring BIPAP off and on findings reviewed not back to baseline yet increased RR and HR Objective Last 24 Hour Vital Signs Date Time Temp Pulse Resp B/P Pulse Ox O2 Delivery O2 Flow Rate FiO2 08/15/16 09:05 118 29 97 Full Face 50 08/15/16 08:00 98.1 116 30 155/95 100 Bi-pap 50 08/15/16 07:27 108 31 98 Full Face 50 08/15/16 05:29 102 25 96 Facial 50 08/15/16 04:00 97.5 113 28 169/101 100 Bi-pap 50 08/15/16 04:00 50 08/15/16 03:44 110 08/15/16 03:05 103 26 96 Facial 50 08/15/16 01:17 106 27 97 Facial 50 08/15/16 00:00 50 08/15/16 00:00 87 08/15/16 00:00 97.7 102 22 145/95 100 Bi-pap 50 08/14/16 22:47 94 22 97 Facial 50 08/14/16 20:00 50 08/14/16 20:00 112 08/14/16 20:00 98.1 97 26 153/97 100 Bi-pap 50 08/14/16 19:15 95 23 98 Facial 50 08/14/16 17:18 98 23 97 Facial 50 08/14/16 16:00 107 08/14/16 16:00 50 08/14/16 16:00 97.8 111 24 156/97 99 Bi-pap 50 08/14/16 15:30 88 23 97 Facial 50 08/14/16 13:30 82 21 97 Facial 50 08/14/16 12:22 110 08/14/16 12:00 50 08/14/16 11:24 99.0 111 20 139/91 99 Bi-pap 50 08/14/16 11:20 89 28 97 Facial 50 Intake and Output 08/14/16 08/15/16 19:00 07:00 Intake Total 1732.5 ml 2060 ml Output Total 1000 ml 1300 ml Balance 732.5 ml 760 ml Intake Free Water 30 ml 200 ml IV Total 1202.5 ml 1420 ml Tube Feeding 440 ml 440 ml Other 60 ml Output Urine Total 1000 ml 1300 ml # Voids 1 # Bowel Movements 1 2 Objective WDWN on BIPAP NAD EOMI reduced breath sounds bilaterally with some rhonchi and increased RR S1S2 tachy RR without MRG NABS nontender no HSM; GT no CCE nonfocal poor LOC skin noted- wounds noted reviewed and edited Laboratory Tests 08/15/16 04:35: White Blood Count 10.8, Red Blood Count 2.91L, Hemoglobin 8.9L, Hematocrit 27.4L , Mean Corpuscular Volume 94, Mean Corpuscular Hemoglobin 30.7, Mean Corpuscular Hemoglobin Concent 32.5, Red Cell Distribution Width 14.4, Platelet Count 236, Mean Platelet Volume 6.9, Neutrophils (%) (Auto) , Lymphocytes (%) ( Auto) , Monocytes (%) (Auto) , Eosinophils (%) (Auto) , Basophils (%) (Auto) , Sodium Level 141, Potassium Level 4.5, Chloride Level 99, Carbon Dioxide Level 29, Anion Gap 13, Blood Urea Nitrogen 63H, Creatinine 1.3H, Estimat Glomerular Filtration Rate > 60, Glucose Level 138H, Calcium Level 8.6, Total Bilirubin 0.2 , Aspartate Amino Transf (AST/SGOT) 24, Alanine Aminotransferase (ALT/SGPT) 25, Alkaline Phosphatase 135H, Total Protein 7.2, Albumin 2.4L, Globulin 4.8, Albumin/Globulin Ratio 0.5L 08/15/16 09:15: Magnesium Level [Pending] Current Medications Medications (Trade) Dose Ordered Sig/Alex Route PRN Reason Start Time Stop Time Status Last Admin Dose Admin Acetaminophen (Tylenol) 650 mg Q4H PRN GT Mild Pain/Temp > 100.5 08/12/16 20:00 09/11/16 19:59 08/14/16 12:13 Amiodarone HCl 200 mg 200 mg EVERY OTHER DAY GT 08/14/16 09:00 09/13/16 08:59 08/14/16 08:15 Ascorbic Acid (Vitamin C) 500 mg TWICE A DAY GT 08/13/16 09:00 09/12/16 08:59 08/15/16 09:03 Chlorhexidine Gluconate (Tabitha-Hex 2%) 1 applic DAILY TOPIC 08/13/16 09:00 09/12/16 08:59 08/15/16 09:35 Dextrose (Dextrose 50%) STAT PRN IV Hypoglycemia 08/12/16 19:45 09/11/16 19:44 Heparin Sodium (Porcine) (Heparin 5000 units/ml) 5,000 units EVERY 12 HOURS SUBQ 08/12/16 21:00 09/11/16 20:59 08/15/16 09:05 Insulin Aspart (NovoLOG) Q6HR SUBQ 08/13/16 00:00 09/12/16 00:00 08/15/16 06:40 Linezolid (Zyvox) 300 ml @ 300 mls/hr Q12HR IVPB 08/12/16 21:00 08/19/16 20:59 08/15/16 09:07 Lorazepam (Ativan 2mg/ml 1ml) 1 mg TID PRN IV For Anxiety 08/15/16 08:30 08/22/16 08:29 Methylprednisolone Sodium Succinate 40 mg 40 mg EVERY 12 HOURS IVP 08/13/16 10:30 09/12/16 10:29 08/15/16 09:03 Sodium Chloride (Sodium Chloride 1000ml bag) 1,000 ml @ 75 mls/hr [id number] IV 08/13/16 02:00 09/12/16 01:59 08/15/16 07:19 Tigecycline/ Dextrose (Tygacil/D5W) 110 ml @ 220 mls/hr Q12HR@0200,1400 IVPB 08/15/16 02:00 08/22/16 01:59 08/15/16 02:15 ESHA BEY Aug 15, 2016 10:14
[2016-08-15] MEDS ORDERED: NS 275ml ONE (10:22)
[2016-08-15] MEDS ORDERED: Tubing IV Secondary IV ONE (10:22)
[2016-08-15 10:34] LABS: ABG ALLEN TEST POSITIVE; ABG BASE EXCESS 3.6; ABG PCO2 64.5 mmHg (35.0-45.0)
--- NOTE | 2016-08-15 10:43 | Infectious Diseases Prog Note ---
"Assessment/Plan Assessment/Plan antibiotics : linezolid iv, tygacil A 1. staph sepsis ? 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 acenitobacter | gram negative pneumonia 4. DM 5. COPD 6. respiratory failure 7. renal failure improving P 1. continue linezolid 2. continue tygacil 3. will follow up cultures Subjective ROS Limited/Unobtainable: Yes Allergies: Coded Allergies: No Known Allergies (Unverified , 07/02/16) Objective Vital Signs Last 24 Hour Vital Signs Date Time Temp Pulse Resp B/P Pulse Ox O2 Delivery O2 Flow Rate FiO2 08/15/16 09:05 118 29 97 Full Face 50 08/15/16 08:00 98.1 116 30 155/95 100 Bi-pap 50 08/15/16 07:27 108 31 98 Full Face 50 08/15/16 05:29 102 25 96 Facial 50 08/15/16 04:00 97.5 113 28 169/101 100 Bi-pap 50 08/15/16 04:00 50 08/15/16 03:44 110 08/15/16 03:05 103 26 96 Facial 50 08/15/16 01:17 106 27 97 Facial 50 08/15/16 00:00 50 08/15/16 00:00 87 08/15/16 00:00 97.7 102 22 145/95 100 Bi-pap 50 08/14/16 22:47 94 22 97 Facial 50 08/14/16 20:00 50 08/14/16 20:00 112 08/14/16 20:00 98.1 97 26 153/97 100 Bi-pap 50 08/14/16 19:15 95 23 98 Facial 50 08/14/16 17:18 98 23 97 Facial 50 08/14/16 16:00 107 08/14/16 16:00 50 08/14/16 16:00 97.8 111 24 156/97 99 Bi-pap 50 08/14/16 15:30 88 23 97 Facial 50 08/14/16 13:30 82 21 97 Facial 50 08/14/16 12:22 110 08/14/16 12:00 50 08/14/16 11:24 99.0 111 20 139/91 99 Bi-pap 50 08/14/16 11:20 89 28 97 Facial 50 Height (Feet): 5 Height (Inches): 8.00 Weight (Pounds): 142 HEENT: other - bipap Respiratory/Chest: lungs clear Cardiovascular: normal rate, regular rhythm, no gallop/murmur Abdomen: soft, non tender, other - GT Extremities: no edema, other - right arm PICC Laboratory Tests Test 08/15/16 04:35 08/15/16 09:15 08/15/16 10:14 White Blood Count 10.8 K/UL (4.8-10.8) Red Blood Count 2.91 M/UL (4.70-6.10) L Hemoglobin 8.9 G/DL (14.2-18.0) L Hematocrit 27.4 % (42.0-52.0) L Mean Corpuscular Volume 94 FL (80-99) Mean Corpuscular Hemoglobin 30.7 PG (27.0-31.0) Mean Corpuscular Hemoglobin Concent 32.5 G/DL (32.0-36.0) Red Cell Distribution Width 14.4 % (11.6-14.8) Platelet Count 236 K/UL (150-450) Mean Platelet Volume 6.9 FL (6.5-10.1) Neutrophils (%) (Auto) % (45.0-75.0) Lymphocytes (%) (Auto) % (20.0-45.0) Monocytes (%) (Auto) % (1.0-10.0) Eosinophils (%) (Auto) % (0.0-3.0) Basophils (%) (Auto) % (0.0-2.0) Sodium Level 141 mEQ/L (135-145) Potassium Level 4.5 mEQ/L (3.4-4.9) Chloride Level 99 mEQ/L (98-107) Carbon Dioxide Level 29 mEQ/L (20-30) Anion Gap 13 (5-15) Blood Urea Nitrogen 63 mg/dL (7-23) H Creatinine 1.3 mg/dL (0.7-1.2) H Estimat Glomerular Filtration Rate > 60 mL/min (>60) Glucose Level 138 mg/dL (74-106) H Calcium Level 8.6 mg/dL (8.6-10.2) Total Bilirubin 0.2 mg/dL (0.0-1.2) Aspartate Amino Transf (AST/SGOT) 24 U/L (5-40) Alanine Aminotransferase (ALT/SGPT) 25 U/L (3-41) Alkaline Phosphatase 135 U/L (40-129) H Total Protein 7.2 g/dL (6.6-8.7) Albumin 2.4 g/dL (3.5-5.2) L Globulin 4.8 g/dL Albumin/Globulin Ratio 0.5 (1.0-2.7) L Magnesium Level 2.2 mg/dL (1.7-2.5) Arterial Blood pH 7.300 (7.350-7.450) Arterial Blood Partial Pressure CO2 64.5 mmHg (35.0-45.0) *H Arterial Blood Partial Pressure O2 135.9 mmHg (75.0-100.0) H Arterial Blood HCO3 31.0 mmol/L (22.0-26.0) H Arterial Blood Oxygen Saturation 98.1 % (92.0-98.0) H Arterial Blood Base Excess 3.6 Vinny Test Positive YEVGENIY GARCIA Aug 15, 2016 10:43"
[2016-08-15] MEDS ORDERED: D5NS 1000ml IV ONE (16:55)
[2016-08-15] MEDS: Metoprolol Tartrate 12.5mg TAB GT SCH (23:40)
[2016-08-16] VITALS (7 sets, daily range): BP systolic 134–160; BP diastolic 94–106
[2016-08-16] MEDS: Tigecycline 50 MG in D5W 110 ML IVPB SCH ×2 (02:27→13:33)
[2016-08-16] MEDS: NovoLOG Insulin Flexpen SUBQ SCH ×4 (06:08→23:48)
--- NOTE | 2016-08-16 07:18 | Infectious Diseases Prog Note ---
Assessment/Plan Assessment/Plan A 1. 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 pneumonia 4. DM 5. COPD 6. pressure ulcers 7. acute renal failure improving 8. respiratory failure on BIPAP P 1. continue linezolid & Tygacil 2. consider neurologic evaluation Subjective ROS Limited/Unobtainable: Yes Neurologic: Reports: other - jercky movements more in left side Allergies: Coded Allergies: No Known Allergies (Unverified , 07/02/16) Objective Vital Signs Last 24 Hour Vital Signs Date Time Temp Pulse Resp B/P Pulse Ox O2 Delivery O2 Flow Rate FiO2 08/16/16 05:25 109 30 99 Full Face 40 08/16/16 04:00 40 08/16/16 04:00 110 08/16/16 04:00 97.7 111 22 160/104 100 Bi-pap 40 08/16/16 03:29 105 23 99 Full Face 40 08/16/16 01:05 105 34 99 Full Face 40 08/16/16 00:00 40 08/16/16 00:00 97.7 104 22 150/106 100 Bi-pap 40 08/15/16 23:59 100 08/15/16 23:40 110 155/100 08/15/16 23:15 105 24 99 Full Face 40 08/15/16 21:12 110 25 99 Full Face 40 08/15/16 20:00 40 08/15/16 20:00 98.2 112 28 143/100 100 Bi-pap 40 08/15/16 19:47 114 08/15/16 19:19 102 25 98 Full Face 40 08/15/16 17:09 115 25 98 Full Face 40 08/15/16 17:00 100 148/99 08/15/16 16:00 109 08/15/16 16:00 97.9 108 28 152/114 100 Bi-pap 40 08/15/16 16:00 40 08/15/16 15:23 112 28 99 Full Face 40 08/15/16 14:58 100 139/100 08/15/16 14:02 103 145/101 08/15/16 13:09 109 25 100 Full Face 40 08/15/16 12:00 98.1 116 22 99 Bi-pap 40 08/15/16 12:00 40 08/15/16 12:00 115 08/15/16 11:02 116 28 97 Full Face 40 08/15/16 10:40 40 08/15/16 09:05 118 29 97 Full Face 50 08/15/16 08:00 103 08/15/16 08:00 50 08/15/16 08:00 98.1 116 30 155/95 100 Bi-pap 50 08/15/16 07:27 108 31 98 Full Face 50 Height (Feet): 5 Height (Inches): 8.00 Weight (Pounds): 142 HEENT: other - on BIPAP Respiratory/Chest: decreased breath sounds Cardiovascular: tachycardia Abdomen: soft, non tender Extremities: no edema, other - right arm PICC line Neurologic/Psychiatric: unresponsiveness, other - Seizure like activity Laboratory Tests Test 08/15/16 09:15 08/15/16 10:14 Magnesium Level 2.2 mg/dL (1.7-2.5) Arterial Blood pH 7.300 (7.350-7.450) Arterial Blood Partial Pressure CO2 64.5 mmHg (35.0-45.0) *H Arterial Blood Partial Pressure O2 135.9 mmHg (75.0-100.0) H Arterial Blood HCO3 31.0 mmol/L (22.0-26.0) H Arterial Blood Oxygen Saturation 98.1 % (92.0-98.0) H Arterial Blood Base Excess 3.6 Vinny Test Positive Current Medications Medications (Trade) Dose Ordered Sig/Alex Route PRN Reason Start Time Stop Time Status Last Admin Dose Admin Acetaminophen (Tylenol) 650 mg Q4H PRN GT Mild Pain/Temp > 100.5 08/12/16 20:00 09/11/16 19:59 08/14/16 12:13 Amiodarone HCl (Cordarone) 200 mg EVERY OTHER DAY GT 08/14/16 09:00 09/13/16 08:59 08/14/16 08:15 Ascorbic Acid (Vitamin C) 500 mg TWICE A DAY GT 08/13/16 09:00 09/12/16 08:59 08/15/16 17:16 Chlorhexidine Gluconate (Tabitha-Hex 2%) 1 applic DAILY TOPIC 08/13/16 09:00 09/12/16 08:59 08/15/16 09:35 Dextrose (Dextrose 50%) STAT PRN IV Hypoglycemia 08/12/16 19:45 6/30/17 19:44 Heparin Sodium (Porcine) (Heparin 5000 units/ml) 5,000 units EVERY 12 HOURS SUBQ 08/12/16 21:00 09/11/16 20:59 08/15/16 21:26 Insulin Aspart (NovoLOG) Q6HR SUBQ 08/13/16 00:00 09/12/16 00:00 08/16/16 06:08 Linezolid (Zyvox) 300 ml @ 300 mls/hr Q12HR IVPB 08/12/16 21:00 08/19/16 20:59 08/15/16 21:30 Lorazepam 1 mg 1 mg TID PRN IV For Anxiety 08/15/16 08:30 08/22/16 08:29 08/15/16 21:25 Methylprednisolone Sodium Succinate 40 mg 40 mg EVERY 12 HOURS IVP 08/13/16 10:30 09/12/16 10:29 08/15/16 21:24 Metoprolol Tartrate (Lopressor) 12.5 mg Q12HR GT 08/15/16 23:00 09/14/16 22:59 08/15/16 23:40 Sodium Chloride (Sodium Chloride 1000ml bag) 1,000 ml @ 40 mls/hr Q24H IV 08/16/16 02:00 09/15/16 01:59 08/15/16 23:30 Tigecycline/ Dextrose (Tygacil/D5W) 110 ml @ 220 mls/hr Q12HR@0200,1400 IVPB 08/15/16 02:00 08/22/16 01:59 08/16/16 02:27 TIESHA SERVIN Aug 16, 2016 07:18
--- NOTE | 2016-08-16 08:58 | Pulmonology Progress Note ---
Assessment/Plan Assessment/Plan IMPRESSION: 1. Evidence of pneumonia. 2. Evidence of acute on chronic renal failure . 3. Evidence of transaminitis. 4. Evidence of severe protein-calorie malnutrition. 5. Anemia. 6. Chronic encephalopathy 7. Hypernatremia 8. Azotemia. 9 Respiratory acidosis 10. patchy infiltrates worse on right PLAN respiratory care as is BIPAP as needed oxygen therapy Antibiotics reviewed maintain meds nutrition as is GT feeds recheck chest XR and ABG wound care aspiration precautions acid base worsened add solumedrol follow up closely will follow up closely DNR guarded impression, plan, and exam edited and reviewed in detail care discussed with RN Subjective ROS Limited/Unobtainable: Yes Allergies: Coded Allergies: No Known Allergies (Unverified , 07/02/16) Subjective care noted and reviewed on oxygen/ still requiring BIPAP off and on findings reviewed not back to baseline yet persistent increase in RR and HR Objective Last 24 Hour Vital Signs Date Time Temp Pulse Resp B/P Pulse Ox O2 Delivery O2 Flow Rate FiO2 08/16/16 08:00 98.2 117 28 149/100 97 Bi-pap 40 08/16/16 07:21 114 31 93 Full Face 40 08/16/16 05:25 109 30 99 Full Face 40 08/16/16 04:00 40 08/16/16 04:00 110 08/16/16 04:00 97.7 111 22 160/104 100 Bi-pap 40 08/16/16 03:29 105 23 99 Full Face 40 08/16/16 01:05 105 34 99 Full Face 40 08/16/16 00:00 40 08/16/16 00:00 97.7 104 22 150/106 100 Bi-pap 40 08/15/16 23:59 100 08/15/16 23:40 110 155/100 08/15/16 23:15 105 24 99 Full Face 40 08/15/16 21:12 110 25 99 Full Face 40 08/15/16 20:00 40 08/15/16 20:00 98.2 112 28 143/100 100 Bi-pap 40 08/15/16 19:47 114 08/15/16 19:19 102 25 98 Full Face 40 08/15/16 17:09 115 25 98 Full Face 40 08/15/16 17:00 100 148/99 08/15/16 16:00 109 08/15/16 16:00 97.9 108 28 152/114 100 Bi-pap 40 08/15/16 16:00 40 08/15/16 15:23 112 28 99 Full Face 40 08/15/16 14:58 100 139/100 08/15/16 14:02 103 145/101 08/15/16 13:09 109 25 100 Full Face 40 08/15/16 12:00 98.1 116 22 99 Bi-pap 40 08/15/16 12:00 40 08/15/16 12:00 115 08/15/16 11:02 116 28 97 Full Face 40 08/15/16 10:40 40 08/15/16 09:05 118 29 97 Full Face 50 Intake and Output 08/15/16 08/16/16 19:00 07:00 Intake Total 1610 ml 1710 ml Output Total 1000 ml 1600 ml Balance 610 ml 110 ml Intake Free Water 270 ml 150 ml IV Total 900 ml 1120 ml Tube Feeding 440 ml 440 ml Output Urine Total 1000 ml 1600 ml # Bowel Movements 2 Objective WDWN on BIPAP NAD EOMI reduced breath sounds bilaterally with some rhonchi and increased RR S1S2 tachy RR without MRG NABS nontender no HSM; GT no CCE nonfocal poor LOC skin noted- wounds noted reviewed and edited Laboratory Tests 08/15/16 09:15: Magnesium Level 2.2 08/15/16 10:14: Arterial Blood pH 7.300L, Arterial Blood Partial Pressure CO2 64.5*H, Arterial Blood Partial Pressure O2 135.9H, Arterial Blood HCO3 31.0H, Arterial Blood Oxygen Saturation 98.1H, Arterial Blood Base Excess 3.6, Vinny Test Positive Current Medications Medications (Trade) Dose Ordered Sig/Alex Route PRN Reason Start Time Stop Time Status Last Admin Dose Admin Acetaminophen (Tylenol) 650 mg Q4H PRN GT Mild Pain/Temp > 100.5 08/12/16 20:00 09/11/16 19:59 08/14/16 12:13 Amiodarone HCl (Cordarone) 200 mg EVERY OTHER DAY GT 08/14/16 09:00 09/13/16 08:59 08/14/16 08:15 Ascorbic Acid (Vitamin C) 500 mg TWICE A DAY GT 08/13/16 09:00 09/12/16 08:59 08/15/16 17:16 Chlorhexidine Gluconate (Tabitha-Hex 2%) 1 applic DAILY TOPIC 08/13/16 09:00 09/12/16 08:59 08/15/16 09:35 Dextrose (Dextrose 50%) STAT PRN IV Hypoglycemia 08/12/16 19:45 09/11/16 19:44 Heparin Sodium (Porcine) (Heparin 5000 units/ml) 5,000 units EVERY 12 HOURS SUBQ 08/12/16 21:00 09/11/16 20:59 08/15/16 21:26 Insulin Aspart (NovoLOG) Q6HR SUBQ 08/13/16 00:00 09/12/16 00:00 08/16/16 06:08 Linezolid (Zyvox) 300 ml @ 300 mls/hr Q12HR IVPB 08/12/16 21:00 08/19/16 20:59 08/15/16 21:30 Lorazepam 1 mg 1 mg TID PRN IV For Anxiety 08/15/16 08:30 08/22/16 08:29 08/15/16 21:25 Methylprednisolone Sodium Succinate 40 mg 40 mg EVERY 12 HOURS IVP 08/13/16 10:30 09/12/16 10:29 08/15/16 21:24 Metoprolol Tartrate (Lopressor) 12.5 mg Q12HR GT 08/15/16 23:00 09/14/16 22:59 08/15/16 23:40 Sodium Chloride (Sodium Chloride 1000ml bag) 1,000 ml @ 40 mls/hr Q24H IV 08/16/16 02:00 09/15/16 01:59 08/15/16 23:30 Tigecycline/ Dextrose (Tygacil/D5W) 110 ml @ 220 mls/hr Q12HR@0200,1400 IVPB 08/15/16 02:00 08/22/16 01:59 08/16/16 02:27 ESHA BEY Aug 16, 2016 08:58
[2016-08-16] MEDS ORDERED: Solu-MEDROL 40mg Inj IVP SCH (09:00)
[2016-08-16] MEDS: Solu-MEDROL 40mg Inj IVP SCH (09:09)
[2016-08-16] MEDS: Heparin 5000 units/ml inj SUBQ SCH ×2 (09:11→21:37)
[2016-08-16] MEDS: Metoprolol Tartrate 12.5mg TAB GT SCH (09:17)
[2016-08-16] MEDS: Amiodarone 200mg tab GT SCH (09:17)
[2016-08-16] MEDS: Ascorbic Acid 500mg tab GT SCH ×2 (09:17→17:35)
[2016-08-16 10:02] LABS: MEAN CORPUSCULAR HEMOGLOBIN 29.6 PG (27.0-31.0); MEAN CORPUSCULAR HGB CONC 31.1 G/DL (32.0-36.0); MEAN CORPUSCULAR VOLUME 95 FL (80-99); MEAN PLATELET VOLUME 6.4 FL (6.5-10.1); PLATELET COUNT 188 K/UL (150-450); RED BLOOD COUNT 3.04 M/UL (4.70-6.10); RED CELL DISTRIBUTION WIDTH 15.2 % (11.6-14.8); WHITE BLOOD COUNT 10.9 K/UL (4.8-10.8)
--- NOTE | 2016-08-16 10:15 | Progress Note ---
DATE: 08/15/2016 CARDIOLOGY PROGRESS NOTE SUBJECTIVE: The patient remains on BiPAP support, less distress noted. Chest x-ray reviewed infiltrates progressing. The patient remains on antibiotics. PICC line was removed. He now has a midline. He continues to have sinus tachycardia and labile blood pressure. OBJECTIVE: VITAL SIGNS: Blood pressure 169/101, pulse 113, respirations 28 earlier, presently 148/99, pulse 100, respirations 25, and afebrile. LUNGS: Coarse breath sounds. Moderate rhonchi and rales. HEART: Regular rhythm. Rapid rate. Normal S1 and S2. ABDOMEN: Soft. G-tube intact EXTREMITIES: Trace edema. LABORATORY AND DIAGNOSTIC DATA: White count 10.8 and hemoglobin 8.9. Magnesium 2.2. Potassium 4.5, BUN 63 and creatinine 1.3. Albumin 2.4. IMPRESSION: 1. Healthcare-acquired pneumonia. 2. Chronic aspiration. 3. Acute renal failure, resolving. 4. Prerenal azotemia persisting. 5. Severe protein-calorie malnutrition, slightly improved. 6. Acute on chronic diastolic congestive heart failure. 7. Secondary sinus tachycardia. PLAN: 1. Respiratory hygiene. Antimicrobials. 2. Decrease IV fluids. 3. Continue maintenance dose amiodarone. 4. Add low-dose beta-christiano. 5. Cannot diurese at this time. Natalio Wisdom M.D. DR: Sorin JOB#: [id number] CC:
[2016-08-16 10:23] LABS: ALANINE AMINOTRANSFERASE 21 U/L (3-41); ALBUMIN/GLOBULIN RATIO 0.5 (1.0-2.7); ANION GAP 12 (5-15); ASPARTATE AMINO TRANSFERASE 17 U/L (5-40); CALCIUM 8.9 mg/dL (8.6-10.2); CARBON DIOXIDE 29 mEQ/L (20-30); CHLORIDE 103 mEQ/L (98-107); CREATININE 1.1 mg/dL (0.7-1.2); GLOMERULAR FILTRATION RATE > 60 mL/min (>60); HEMOLYSIS 4; POTASSIUM 5.1 mEQ/L (3.4-4.9); SODIUM 144 mEQ/L (135-145); TOTAL PROTEIN 6.8 g/dL (6.6-8.7)
[2016-08-16 11:03] LABS: ANISOCYTOSIS 1+; BAND NEUTROPHILS % (MANUAL) 4 % (0-8); BASOPHILS % (MANUAL) 0 % (0-2); EOSINOPHILS % (MANUAL) 0 % (0-3); HYPOCHROMASIA 1+; LYMPHOCYTES % (MANUAL) 5 % (20-45); NEUTROPHILS % (MANUAL) 86 % (45-75); PLATELET ESTIMATE ADEQUATE; PLATELET MORPHOLOGY NORMAL; TOTAL CELLS COUNTED 100
--- NOTE | 2016-08-16 11:36 | General Progress Note ---
Assessment/Plan Problem List: (1) Dysphagia ICD Codes: R13.10 - Dysphagia, unspecified SNOMED: 51893785, 360223894 (2) severe post anoxic encephalopathy (3) intermittent postural hand tremors, doubt seizure event (4) Sepsis ICD Codes: A41.9 - Sepsis, unspecified organism SNOMED: 72186331 (5) Pneumonia ICD Codes: J18.9 - Pneumonia, unspecified organism SNOMED: 740864428 (6) Fever ICD Codes: R50.9 - Fever, unspecified SNOMED: 274960757 Qualifiers: Qualified Codes: O86.4 - Pyrexia of unknown origin following delivery Status: deteriorating Assessment/Plan iv abx per id monitor cxr resp rx steroids per pulm cautious feeds watch residual ivf monitor renal fxn and volume status zofran for nausea monitor resp status closely. neuro eval Subjective ROS Limited/Unobtainable: No Constitutional: Reports: malaise, weakness HEENT: Reports: no symptoms Cardiovascular: Reports: no symptoms Respiratory: Reports: cough, shortness of breath, sputum Gastrointestinal/Abdominal: Reports: difficulty swallowing Genitourinary: Reports: no symptoms Neurologic/Psychiatric: Reports: pre-existing deficit Endocrine: Reports: no symptoms Hematologic/Lymphatic: Reports: no symptoms Allergies: Coded Allergies: No Known Allergies (Unverified , 07/02/16) All Systems: reviewed and negative except above Subjective still on bipap. appears more sob. no vomiting. cxr with worsening infiltrates. on iv abx. abg worse yesterday. pending for today Objective Last 24 Hour Vital Signs Date Time Temp Pulse Resp B/P Pulse Ox O2 Delivery O2 Flow Rate FiO2 08/16/16 10:10 112 35 94 Full Face 40 08/16/16 09:17 117 149/100 08/16/16 08:00 98.2 117 28 149/100 97 Bi-pap 40 08/16/16 08:00 40 08/16/16 07:56 115 08/16/16 07:21 114 31 93 Full Face 40 08/16/16 05:25 109 30 99 Full Face 40 08/16/16 04:00 40 08/16/16 04:00 110 08/16/16 04:00 97.7 111 22 160/104 100 Bi-pap 40 08/16/16 03:29 105 23 99 Full Face 40 08/16/16 01:05 105 34 99 Full Face 40 08/16/16 00:00 40 08/16/16 00:00 97.7 104 22 150/106 100 Bi-pap 40 08/15/16 23:59 100 08/15/16 23:40 110 155/100 08/15/16 23:15 105 24 99 Full Face 40 08/15/16 21:12 110 25 99 Full Face 40 08/15/16 20:00 40 08/15/16 20:00 98.2 112 28 143/100 100 Bi-pap 40 08/15/16 19:47 114 08/15/16 19:19 102 25 98 Full Face 40 08/15/16 17:09 115 25 98 Full Face 40 08/15/16 17:00 100 148/99 08/15/16 16:00 109 08/15/16 16:00 97.9 108 28 152/114 100 Bi-pap 40 08/15/16 16:00 40 08/15/16 15:23 112 28 99 Full Face 40 08/15/16 14:58 100 139/100 08/15/16 14:02 103 145/101 08/15/16 13:09 109 25 100 Full Face 40 08/15/16 12:00 98.1 116 22 99 Bi-pap 40 08/15/16 12:00 40 08/15/16 12:00 115 Intake and Output 08/15/16 08/16/16 19:00 07:00 Intake Total 1610 ml 1710 ml Output Total 1000 ml 1600 ml Balance 610 ml 110 ml Intake Free Water 270 ml 150 ml IV Total 900 ml 1120 ml Tube Feeding 440 ml 440 ml Output Urine Total 1000 ml 1600 ml # Bowel Movements 2 Laboratory Tests 08/16/16 06:15: Sodium Level 144, Potassium Level 5.1H, Chloride Level 103, Carbon Dioxide Level 29, Anion Gap 12, Blood Urea Nitrogen 73H, Creatinine 1.1, Estimat Glomerular Filtration Rate > 60, Glucose Level 138H, Calcium Level 8.9, Total Bilirubin < 0.2, Aspartate Amino Transf (AST/SGOT) 17, Alanine Aminotransferase (ALT/SGPT) 21, Alkaline Phosphatase 98, Total Protein 6.8, Albumin 2.4L, Globulin 4.4, Albumin/Globulin Ratio 0.5L 08/16/16 09:15: White Blood Count 10.9H, Red Blood Count 3.04L, Hemoglobin 9.0L, Hematocrit 28.9L, Mean Corpuscular Volume 95, Mean Corpuscular Hemoglobin 29.6, Mean Corpuscular Hemoglobin Concent 31.1L, Red Cell Distribution Width 15.2H, Platelet Count 188, Mean Platelet Volume 6.4L, Neutrophils (%) (Auto) , Lymphocytes (%) (Auto) , Monocytes (%) (Auto) , Eosinophils (%) (Auto) , Basophils (%) (Auto) , Differential Total Cells Counted 100, Neutrophils % ( Manual) 86H, Lymphocytes % (Manual) 5L, Monocytes % (Manual) 5, Eosinophils % ( Manual) 0, Basophils % (Manual) 0, Band Neutrophils 4, Platelet Estimate Adequate, Platelet Morphology Normal, Hypochromasia 1+, Anisocytosis 1+ Height (Feet): 5 Height (Inches): 8.00 Weight (Pounds): 142 Objective General Appearance: WD/WN, alert. Dyspneic/tachypneic. on bipap Neck: supple Cardiovascular: normal rate, regular rhythm Respiratory/Chest: chest wall non-tender, lungs. decrease bs blanquita. rhonchi bilaterally Abdomen: normal bowel sounds, non tender, soft, no organomegaly Edema: no edema noted Arm (L), no edema noted Arm (R), no edema noted Leg (L), no edema noted Leg (R), no edema noted Pedal (L), no edema noted Pedal (R), no edema noted Generalized Edema: trace edema Neurologic: chef II-XII grossly normal, no motor/sensory deficits, abnormal gait , alert but confused Skin: normal pigmentation FAWN PORTER Aug 16, 2016 11:36
[2016-08-16] MEDS: LORazepam Inj 2mg/ml 1ml IV PRN (12:14)
[2016-08-16] MEDS: Dyna-Hex 2% Top Sol 8oz TOPIC SCH (12:46)
--- NOTE | 2016-08-16 12:46 | Diagnostic Imaging Report ---
Indication: Dyspnea Comparison: 08/13/16 A single view chest radiograph was obtained. Findings: Patchy infiltrates are again demonstrated bilaterally. Heart is mildly enlarged but stable. Gastrostomy noted. Impression: No change. Patchy bilateral pulmonary infiltrates
[2016-08-16] MEDS ORDERED: NS 275ml ONE (15:44)
[2016-08-16 16:11] LABS: ABG ALLEN TEST POSITIVE; ABG BASE EXCESS 31.2; ABG PCO2 62.9 mmHg (35.0-45.0)
[2016-08-16] MEDS: Metoprolol 25mg tab GT SCH (21:34)
--- NOTE | 2016-08-16 22:30 | Progress Note ---
DATE: 08/16/2016 CARDIOLOGY PROGRESS NOTE SUBJECTIVE: Condition is not improved. He remains with shortness of breath, some congestion and requires BiPAP support as well as frequent suctioning. OBJECTIVE: VITAL SIGNS: Blood pressure 149/100, pulse 112, respirations 35, and afebrile. LUNGS: Coarse breath sounds. Scattered rhonchi. HEART: Regular rhythm. Rapid rate. Normal S1 and S2. ABDOMEN: Soft. G-tube is intact. EXTREMITIES: Dependent edema. LABORATORY DATA: BUN 73, creatinine 1.1, sodium 144, potassium 5.1, and bicarbonate 29. White count 10.9 and hemoglobin 9. IMPRESSION: 1. Severe protein-calorie malnutrition. 2. Prerenal azotemia. 3. Acute on chronic renal failure. 4. Acute on chronic diastolic congestive heart failure. 5. Healthcare-acquired pneumonia. 6. Respiratory failure. 7. Acute on chronic respiratory acidosis. 8. Severe encephalopathy. 9. Secondary sinus tachycardia. 10. Hypertensive heart disease with elevated blood pressure. PLAN: 1. Advance beta-christiano further. 2. Continue antimicrobials. 3. Respiratory hygiene. 4. Cautious hydration. 5. Prognosis remains poor. Natalio Wisdom M.D. DR: MAX JOB#: [id number] CC:
[2016-08-17] VITALS: BP 146/95
[2016-08-17] MEDS: Tigecycline 50 MG in D5W 110 ML IVPB SCH ×2 (02:27→14:31)
[2016-08-17 04:55] VITALS: BP 137/97
[2016-08-17] MEDS: NovoLOG Insulin Flexpen SUBQ SCH ×4 (06:16→23:49)
--- NOTE | 2016-08-17 07:35 | General Progress Note ---
Assessment/Plan Problem List: (1) Dysphagia ICD Codes: R13.10 - Dysphagia, unspecified SNOMED: 22652060, 205966665 (2) severe post anoxic encephalopathy (3) intermittent postural hand tremors, doubt seizure event (4) Sepsis ICD Codes: A41.9 - Sepsis, unspecified organism SNOMED: 02419019 (5) Pneumonia ICD Codes: J18.9 - Pneumonia, unspecified organism SNOMED: 154063669 (6) Fever ICD Codes: R50.9 - Fever, unspecified SNOMED: 860933872 Qualifiers: Qualified Codes: O86.4 - Pyrexia of unknown origin following delivery Status: stable, progressing Assessment/Plan iv abx per id monitor cxr resp rx steroids per pulm cautious feeds watch residual ivf monitor renal fxn and volume status zofran for nausea monitor resp status closely. neuro eval pending Subjective ROS Limited/Unobtainable: Yes Constitutional: Reports: malaise, weakness HEENT: Reports: no symptoms Cardiovascular: Reports: no symptoms Respiratory: Reports: SOB at rest, cough, shortness of breath, stridor Gastrointestinal/Abdominal: Reports: difficulty swallowing Genitourinary: Reports: no symptoms Neurologic/Psychiatric: Reports: pre-existing deficit Endocrine: Reports: no symptoms Hematologic/Lymphatic: Reports: no symptoms Allergies: Coded Allergies: No Known Allergies (Unverified , 07/02/16) All Systems: reviewed and negative except above Subjective still on bipap. appears more sob. no vomiting. tolerating feeds. abg noted. still with resp acidosis. Objective Last 24 Hour Vital Signs Date Time Temp Pulse Resp B/P Pulse Ox O2 Delivery O2 Flow Rate FiO2 08/17/16 07:07 91 25 100 Full Face 50 08/17/16 04:55 97.7 100 24 137/97 100 Bi-pap 40 08/17/16 04:34 94 29 100 Full Face 50 08/17/16 04:00 40 08/17/16 03:17 90 28 100 Full Face 50 08/17/16 03:00 88 08/17/16 01:30 84 23 100 Full Face 50 08/17/16 00:00 40 08/17/16 00:00 100 08/17/16 00:00 97.5 100 30 146/95 100 Bi-pap 40 08/16/16 23:30 93 35 100 Full Face 50 08/16/16 21:34 99 148/96 08/16/16 21:17 95 32 100 Full Face 50 08/16/16 20:00 40 08/16/16 20:00 100 08/16/16 20:00 97.7 100 26 148/96 100 Bi-pap 40 08/16/16 19:30 102 29 100 Full Face 50 08/16/16 16:54 76 34 98 Full Face 50 08/16/16 16:00 40 08/16/16 16:00 97.8 100 24 134/94 96 Bi-pap 50 08/16/16 15:33 96 08/16/16 15:25 101 34 97 Full Face 50 08/16/16 12:44 107 29 92 Full Face 40 08/16/16 12:00 97.4 103 29 141/97 98 Bi-pap 40 08/16/16 12:00 40 08/16/16 11:58 101 08/16/16 10:50 120 40 93 Full Face 40 08/16/16 10:10 112 35 94 Full Face 40 08/16/16 09:17 117 149/100 08/16/16 08:00 98.2 117 28 149/100 97 Bi-pap 40 08/16/16 08:00 40 08/16/16 07:56 115 Intake and Output 08/16/16 08/17/16 19:00 07:00 Intake Total 1110 ml 740 ml Output Total 750 ml 1425 ml Balance 360 ml -685 ml Intake Free Water 350 ml 300 ml IV Total 280 ml Tube Feeding 480 ml 440 ml Output Urine Total 750 ml 1425 ml # Bowel Movements 1 2 Laboratory Tests 08/16/16 08:57: Arterial Blood pH 7.314L, Arterial Blood Partial Pressure CO2 62.9*H, Arterial Blood Partial Pressure O2 67.1L, Arterial Blood HCO3 31.2H, Arterial Blood Oxygen Saturation 90.9L, Arterial Blood Base Excess 31.2, Vinny Test Positive 08/16/16 09:15: White Blood Count 10.9H, Red Blood Count 3.04L, Hemoglobin 9.0L, Hematocrit 28.9L, Mean Corpuscular Volume 95, Mean Corpuscular Hemoglobin 29.6, Mean Corpuscular Hemoglobin Concent 31.1L, Red Cell Distribution Width 15.2H, Platelet Count 188, Mean Platelet Volume 6.4L, Neutrophils (%) (Auto) , Lymphocytes (%) (Auto) , Monocytes (%) (Auto) , Eosinophils (%) (Auto) , Basophils (%) (Auto) , Differential Total Cells Counted 100, Neutrophils % ( Manual) 86H, Lymphocytes % (Manual) 5L, Monocytes % (Manual) 5, Eosinophils % ( Manual) 0, Basophils % (Manual) 0, Band Neutrophils 4, Platelet Estimate Adequate, Platelet Morphology Normal, Hypochromasia 1+, Anisocytosis 1+ Height (Feet): 5 Height (Inches): 8.00 Weight (Pounds): 142 Objective General Appearance: WD/WN, alert. Dyspneic/tachypneic. on bipap Neck: supple Cardiovascular: normal rate, regular rhythm Respiratory/Chest: chest wall non-tender, lungs. decrease bs blanquita. 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
--- NOTE | 2016-08-17 08:50 | Pulmonology Progress Note ---
Assessment/Plan Assessment/Plan IMPRESSION: 1. Evidence of pneumonia. 2. Evidence of acute on chronic renal failure . 3. Evidence of transaminitis. 4. Evidence of severe protein-calorie malnutrition. 5. Anemia. 6. Chronic encephalopathy 7. Hypernatremia 8. Azotemia. 9 Respiratory acidosis 10. patchy infiltrates worse on right PLAN respiratory care as is BIPAP as needed oxygen therapy Antibiotics reviewed maintain meds nutrition as is GT feeds recheck chest XR and ABG ordered wound care aspiration precautions acid base worsened added solumedrol with some improvement follow up closely will follow up closely DNR guarded hope to see further improvement impression, plan, and exam edited and reviewed in detail care discussed with RN Subjective ROS Limited/Unobtainable: Yes Allergies: Coded Allergies: No Known Allergies (Unverified , 07/02/16) Subjective care noted and reviewed on oxygen/ off BIPAP currently findings reviewed not back to baseline yet slightly better Objective Last 24 Hour Vital Signs Date Time Temp Pulse Resp B/P Pulse Ox O2 Delivery O2 Flow Rate FiO2 08/17/16 07:07 91 25 100 Full Face 50 08/17/16 04:55 97.7 100 24 137/97 100 Bi-pap 40 08/17/16 04:34 94 29 100 Full Face 50 08/17/16 04:00 40 08/17/16 03:17 90 28 100 Full Face 50 08/17/16 03:00 88 08/17/16 01:30 84 23 100 Full Face 50 08/17/16 00:00 40 08/17/16 00:00 100 08/17/16 00:00 97.5 100 30 146/95 100 Bi-pap 40 08/16/16 23:30 93 35 100 Full Face 50 08/16/16 21:34 99 148/96 08/16/16 21:17 95 32 100 Full Face 50 08/16/16 20:00 40 08/16/16 20:00 100 08/16/16 20:00 97.7 100 26 148/96 100 Bi-pap 40 08/16/16 19:30 102 29 100 Full Face 50 08/16/16 16:54 76 34 98 Full Face 50 08/16/16 16:00 40 08/16/16 16:00 97.8 100 24 134/94 96 Bi-pap 50 08/16/16 15:33 96 08/16/16 15:25 101 34 97 Full Face 50 08/16/16 12:44 107 29 92 Full Face 40 08/16/16 12:00 97.4 103 29 141/97 98 Bi-pap 40 08/16/16 12:00 40 08/16/16 11:58 101 08/16/16 10:50 120 40 93 Full Face 40 08/16/16 10:10 112 35 94 Full Face 40 08/16/16 09:17 117 149/100 Intake and Output 08/16/16 08/17/16 19:00 07:00 Intake Total 1110 ml 850 ml Output Total 750 ml 1425 ml Balance 360 ml -575 ml Intake Free Water 350 ml 300 ml IV Total 280 ml 110 ml Tube Feeding 480 ml 440 ml Output Urine Total 750 ml 1425 ml # Bowel Movements 1 2 Objective WDWN off BIPAP NAD EOMI reduced breath sounds bilaterally with reduced rhonchi and reduced RR S1S2 RRR without MRG NABS nontender no HSM; GT no CCE nonfocal poor LOC skin noted- wounds noted reviewed and edited Laboratory Tests 08/16/16 08:57: Arterial Blood pH 7.314L, Arterial Blood Partial Pressure CO2 62.9*H, Arterial Blood Partial Pressure O2 67.1L, Arterial Blood HCO3 31.2H, Arterial Blood Oxygen Saturation 90.9L, Arterial Blood Base Excess 31.2, Vinny Test Positive 08/16/16 09:15: White Blood Count 10.9H, Red Blood Count 3.04L, Hemoglobin 9.0L, Hematocrit 28.9L, Mean Corpuscular Volume 95, Mean Corpuscular Hemoglobin 29.6, Mean Corpuscular Hemoglobin Concent 31.1L, Red Cell Distribution Width 15.2H, Platelet Count 188, Mean Platelet Volume 6.4L, Neutrophils (%) (Auto) , Lymphocytes (%) (Auto) , Monocytes (%) (Auto) , Eosinophils (%) (Auto) , Basophils (%) (Auto) , Differential Total Cells Counted 100, Neutrophils % ( Manual) 86H, Lymphocytes % (Manual) 5L, Monocytes % (Manual) 5, Eosinophils % ( Manual) 0, Basophils % (Manual) 0, Band Neutrophils 4, Platelet Estimate Adequate, Platelet Morphology Normal, Hypochromasia 1+, Anisocytosis 1+ Current Medications Medications (Trade) Dose Ordered Sig/Alex Route PRN Reason Start Time Stop Time Status Last Admin Dose Admin Acetaminophen (Tylenol) 650 mg Q4H PRN GT Mild Pain/Temp > 100.5 08/12/16 20:00 09/11/16 19:59 08/14/16 12:13 Amiodarone HCl 200 mg 200 mg EVERY OTHER DAY GT 08/14/16 09:00 09/13/16 08:59 08/16/16 09:17 Ascorbic Acid (Vitamin C) 500 mg TWICE A DAY GT 08/13/16 09:00 09/12/16 08:59 08/16/16 17:35 Chlorhexidine Gluconate (Tabitha-Hex 2%) 1 applic DAILY TOPIC 08/13/16 09:00 09/12/16 08:59 08/16/16 12:46 Dextrose (Dextrose 50%) STAT PRN IV Hypoglycemia 08/12/16 19:45 09/11/16 19:44 Heparin Sodium (Porcine) (Heparin 5000 units/ml) 5,000 units EVERY 12 HOURS SUBQ 08/12/16 21:00 09/11/16 20:59 08/16/16 21:37 Insulin Aspart (NovoLOG) Q6HR SUBQ 08/13/16 00:00 09/12/16 00:00 08/17/16 06:16 Linezolid (Zyvox) 600 mg Q12HR GT 08/16/16 21:00 08/19/16 20:59 08/16/16 21:47 Lorazepam (Ativan 2mg/ml 1ml) 1 mg TID PRN IV For Anxiety 08/15/16 08:30 08/22/16 08:29 08/16/16 12:14 Methylprednisolone Sodium Succinate (Solu-MEDROL) 40 mg DAILY IVP 08/17/16 09:00 09/16/16 08:59 Metoprolol Tartrate (Lopressor) 25 mg Q12HR GT 08/16/16 21:00 09/15/16 20:59 08/16/16 21:34 Tigecycline/ Dextrose (Tygacil/D5W) 110 ml @ 220 mls/hr Q12HR@0200,1400 IVPB 08/15/16 02:00 08/22/16 01:59 08/17/16 02:27 ESHA BEY Aug 17, 2016 08:50
[2016-08-17 09:21] LABS: ABG ALLEN TEST POSITIVE; ABG BASE EXCESS 8.2; ABG PCO2 60.4 mmHg (35.0-45.0)
[2016-08-17 09:30] VITALS: BP 143/100
[2016-08-17] MEDS: Solu-MEDROL 40mg Inj IVP SCH (09:45)
[2016-08-17] MEDS: Heparin 5000 units/ml inj SUBQ SCH ×2 (09:46→21:58)
[2016-08-17] MEDS: Ascorbic Acid 500mg tab GT SCH ×2 (09:50→18:43)
[2016-08-17] MEDS: Metoprolol 25mg tab GT SCH ×2 (09:52→21:57)
[2016-08-17] MEDS ORDERED: Tubing IV Secondary IV ONE (11:29)
[2016-08-17] MEDS ORDERED: NS 275ml ONE (11:29)
[2016-08-17 12:00] VITALS: BP 140/98
--- NOTE | 2016-08-17 12:12 | Neurology Progress Note ---
Interim History Interim History ROS Limited/Unobtainable: Yes Objective Physical Exam Last Vital Signs Date Time Temp Pulse Resp B/P Pulse Ox O2 Delivery O2 Flow Rate FiO2 08/17/16 10:44 92 28 100 Full Face 50 08/17/16 09:52 143/100 08/17/16 09:30 97.7 08/13/16 19:06 4.0 Laboratory Tests Test 08/17/16 09:06 Arterial Blood pH 7.377 (7.350-7.450) Arterial Blood Partial Pressure CO2 60.4 mmHg (35.0-45.0) *H Arterial Blood Partial Pressure O2 121.7 mmHg (75.0-100.0) H Arterial Blood HCO3 34.7 mmol/L (22.0-26.0) H Arterial Blood Oxygen Saturation 98.1 % (92.0-98.0) H Arterial Blood Base Excess 8.2 Vinny Test Positive Impression/Recommendations Status: stable, progressing Recommendations #[id number] OLGA HERNANDEZ Aug 17, 2016 12:12
--- NOTE | 2016-08-17 12:27 | Infectious Diseases Prog Note ---
Assessment/Plan Assessment/Plan A 1. 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 pneumonia 4. DM 5. COPD 6. pressure ulcers 7. acute renal failure improving 8. respiratory failure on BIPAP P 1. continue linezolid & Tygacil 2. case was D/W neurologist Subjective ROS Limited/Unobtainable: Yes Allergies: Coded Allergies: No Known Allergies (Unverified , 07/02/16) Objective Vital Signs Last 24 Hour Vital Signs Date Time Temp Pulse Resp B/P Pulse Ox O2 Delivery O2 Flow Rate FiO2 08/17/16 10:44 92 28 100 Full Face 50 08/17/16 09:52 104 143/100 08/17/16 09:30 97.7 104 29 143/100 100 Bi-pap 50 08/17/16 09:06 104 27 99 Full Face 50 08/17/16 07:07 91 25 100 Full Face 50 08/17/16 04:55 97.7 100 24 137/97 100 Bi-pap 40 08/17/16 04:34 94 29 100 Full Face 50 08/17/16 04:00 40 08/17/16 03:17 90 28 100 Full Face 50 08/17/16 03:00 88 08/17/16 01:30 84 23 100 Full Face 50 08/17/16 00:00 40 08/17/16 00:00 100 08/17/16 00:00 97.5 100 30 146/95 100 Bi-pap 40 08/16/16 23:30 93 35 100 Full Face 50 08/16/16 21:34 99 148/96 08/16/16 21:17 95 32 100 Full Face 50 08/16/16 20:00 40 08/16/16 20:00 100 08/16/16 20:00 97.7 100 26 148/96 100 Bi-pap 40 08/16/16 19:30 102 29 100 Full Face 50 08/16/16 16:54 76 34 98 Full Face 50 08/16/16 16:00 40 08/16/16 16:00 97.8 100 24 134/94 96 Bi-pap 50 08/16/16 15:33 96 08/16/16 15:25 101 34 97 Full Face 50 08/16/16 12:44 107 29 92 Full Face 40 Height (Feet): 5 Height (Inches): 8.00 Weight (Pounds): 142 HEENT: other - on BIPAP Respiratory/Chest: lungs clear Cardiovascular: normal rate Abdomen: soft, non tender Extremities: no edema, other - R arm PICC line Neurologic/Psychiatric: other - seizure Laboratory Tests Test 08/17/16 09:06 Arterial Blood pH 7.377 (7.350-7.450) Arterial Blood Partial Pressure CO2 60.4 mmHg (35.0-45.0) *H Arterial Blood Partial Pressure O2 121.7 mmHg (75.0-100.0) H Arterial Blood HCO3 34.7 mmol/L (22.0-26.0) H Arterial Blood Oxygen Saturation 98.1 % (92.0-98.0) H Arterial Blood Base Excess 8.2 Vinny Test Positive Current Medications Medications (Trade) Dose Ordered Sig/Alex Route PRN Reason Start Time Stop Time Status Last Admin Dose Admin Acetaminophen (Tylenol) 650 mg Q4H PRN GT Mild Pain/Temp > 100.5 08/12/16 20:00 09/11/16 19:59 08/14/16 12:13 Amiodarone HCl 200 mg 200 mg EVERY OTHER DAY GT 08/14/16 09:00 09/13/16 08:59 08/16/16 09:17 Ascorbic Acid (Vitamin C) 500 mg TWICE A DAY GT 08/13/16 09:00 09/12/16 08:59 08/17/16 09:50 Chlorhexidine Gluconate (Tabitha-Hex 2%) 1 applic DAILY TOPIC 08/13/16 09:00 09/12/16 08:59 08/16/16 12:46 Clonazepam (KlonoPIN) 0.5 mg Q6H ORAL 08/17/16 12:00 08/24/16 11:59 UNV Dextrose (Dextrose 50%) STAT PRN IV Hypoglycemia 08/12/16 19:45 09/11/16 19:44 Heparin Sodium (Porcine) (Heparin 5000 units/ml) 5,000 units EVERY 12 HOURS SUBQ 08/12/16 21:00 09/11/16 20:59 08/17/16 09:46 Insulin Aspart (NovoLOG) Q6HR SUBQ 08/13/16 00:00 09/12/16 00:00 08/17/16 06:16 Linezolid (Zyvox) 600 mg Q12HR GT 08/16/16 21:00 08/19/16 20:59 08/17/16 09:49 Lorazepam (Ativan 2mg/ml 1ml) 1 mg TID PRN IV For Anxiety 08/15/16 08:30 08/22/16 08:29 08/16/16 12:14 Methylprednisolone Sodium Succinate (Solu-MEDROL) 40 mg DAILY IVP 08/17/16 09:00 09/16/16 08:59 08/17/16 09:45 Metoprolol Tartrate (Lopressor) 25 mg Q12HR GT 08/16/16 21:00 09/15/16 20:59 08/17/16 09:52 Tigecycline/ Dextrose (Tygacil/D5W) 110 ml @ 220 mls/hr Q12HR@0200,1400 IVPB 08/15/16 02:00 08/22/16 01:59 08/17/16 02:27 TIESHA SERVIN Aug 17, 2016 12:27
--- NOTE | 2016-08-17 12:36 | Diagnostic Imaging Report ---
Indication: Dyspnea Comparison: 08/16/16 A single view chest radiograph was obtained. Findings: Extensive right pulmonary infiltrate again demonstrated. Heart is enlarged. Superimposed interstitial edema may be present as well. Impression: No change from the previous day
[2016-08-17] MEDS: Dyna-Hex 2% Top Sol 8oz TOPIC SCH (14:37)
[2016-08-17] MEDS: clonazePAM 0.5mg tab ORAL SCH ×3 (14:40→23:48)
[2016-08-17 16:00] VITALS: BP 159/72
[2016-08-17 20:00] VITALS: BP 139/99
--- NOTE | 2016-08-17 23:20 | Consultation ---
DATE OF CONSULTATION: 08/17/2016 NEUROLOGICAL CONSULTATION REQUESTING PHYSICIAN: Jair Carlson M.D. FAMILY PHYSICIAN: Washington Bonner M.D. HISTORY OF PRESENT ILLNESS: This is a 70-year-old man chronically ill with multiple medical issues including history of involuntary movement developed 2 months ago, now presented with a continuous intermittent generalized predominantly neck jerking and head jerking. Issue of possible ongoing seizure activities was raised. Similar activities were noted in the last couple of months with multiple EEGs not confirming presence of paroxysmal activities, but rather presence of severe encephalopathy. The patient is being treated for sepsis, healthcare acquired pneumonia, and severe metabolic derangement. The patient suspected to have previous anoxic encephalopathy. His current laboratory studies include WBC 10.9, hemoglobin 8.2, hematocrit 28.7, mild coagulopathy, INR of 1.2, urinalysis 10 to 15 WBCs, 1+ leukocyte esterase, and his latest chemistry panel, BUN of 73, glucose 138, albumin 2.4, and BNP of 464. MEDICATIONS: Current treatment included metoprolol, Solu-Medrol, lorazepam p.r.n., Zyvox, amiodarone, intravenous fluids and antibiotics. ALLERGIES: None reported. SOCIAL HISTORY: Resident of nursing facility. The patient is DNR/DNI. FAMILY HISTORY: Unavailable. REVIEW OF SYMPTOMS: Unable to obtain due to the patient's status. PHYSICAL EXAMINATION: GENERAL: Cachectic, ill-appearing man, now with a BiPAP in place. VITAL SIGNS: Stable. Blood pressure 118/80, respirations 14, and temperature 98.1 degrees. HEENT: Head is normocephalic. No evidence of trauma. Eyes, ears, and throat are clear. NECK: Rigid in all directions. MUSCULOSKELETAL EXAMINATION: Unremarkable. Peripheral pulses 1+ symmetric. MENTAL STATUS: The patient appears to be awake. He has an eye movement. His eyes are open. He moves his eyes in all directions. No eye contact. Does not follow command. CRANIAL NERVE II: Pupils are both responding to light and accommodation. Extraocular movement intact. No nystagmus. CRANIAL NERVE V: Normal corneal responses. CRANIAL NERVE VII: No gross asymmetry. CRANIAL NERVE IX THROUGH XII: Tongue is in midline. Reduced gag response. MOTOR EXAMINATION: The patient has intermittent rhythmic jerking affecting predominantly upper back neck as well as upper and lower extremities. The patient was not holding arms against the gravity. Deep tendon reflexes are depressed bilaterally. Plantar response is mute. SENSORY EXAMINATION: No response to pin stimulation. IMPRESSION: 1. 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 Rule out myoclonus. 2. Anoxic/metabolic encephalopathy. 3. Dysphagia. 4. Sepsis. 5. Pneumonia. 6. Severe malnutrition. 7. Respiratory failure. 8. Hypertension. 9. Chronic renal insufficiency. RECOMMENDATION: 1. Repeat EEG. 2. Start on Klonopin 0.5 mg twice a day. 3. Trial of anticonvulsants with Keppra 500 mg twice a day. We will follow up. Thank you for allowing me to see this interesting patient in neurological consultation. Vince Hays M.D. DR: ROSSANA JOB#: [id number] CC:
[2016-08-18] VITALS (7 sets, daily range): BP systolic 137–186; BP diastolic 87–103
[2016-08-18] MEDS: LORazepam Inj 2mg/ml 1ml IV PRN (00:17)
[2016-08-18] MEDS: Tigecycline 50 MG in D5W 110 ML IVPB SCH ×2 (02:17→13:33)
[2016-08-18] MEDS: clonazePAM 0.5mg tab ORAL SCH ×3 (05:56→17:13)
[2016-08-18] MEDS: NovoLOG Insulin Flexpen SUBQ SCH ×3 (05:57→17:14)
[2016-08-18] MEDS ORDERED: Morphine Sulfate 2mg/ml Inj IVP PRN (08:00)
--- NOTE | 2016-08-18 08:01 | General Progress Note ---
Assessment/Plan Problem List: (1) Dysphagia ICD Codes: R13.10 - Dysphagia, unspecified SNOMED: 21372402, 865465133 (2) severe post anoxic encephalopathy (3) intermittent postural hand tremors, doubt seizure event (4) Sepsis ICD Codes: A41.9 - Sepsis, unspecified organism SNOMED: 44924456 (5) Pneumonia ICD Codes: J18.9 - Pneumonia, unspecified organism SNOMED: 090347114 (6) Fever ICD Codes: R50.9 - Fever, unspecified SNOMED: 340141450 Qualifiers: Qualified Codes: O86.4 - Pyrexia of unknown origin following delivery Assessment/Plan iv abx per id monitor cxr resp rx steroids per pulm cautious feeds watch residual ivf monitor renal fxn and volume status zofran for nausea monitor resp status closely. dc bipap Subjective ROS Limited/Unobtainable: Yes Constitutional: Reports: malaise, weakness HEENT: Reports: no symptoms Cardiovascular: Reports: no symptoms Respiratory: Reports: shortness of breath Gastrointestinal/Abdominal: Reports: difficulty swallowing Genitourinary: Reports: no symptoms Neurologic/Psychiatric: Reports: pre-existing deficit Endocrine: Reports: no symptoms Hematologic/Lymphatic: Reports: anemia Allergies: Coded Allergies: No Known Allergies (Unverified , 07/02/16) All Systems: reviewed and negative except above Subjective still on bipap. less sob. no vomiting. tolerating feeds. d/w family. they do not want bipap anymore. conservative rx only Objective Last 24 Hour Vital Signs Date Time Temp Pulse Resp B/P Pulse Ox O2 Delivery O2 Flow Rate FiO2 08/18/16 06:56 78 24 100 Full Face 60 08/18/16 04:46 85 29 95 Full Face 60 08/18/16 04:00 87 08/18/16 04:00 60 08/18/16 04:00 97.0 77 20 155/99 100 Bi-pap 60 08/18/16 02:34 81 24 94 Full Face 60 08/18/16 01:22 74 24 95 Full Face 50 08/18/16 00:00 76 08/18/16 00:00 97.3 77 24 157/94 100 Bi-pap 50 08/18/16 00:00 50 08/17/16 22:50 72 35 99 Full Face 50 08/17/16 21:57 86 139/99 08/17/16 20:00 97.7 86 20 139/99 100 Bi-pap 50 08/17/16 20:00 50 08/17/16 19:52 82 08/17/16 19:47 80 25 95 Full Face 50 08/17/16 16:34 92 28 98 Full Face 50 08/17/16 16:06 50 08/17/16 16:00 97.7 76 22 159/72 100 Bi-pap 50 08/17/16 15:43 80 08/17/16 14:59 94 27 99 Full Face 50 08/17/16 13:01 95 26 98 Full Face 50 08/17/16 12:00 98.2 88 24 140/98 100 Bi-pap 50 08/17/16 12:00 40 08/17/16 12:00 85 08/17/16 10:44 92 28 100 Full Face 50 08/17/16 09:52 104 143/100 08/17/16 09:30 97.7 104 29 143/100 100 Bi-pap 50 08/17/16 09:06 104 27 99 Full Face 50 08/17/16 08:00 40 Intake and Output 08/17/16 08/18/16 19:00 07:00 Intake Total 370 ml 590 ml Output Total 1400 ml 1400 ml Balance -1030 ml -810 ml Intake Free Water 250 ml IV Total 110 ml Tube Feeding 120 ml 480 ml Output Urine Total 1400 ml 1400 ml # Bowel Movements 1 2 Laboratory Tests 08/17/16 09:06: Arterial Blood pH 7.377, Arterial Blood Partial Pressure CO2 60.4*H, Arterial Blood Partial Pressure O2 121.7H, Arterial Blood HCO3 34.7H, Arterial Blood Oxygen Saturation 98.1H, Arterial Blood Base Excess 8.2, Vinny Test Positive Height (Feet): 5 Height (Inches): 8.00 Weight (Pounds): 142 Objective General Appearance: WD/WN, alert. Dyspneic/tachypneic. on bipap Neck: supple Cardiovascular: normal rate, regular rhythm Respiratory/Chest: chest wall non-tender, lungs. decrease bs blanquita. 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
--- NOTE | 2016-08-18 08:27 | Pulmonology Progress Note ---
Assessment/Plan Assessment/Plan IMPRESSION: 1. Evidence of pneumonia. 2. Evidence of acute on chronic renal failure . 3. Evidence of transaminitis. 4. Evidence of severe protein-calorie malnutrition. 5. Anemia. 6. Chronic encephalopathy 7. Hypernatremia 8. Azotemia. 9 Respiratory acidosis 10. patchy infiltrates worse on right PLAN respiratory care as is BIPAP dcd oxygen therapy Antibiotics reviewed maintain meds nutrition as is GT feeds still with extensive infiltrates on cxr wound care aspiration precautions some improvement with solumedrol; taper off in am follow up closely will follow up closely DNR guarded dc planning prognosis poor impression, plan, and exam edited and reviewed in detail care discussed with RN Subjective ROS Limited/Unobtainable: Yes Allergies: Coded Allergies: No Known Allergies (Unverified , 07/02/16) Subjective care noted and reviewed per family aware of poor px do not want BIPAP any longer Objective Last 24 Hour Vital Signs Date Time Temp Pulse Resp B/P Pulse Ox O2 Delivery O2 Flow Rate FiO2 08/18/16 08:00 97.9 81 20 137/87 100 Venturi Mask 45 08/18/16 06:56 78 24 100 Full Face 60 08/18/16 04:46 85 29 95 Full Face 60 08/18/16 04:00 87 08/18/16 04:00 60 08/18/16 04:00 97.0 77 20 155/99 100 Bi-pap 60 08/18/16 02:34 81 24 94 Full Face 60 08/18/16 01:22 74 24 95 Full Face 50 08/18/16 00:00 76 08/18/16 00:00 97.3 77 24 157/94 100 Bi-pap 50 08/18/16 00:00 50 08/17/16 22:50 72 35 99 Full Face 50 08/17/16 21:57 86 139/99 08/17/16 20:00 97.7 86 20 139/99 100 Bi-pap 50 08/17/16 20:00 50 08/17/16 19:52 82 08/17/16 19:47 80 25 95 Full Face 50 08/17/16 16:34 92 28 98 Full Face 50 08/17/16 16:06 50 08/17/16 16:00 97.7 76 22 159/72 100 Bi-pap 50 08/17/16 15:43 80 08/17/16 14:59 94 27 99 Full Face 50 08/17/16 13:01 95 26 98 Full Face 50 08/17/16 12:00 98.2 88 24 140/98 100 Bi-pap 50 08/17/16 12:00 40 08/17/16 12:00 85 08/17/16 10:44 92 28 100 Full Face 50 08/17/16 09:52 104 143/100 08/17/16 09:30 97.7 104 29 143/100 100 Bi-pap 50 08/17/16 09:06 104 27 99 Full Face 50 Intake and Output 08/17/16 08/18/16 19:00 07:00 Intake Total 370 ml 590 ml Output Total 1400 ml 1400 ml Balance -1030 ml -810 ml Intake Free Water 250 ml IV Total 110 ml Tube Feeding 120 ml 480 ml Output Urine Total 1400 ml 1400 ml # Bowel Movements 1 2 Objective WDWN off BIPAP NAD EOMI reduced breath sounds bilaterally with some rhonchi S1S2 RRR without MRG NABS nontender no HSM; GT no CCE nonfocal poor LOC skin noted- wounds noted reviewed and edited Laboratory Tests 08/17/16 09:06: Arterial Blood pH 7.377, Arterial Blood Partial Pressure CO2 60.4*H, Arterial Blood Partial Pressure O2 121.7H, Arterial Blood HCO3 34.7H, Arterial Blood Oxygen Saturation 98.1H, Arterial Blood Base Excess 8.2, Vinny Test Positive Current Medications Medications (Trade) Dose Ordered Sig/Alex Route PRN Reason Start Time Stop Time Status Last Admin Dose Admin Acetaminophen (Tylenol) 650 mg Q4H PRN GT Mild Pain/Temp > 100.5 08/12/16 20:00 09/11/16 19:59 08/14/16 12:13 Amiodarone HCl 200 mg 200 mg EVERY OTHER DAY GT 08/14/16 09:00 09/13/16 08:59 08/16/16 09:17 Ascorbic Acid (Vitamin C) 500 mg TWICE A DAY GT 08/13/16 09:00 09/12/16 08:59 08/17/16 18:43 Chlorhexidine Gluconate (Tabitha-Hex 2%) 1 applic DAILY TOPIC 08/13/16 09:00 09/12/16 08:59 08/17/16 14:37 Clonazepam (KlonoPIN) 0.5 mg Q6HR ORAL 08/17/16 13:00 08/24/16 12:59 08/18/16 05:56 Dextrose (Dextrose 50%) STAT PRN IV Hypoglycemia 08/12/16 19:45 09/11/16 19:44 Heparin Sodium (Porcine) (Heparin 5000 units/ml) 5,000 units EVERY 12 HOURS SUBQ 08/12/16 21:00 09/11/16 20:59 08/17/16 21:58 Insulin Aspart (NovoLOG) Q6HR SUBQ 08/13/16 00:00 09/12/16 00:00 08/18/16 05:57 Linezolid (Zyvox) 600 mg Q12HR GT 08/16/16 21:00 08/19/16 20:59 08/17/16 21:57 Lorazepam (Ativan 2mg/ml 1ml) 1 mg TID PRN IV For Anxiety 08/15/16 08:30 08/22/16 08:29 08/18/16 00:17 Methylprednisolone Sodium Succinate (Solu-MEDROL) 40 mg DAILY IVP 08/17/16 09:00 09/16/16 08:59 08/17/16 09:45 Metoprolol Tartrate (Lopressor) 25 mg Q12HR GT 08/16/16 21:00 09/15/16 20:59 08/17/16 21:57 Morphine Sulfate (Morphine Sulfate) 2 mg Q4H PRN IVP For Pain 4-10 or SOB 08/18/16 08:01 08/25/16 07:59 Tigecycline/ Dextrose (Tygacil/D5W) 110 ml @ 220 mls/hr Q12HR@0200,1400 IVPB 08/15/16 02:00 08/22/16 01:59 08/18/16 02:17 ESHA BEY Aug 18, 2016 08:27
[2016-08-18] MEDS: Dyna-Hex 2% Top Sol 8oz TOPIC SCH (08:30)
[2016-08-18] MEDS: Metoprolol 25mg tab GT SCH ×2 (08:30→21:22)
[2016-08-18] MEDS: Solu-MEDROL 40mg Inj IVP SCH (08:30)
[2016-08-18] MEDS: Amiodarone 200mg tab GT SCH (08:30)
[2016-08-18] MEDS: Ascorbic Acid 500mg tab GT SCH ×2 (08:30→17:13)
[2016-08-18] MEDS: Heparin 5000 units/ml inj SUBQ SCH ×2 (08:32→21:27)
--- NOTE | 2016-08-18 11:46 | Infectious Diseases Prog Note ---
"Assessment/Plan Assessment/Plan antibiotics : linezolid iv, tygacil A 1. staph sepsis ? 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 acenitobacter | proteus pneumonia 4. DM 5. COPD 6. respiratory failure 7. renal failure improving P 1. continue linezolid, tygacil 2. start ceftriaxone 3. will follow up cultures Subjective ROS Limited/Unobtainable: Yes Allergies: Coded Allergies: No Known Allergies (Unverified , 07/02/16) Objective Vital Signs Last 24 Hour Vital Signs Date Time Temp Pulse Resp B/P Pulse Ox O2 Delivery O2 Flow Rate FiO2 08/18/16 08:30 81 137/87 08/18/16 08:00 97.9 81 20 137/87 100 Venturi Mask 45 08/18/16 07:59 81 08/18/16 06:56 78 24 100 Full Face 60 08/18/16 04:46 85 29 95 Full Face 60 08/18/16 04:00 87 08/18/16 04:00 60 08/18/16 04:00 97.0 77 20 155/99 100 Bi-pap 60 08/18/16 02:34 81 24 94 Full Face 60 08/18/16 01:22 74 24 95 Full Face 50 08/18/16 00:00 76 08/18/16 00:00 97.3 77 24 157/94 100 Bi-pap 50 08/18/16 00:00 50 08/17/16 22:50 72 35 99 Full Face 50 08/17/16 21:57 86 139/99 08/17/16 20:00 97.7 86 20 139/99 100 Bi-pap 50 08/17/16 20:00 50 08/17/16 19:52 82 08/17/16 19:47 80 25 95 Full Face 50 08/17/16 16:34 92 28 98 Full Face 50 08/17/16 16:06 50 08/17/16 16:00 97.7 76 22 159/72 100 Bi-pap 50 08/17/16 15:43 80 08/17/16 14:59 94 27 99 Full Face 50 08/17/16 13:01 95 26 98 Full Face 50 08/17/16 12:00 98.2 88 24 140/98 100 Bi-pap 50 08/17/16 12:00 40 08/17/16 12:00 85 Height (Feet): 5 Height (Inches): 8.00 Weight (Pounds): 142 HEENT: other - off bipap Respiratory/Chest: lungs clear Cardiovascular: normal rate, regular rhythm, no gallop/murmur Abdomen: soft, non tender, other - GT Extremities: no edema, other - right arm PICC YEVGENIY GARCIA Aug 18, 2016 11:46"
[2016-08-18] MEDS: cefTRIAXone 1 GM in D5W 55 ML IVPB SCH (12:40)
--- NOTE | 2016-08-18 13:52 | Wound Care Consultation ---
Wound Assessment Wound Assessment #1: Wound Number: #1 Wound Present on Admission: Yes New Wound: No Status Change of Wound: No Wound Location Body Site Modif: mid Wound Location Body Site: sacral Wound Type: pressure ulcer Garry Test: Does not Garry Pressure Ulcer Stage: IV/unstageable Wound Thickness: Full Thickness Wound Length: 9.0 Wound Width: 8.5 Wound Depth: 0.5 Percent of Wound [place]/Red: 95 Percent of Wound Bed Yellow/Wh: 5 Wound Drainage Description: Serosanguineous Wound Drainage Amount: Moderate Wound Drainage Odor: None/Absent Tissue Surrounding Wound: Macerated Wound Undermining at 12:00: 1.0 Wound Undermining at 3:00: 1.0 Wound General Appearance: Reddened, Draining Wound Assessment #2: Wound Number: #2 Wound Present on Admission: Yes New Wound: No Status Change of Wound: No Wound Location Body Site Modif: right Wound Location Body Site: trochanter Wound Type: pressure ulcer Garry Test: Does not Garry Pressure Ulcer Stage: deep tissue injury Wound Thickness: Full Thickness Wound Length: 6.0 Wound Width: 6.0 Wound Depth: utd Percent of Wound Black/Brown: 100 - mcleod color Wound Drainage Amount: None Wound Drainage Odor: None/Absent Tissue Surrounding Wound: Intact Wound General Appearance: Bone Palpable Wound Assessment #3: Wound Number: #3 Wound Present on Admission: Yes New Wound: No Status Change of Wound: No Wound Location Body Site Modif: left Wound Location Body Site: ear Wound Type: pressure ulcer Garry Test: Does not Garry Pressure Ulcer Stage: IV/unstageable - noted good progress decrease in size. Wound Thickness: Full Thickness Wound Length: 2.0 Wound Width: 1.0 Wound Depth: 0.2 Percent of Wound [place]/Red: 100 Wound Drainage Description: Serosanguineous Wound Drainage Amount: Scant Wound Drainage Odor: None/Absent Tissue Surrounding Wound: Erythemic Wound General Appearance: Reddened Wound Assessment #4: Wound Number: #4 Wound Present on Admission: Yes New Wound: No Status Change of Wound: No Wound Location Body Site Modif: right Wound Location Body Site: ear Wound Type: pressure ulcer Garry Test: Does not Garry Pressure Ulcer Stage: IV/unstageable Wound Thickness: Full Thickness Wound Length: 2.5 Wound Width: 1.0 Wound Depth: 0.2 Percent of Wound [place]/Red: 100 Wound Drainage Description: Serosanguineous Wound Drainage Amount: Scant Wound Drainage Odor: None/Absent Tissue Surrounding Wound: Erythemic Wound General Appearance: Reddened Wound Assessment #5: Wound Number: #5 Wound Present on Admission: Yes New Wound: No Status Change of Wound: No Wound Location Body Site Modif: left, medial Wound Location Body Site: malleolus/ankle Wound Type: pressure ulcer Garry Test: Does not Garry Pressure Ulcer Stage: deep tissue injury Wound Thickness: Full Thickness Wound Length: 4.0 Wound Width: 3.0 Wound Depth: UTD Percent of Wound Purple/Maroon: 100 Wound Drainage Amount: None Wound Drainage Odor: None/Absent Tissue Surrounding Wound: Intact Wound General Appearance: Reddened - MAROON Wound Assessment #6: Wound Number: #6 Wound Present on Admission: Yes New Wound: No Status Change of Wound: No Wound Location Body Site Modif: left Wound Location Body Site: toe - 1ST Wound Type: pressure ulcer Garry Test: Does not Garry Pressure Ulcer Stage: deep tissue injury Wound Thickness: Full Thickness Wound Length: 1.5 Wound Width: 1.5 Wound Depth: UTD Percent of Wound Purple/Maroon: 100 Wound Drainage Amount: None Wound Drainage Odor: None/Absent Tissue Surrounding Wound: Intact Wound General Appearance: Reddened - MAROON Wound Assessment #7: Wound Number: #7 Wound Present on Admission: Yes New Wound: No Status Change of Wound: No Wound Location Body Site Modif: left Wound Location Body Site: metatarsal head - 1ST Wound Type: pressure ulcer Garry Test: Does not Garry Pressure Ulcer Stage: deep tissue injury Wound Thickness: Full Thickness Wound Length: 1.0 Wound Width: 0.5 Wound Depth: UTD Percent of Wound Purple/Maroon: 100 Wound Drainage Amount: None Wound Drainage Odor: None/Absent Tissue Surrounding Wound: Intact Wound General Appearance: Reddened - MAROON Wound Assessment #8: Wound Number: #8 Wound Present on Admission: Yes New Wound: No Status Change of Wound: No Wound Location Body Site Modif: left, mid, medial Wound Location Body Site: foot Wound Type: pressure ulcer Garry Test: Does not Garry Pressure Ulcer Stage: deep tissue injury Wound Thickness: Full Thickness Wound Length: 2.0 Wound Width: 2.0 Wound Depth: UTD Percent of Wound Purple/Maroon: 100 Wound Drainage Amount: None Wound Drainage Odor: None/Absent Tissue Surrounding Wound: Intact Wound General Appearance: Reddened - MAROON Wound Assessment #9: Wound Number: #9 Wound Present on Admission: Yes New Wound: No Status Change of Wound: No Wound Location Body Site Modif: right Wound Location Body Site: heel Wound Type: pressure ulcer Garry Test: Does not Garry Pressure Ulcer Stage: III Wound Thickness: Full Thickness Wound Length: 2.5 Wound Width: 2.5 Wound Depth: 0.2 Percent of Wound [place]/Red: 100 Wound Drainage Description: Serosanguineous Wound Drainage Amount: Scant Wound Drainage Odor: None/Absent Tissue Surrounding Wound: Macerated Wound General Appearance: Reddened Wound Assessment #10: Wound Number: #10 Wound Present on Admission: Yes New Wound: No Status Change of Wound: No Wound Location Body Site Modif: left Wound Location Body Site: elbow Wound Type: pressure ulcer Garry Test: Does not Garry Pressure Ulcer Stage: IV/unstageable Wound Thickness: Full Thickness Wound Length: 3.0 Wound Width: 3.0 Wound Depth: UTD Percent of Wound [place]/Red: 40 Percent of Wound Bed Yellow/Wh: 60 Wound Drainage Description: Serosanguineous Wound Drainage Amount: Moderate Wound Drainage Odor: None/Absent Tissue Surrounding Wound: Macerated Wound General Appearance: Reddened, Draining, Necrotic Wound Assessment #11: Wound Number: #11 Wound Present on Admission: Yes New Wound: No Status Change of Wound: No Wound Location Body Site Modif: left Wound Location Body Site: trochanter Wound Type: pressure ulcer Garry Test: Does not Garry Pressure Ulcer Stage: IV/unstageable Wound Thickness: Full Thickness Wound Length: 10.0 Wound Width: 7.0 Wound Depth: UTD Percent of Wound [place]/Red: 5 Percent of Wound Bed Yellow/Wh: 10 Percent of Wound Black/Brown: 85 Wound Drainage Description: Serosanguineous Wound Drainage Amount: Moderate Wound Drainage Odor: None/Absent Tissue Surrounding Wound: Macerated Wound General Appearance: Reddened, Blackened, Draining, Necrotic Wound Assessment #12: Wound Number: #12 Wound Present on Admission: Yes New Wound: No Status Change of Wound: No Wound Location Body Site Modif: left Wound Location Body Site: ischial tuberosity Wound Type: pressure ulcer Garry Test: Does not Garry Pressure Ulcer Stage: IV/unstageable Wound Thickness: Full Thickness Wound Length: 3.0 Wound Width: 3.0 Wound Depth: 0.3 Percent of Wound [place]/Red: 100 Wound Drainage Description: Serosanguineous Wound Drainage Amount: Moderate Wound Drainage Odor: None/Absent Tissue Surrounding Wound: Macerated Wound General Appearance: Reddened, Draining Wound Assessment #13: Wound Number: #13 Wound Present on Admission: Yes New Wound: No Status Change of Wound: No Wound Location Body Site Modif: left, lateral Wound Location Body Site: malleolus/ankle Wound Type: pressure ulcer Garry Test: Does not Garry Wound Thickness: Full Thickness Wound Length: 3.0 Wound Width: 3.0 Wound Depth: UTD Percent of Wound Bed Yellow/Wh: 10 Percent of Wound Black/Brown: 90 Wound Drainage Description: Serosanguineous Wound Drainage Amount: Scant Wound Drainage Odor: None/Absent Tissue Surrounding Wound: Erythemic Wound General Appearance: Necrotic Wound Assessment #14: Wound Number: #14 Wound Present on Admission: Yes New Wound: No Status Change of Wound: No Wound Location Body Site Modif: left, mid, lateral Wound Location Body Site: foot Wound Type: pressure ulcer Garry Test: Does not Garry Pressure Ulcer Stage: IV/unstageable Wound Thickness: Full Thickness Wound Length: 2.0 Wound Width: 2.0 Wound Depth: UTD Percent of Wound Bed Yellow/Wh: 10 Percent of Wound Black/Brown: 90 Wound Drainage Description: Serosanguineous Wound Drainage Amount: Scant Wound Drainage Odor: None/Absent Tissue Surrounding Wound: Erythemic Wound General Appearance: Necrotic Wound Assessment #15: Wound Number: #15 Wound Present on Admission: Yes New Wound: No Status Change of Wound: No Wound Location Body Site Modif: right Wound Location Body Site: elbow Wound Type: pressure ulcer Garry Test: Does not Garry Pressure Ulcer Stage: IV/unstageable - with full thickness scar to surrounding tissue. Wound Thickness: Full Thickness Wound Length: 3.0 Wound Width: 3.0 Wound Depth: utd Percent of Wound [place]/Red: 20 Percent of Wound Bed Yellow/Wh: 80 Wound Drainage Amount: Scant Wound Drainage Odor: None/Absent Tissue Surrounding Wound: Macerated Wound General Appearance: Reddened, Necrotic Wound Assessment #16: Wound Number: #16 Wound Present on Admission: Yes New Wound: No Status Change of Wound: No Wound Location Body Site Modif: left, lower Wound Location Body Site: buttocks Wound Type: scar - scattered Garry Test: Does not Garry Wound Thickness: Full Thickness Percent of Wound [place]/Red: 100 Wound Drainage Amount: None Wound Drainage Odor: None/Absent Tissue Surrounding Wound: Intact Wound General Appearance: Asymptomatic Wound Assessment #17: Wound Number: #17 Wound Present on Admission: No New Wound: Yes Status Change of Wound: No Wound Location Body Site Modif: left Wound Location Body Site: other - upper chin Wound Type: pressure ulcer Garry Test: Does not Garry Pressure Ulcer Stage: II Wound Thickness: Partial Thickness Wound Length: 1.0 Wound Width: 1.0 Wound Depth: <0.1 Percent of Wound [place]/Red: 100 Wound Drainage Amount: None Wound Drainage Odor: None/Absent Tissue Surrounding Wound: Erythemic Wound General Appearance: Reddened Wound Assessment #18: Wound Number: #18 Wound Present on Admission: No New Wound: Yes Status Change of Wound: No Wound Location Body Site: nose - bridge of nose Wound Type: pressure ulcer Garry Test: Does not Garry Pressure Ulcer Stage: II Wound Thickness: Partial Thickness Wound Length: 1.0 Wound Width: 2.0 Wound Depth: <0.1 Percent of Wound [place]if[place]/Red: 100 - noted site dry. Wound Drainage Amount: None Wound Drainage Odor: None/Absent Tissue Surrounding Wound: Erythemic Wound General Appearance: Reddened Wound Comment #1 mid sacral pressure ulcer stage IV.- no further deterioration present, current wound care effective. #2 right trochanter deep tissue injury.-no further deterioration present. skin remains intact. #3 left ear pressure ulcer stage IV/Unstageable.-no further deterioration present, current wound care effective. #4 right ear pressure ulcer stage IV/Unstageable- no further deterioration present, current wound care effective. #5 left medial malleolus deep tissue injury-no further deterioration present, skin remains intact. #6 left 1st toe deep tissue injury-no further deterioration present, skin remains intact. #7 left 1st metatarsal head deep tissue injury.-no further deterioration present , skin remains intact. #8 left mid medial foot deep tissue injury-no further deterioration present, skin remains intact. #9 right heel pressure ulcer stage III.-no further deterioration present, current wound care effective. #10 left elbow pressure ulcer stage IV/Unstageable.-no further deterioration present,current wound care effective. #11 left trochanter pressure ulcer stage IV/Unstageable.-no further deterioration present, current wound care effective. #12 left ischial tuberosity pressure ulcer stage IV/Unstageable.-no further deterioration present, wound care effective. #13 left lateral malleolus pressure ulcer stage IV/Unstageable.-no further deterioration present, current wound care effective. #14 left mid lateral foot pressure ulcer stage IV/Unstageable -no further deterioration present, current wound care effective. #15 right elbow pressure ulcer stage IV/Unstageable-no further deterioration present, current wound care effective. #16 left lower buttocks scattered full thickness scar tissue.- no further deterioration present, skin intact. #17 left upper chin stage II pressure ulcer. #18 bridge of nose stage II pressure ulcer. Recommendations. -Low air loss mattress. -turn and reposition. -offload affected sites. -keep clean and dry. -heel protectors. -offload heels and feet. -optimize nutrition. -avoid shear and friction. -assess and notify MD for any further changes of condition in skin noted. ERIC DAMON Aug 18, 2016 13:52
--- NOTE | 2016-08-18 14:15 | Neurology Progress Note ---
Interim History Interim History ROS Limited/Unobtainable: Yes Complaints: coma Events: less prominant generalised jercs Objective Physical Exam Last Vital Signs Date Time Temp Pulse Resp B/P Pulse Ox O2 Delivery O2 Flow Rate FiO2 08/18/16 12:00 85 08/18/16 11:52 97.9 22 157/103 100 Venturi Mask 55 08/13/16 19:06 4.0 General: other - ill appearing Neurologic Exam Mental Status: other - unresponsive Speech: other Language: other Cranial Nerve II: other Cranial Nerves III, IV, : PERRLA, EOMI, pupils Cranial Nerve V: normal facial sensations Cranial Nerve VII: no facial asymmetry Cranial Nerve VIII: no nystagmus Cranial Nerve IX: other - poor gag Cranial Nerve XI: other Cranial Nerve XII: tongue midline Motor System: other - diffuse rigidity Sensory: other Coordination: other Deep Tendon Reflexes: 0 ankle (L), 0 ankle (R), 0 bicep (L), 0 bicep (R), 0 brachioradialis (L), 0 brachioradialis (R), 0 knee (L), 0 knee (R), 0 tricep (L) , 0 tricep (R) Reflexes: mute plantar (L), mute plantar (R) Impression/Recommendations Problems: (1) severe anoxic/metabolic encephalopathy (2) status epilepticus, burnd out, refractory (3) Coma scale finding of spontaneous eye opening Status: stable, not improved, unchanged Recommendations #[id number] EEG + PLEDs keppra 1000mg bid OLGA HERNANDEZ Aug 18, 2016 14:15
[2016-08-18] MEDS: Morphine Sulfate 2mg/ml Inj IVP PRN (15:55)
--- NOTE | 2016-08-18 16:05 | Diagnostic Imaging Report ---
Indication: Dyspnea Comparison: 08/15/16 A single view chest radiograph was obtained. Findings: Extensive infiltrate demonstrated in the right lung, which may be slightly worse. Heart is enlarged but stable. There is a probable small left pleural effusion. A short right PICC line is again noted. Impression: Extensive right pulmonary infiltrates slightly worse compared to the previous day. Please correlate clinically
[2016-08-18] MEDS ORDERED: Dyna-Hex 2% Top Sol 8oz TOPIC SCH (21:00)
--- NOTE | 2016-08-18 21:45 | Electroencephalogram ---
DATE OF PROCEDURE: 08/17/2016 ELECTROENCEPHALOGRAPHY REPORT: REQUESTING PHYSICIAN: Jair Carlson M.D. HISTORY: This is a 70-year-old man with severe anoxic encephalopathy, presenting with intermittent postural hand tremors and generalized body jerking, currently off anticonvulsants, on BiPAP, and nonverbal. TECHNIQUE: EEG was done using 18 electrodes placed [id number] and [id number] montages, according to 10[employer] System. The patient described as appearing awake, poorly cooperative, and aphasic. Most of recording background activity consists of [id number] voltage, mixture of 3-6 cycles per second, slow or sharply contoured slow wave activities, mixed with multiple generalized spike transients predominantly in the bilateral central region. Epochs of a higher voltage multi-spike transients predominantly in the mid central area, times corresponding to EMG artifacts, registered from right lower extremity. The patient described meanwhile having head and shoulder tremors. IMPRESSION: Abnormal EEG in presence of significant diffuse slowing with intermittent slow/sharp wave generalized transients with generalized spikes followed by occasional generalized suppression. Significant amount of EMG artifact detectable. COMMENT: Above abnormality indicates presence of global cerebral dysfunction with generalized epileptiform activity predominantly central areas. The finding carries a poor prognosis and may represent high risk of seizure disorder. Clinical correlation is necessary. Vince Hays M.D. DR: Juan Francisco JOB#: [id number] CC:
[2016-08-19] VITALS: BP 157/93
[2016-08-19] MEDS: clonazePAM 0.5mg tab ORAL SCH ×4 (00:09→18:36)
[2016-08-19] MEDS: NovoLOG Insulin Flexpen SUBQ SCH ×4 (00:12→18:36)
--- NOTE | 2016-08-19 01:15 | Progress Note ---
DATE: 08/17/2016 CARDIOLOGY PROGRESS NOTE: This is a late entry for 08/17/2016 . SUBJECTIVE: The patient's condition has not improved. He remains on BiPAP support. He continues to have respiratory distress and requiring around the clock respiratory management. IV steroids were added. OBJECTIVE: VITAL SIGNS: Blood pressure 137/97, heart rate 100, respiratory rate 24 to 30, no fevers. LUNGS: Coarse breath sounds with rhonchi. HEART: Regular rhythm and rate. Normal S1, S2. ABDOMEN: Soft. G-tube intact. EXTREMITIES: Trace edema. NEUROLOGIC: Noncommunicative state. LABORATORY AND DIAGNOSTIC DATA: ABG, pH 7.37, 60, and 121. Chest x-ray reviewed right pulmonary infiltrate and interstitial edema. IMPRESSION: 1. Acute on chronic respiratory acidosis. 2. Respiratory failure. 3. Secondary sinus tachycardia. 4. Healthcare acquired pneumonia. 5. Severe encephalopathy. 6. Paroxysmal atrial fibrillation. 7. Severe protein-calorie malnutrition. PLAN: Antimicrobials. Respiratory hygiene. Hold diuresis. Nutrition by feeding tube. No new cardiovascular medications at this time. Prognosis is poor. Natalio Wisdom M.D. DR: Balta JOB#: [id number] CC:
[2016-08-19] MEDS: Morphine Sulfate 2mg/ml Inj IVP PRN ×3 (01:29→15:09)
--- NOTE | 2016-08-19 01:30 | Progress Note ---
DATE: 08/18/2016 CARDIOLOGY PROGRESS NOTE: SUBJECTIVE: Condition remains poor. The patient is on IV antibiotics. Positive blood cultures for Staphylococcus aureus several days ago. Continue aggressive respiratory hygiene. OBJECTIVE: VITAL SIGNS: Afebrile, blood pressure 137/87, heart rate 81, respiratory rate 20, and he is on BiPAP periodically. LUNGS: Coarse rhonchi. HEART: Regular rhythm and rate. Normal S1, S2. ABDOMEN: Soft with G-tube. EXTREMITIES: Trace dependent edema. IMPRESSION: 1. Healthcare-acquired pneumonia. 2. Respiratory failure. 3. Acute and chronic respiratory acidosis. 4. Possible endocarditis. 5. Type 2 diabetes mellitus. 6. Acute and chronic diastolic congestive heart failure. 7. Prerenal azotemia. 8. Severe encephalopathy. PLAN: High risk for transesophageal echocardiogram. Empiric therapy for endocarditis. Respiratory hygiene. Follow up laboratory studies. Trend natriuretic peptide assay. Periodic diuresis. Natalio Wisdom M.D. DR: Balta JOB#: [id number] CC:
[2016-08-19] MEDS: Tigecycline 50 MG in D5W 110 ML IVPB SCH ×2 (01:38→14:00)
[2016-08-19 04:00] VITALS: BP 138/87
[2016-08-19 04:41] LABS: EOSINOPHILS % (AUTO) 0.4 % (0.0-3.0); LYMPHOCYTES % (AUTO) 11.5 % (20.0-45.0); MEAN CORPUSCULAR HEMOGLOBIN 29.9 PG (27.0-31.0); MEAN CORPUSCULAR HGB CONC 31.3 G/DL (32.0-36.0); MEAN CORPUSCULAR VOLUME 95 FL (80-99); MEAN PLATELET VOLUME 8.6 FL (6.5-10.1); MONOCYTES % (AUTO) 10.3 % (1.0-10.0); NEUTROPHILS % (AUTO) 76.9 % (45.0-75.0); PLATELET COUNT 104 K/UL (150-450); RED BLOOD COUNT 2.98 M/UL (4.70-6.10); RED CELL DISTRIBUTION WIDTH 15.1 % (11.6-14.8); WHITE BLOOD COUNT 6.3 K/UL (4.8-10.8)
[2016-08-19 05:29] LABS: ALANINE AMINOTRANSFERASE 18 U/L (3-41); ALBUMIN/GLOBULIN RATIO 0.5 (1.0-2.7); ANION GAP 5 (5-15); ASPARTATE AMINO TRANSFERASE 16 U/L (5-40); CALCIUM 9.3 mg/dL (8.6-10.2); CARBON DIOXIDE 39 mEQ/L (20-30); CHLORIDE 103 mEQ/L (98-107); CREATININE 0.9 mg/dL (0.7-1.2); GLOMERULAR FILTRATION RATE > 60 mL/min (>60); HEMOLYSIS 4; MAGNESIUM 2.1 mg/dL (1.7-2.5); POTASSIUM 4.5 mEQ/L (3.4-4.9); SODIUM 147 mEQ/L (135-145); TOTAL PROTEIN 6.6 g/dL (6.6-8.7)
--- NOTE | 2016-08-19 07:58 | General Progress Note ---
Assessment/Plan Problem List: (1) Dysphagia ICD Codes: R13.10 - Dysphagia, unspecified SNOMED: 96623891, 561599839 (2) severe post anoxic encephalopathy (3) intermittent postural hand tremors, doubt seizure event (4) Sepsis ICD Codes: A41.9 - Sepsis, unspecified organism SNOMED: 38643752 (5) Pneumonia ICD Codes: J18.9 - Pneumonia, unspecified organism SNOMED: 401223424 (6) Fever ICD Codes: R50.9 - Fever, unspecified SNOMED: 292141471 Qualifiers: Qualified Codes: O86.4 - Pyrexia of unknown origin following delivery Status: deteriorating Assessment/Plan comfort care appears to be actively dying. d/w family yesterday Subjective ROS Limited/Unobtainable: Yes Constitutional: Reports: malaise, weakness HEENT: Reports: no symptoms Cardiovascular: Reports: no symptoms Respiratory: Reports: no symptoms Gastrointestinal/Abdominal: Reports: difficulty swallowing Genitourinary: Reports: no symptoms Neurologic/Psychiatric: Reports: pre-existing deficit Endocrine: Reports: no symptoms Hematologic/Lymphatic: Reports: no symptoms Allergies: Coded Allergies: No Known Allergies (Unverified , 07/02/16) All Systems: reviewed and negative except above Subjective off bipap. breathing pattern has become shallow/agonal Objective Last 24 Hour Vital Signs Date Time Temp Pulse Resp B/P Pulse Ox O2 Delivery O2 Flow Rate FiO2 08/19/16 04:00 98.4 74 16 138/87 100 Nasal Cannula 08/19/16 04:00 80 08/19/16 00:00 97.6 68 17 157/93 100 Nasal Cannula 08/19/16 00:00 76 08/18/16 21:52 85 22 167/88 100 Nasal Cannula 08/18/16 21:22 85 186/94 08/18/16 20:00 83 08/18/16 20:00 97.7 85 16 186/94 100 Nasal Cannula 08/18/16 20:00 80 08/18/16 16:00 75 08/18/16 16:00 98.0 86 19 157/88 100 Venturi Mask 55 08/18/16 12:00 85 08/18/16 11:52 97.9 82 22 157/103 100 Venturi Mask 55 08/18/16 08:30 81 137/87 08/18/16 08:00 97.9 81 20 137/87 100 Venturi Mask 45 08/18/16 07:59 81 Intake and Output 08/18/16 08/19/16 19:00 07:00 Intake Total 992.2 ml 560 ml Output Total 1900 ml 1700 ml Balance -907.8 ml -1140 ml Intake Free Water 120 ml IV Total 392.2 ml Tube Feeding 480 ml 440 ml Other 120 ml Output Urine Total 1900 ml 1700 ml # Bowel Movements 4 2 Laboratory Tests 08/19/16 04:00: White Blood Count 6.3, Red Blood Count 2.98L, Hemoglobin 8.9L, Hematocrit 28.4L , Mean Corpuscular Volume 95, Mean Corpuscular Hemoglobin 29.9, Mean Corpuscular Hemoglobin Concent 31.3L, Red Cell Distribution Width 15.1H, Platelet Count 104L, Mean Platelet Volume 8.6, Neutrophils (%) (Auto) 76.9H, Lymphocytes (%) (Auto) 11.5L, Monocytes (%) (Auto) 10.3H, Eosinophils (%) (Auto ) 0.4, Basophils (%) (Auto) 1.0, Sodium Level 147H, Potassium Level 4.5, Chloride Level 103, Carbon Dioxide Level 39H, Anion Gap 5, Blood Urea Nitrogen 81H, Creatinine 0.9, Estimat Glomerular Filtration Rate > 60, Glucose Level 113H , Calcium Level 9.3, Magnesium Level 2.1, Total Bilirubin 0.3, Aspartate Amino Transf (AST/SGOT) 16, Alanine Aminotransferase (ALT/SGPT) 18, Alkaline Phosphatase 117, Pro-B-Type Natriuretic Peptide 11327E, Total Protein 6.6, Albumin 2.3L, Globulin 4.3, Albumin/Globulin Ratio 0.5L Height (Feet): 5 Height (Inches): 8.00 Weight (Pounds): 129 Objective General Appearance: WD/WN, alert. Dyspneic/tachypneic. on bipap Neck: supple Cardiovascular: normal rate, regular rhythm Respiratory/Chest: chest wall non-tender, lungs. decrease bs blanquita. rhonchi bilaterally Abdomen: normal bowel sounds, non tender, soft, no organomegaly Edema: no edema noted Arm (L), no edema noted Arm (R), no edema noted Leg (L), no edema noted Leg (R), no edema noted Pedal (L), no edema noted Pedal (R), no edema noted Generalized Edema: trace edema Neurologic: health safety and environment manager II-XII grossly normal, no motor/sensory deficits, abnormal gait , alert but confused Skin: normal pigmentation FAWN PORTER Aug 19, 2016 07:58
[2016-08-19 08:00] VITALS: BP 121/79
[2016-08-19] MEDS: Solu-MEDROL 40mg Inj IVP SCH (08:38)
[2016-08-19] MEDS: Ascorbic Acid 500mg tab GT SCH ×2 (08:38→18:36)
[2016-08-19] MEDS: Metoprolol 25mg tab GT SCH (08:38)
[2016-08-19] MEDS: Heparin 5000 units/ml inj SUBQ SCH (08:40)
[2016-08-19] MEDS ORDERED: NS 550ML IV ONE (10:23)
[2016-08-19] MEDS ORDERED: D5 1/2NS 1000ml IV ONE (10:23)
[2016-08-19] MEDS ORDERED: NS 275ml ONE (10:23)
[2016-08-19] MEDS ORDERED: Tubing IV Secondary IV ONE (10:23)
--- NOTE | 2016-08-19 10:29 | Infectious Diseases Prog Note ---
"Assessment/Plan Assessment/Plan antibiotics : linezolid iv, tygacil, ceftriaxone A 1. staph sepsis ? 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 acenitobacter | proteus pneumonia 4. DM 5. COPD 6. respiratory failure 7. renal failure improving P 1. continue linezolid, tygacil 2. continue ceftriaxone 3. will follow up cultures Subjective ROS Limited/Unobtainable: Yes Allergies: Coded Allergies: No Known Allergies (Unverified , 07/02/16) Objective Vital Signs Last 24 Hour Vital Signs Date Time Temp Pulse Resp B/P Pulse Ox O2 Delivery O2 Flow Rate FiO2 08/19/16 08:38 70 121/79 08/19/16 08:00 96.0 70 25 121/79 100 Venturi Mask 55 08/19/16 04:00 98.4 74 16 138/87 100 Nasal Cannula 08/19/16 04:00 80 08/19/16 00:00 97.6 68 17 157/93 100 Nasal Cannula 08/19/16 00:00 76 08/18/16 21:52 85 22 167/88 100 Nasal Cannula 08/18/16 21:22 85 186/94 08/18/16 20:00 83 08/18/16 20:00 97.7 85 16 186/94 100 Nasal Cannula 08/18/16 20:00 80 08/18/16 16:00 75 08/18/16 16:00 98.0 86 19 157/88 100 Venturi Mask 55 08/18/16 12:00 85 08/18/16 11:52 97.9 82 22 157/103 100 Venturi Mask 55 Height (Feet): 5 Height (Inches): 8.00 Weight (Pounds): 129 Respiratory/Chest: lungs clear Cardiovascular: normal rate, regular rhythm, no gallop/murmur Abdomen: soft, non tender, other - GT Extremities: no edema, other - right arm PICC Laboratory Tests Test 08/19/16 04:00 White Blood Count 6.3 K/UL (4.8-10.8) Red Blood Count 2.98 M/UL (4.70-6.10) L Hemoglobin 8.9 G/DL (14.2-18.0) L Hematocrit 28.4 % (42.0-52.0) L Mean Corpuscular Volume 95 FL (80-99) Mean Corpuscular Hemoglobin 29.9 PG (27.0-31.0) Mean Corpuscular Hemoglobin Concent 31.3 G/DL (32.0-36.0) L Red Cell Distribution Width 15.1 % (11.6-14.8) H Platelet Count 104 K/UL (150-450) L Mean Platelet Volume 8.6 FL (6.5-10.1) Neutrophils (%) (Auto) 76.9 % (45.0-75.0) H Lymphocytes (%) (Auto) 11.5 % (20.0-45.0) L Monocytes (%) (Auto) 10.3 % (1.0-10.0) H Eosinophils (%) (Auto) 0.4 % (0.0-3.0) Basophils (%) (Auto) 1.0 % (0.0-2.0) Sodium Level 147 mEQ/L (135-145) H Potassium Level 4.5 mEQ/L (3.4-4.9) Chloride Level 103 mEQ/L (98-107) Carbon Dioxide Level 39 mEQ/L (20-30) H Anion Gap 5 (5-15) Blood Urea Nitrogen 81 mg/dL (7-23) H Creatinine 0.9 mg/dL (0.7-1.2) Estimat Glomerular Filtration Rate > 60 mL/min (>60) Glucose Level 113 mg/dL (74-106) H Calcium Level 9.3 mg/dL (8.6-10.2) Magnesium Level 2.1 mg/dL (1.7-2.5) Total Bilirubin 0.3 mg/dL (0.0-1.2) Aspartate Amino Transf (AST/SGOT) 16 U/L (5-40) Alanine Aminotransferase (ALT/SGPT) 18 U/L (3-41) Alkaline Phosphatase 117 U/L (40-129) Pro-B-Type Natriuretic Peptide 36194 pg/mL (0-125) H Total Protein 6.6 g/dL (6.6-8.7) Albumin 2.3 g/dL (3.5-5.2) L Globulin 4.3 g/dL Albumin/Globulin Ratio 0.5 (1.0-2.7) L YEVGENIY GARCIA Aug 19, 2016 10:29"
[2016-08-19 10:49] LABS: ABG ALLEN TEST POSITIVE; ABG BASE EXCESS 12.2; ABG PCO2 63.7 mmHg (35.0-45.0)
[2016-08-19 12:00] VITALS: BP 151/95
--- NOTE | 2016-08-19 12:11 | Neurology Progress Note ---
Interim History Interim History ROS Limited/Unobtainable: Yes Complaints: coma Events: less prominant generalised jercs Objective Physical Exam Last Vital Signs Date Time Temp Pulse Resp B/P Pulse Ox O2 Delivery O2 Flow Rate FiO2 08/19/16 08:38 70 121/79 08/19/16 08:00 96.0 25 100 Venturi Mask 55 08/13/16 19:06 4.0 Laboratory Tests Test 08/19/16 04:00 08/19/16 10:35 White Blood Count 6.3 K/UL (4.8-10.8) Red Blood Count 2.98 M/UL (4.70-6.10) L Hemoglobin 8.9 G/DL (14.2-18.0) L Hematocrit 28.4 % (42.0-52.0) L Mean Corpuscular Volume 95 FL (80-99) Mean Corpuscular Hemoglobin 29.9 PG (27.0-31.0) Mean Corpuscular Hemoglobin Concent 31.3 G/DL (32.0-36.0) L Red Cell Distribution Width 15.1 % (11.6-14.8) H Platelet Count 104 K/UL (150-450) L Mean Platelet Volume 8.6 FL (6.5-10.1) Neutrophils (%) (Auto) 76.9 % (45.0-75.0) H Lymphocytes (%) (Auto) 11.5 % (20.0-45.0) L Monocytes (%) (Auto) 10.3 % (1.0-10.0) H Eosinophils (%) (Auto) 0.4 % (0.0-3.0) Basophils (%) (Auto) 1.0 % (0.0-2.0) Sodium Level 147 mEQ/L (135-145) H Potassium Level 4.5 mEQ/L (3.4-4.9) Chloride Level 103 mEQ/L (98-107) Carbon Dioxide Level 39 mEQ/L (20-30) H Anion Gap 5 (5-15) Blood Urea Nitrogen 81 mg/dL (7-23) H Creatinine 0.9 mg/dL (0.7-1.2) Estimat Glomerular Filtration Rate > 60 mL/min (>60) Glucose Level 113 mg/dL (74-106) H Calcium Level 9.3 mg/dL (8.6-10.2) Magnesium Level 2.1 mg/dL (1.7-2.5) Total Bilirubin 0.3 mg/dL (0.0-1.2) Aspartate Amino Transf (AST/SGOT) 16 U/L (5-40) Alanine Aminotransferase (ALT/SGPT) 18 U/L (3-41) Alkaline Phosphatase 117 U/L (40-129) Pro-B-Type Natriuretic Peptide 77278 pg/mL (0-125) H Total Protein 6.6 g/dL (6.6-8.7) Albumin 2.3 g/dL (3.5-5.2) L Globulin 4.3 g/dL Albumin/Globulin Ratio 0.5 (1.0-2.7) L Arterial Blood pH 7.404 (7.350-7.450) Arterial Blood Partial Pressure CO2 63.7 mmHg (35.0-45.0) *H Arterial Blood Partial Pressure O2 108.9 mmHg (75.0-100.0) H Arterial Blood HCO3 38.9 mmol/L (22.0-26.0) H Arterial Blood Oxygen Saturation 97.5 % (92.0-98.0) Arterial Blood Base Excess 12.2 Vinny Test Positive General: other - ill appearing Head: atraumatic Neurologic Exam Mental Status: other - unresponsive Speech: other Language: other Cranial Nerve II: other Cranial Nerves III, IV, : PERRLA, EOMI, pupils Cranial Nerve V: normal facial sensations Cranial Nerve VII: no facial asymmetry Cranial Nerve VIII: no nystagmus Cranial Nerve IX: other - poor gag Cranial Nerve XI: other Cranial Nerve XII: tongue midline Motor System: other - diffuse rigidity Sensory: other Coordination: other Deep Tendon Reflexes: 0 ankle (L), 0 ankle (R), 0 bicep (L), 0 bicep (R), 0 brachioradialis (L), 0 brachioradialis (R), 0 knee (L), 0 knee (R), 0 tricep (L) , 0 tricep (R) Reflexes: mute plantar (L), mute plantar (R) Impression/Recommendations Problems: (1) severe anoxic/metabolic encephalopathy (2) status epilepticus, burnd out, refractory (3) Coma scale finding of spontaneous eye opening Status: not improved, unchanged, deteriorating Recommendations #[id number] EEG + PLEDs keppra 1000mg bid clonopin 0,5 bid OLGA HERNANDEZ Aug 19, 2016 12:11
[2016-08-19] MEDS: cefTRIAXone 1 GM in D5W 55 ML IVPB SCH (13:21)
[2016-08-19 16:00] VITALS: BP 136/82
--- NOTE | 2016-08-19 17:34 | Pulmonology Progress Note ---
Assessment/Plan Assessment/Plan IMPRESSION: 1. Evidence of pneumonia. 2. Evidence of acute on chronic renal failure . 3. Evidence of transaminitis. 4. Evidence of severe protein-calorie malnutrition. 5. Anemia. 6. Chronic encephalopathy 7. Hypernatremia 8. Azotemia. 9 Respiratory acidosis 10. patchy infiltrates worse on right PLAN respiratory care as is oxygen therapy GT feeds dc to SNF palliative care prognosis poor impression, plan, and exam edited and reviewed in detail care discussed with RN Subjective ROS Limited/Unobtainable: Yes Allergies: Coded Allergies: No Known Allergies (Unverified , 07/02/16) Subjective care noted and reviewed per family they want palliative care Objective Last 24 Hour Vital Signs Date Time Temp Pulse Resp B/P Pulse Ox O2 Delivery O2 Flow Rate FiO2 08/19/16 17:12 79 31 100 Facial 40 08/19/16 16:36 97.6 08/19/16 16:00 97.6 75 25 136/82 100 Bi-pap 35 08/19/16 16:00 73 08/19/16 15:19 71 28 100 Facial 40 08/19/16 13:00 70 27 99 Facial 40 08/19/16 12:00 97.4 69 17 151/95 100 Bi-pap 40 08/19/16 12:00 62 08/19/16 08:38 70 121/79 08/19/16 08:00 96.0 70 25 121/79 100 Venturi Mask 55 08/19/16 08:00 73 08/19/16 04:00 98.4 74 16 138/87 100 Nasal Cannula 08/19/16 04:00 80 08/19/16 00:00 97.6 68 17 157/93 100 Nasal Cannula 08/19/16 00:00 76 08/18/16 21:52 85 22 167/88 100 Nasal Cannula 08/18/16 21:22 85 186/94 08/18/16 20:00 83 08/18/16 20:00 97.7 85 16 186/94 100 Nasal Cannula 08/18/16 20:00 80 Intake and Output 08/18/16 08/19/16 19:00 07:00 Intake Total 992.2 ml 600 ml Output Total 1900 ml 1700 ml Balance -907.8 ml -1100 ml Intake Free Water 120 ml IV Total 392.2 ml Tube Feeding 480 ml 480 ml Other 120 ml Output Urine Total 1900 ml 1700 ml # Bowel Movements 4 2 Objective WDWN poor LOC NAD EOMI reduced breath sounds bilaterally with some rhonchi S1S2 RRR without MRG NABS nontender no HSM; GT no CCE nonfocal and withdrawn skin noted- wounds noted reviewed and edited Laboratory Tests 08/19/16 04:00: White Blood Count 6.3, Red Blood Count 2.98L, Hemoglobin 8.9L, Hematocrit 28.4L , Mean Corpuscular Volume 95, Mean Corpuscular Hemoglobin 29.9, Mean Corpuscular Hemoglobin Concent 31.3L, Red Cell Distribution Width 15.1H, Platelet Count 104L, Mean Platelet Volume 8.6, Neutrophils (%) (Auto) 76.9H, Lymphocytes (%) (Auto) 11.5L, Monocytes (%) (Auto) 10.3H, Eosinophils (%) (Auto ) 0.4, Basophils (%) (Auto) 1.0, Sodium Level 147H, Potassium Level 4.5, Chloride Level 103, Carbon Dioxide Level 39H, Anion Gap 5, Blood Urea Nitrogen 81H, Creatinine 0.9, Estimat Glomerular Filtration Rate > 60, Glucose Level 113H , Calcium Level 9.3, Magnesium Level 2.1, Total Bilirubin 0.3, Aspartate Amino Transf (AST/SGOT) 16, Alanine Aminotransferase (ALT/SGPT) 18, Alkaline Phosphatase 117, Pro-B-Type Natriuretic Peptide 17160X, Total Protein 6.6, Albumin 2.3L, Globulin 4.3, Albumin/Globulin Ratio 0.5L 08/19/16 10:35: Arterial Blood pH 7.404, Arterial Blood Partial Pressure CO2 63.7*H, Arterial Blood Partial Pressure O2 108.9H, Arterial Blood HCO3 38.9H, Arterial Blood Oxygen Saturation 97.5, Arterial Blood Base Excess 12.2, Vinny Test Positive Current Medications Medications (Trade) Dose Ordered Sig/Alex Route PRN Reason Start Time Stop Time Status Last Admin Dose Admin Acetaminophen (Tylenol) 650 mg Q4H PRN GT Mild Pain/Temp > 100.5 08/12/16 20:00 09/11/16 19:59 08/14/16 12:13 Amiodarone HCl 200 mg 200 mg EVERY OTHER DAY GT 08/14/16 09:00 09/13/16 08:59 08/18/16 08:30 Ascorbic Acid (Vitamin C) 500 mg TWICE A DAY GT 08/13/16 09:00 09/12/16 08:59 08/19/16 08:38 Ceftriaxone Sodium/Dextrose (Rocephin/D5W) 55 ml @ 110 mls/hr Q24H IVPB 08/18/16 13:00 08/25/16 12:59 08/19/16 13:21 Chlorhexidine Gluconate (Tabitha-Hex 2%) 1 applic BEDTIME TOPIC 08/18/16 21:00 09/17/16 20:59 08/18/16 21:22 Clonazepam (KlonoPIN) 0.5 mg Q6HR ORAL 08/17/16 13:00 08/24/16 12:59 08/19/16 12:00 Dextrose (Dextrose 50%) STAT PRN IV Hypoglycemia 08/12/16 19:45 09/11/16 19:44 Heparin Sodium (Porcine) (Heparin 5000 units/ml) 5,000 units EVERY 12 HOURS SUBQ 08/12/16 21:00 09/11/16 20:59 08/18/16 21:27 Insulin Aspart (NovoLOG) Q6HR SUBQ 08/13/16 00:00 09/12/16 00:00 08/19/16 12:00 Linezolid 600 mg 600 mg Q12HR GT 08/18/16 21:00 08/23/16 20:59 08/19/16 08:38 Lorazepam (Ativan 2mg/ml 1ml) 1 mg TID PRN IV For Anxiety 08/15/16 08:30 08/22/16 08:29 08/18/16 00:17 Methylprednisolone Sodium Succinate (Solu-MEDROL) 40 mg DAILY IVP 08/17/16 09:00 09/16/16 08:59 08/19/16 08:38 Metoprolol Tartrate (Lopressor) 25 mg Q12HR GT 08/16/16 21:00 09/15/16 20:59 08/19/16 08:38 Morphine Sulfate (Morphine Sulfate) 2 mg Q4H PRN IVP For Pain 4-10 or SOB 08/18/16 08:01 08/25/16 07:59 08/19/16 15:09 Tigecycline/ Dextrose (Tygacil/D5W) 110 ml @ 220 mls/hr Q12HR@0200,1400 IVPB 08/15/16 02:00 08/22/16 01:59 08/19/16 14:00 ESHA BEY Aug 19, 2016 17:34
--- NOTE | 2016-08-20 06:00 | Progress Note ---
DATE: 08/19/2016 CARDIOLOGY PROGRESS NOTE: SUBJECTIVE: The patient's condition failed to improve. Family members are considering hospice care. The patient is noncommunicative, on BiPAP support. OBJECTIVE: VITAL SIGNS: Blood pressure 136/82, heart rate 75, respiratory rate 25, and afebrile. LUNGS: Bilateral breath sounds with rhonchi. HEART: Regular rhythm and rate. Normal S1 and S2. ABDOMEN: Soft. G-tube intact. EXTREMITIES: Dependent edema unchanged. LABORATORY AND DIAGNOSTIC DATA: White count 6.3, hemoglobin 8.9. Sodium 147, potassium 4.5, bicarbonate 39, BUN 81, creatinine 0.9. Pro-natriuretic peptide is over 10,000. Albumin 2.3. IMPRESSION: 1. Multiorgan system failure. 2. Dehydration. 3. Hypernatremia. 4. Acute on chronic diastolic congestive heart failure. 5. Respiratory failure. 6. Contraction alkalosis. 7. Severe protein-calorie malnutrition. 8. Anemia. PLAN: Maximum medical care has been administered. Condition failed to improve. Hospice care is an appropriate alternative in the interim. Hypotonic, IV fluids, respiratory hygiene, antibiotics, and nutritional support by G-tube should be continued. Natalio Wisdom M.D. DR: Ralph JOB#: [id number] CC:
--- NOTE | 2016-08-20 15:02 | Discharge Summary ---
Discharge Summary Hospital Course Date of Admission August 04, 2016 at 20:49 Date of Discharge Aug 19, 2016 at 19:17 Admitting Diagnosis Sepsis HPI Ruben Dixon is a 70 year old male who was admitted on August 04, 2016 at 20: 49 for Sepsis Hospital Course [id number] Discharge Discharge Disposition Patient was discharged to SNF/Subacute Facility(03) Discharge Diagnoses: Simin Matthews NP Aug 20, 2016 15:02
--- NOTE | 2016-08-21 04:31 | Discharge Summary 2 SIG ---
DATE OF ADMISSION: 08/04/2016 DATE OF DISCHARGE: 08/19/2016 CONSULTANTS: 1. Washington Bonner M.D. 2. Jhon Coelho M.D. 3. Natalio Wisdom M.D. 4. Vince Hays M.D. BRIEF HOSPITAL COURSE: The patient is a 70-year-old male with history of encephalopathy, stroke, anemia, dysphagia status post G-tube, transferred from halfway facility for complaints of dehydration and pneumonia. Per nursing staff at the SNF, the patient had been increasingly congested and short of breath and appeared to be more withdrawn and lethargic. On evaluation at ED, the patient was febrile. Chest x-ray was concerning for infiltrates. Laboratories showed a mild anemia. He was admitted for inpatient care and was given oxygen therapy and was started on Zosyn and vancomycin. Blood culture showed growth of staphylococcus. Urine culture with gram-negative rods and enterococcus. Cardiology was consulted. The patient is at high risk to undergo transesophageal echocardiogram secondary to pulmonary status and recommend antibiotic treatment for possible endocarditis. Re-affirmed with family, the patient is DNR. Sputum culture showed growth of Acinetobacter and was given Tygacil and linezolid. Serial x-rays were done. Solu-Medrol was eventually added to the patient's regimen and was placed on BiPAP. Dr. Hays was consulted to evaluate continuous intermittent generalized predominantly neck jerk and head jerking. Issues of ongoing seizure was raised. Similar activities were noted in the last couple of months with multiple EEGs not confirming presence of paroxysmal activities but rather presence of severe encephalopathy. He was started on trial with Keppra 500 mg b.i.d. There was less prominent jerking episodes noted. EEG done showed diffuse slowing with intermittent slow-sharp wave generalized transients with generalized spikes followed by occasional generalized suppression. There was global cerebral dysfunction with generalized epileptiform activity predominantly in the central areas. Keppra was increased to 1000 mg b.i.d. and continued on Klonopin 0.5 mg twice daily. He came in with multiple pressure ulcers. Wound care was rendered. He was eventually weaned off BiPAP and placed on ventimask. [facility] to [facility], [facility] to be set-up at the [facility]. FINAL DIAGNOSES: 1. Sepsis. 2. Acinetobacter and Proteus pneumonia. 3. Staph sepsis possible endocarditis. 4. Vancomycin-resistant enterococci/gram-negative urinary tract infection. 5. Acute respiratory failure. 6. Severe post anoxic encephalopathy. 7. Dysphagia. 8. Acute on chronic renal failure. 9. Severe protein-calorie malnutrition. 10. Respiratory acidosis. 11. Hypernatremia. 12. Acute on chronic diastolic congestive heart failure. 13. Multiorgan system failure. 14. Dehydration. 15. Acute anemia requiring transfusion. 16. Status epilepticus. 17. Diabetes type 2 mellitus. 18. Secondary sinus tachycardia. 19. Paroxysmal atrial fibrillation. 20. Multiple pressure ulcer, present on admission. Jair Carlson M.D. I have been assigned to dictate discharge summary on this account and I was not involved in the patient's management. Simin Matthews N.P. DR: ZACH JOB#: [id number] CC: JOSE E
== END 2016-08-19 19:17 | DRG 871 ==
LOC: EDBD 19:48 → EMR 20:07 → 2E 20:49 → EDBEDREQ 21:03 → 2E 22:48 → 2W 08-12 18:59
DX: A41.1 Sepsis due to other specified staphylococcus (principal); J96.00 Acute respiratory failure, unspecified whether with hypoxia or hypercapnia; I33.0 Acute and subacute infective endocarditis; E43 Unspecified severe protein-calorie malnutrition; J69.0 Pneumonitis due to inhalation of food and vomit; G93.41 Metabolic encephalopathy; L89.014 Pressure ulcer of right elbow, stage 4; J15.6 Pneumonia due to other Gram-negative bacteria; I50.33 Acute on chronic diastolic (congestive) heart failure; L89.524 Pressure ulcer of left ankle, stage 4; L89.154 Pressure ulcer of sacral region, stage 4; L89.613 Pressure ulcer of right heel, stage 3; L89.814 Pressure ulcer of head, stage 4; L89.024 Pressure ulcer of left elbow, stage 4; L89.224 Pressure ulcer of left hip, stage 4; N17.9 Acute kidney failure, unspecified; E87.0 Hyperosmolality and hypernatremia; G93.1 Anoxic brain damage, not elsewhere classified; N39.0 Urinary tract infection, site not specified; I13.0 Hypertensive heart and chronic kidney disease with heart failure and stage 1 through stage 4 chronic kidney disease, or unspecified chronic kidney disease; Z68.1 Body mass index [BMI] 19.9 or less, adult; J44.0 Chronic obstructive pulmonary disease with (acute) lower respiratory infection; R65.20 Severe sepsis without septic shock; R74.0 Nonspecific elevation of levels of transaminase and lactic acid dehydrogenase [LDH]; D64.9 Anemia, unspecified; R13.10 Dysphagia, unspecified; Z93.1 Gastrostomy status; E86.0 Dehydration; E11.22 Type 2 diabetes mellitus with diabetic chronic kidney disease; N18.9 Chronic kidney disease, unspecified; Z79.4 Long term (current) use of insulin; E87.6 Hypokalemia; Z66 Do not resuscitate; Z51.5 Encounter for palliative care; G40.909 Epilepsy, unspecified, not intractable, without status epilepticus; I48.0 Paroxysmal atrial fibrillation; Z86.73 Personal history of transient ischemic attack (TIA), and cerebral infarction without residual deficits
CPT/HCPCS: 36415; 36569; 36600; 71010; 76937; 80048; 80053; 81003; 82550; 82553; 82803; 82962; 83605; 83690; 83735; 83880; 84484; 85007; 85025; 85610; 85730; 86850; 86900; 86901; 86920; 87040; 87070; 87081; 87086; 87181; 87205; 90732; 93005; 93306; 94640; 94660; 94664; 94760; 95819; J1815; J7620